=== PATIENT | female | born 1990 | race Caucasian/White ===

== ENCOUNTER 2023-03-27 07:10 | Outpatient (CLI) | payer OTHER, SELFPAY ==
--- NOTE | 2023-03-27 07:15 | CRLHL7_ITS ---
For Patients: As a result of the Cures Act, medical imaging exams and procedure reports are released immediately into your electronic medical record. You may view this report before your referring provider. If you have questions, please contact your health care provider. INDICATION: First trimester scan, establish dates. COMPARISON: None. TECHNIQUE: Real-time hutson-scale imaging of the pelvis was performed. FINDINGS: Sonographic imaging demonstrates a single living intrauterine gestation. The embryo demonstrates a regular cardiac rate measuring 169 beats per minute. The embryo`s crown-rump length measurement of 1.6 cm corresponds to a gestational age of 8 weeks 0 days with a sonographic due date of 11/06/2023. There is a normal-appearing yolk sac. There are no gross abnormalities noted within the embryo at this early state of development. The gestational sac has a normal appearance. There is no evidence of a perigestational hemorrhage. The amount of fluid within the sac appears appropriate for gestational age. The cervix is closed. The myometrium appears normal. The ovaries are of normal size. Corpus luteal cyst right ovary. There are no suspicious fluid collections noted in the cul-de-sac. IMPRESSION: Normal first trimester OB ultrasound exam. Gestational age calculated at 8 weeks 0 days with a sonographic due date of 11/06/2023. Dictated by Jose Veloz MD @ 03/27/2023 3:55:54 PM (Electronically Signed)
== END 2023-03-27 07:11 | disposition home or self-care (01) ==
LOC: US 07:12
PROVIDERS: Visit Provider Advanced Practice Midwife
DX: Z34.91 Encounter for supervision of normal pregnancy, unspecified, first trimester (principal); Z3A.08 8 weeks gestation of pregnancy
CPT/HCPCS: 76801; 86592; 86703; 86704; 86706; 86762; 86787; 86803; 86850; 86900; 86901; 87340

== ENCOUNTER 2023-03-30 09:30 | Outpatient (CLI) | payer OTHER, SELFPAY | END 2023-03-30 09:31 | disposition home or self-care (01) | LOC: NFLDREF 04-01 10:45 | PROVIDERS: Visit Provider Advanced Practice Midwife | DX: Z86.39 Personal history of other endocrine, nutritional and metabolic disease (principal) | CPT/HCPCS: 84443 ==

== ENCOUNTER 2023-04-10 08:12 | Outpatient (CLI) | payer OTHER, SELFPAY ==
--- NOTE | 2023-04-10 08:15 | CRLHL7_ITS ---
For Patients: As a result of the Century Cures Act, medical imaging exams and procedure reports are released immediately into your electronic medical record. You may view this report before your referring provider. If you have questions, please contact your health care provider. INDICATION: Follow up viability COMPARISON: 03/27/2023 TECHNIQUE: Real-time hutson-scale imaging of the pelvis was performed. FINDINGS: Sonographic imaging demonstrates a single living intrauterine gestation. The embryo demonstrates a regular cardiac rate measuring 166 beats per minute. The embryo`s crown-rump length measurement of 3.2 cm corresponds to a gestational age of 10 weeks 0 days with a sonographic due date of 11/06/2023. There is a normal-appearing yolk sac. There are no gross abnormalities noted within the embryo at this early state of development. The gestational sac has a normal appearance. There is no evidence of a perigestational hemorrhage. The amount of fluid within the sac appears appropriate for gestational age. The cervix is closed. The myometrium appears normal. The ovaries are of normal size. Corpus luteal cyst right ovary. There are no suspicious fluid collections noted in the cul-de-sac. IMPRESSION: Normal first trimester OB ultrasound exam. Gestational age calculated at 10 weeks 0 days with a sonographic due date of 11/06/2023. Dictated by Jose Veloz MD @ 04/10/2023 9:00:41 AM (Electronically Signed)
== END 2023-04-10 08:13 | disposition home or self-care (01) ==
LOC: US 08:13
PROVIDERS: Visit Provider Advanced Practice Midwife
DX: Z34.91 Encounter for supervision of normal pregnancy, unspecified, first trimester (principal); Z3A.10 10 weeks gestation of pregnancy
CPT/HCPCS: 76816

== ENCOUNTER 2023-06-20 11:01 | Outpatient (CLI) | payer OTHER, SELFPAY ==
[2023-06-20] VITALS (8 sets, daily range): BP systolic 94–102; BP diastolic 57; PULSE 94–112; RESP 18; TEMP 36.7; O2SAT 89–100; BMI 24.7
[2023-06-20] MEDS: LACTATED RINGERS 1000 ML 1,000 ML IV (13:30)
[2023-06-20 13:51] LABS: Appearance Urine Clear (Clear); Bilirubin Urine Negative (Negative); Blood Urine Negative (Negative); Color Urine Yellow (Yellow); Glucose Urine Negative (Negative); Ketones Urine Trace (Negative); Leukocyte Esterase Urine Trace (Negative); Nitrite Urine Negative (Negative); Protein Urine Negative (Negative); Specific Gravity Urine 1.025 (1.000-1.030); Urobilinogen Urine 0.2 (0.2-1.0); pH Urine 5.5 (5.0-8.5)
[2023-06-20 14:01] LABS: Amnisure Rom* Negative
[2023-06-20 14:02] LABS: Clue Cells No Clue Cells Seen (None Seen); Trichomonas No Trichomonas Seen (None Seen); Yeast Yeast Seen (None Seen)
[2023-06-20 14:18] LABS: Bacteria Urine Few; RBC Urine 0-2 (0-2); Squamous Epithelial Cell Urine Few (None-Few)
== END 2023-06-20 14:48 | disposition home or self-care (01) ==
LOC: ED 11:37 → OB CLI 11:40 → OB 11:41
PROVIDERS: Emergency Provider Emergency Medicine Emergency Medical Services; Visit Provider Advanced Practice Midwife
DX: O98.512 Other viral diseases complicating pregnancy, second trimester (principal); U07.1 COVID-19; Z3A.21 21 weeks gestation of pregnancy; J02.9 Acute pharyngitis, unspecified; R50.9 Fever, unspecified
CPT/HCPCS: 81003; 81015; 84112; 87086; 87210; 99213; J7120

== ENCOUNTER 2023-06-26 07:19 | Outpatient (CLI) | payer OTHER, SELFPAY ==
--- NOTE | 2023-06-26 07:15 | CRLHL7_ITS ---
For Patients: As a result of the Century Cures Act, medical imaging exams and procedure reports are released immediately into your electronic medical record. You may view this report before your referring provider. If you have questions, please contact your health care provider. INDICATION: Evaluate anatomy. COMPARISON: 04/10/2023 TECHNIQUE: Real time hutson scale imaging of the fetus was performed as well as color Doppler analysis of the umbilical vessels. FINDINGS: Sonographic imaging demonstrates a single living intrauterine gestation. Fetus demonstrates a regular cardiac rate of 150 beats per minute. Fetus has a variable position. The placenta lies posteriorly without evidence of placenta previa. The heads of the placenta is located 4.7 cm from the internal cervical os. Amniotic fluid volume appears normal. Single deepest vertical pocket: 4.3 cm. The cervix is closed and measures 3.8 cm in length. The composite ultrasound gestational age is calculated at 21 weeks 2 days with an estimated sonographic due date of 11/04/2023. The estimated weight is 445 grams which lies at the 82nd %. The following biometric measurements were obtained: Biparietal diameter: 4.9 cm/20 weeks 5 days 39th% Head circumference: 18.6 cm/20 weeks 6 days 37th% Abdominal circumference: 17.4 cm/22 weeks 2 days 83rd% Femur length: 3.6 cm/21 weeks 2 days 50th% The HC/AC ratio measures: 1.07 range (1.06-1.24) On anatomic survey, there is a normal appearance of the cerebral ventricles, cavum septi pellucidi, cisterna magna and cerebellum. The nose, lips, and facial profile appear normal. The cervical, thoracic and lumbar spine are well visualized and appear normal. There is a normal four-chamber heart view and the left and right ventricular outflow tracts appear normal. Echogenic focus is present adjacent to the stomach, image 42/66. This may be associated with the stomach wall. Fat the kidneys and bladder also appear normal. There is a normal three-vessel cord and there is an eccentric cord insertion site with the cord inserting 2.2 cm from the placental edge. The four extremities appear normal. IMPRESSION: Concordance of clinical and sonographic dating. Echogenic focus associated with the stomach wall or located just outside the stomach. Remainder of the anatomic survey is normal. Level 2 ultrasound recommended. Eccentric placental cord insertion 2.2 cm from the placental edge. Dictated by Jose Veloz MD @ 06/26/2023 9:46:15 AM (Electronically Signed)
== END 2023-06-26 07:20 | disposition home or self-care (01) ==
LOC: US 07:20
PROVIDERS: PCP Family Medicine; Visit Provider Advanced Practice Midwife
DX: Z34.92 Encounter for supervision of normal pregnancy, unspecified, second trimester (principal); Z3A.21 21 weeks gestation of pregnancy
CPT/HCPCS: 76805

== ENCOUNTER 2023-08-13 08:09 | Outpatient (CLI) | payer OTHER, SELFPAY | END 2023-08-13 08:10 | disposition home or self-care (01) | PROVIDERS: PCP Family Medicine; Visit Provider Advanced Practice Midwife | DX: O26.891 Other specified pregnancy related conditions, first trimester (principal); Z67.91 Unspecified blood type, Rh negative; E03.9 Hypothyroidism, unspecified | CPT/HCPCS: 84443; 86592; 86850; J2791 ==

== ENCOUNTER 2023-08-26 12:54 | Emergency (ER) | payer OTHER, SELFPAY ==
--- NOTE | 2023-08-26 13:00 | US_ITS ---
Patient: JIA CHU Facility:?[facility] Patient ID:?[id number] Site Patient ID:?[id number]. Site :?[id number] Study:?US-Extremity Right DVT-08/26/2023 1:38:13 PM Ordering Physician:?ED Final Report: INDICATION: Leg pain and swelling. TECHNIQUE: Ultrasound venous duplex lower right extremity. Compression venous exam was performed using hutson-scale, color Doppler, and spectral Doppler analysis. COMPARISON: None. FINDINGS: Deep veins: Sonographic imaging demonstrates the right common femoral, deep femoral, superficial femoral, popliteal, posterior tibial and the contralateral left common femoral veins to be fully compressible with normal color Doppler blood flow. Superficial veins: Greater saphenous vein is fully compressible. No popliteal cyst. IMPRESSION: No DVT in the right lower extremity. Dictated by Eli Morejon MD @ 08/26/2023 1:50:11 PM Signed by:?Eli Morejon MD @08/26/2023 1:50:11 PM (Electronic Signature)
--- NOTE | 2023-08-26 13:03 | ED.GENADULT ---
HPI - General Adult General Chief complaint: Extremity Pain/Injury, Lower Stated complaint: Possible DVT R leg, 29 weeks Time Seen by Provider: 08/26/23 12:59 History of Present Illness HPI narrative: Patient about 29 weeks estimated gestational age with some cramping feeling in her right calf similar to when she had a DVT in the leg before. They simply observed in the past this was due to a fall.. The patient reports that she has last couple days she has had some cramping in her calf. She has good movement, no other complications of . She is Rh negative. She call [facility] triage alert [facility] and she was sent to the ER. She does not notice any swelling of her calf but feels there is a cramping feeling there and was concerned about DVT. No shortness of breath no chest pain. Related Data Home Medications Medication Instructions Recorded Confirmed omeprazole 40 mg capsule,delayed 40 mg PO QAM 03/27/23 08/13/23 release vitamin with calcium 1 tab PO DAILY 03/27/23 08/13/23 no.72-iron 27 mg-folic acid 1 mg tablet ( Vitamins Plus Low Iron) acetaminophen 325 mg capsule 325 mg PO ONCE PRN 06/26/23 08/13/23 acetaminophen-caffeine 500 mg-65 1 tab PO Q12H PRN 06/26/23 08/13/23 mg tablet (Excedrin Tension Headache) sumatriptan succinate 50 mg tablet 50 mg PO Q2H PRN 07/16/23 08/13/23 (Imitrex) Previous Rx's Medication Instructions Recorded metoclopramide HCl 10 mg tablet 10 mg PO Q6-8H PRN headache #14 04/10/23 (Reglan) tabs Allergies Allergy/AdvReac Type Severity Reaction Status Date / Time contact metal agent AdvReac Intermediate Blister Verified 08/13/23 08:28 doxycycline AdvReac Intermediate Gastrointestinal Verified 08/13/23 08:28 Upset nickel AdvReac Intermediate Blister Verified 08/13/23 08:28 Review of Systems Status of ROS: Reports: 6 or more systems reviewed and unremarkable except as noted in History and below [facility] Medical History History of cardiac murmur ?Z86.79 - Personal history of other diseases of the circulatory system (ICD-10) History of depression ?Z86.59 - Personal history of other mental and behavioral disorders (ICD-10) Thyroid dysfunction, ?O99.285 - Endocrine, nutritional and metabolic diseases complicating the puerperium (ICD-10) ?E07.9 - Disorder of thyroid, unspecified (ICD-10) Migraine headache without aura ?G43.009 - Migraine without aura, not intractable, without status migrainosus (ICD-10) History of DVT of lower extremity ?Z86.718 - Personal history of other venous thrombosis and embolism (ICD-10) Surgical History History of cholecystectomy ?Z90.49 - Acquired absence of other specified parts of digestive tract (ICD-10) [place] teeth extracted ?K08.409 - Partial loss of teeth, unspecified cause, unspecified class (ICD-10) Hx of tonsillectomy ?Z90.89 - Acquired absence of other organs (ICD-10) Family History Aunt Breast cancer, Onset Age: 50 Aunt Breast cancer, Onset Age: 50 Father Lung cancer Arthritis Smoker Maternal Grandfather Lung cancer Maternal Grandmother Arthritis Dementia Diabetes Sleep apnea Thyroid disease Mother Sleep apnea Thyroid disease Rheumatoid arthritis Aunt Breast cancer, Onset Age: 40 Thyroid disease Diabetes Depression Paternal Grandfather Prostate cancer Paternal Grandmother Dementia Sister Depression Anesthesia complication Uncle Colon cancer Prostate cancer Rectal cancer Social History Narrative: SOCIAL 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 Unable to assess present due to partner presence. Special Diet: Denies Ok with a blood transfusion: yes Culture or confucianist beliefs: hinduism RISK FACTORS Exercise Times/wk: walks occasionally Depression/Anxiety: history but feels stable at this time OLAF: 8 PHQ 9: 10 Seat Belt Use: Routinely Smoking: Denies past/present Alcohol/day: Denies while Caffeine: occasionally tea Drug Use: Denies past/present. THC gummy's before +UPT Chicken Pox: vaccinated as an adult MRSA: Denies What is your current living situation?: I presently have a place to live Problems where you live: pests, such as bugs, ants, or mice In the past 12 months, utilities in danger of being shut off: no In past 12 months, lack of transportation kept you from medical appts, meetings, work, or getting things needed for daily living: no In the past 12 mos, have been you worried that your food would run out before you had money to buy more?: never true In the past 12 mos, the food you bought just didn't last and you didn't have money to buy more?: never true Smoking Status: Never smoker Do you use any of these nicotine containing products: None Second hand tobacco smoke exposure: No How often do you have a drink containing alcohol: monthly or less How many standard drinks containing alcohol do you have on a typical day: 1 or 2 How often do you have six or more drinks on one occasion: Never AUDIT-C Alcohol total score: 1 Non-prescribed substance use: denies use How often does anyone, including family, friends and others, physically hurt you: never How often does anyone, including family, friends and others, insult or talk down to you: rarely How often does anyone, including family, friends and others, threaten you with harm: never How often does anyone, including family, friends and others, scream or curse at you: sometimes Little interest or pleasure in doing things: not at all Feeling down, depressed, or hopeless: not at all service: No Exam Narrative: Exam Narrative: Objective: The patient's alert orient x, noncyanotic Pulses regular lower extremities show no swelling of the calf no give Homans sign bilaterally no palpable venous cords in the calf on the right. Does not appear to be swollen, no swelling about the foot or ankle Const: Vital Signs, click to edit/add: Vital Signs - 24 hr 08/26/23 13:04 Temperature 98.1 F Pulse Rate [Pulse Oximeter] 87 Respiratory Rate 18 Blood Pressure [Ri ght Upper Arm] 111/69 Pulse Oximetry 97 Oxygen Delivery Me thod Room Air Course Vital Signs Vital signs: Initial Vital Signs Temperature 98.1 F 08/26/23 13:04 Temperature Source Temporal Artery Scan 08/26/23 13:04 Pulse Rate 87 08/26/23 13:04 Pulse Rhythm Regular 08/26/23 13:04 Respiratory Rate 18 08/26/23 13:04 Blood Pressure 111/69 08/26/23 13:04 Blood Pressure Mean 83 08/26/23 13:04 Blood Pressure Position Supine 08/26/23 13:04 Pulse Oximetry 97 08/26/23 13:04 Oxygen Delivery Method Room Air 08/26/23 13:04 Vital Signs Temperature 98.1 F 08/26/23 13:04 Pulse Rate 87 08/26/23 13:04 Respiratory Rate 18 08/26/23 13:04 Blood Pressure 111/69 08/26/23 13:04 Pulse Oximetry 97 08/26/23 13:04 Oxygen Delivery Method Room Air 08/26/23 13:04 Temperature 98.1 F 08/26/23 13:04 Pulse Rate 87 08/26/23 13:04 Respiratory Rate 18 08/26/23 13:04 Blood Pressure 111/69 08/26/23 13:04 Pulse Oximetry 97 08/26/23 13:04 Oxygen Delivery Method Room Air 08/26/23 13:04 Medical Decision Making MDM Narrative Medical decision making narrative: ER course: The patient will get an ultrasound of her right lower extremity measures and have a DVT. In the past she simply had this observed and it resolved. At this time I would recommend simply checking an ultrasound and then disposition pending findings. She was comfortable this plan. She has no problem with movement no vaginal bleeding or discharge no abdominal cramping. Just basically the cramp in the the calf on the right. Addendum 1:30 p.m.: There is no evidence of DVT on the right lower extremity ultrasound. Recommend stretching Tylenol as needed, follow-up with Ob per regular plan, return if problems or concerns. Discharge Plan Discharge Clinical Impression: Pain of right calf, Patient Disposition: Home, Self-Care Condition: Stable Additional Instructions: Recheck with OB as you had plan, walking and stretching would be good, Tylenol as needed. Return to the ED if problems concerns swelling of the leg or other concern such as difficulty breathing or chest pain. Activity Level: Light activity Discharge Diet: Regular Prescriptions: No Action omeprazole 40 mg capsule,delayed release(DR/EC) 40 mg PO QAM Vitamin Plus Low Iron 27 mg iron- 1 mg tablet 1 tab PO DAILY acetaminophen 325 mg capsule 325 mg PO ONCE PRN Excedrin Tension Headache 500-65 mg tablet 1 tab PO Q12H PRN sumatriptan succinate [Imitrex] 50 mg tablet 50 mg PO Q2H PRN metoclopramide HCl [Reglan] 10 mg tablet 10 mg PO Q6-8H PRN (Reason: headache) Qty: 14 0RF Rx Instructions: Take 10mg every 6-8 hours with Tylenol as needed for headaches. Follow Up/Referrals: Fidelina Bar MD [Primary Care Provider] - Stand Alone [facility]: [facility] Info Instructions
[2023-08-26 13:04] VITALS: BP 111/69; PULSE 87; RESP 18; TEMP 36.7; O2SAT 97; BMI 26.6
== END 2023-08-26 13:45 | disposition home or self-care (01) ==
PROVIDERS: Emergency Provider Family Medicine; PCP Family Medicine
DX: M79.604 Pain in right leg (principal); Z33.1 Pregnant state, incidental
CPT/HCPCS: 93971; 99284

== ENCOUNTER 2023-08-27 09:08 | Emergency (ER) | payer OTHER, SELFPAY ==
[2023-08-27 09:15] VITALS: BP 112/58; PULSE 81; RESP 18; TEMP 36.4; O2SAT 96; BMI 27.3
--- NOTE | 2023-08-27 09:59 | ED_ITS ---
HPI - General Adult General Date Seen: 08/27/23 Chief complaint: Extremity Pain/Injury, Lower Stated complaint: Possible DVT R leg, 29 weeks Time Seen by Provider: 08/27/23 09:15 Source: patient Mode of arrival: ambulatory Limitations: no limitations History of Present Illness HPI narrative: Patient is a 32-year-old woman, she is with her 3rd . About 5 years ago she says that she had a diagnosis of DVT in the right calf. She had had a fall around the same time, had some isolated calf pain. She says that she had an ultrasound done at [place], but says that they did not look at all the small side veins, only the main system, and the DVT was missed on the 1st ultrasound. She has had pain in her right calf for couple of days, was here yesterday and had a normal exam, normal ultrasound. She has not had any swelling or redness, fevers, difficulty breathing. She says she talked to her nurse sterilization specialist today and relayed her previous experience and was told to come back and get a more thorough ultrasound. She was not anticoagulated for her previous clot, it resolved without treatment. She has not had any problems with DVT with prior pregnancies. She has no history of miscarriages. She does not smoke. Related Data Home Medications Medication Instructions Recorded Confirmed omeprazole 40 mg capsule,delayed 40 mg PO QAM 03/27/23 08/27/23 release vitamin with calcium 1 tab PO DAILY 03/27/23 08/27/23 no.72-iron 27 mg-folic acid 1 mg tablet ( Vitamins Plus Low Iron) acetaminophen 325 mg capsule 325 mg PO ONCE PRN 06/26/23 08/27/23 acetaminophen-caffeine 500 mg-65 1 tab PO Q12H PRN 06/26/23 08/27/23 mg tablet (Excedrin Tension Headache) sumatriptan succinate 50 mg tablet 50 mg PO Q2H PRN 07/16/23 08/27/23 (Imitrex) Previous Rx's Medication Instructions Recorded metoclopramide HCl 10 mg tablet 10 mg PO Q6-8H PRN headache #14 04/10/23 (Reglan) tabs Allergies Allergy/AdvReac Type Severity Reaction Status Date / Time contact metal agent AdvReac Intermediate Blister Verified 08/13/23 08:28 doxycycline AdvReac Intermediate Gastrointestinal Verified 08/13/23 08:28 Upset nickel AdvReac Intermediate Blister Verified 08/13/23 08:28 Review of Systems Status of ROS: Reports: 6 or more systems reviewed and unremarkable except as noted in History and below [facility] Medical History History of cardiac murmur ?Z86.79 - Personal history of other diseases of the circulatory system (ICD- 10) History of depression ?Z86.59 - Personal history of other mental and behavioral disorders (ICD-10) Thyroid dysfunction, ?O99.285 - Endocrine, nutritional and metabolic diseases complicating the puerperium (ICD-10) ?E07.9 - Disorder of thyroid, unspecified (ICD-10) Migraine headache without aura ?G43.009 - Migraine without aura, not intractable, without status migrainosus (ICD-10) History of DVT of lower extremity ?Z86.718 - Personal history of other venous thrombosis and embolism (ICD-10) Surgical History History of cholecystectomy ?Z90.49 - Acquired absence of other specified parts of digestive tract (ICD- 10) [place] teeth extracted ?K08.409 - Partial loss of teeth, unspecified cause, unspecified class (ICD- 10) Hx of tonsillectomy ?Z90.89 - Acquired absence of other organs (ICD-10) Family History Aunt Breast cancer, Onset Age: 50 Aunt Breast cancer, Onset Age: 50 Father Lung cancer Arthritis Smoker Maternal Grandfather Lung cancer Maternal Grandmother Arthritis Dementia Diabetes Sleep apnea Thyroid disease Mother Sleep apnea Thyroid disease Rheumatoid arthritis Aunt Breast cancer, Onset Age: 40 Thyroid disease Diabetes Depression Paternal Grandfather Prostate cancer Paternal Grandmother Dementia Sister Depression Anesthesia complication Uncle Colon cancer Prostate cancer Rectal cancer Social History Narrative: SOCIAL 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 Unable to assess present due to partner presence. Special Diet: Denies Ok with a blood transfusion: yes Culture or scientology beliefs: voodoo RISK FACTORS Exercise Times/wk: walks occasionally Depression/Anxiety: history but feels stable at this time OLAF: 8 PHQ 9: 10 Seat Belt Use: Routinely Smoking: Denies past/present Alcohol/day: Denies while Caffeine: occasionally tea Drug Use: Denies past/present. THC gummy's before +UPT Chicken Pox: vaccinated as an adult MRSA: Denies What is your current living situation?: I presently have a place to live Problems where you live: pests, such as bugs, ants, or mice In the past 12 months, utilities in danger of being shut off: no In past 12 months, lack of transportation kept you from medical appts, meetings, work, or getting things needed for daily living: no In the past 12 mos, have been you worried that your food would run out before you had money to buy more?: never true In the past 12 mos, the food you bought just didn't last and you didn't have money to buy more?: never true Smoking Status: Never smoker Do you use any of these nicotine containing products: None Second hand tobacco smoke exposure: No How often do you have a drink containing alcohol: monthly or less How many standard drinks containing alcohol do you have on a typical day: 1 or 2 How often do you have six or more drinks on one occasion: Never AUDIT-C Alcohol total score: 1 Non-prescribed substance use: denies use How often does anyone, including family, friends and others, physically hurt you : never How often does anyone, including family, friends and others, insult or talk down to you: rarely How often does anyone, including family, friends and others, threaten you with harm: never How often does anyone, including family, friends and others, scream or curse at you: sometimes Little interest or pleasure in doing things: not at all Feeling down, depressed, or hopeless: not at all service: No Exam Narrative: Exam Narrative: Vital signs reviewed In general, alert, well-appearing Woman. She is breathing easily. Extremities: Isolated tenderness right mid calf, no edema, erythema, distal CMS intact. Const: Vital Signs, click to edit/add: Vital Signs - 24 hr 08/27/23 09:15 Temperature 97.6 F Pulse Rate [Pulse Oximeter] 81 Respiratory Rate 18 Blood Pressure [Ri ght Upper Arm] 112/58 L Pulse Oximetry 96 Oxygen Delivery Me thod Room Air Documenting provider has reviewed patient's vital signs: yes Course Course ED Course: I reviewed the patient's note from yesterday, reviewed the images from her ultrasound, and spoke with security technician. The scan from yesterday was done in standard fashion, all areas of the deep system were visualized and were negative for DVT. I have discussed all of this with the patient. I do not think there is any value in repeating an ultrasound today as it will be identical to yesterday's. I do think that given her history it would be reasonable to repeat a scan in a week or so to make sure that anything tiny that she might have has not propagated. She is very comfortable with that plan, would prefer to go home as quickly as possible as she did not want come back to the ER today. I do think very follow-up ultrasound can be done as an outpatient. Will ask her nurse sterilization specialist to arrange for that. If her symptoms resolve, she can cancel that test. If she has acute worsening, has significant swelling or redness of the leg, fevers, chest pain shortness of breath etcetera, return any time to the emergency department. Vital Signs Vital signs: Initial Vital Signs Temperature 97.6 F 08/27/23 09:15 Temperature Source Temporal Artery Scan 08/27/23 09:15 Pulse Rate 81 08/27/23 09:15 Respiratory Rate 18 08/27/23 09:15 Blood Pressure 112/58 L 08/27/23 09:15 Blood Pressure Mean 76 08/27/23 09:15 Blood Pressure Position Standing 08/27/23 09:15 Pulse Oximetry 96 08/27/23 09:15 Oxygen Delivery Method Room Air 08/27/23 09:15 Vital Signs Temperature 97.6 F 08/27/23 09:15 Pulse Rate 81 08/27/23 09:15 Respiratory Rate 18 08/27/23 09:15 Blood Pressure 112/58 L 08/27/23 09:15 Pulse Oximetry 96 08/27/23 09:15 Oxygen Delivery Method Room Air 08/27/23 09:15 Temperature 97.6 F 08/27/23 09:15 Pulse Rate 81 08/27/23 09:15 Respiratory Rate 18 08/27/23 09:15 Blood Pressure 112/58 L 08/27/23 09:15 Pulse Oximetry 96 08/27/23 09:15 Oxygen Delivery Method Room Air 08/27/23 09:15 Discharge Plan Discharge Clinical Impression: Right calf pain Patient Disposition: Home, Self-Care Condition: Stable Instructions: Leg Pain (ED) Additional Instructions: Follow-up for outpatient Doppler exam in about a week if symptoms persist. If your symptoms resolve you can cancel this test. Try ice or heat to this area, Tylenol. For significant worsening, new symptoms such as swelling, redness, fever, chest pain or shortness of breath return to the emergency department. Prescriptions: No Action omeprazole 40 mg capsule,delayed release(DR/EC) 40 mg PO QAM Vitamin Plus Low Iron 27 mg iron- 1 mg tablet 1 tab PO DAILY acetaminophen 325 mg capsule 325 mg PO ONCE PRN Excedrin Tension Headache 500-65 mg tablet 1 tab PO Q12H PRN sumatriptan succinate [Imitrex] 50 mg tablet 50 mg PO Q2H PRN metoclopramide HCl [Reglan] 10 mg tablet 10 mg PO Q6-8H PRN (Reason: headache) Qty: 14 0RF Rx Instructions: Take 10mg every 6-8 hours with Tylenol as needed for headaches. Follow Up/Referrals: Fidelina Bar MD [Primary Care Provider] - Stand Alone Forms: [employer] Info Instructions
== END 2023-08-27 10:08 | disposition home or self-care (01) ==
PROVIDERS: Emergency Provider Emergency Medicine; PCP Family Medicine
DX: M79.661 Pain in right lower leg (principal); Z3A.29 29 weeks gestation of pregnancy
CPT/HCPCS: 99283; 99284

== ENCOUNTER 2023-10-08 11:00 | Outpatient (CLI) | payer OTHER, SELFPAY | END 2023-10-08 11:01 | disposition home or self-care (01) | LOC: NFLDREF 10-09 05:51 | PROVIDERS: PCP Family Medicine; Referring Provider Family Medicine; Visit Provider Advanced Practice Midwife | DX: O35.DXX0 Maternal care for other (suspected) fetal abnormality and damage, fetal gastrointestinal anomalies, not applicable or unspecified (principal) | CPT/HCPCS: 82565; 82570; 84156; 84450; 84460; 84520; 87081; 87653 ==

== ENCOUNTER 2023-10-12 14:18 | Outpatient (CLI) | payer OTHER, SELFPAY | END 2023-10-12 14:19 | disposition home or self-care (01) | LOC: NFLDREF 10-22 12:56 | PROVIDERS: PCP Family Medicine; Referring Provider Family Medicine; Visit Provider Advanced Practice Midwife | DX: R79.89 Other specified abnormal findings of blood chemistry (principal) | CPT/HCPCS: 82565; 82570; 84156; 84443; 84450; 84460; 84520 ==

== ENCOUNTER 2023-10-15 21:20 | Outpatient (CLI) | payer OTHER, SELFPAY ==
[2023-10-15 21:46] VITALS: BP 104/60; PULSE 80
[2023-10-15 22:02] VITALS: BP 108/68; PULSE 83
[2023-10-15 22:03] LABS: Total Protein Urine 7 mg/dL
[2023-10-15 22:05] LABS: Creatinine Urine 45.6 mg/dL
[2023-10-15 22:16] VITALS: BP 101/65; PULSE 85
[2023-10-15 22:22] LABS: Appearance Urine Clear (Clear); Bilirubin Urine Negative (Negative); Blood Urine Negative (Negative); Color Urine Yellow (Yellow); Glucose Urine Negative (Negative); Ketones Urine 2+ (Negative); Leukocyte Esterase Urine 1+ (Negative); Nitrite Urine Negative (Negative); Protein Urine Negative (Negative); Specific Gravity Urine 1.015 (1.000-1.030); Urobilinogen Urine 0.2 (0.2-1.0); pH Urine 5.5 (5.0-8.5)
[2023-10-15 22:28] LABS: Creatinine* 0.6 mg/dL (0.5-1.5); Estimated Glomerular Filt Rate 121 ml/min; Hematocrit 36.3 % (33.0-51.0); Hemoglobin* 12.5 gm/dL (12.0-16.0); Mean Corpuscular HGB Conc 34 gm/dL (32-36); Mean Corpuscular Hemoglobin 33 pg (26-34); Mean Corpuscular Volume 96 fL (80-100); Platelet Count* 204 K/uL (140-440); White Blood Count* 11.96 K/uL (4.50-11.00)
[2023-10-15 22:29] LABS: Alanine Aminotransferase* 45 U/L (4-35); Aspartate Amino Transferase* 33 U/L (12-35); Blood Urea Nitrogen* 16 mg/dL (5-24)
[2023-10-15 22:31] VITALS: BP 105/67; PULSE 89
[2023-10-15 22:40] LABS: Amorphous Sediment Urine Few; Bacteria Urine Moderate; Squamous Epithelial Cell Urine Moderate (None-Few)
[2023-10-15 22:42] LABS: Slide Review Reflex No
[2023-10-15 22:46] VITALS: BP 102/65; PULSE 77
--- NOTE | 2023-10-15 23:42 | US_ITS ---
Patient: JIA CHU Facility:?[facility] Patient ID:?[id number] Site Patient ID:?[id number]. Site :?1990 Study:?US-Abdomen RUQ-10/16/2023 12:44:29 AM Ordering Physician:TYRELL CHANEY Final Report: INDICATION: Right upper quadrant abdomen pain. TECHNIQUE: Ultrasound abdomen limited. Sonographic images of the right upper quadrant were obtained using hutson-scale and color Doppler images. COMPARISON: None. FINDINGS: Liver: Normal in size and echotexture. No suspicious masses. No intrahepatic biliary dilatation. Gallbladder: Absent Common bile duct: 4 mm. Pancreas: Partially visualized, unremarkable. Right kidney: Normal in size. Normal echotexture and cortex. No suspicious masses, stones. Mild to moderate hydronephrosis. IMPRESSION: 1. Status post cholecystectomy. 2. Mild to moderate right hydronephrosis. Dictated by Eli Morejon MD @ 10/16/2023 12:58:54 AM Signed by:?Eli Morejon MD @10/16/2023 12:58:54 AM (Electronic Signature)
[2023-10-16 00:52] VITALS: BP 101/59; PULSE 76
--- NOTE | 2023-10-16 00:53 | P.OBLDTN_ITS ---
OB - Triage/Final Diagnosis Visit Information Date Seen: 10/15/23 Date of evaluation: 10/15/23 Narrative: The patient is a 33 year old 3 para 2 at 36.6 weeks gestation by first trimester ultrasound, who presents with right rib and flank pain, dizziness and blurry vision. She previously had elevated LFT's but no protein in her urine. On admission to triage her blood pressures are all low 100-110/60-70's. Repeat labs are WNL with decreasing AST and ALT. UA is suspicious for kidney stones with blood and sediment seen. She denies UTI symptoms other than frequency but she is unsure if this is just related. She has been able to push oral fluids while here. Consult with Dr. Hobbs by phone and she suggested ultrasound of RUQ and right kidney. Bedside US done of RUQ and right kidney, per tech shows signs of hydronephrosis. Unable to visualize any stones although view is limited by . She has had her gallbladder removed in the past. She has had regular contractions while monitored, but is not aware of all of them and denies increasing intensity. Reason for evaluation: other Evaluation Cervical dilation (cm): 1 Cervical effacement (%): 50 Laboratory results: Laboratory Tests 10/15/23 10/15/23 10/15/23 Range/Units 22:04 21:58 21:35 WBC 11.96 H (4.50-11.00) K/uL RBC 3.80 L (4.00-5.20) m/uL Hgb 12.5 (12.0-16.0) gm/dL Hct 36.3 (33.0-51.0) % MCV 96 (80-100) fL MCH 33 (26-34) pg MCHC 34 (32-36) gm/dL Plt Count 204 (140-440) K/uL BUN 16 (5-24) mg/dL Creatinine 0.6 (0.5-1.5) mg/dL Estimated GFR 121 ml/min AST 33 (12-35) U/L ALT 45 H (4-35) U/L Urine Color Yellow (Yellow) Urine Appearance Clear (Clear) Urine pH 5.5 (5.0-8.5) Ur Specific [place] 1.015 (1.000-1.030) Urine Protein Negative (Negative) Urine Glucose (UA) Negative (Negative) Urine Ketones 2+ A (Negative) Urine Blood Negative (Negative) Urine Nitrite Negative (Negative) Urine Bilirubin Negative (Negative) Urine Urobilinogen 0.2 (0.2-1.0) Ur Leukocyte Esterase 1+ A (Negative) Urine RBC 2-5 A (0-2) Urine WBC 2-5 (0-5) Ur Squamous Epith Cells Moderate A (None-Few) Amorphous Sediment Few A (None) Urine Bacteria Moderate A (None) Urine Creatinine 45.6 mg/dL Protein/Creatinin Ratio 0.10 (0-0.19) Urine Total Protein 7 mg/dL Vital signs: Vital Signs - 24 hr 10/15/23 21:46 10/15/23 22:02 10/15/23 22:16 Pulse Rate 80 83 85 Blood Pressure 104/60 108/68 101/65 10/15/23 22:31 10/15/23 22:46 10/16/23 00:52 Pulse Rate 89 77 76 Blood Pressure 105/67 102/65 101/59 L Fetus (Single) Heart Rate Baseline: 135 Retail Route Supervisor Variability: Moderate (6-25) Monitor Accelerations: Present Monitor Decelerations: None Station: -3 Final Diagnosis (1) Kidney stone complicating : Status: Acute Problem details: at 37 wks with kidney stones and hydronephrosis Discharge home with infection precautions and instructed to return if pain is worsening and not managed well with Tylenol, ice, heat and relaxation. Will call with urine culture results if needing antibiotic treatment. Pt to push oral hydration at home. Routine Preeclampsia precautions given, pt verbalized understanding. Return to clinic next week.
[2023-10-16 01:09] VITALS: TEMP 36.4
--- NOTE | 2023-10-16 01:36 | PC.OBNST ---
NST Note NST Note Start: 10/15/23 21:33 Freq: ONCE Status: Active Protocol: Document 10/16/23 01:34 HCR (Rec: 10/16/23 01:36 HCR [id number]) NST Note 3 Para (# of births) 2 EDC 11/06/23 Gestational Age In Weeks & Days 37 Weeks & 0 Days High Risk Factors History of Labor/ Delivery Patient Presented with Complaint(s) of Headache Other Complaints RUQ pain, flank pain, hazy vision, KELLEY, chest heaviness Reactive Yes Appropriate for Gestational Age Yes SALAZAR Macias, SALAZAR Date 10/16/23 Reactive Yes Appropriate for Gestational Age Yes SALAZAR Saab RN Date 10/16/23 OB NST charge Yes Complete NST Note via Write Note Yes The provider's electronic signature indicates the NST is reactive/appropriate for gestational age. *Note to provider: If an addendum is required, open the patient's chart and click on the note under the Nurse/Allied Health tab.
== END 2023-10-16 01:15 | disposition home or self-care (01) ==
LOC: OB OUT 21:20 → OB 21:21
PROVIDERS: PCP Family Medicine; Visit Provider Advanced Practice Midwife
DX: O26.839 Pregnancy related renal disease, unspecified trimester (principal); O99.891 Other specified diseases and conditions complicating pregnancy; N13.30 Unspecified hydronephrosis; N20.0 Calculus of kidney; R10.11 Right upper quadrant pain; Z3A.00 Weeks of gestation of pregnancy not specified
CPT/HCPCS: 36415; 59025; 76705; 81001; 81003; 82565; 82570; 84156; 84450; 84460; 84520; 85027; 87086; G0463

== ENCOUNTER 2024-08-08 19:18 | Emergency (ER) | payer OTHER, BC, SELFPAY ==
[2024-08-08 19:20] VITALS: BP 102/71; PULSE 85; RESP 16; TEMP 36.2; O2SAT 99
--- OUTSIDE RECORDS SUMMARY | 2024-08-08 19:20 | XMS_ITS | Encounter Summary ---
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 Social History Tobacco Use Types Packs/Day Years Used Date Smoking Tobacco: Never Smokeless Tobacco: Never Alcohol Use Standard Drinks/Week Comments No 0 (1 standard drink = 0.6 oz pur e alcohol) Sex and Gender Information Value Date Recorded Sex Assigned at Not on file Gender Identity Not on file Sexual Orientation Not on file documented as of this encounter Plan of Treatment Not on file documented as of this encounter Visit Diagnoses Not on filedocumented in this encounter Care Teams Produce Buyer Relationship Specialty Start Date End Date Martell Ortega MD [address] [place], [place] [phone] PCP - General 06/29/23 documented as of this encounter
--- OUTSIDE RECORDS SUMMARY | 2024-08-08 19:20 | XMS_ITS | Encounter Summary ---
Author Organization [facility] Address [address] [place] [address] Care Team Providers Care Bundle Shaker Name Role Phone Fidelina Bar M.D. Primary Care Provider [phone] Reason for Visit * Reason Onset Date Comments Fatigue 06/30/2024 Dizziness 06/30/2024 Nausea 06/30/2024 Blurred Vision 06/30/2024 Encounter Details Date Type Department Care Team (Late st Contact Info) Description 06/30/2024 Nurse Triage Department of Family Medicine, [facility], in [address] [phone] Yeimy Hay RGhassan. [address] [place] [phone] Fatigue; Dizziness; Nausea; Blurred Vision Social History Tobacco Use Types Packs/Day Years Used Date Smoking Tobacco: Never Smokeless Tobacco: Never Alcohol Use Standard Drinks/Week Comments Not Currently 0 (1 standard drink = 0.6 oz pur e alcohol) occasional Humiliation, Afraid, Rape, and Kick questionnair e Answer Date Recorded Within the last year, have y ou been afraid of your partner or ex-partner? No 02/03/2022 Within the last year, have y ou been humiliated or emotionally abused in other ways by your partner or ex-partner? No Within the last year, have y ou been kicked, hit, slapped, or otherwise physically hurt by your partner or ex-partner? No 02/03/2022 Within the last year, have y ou been raped or forced to have any kind of sexual activity by your partner or ex-partner? No 02/03/2022 Social Connection and Isolat ion Panel [NHANES] Answer Date Recorded In a typical week, how many times do you talk on the phone with family, friends, or neighbors? More than three times a week 02/03/2022 How often do you get togethe r with friends or relatives? Once a week 02/03/2022 How often do you attend chur or methodist services? 1 to 4 times per year 02/03/2022 Do you belong to any clubs o r organizations such as mormon groups, unions, fraternal or athletic groups, or school groups? Yes 02/03/2022 How often do you attend meet ings of the clubs or organizations you belong to? More than 4 times per year 02/03/2022 Are you , , di vorced, , never , or living with a partner? 02/03/2022 AUDIT-C Answer Date Recorded Q1: How often do you have a drink containing alc ohol? 2-4 times a month 02/03/2022 Q2: How many drinks containi ng alcohol do you have on a typical day when you are drinking? 1 or 2 02/03/2022 Q3: How often do you have si x or more drinks on one occasion? Monthly 02/03/2022 Overall Financial Resource Strain (CARDIA) Answe r Date Recorded How hard is it for you to pa y for the very basics like food, housing, medical care, and heating? Somewhat hard 03/10/2023 PHQ-2 Answer Date Recorded PHQ-2 Score 0 12/18/2022 [facility] - Occupational Stress Questionnaire Answer Date Recorded Do you feel stress - tense, restless, nervous, or anxious, or unable to sleep at night because your mind is troubled all the time - these days? Rather much 02/03/2022 Exercise Vital Sign Answer Date Recorde d On average, how many days pe r week do you engage in moderate to strenuous exercise (like a brisk walk)? 3 days 03/10/2023 On average, how many minutes do you engage in exercise at this level? 0 min 03/10/2023 Hunger Vital Sign Answer Date Recorded Within the past 12 months, y ou worried that your food would run out before you got the money to buy more. Never true 03/10/20 Within the past 12 months, t he food you bought just didn't last and you didn't have money to get more. Never true 03/10/2023 PRAPARE - Transportation Answer Date Re corded In the past 12 months, has l ack of transportation kept you from medical appointments or from getting medications? No 02/27 In the past 12 months, has l ack of transportation kept you from meetings, work, or from getting things needed for daily living? No 03/10/2023 Depression Answer Date Recor ded PHQ-9 Total Score (max 27) 7 09/17 Nutrition Answer Date Recorded On average, how many serving s of fruits and vegetables do you eat per day (serving size is equal to 1 cup or approximately the size of a tennis ball)? 5 or more 03/10/2023 Dental Answer Date Recorded Dental: Regular Dentist Yes 02/04/20 Employment Answer Date Recorded Employment status Unemployed/not in th e paid workforce but seeking employment 03/10/2023 Housing Stability Answer Date Recorded What is your living situation today? I have a [facility] place to live 03/10/2023 Education Answer Date Recorded What is the highest level of school you have completed or the highest degree you have received? Bachelor's degree (e.g., BA, AB, BS) 07/05/2020 Comments Unknown Sex and Gender Information Value Date Recorded Sex Assigned at Female 02/16/2018 3:57 PM CDT Legal Sex Female 9:01 AM PONY RIDE OPERATOR Gender Identity Female 02/16/2018 3:57 PM CDT Sexual Orientation Straight 02/16/2018 3: 57 PM CDT documented as of this encounter Miscellaneous Notes * Telephone Encounter - Yeimy Hay R.N. - 06/30/2024 11:06 AM CST Chief Complaint / Reason for Call Patient is a 33 y.o. female calling regarding Fatigue, Dizziness, Nausea, and Blurred Vision. Assessment Concern: Patient with dizziness, fatigue, nausea, and some blurry vision. She states the dizziness is the symptom most bothersome to her. They have 2 carbon monoxide detectors in the home. She notes that her and children are home with her, and no one else has any of these symptoms. See protocol flowsheet for pertinent negatives. Present for: Less than 24 hours. Home cares tried: None. Calling to request: Schedule an appointment. The recommended disposition is See a health care provider within 24 hours. Patient was warm transferred toTara, Patient Appointment Political Science Instructor at the clinic for further assistance. If clinic appointment is not available in the next 24 hours, caller is advised to be seen in emergency department. Reason for Disposition [1] MODERATE dizziness (e.g., interferes with normal activities) AND [2] has NOT been evaluated by doctor (or SCHOOL LEADER/PA) for this (Exception: Dizziness caused by heat exposure, sudden standing, or poor fluid intake.) Protocols used: Dizziness - [id number] Care Advice Patient/Caregiver understands and will follow care advice?: Yes, able to teach back Dizziness - [id number] Nurse Yeimy Gates Jun 30, 2024 11:19 AM Care Advice DRINK FLUIDS: * Drink several glasses of fruit juice, other clear fluids or water. * This will improve hydration and blood sugar levels. * If the weather is hot or you have a fever, make sure the fluids are cold. LIE DOWN AND REST: * Lie down with feet elevated for 1 hour. * This will improve blood flow through the body and to the brain. SEE PCP WITHIN 24 HOURS RIDE OPERATOR documented in this encounter Plan of Treatment Not on file documented as of this encounter Visit Diagnoses Not on filedocumented in this encounter Additional Health Concerns Assessment Noted Time PHQ-9 Depression Total Score: 7 09/18/19 21 12:16 PM CDT documented as of this encounter Care Teams Bundle Shaker Relationship Specialty Start Date End Date Fidelina Bar M.D. SENI: [phone] [id number] [phone] PCP - General Family Medicine 09/07/20 documented as of this encounter
--- OUTSIDE RECORDS SUMMARY | 2024-08-08 19:20 | XMS_ITS | Clinical Summary ---
Author Organization [facility] Address [address] [place] [address] Care Team Providers Care Supervisor Corduroy Cutting Name Role Phone Martell Ortega MD Primary Care Provider [phone] Source Comments You are receiving this document as you are listed as the primary care provider,follow-up provider, or the patient has been referred to you for consultation.This is in compliance with the Medicare and[facility] EHR Incentive Program,which states Providers who transition their patient to another setting of careor provider of care or refers their patient to another provider of care shouldprovide summary care record for each transition of care or referral. [facility] Allergies Active Allergy Reactions Criticality Noted Date Comments Cat Dander Itching,Edema,genera lized 01/05/2018 Cat dander Contact Metal Agent Other, see comments High 024 rash, blister Dog Epithelium (Canis Lupus Familiaris) Edema,generalized,It lisy 01/05/2018 Doxycycline Other, see comments,Gastrointes tinal 05/04/2019 Vomiting within 20 minutes of taking the medication despite taking it with or without food Molds & Smuts Other, see comments 09/14/2020 Scratchy throat, watery eyes, itchiness. Nickel Other, see comments High 08/13/2023 rash, blister Other Other, see comments 08/24/2013 Allergic to lobster Shellfish-Derived Products Hives High 01/05/2018 Medications Medication Sig Dispensed Refills Start Date End Date Status acetaminophen (TYLENOL) 500 MG tablet Take 2 Tablets (1,000 mg) by mouth. 05/14/2022 Active olopatadine (PATADAY) 0.2 % eye drop solutionIndications:A llergic conjunctivitis, bilateral Place 1 Drop into both eyes daily. 2.5 mL 11 09/11/2022 Active plus vitaminIndications:We ll woman exam with routine gynecological exam Take 1 Tablet by mouth daily. 90 Tablet 3 09/11/2022 Active docusate sodium (COLACE) 100 MG capsule Take 1 Capsule (100 mg) by mouth daily. 60 Capsule 10/21/2023 Active sertraline (ZOLOFT) 50 MG tablet Take one-half tablet by mouth daily for 7 days, then take 1 tablet daily. 90 Tablet 10/21/2023 10/20/2024 Active Active Problems Problem Noted Date Diagnosed Date History of shoulder dystocia in prior 10/20/2023 Overview (10/20/2023): X40 seconds in second delivery, resolved with Darell, Suprapubic and [place] Passive suicidal ideations 10/20/2023 Overview (10/21/2023): Do not discuss with anyone but her S.O. per pt request First degree perineal laceration during delivery 10/20/2023 (normal spontaneous vaginal delivery) 10/19 Elevated LFTs 10/20/2023 Hypothyroidism (acquired) 11/21/2015 Blood type, Rh negative 03/29/2015 Overview (03/29/2015): A-negative blood type. Pain of finger of left hand 10/26/2014 Overview (10/26/2014): 4th finger Heart murmur 01/16/2014 Overview (04/28/2014): Saw Dr. Lutz in cardiology on 12/28/13 - ECHO: 01/19/14 normal heart function, no follow-up needed Resolved Problems Problem Noted Date Diagnosed Date Resolved Date Nexplanon in place 12/07/2015 3 Overview (02/18/2017): Nexplanon in place, left arm, exp 12/06/18 ROM (rupture of membranes), premature 09/15/2015 12/06/2015 Labor and delivery, indication for care 09/15/2015 10/21/2023 Shoulder dystocia during lab or and delivery, delivered 09/15/2015 12/06/2015 Nuchal cord 09/15/2015 12/06/2015 Hypothyroidism during 06/25/2015 11/21/2015 Supervision of high-risk 03/26/2015 12/06/2015 Overview (03/26/2015): 1. EDC 10/08/15 by LMP 7/6 c/w 11w1d US on 03/16 2. [facility] [place], CNM 3. H/o delivery at 36+ weeks 4. Closely spaced - 06/02/14 Supervision of normal first 12/05/2013 03/26/2015 Overview (04/28/2014): EDC 06/28/14 by US, Care CNM [facility]. HX Asthma. HX of Heart Murmur referred to [facility]. ASSESSMENT/PLAN: Ms. Beasley is a 23 y/o woman with PMH significant for asthma, hx of heart murmur in childhood, now 14 weeks who presents for evaluation of heart murmur. 1. Heart murmur: Soft flow murmur heard on exam today suggestive of benign flow murmur. She describes a history of an echocardiogram obtained in 2007 and was instructed she could have the echocardiogram repeated in 5 years; although does not know any other details or diagnosis. For further clarification as she is now , will obtain a repeat TTE. 2. Will contact Jenny with the results of the echocardiogram. If no significant findings, she may return on a PRN basis. Thank you for involving me in the care of your patient. If you have any questions or need additional assistance please do not hesitate to contact me. Yumiko Lutz MD --Planning on nursing. --Considering epidural in labor --Mom Torsten and FOB Moy Mcfadden to be present for . Cardiology .Notes Recorded by Yumiko Lutz MD on 01/26/2014 at 10:30 AM Please let Jenny know that her echocardiogram demonstrates normal heart function without significant valve abnormalities. No further follow up is necessary. Yumiko Lutz MD 01/26/2014, 10:30 AM Immunizations Name Administration Dates Next Due 9vHPV (Gardasil 9) 11/30/2008,09/20/2008, 009 DTaP 01/26/1995, 2,12/01/1990,1989,1989 HepB Ped/Adol (0-18 yrs) 02/17/2002,08/30/2001,0 08/02/2001 HepB, Unspecified Formulation 02/17/2002, 002,08/02/2001 Hib (ActHIB) 04/20/1991 IPV (Polio) 12/13/1991, 1,03/29/1990,1989 Influenza IIV4 (Quadrivalent ) 0.5mL (12233) 04/11/2019,05/18/2018,08/01/2016,2014,03/30/2014 Influenza LAIV (Nasal, 2-49 yrs) 05/14/2020 MMR 08/18/2002 Rho(D) - IG, IM 10/20/2023(Deferred: - A-),07/13/2015,04/05/2014 Td (7+ yrs) 08/18/2002 Tdap 08/27/2023, 6,03/30/2014,2010 Varicella 07/12/2020,06/13/2020 Family History Medical History Relation Name Comments Cancer, Lung Father No Known Problems Mother Thyroid Disorder Other 1 mother, gra ndmother, aunts with thyroid disease Other Other 2 Sleep disorder Diabetes Other 3 Other Sister Psychiatric or mood disorder Glaucoma Negative Family History Macular Degeneration Negative Family History Retinal Detachment Negative Family History Relation Name Status Comments Father Alive Mother Alive Maternal Grandfather Maternal Grandmother Other 1 Other 2 Other 3 Paternal Grandfather Paternal Grandmother Sister Alive Son 1 Alive Son 2 Alive Social History Tobacco Use Types Packs/Day Years Used Date Smoking Tobacco: Never Smokeless Tobacco: Never Tobacco Cessation:Counseling Given: Not Answered Alcohol Use Standard Drinks/Week Comments Not Currently 0 (1 standard drink = 0.6 oz pur e alcohol) 1 drink a week [facility] Utilities Answer Date Recorded In the past 12 months has th e electric, gas, oil, or water company threatened to shut off services in your home? No 10/20/2023 Humiliation, Afraid, Rape, and Kick questionnair e Answer Date Recorded Fear of Current or Ex-Partner Not on file Emotionally Abused Not on file 10/20/2023 Within the last year, have y ou been kicked, hit, slapped, or otherwise physically hurt by your partner or ex-partner? No 10/20/2023 Within the last year, have y ou been raped or forced to have any kind of sexual activity by your partner or ex-partner? No 10/20/2023 PHQ-2 Answer Date Recorded PHQ-2 Score 3 09/11/2022 Hunger Vital Sign Answer Date Recorded Within the past 12 months, y ou worried that your food would run out before you got the money to buy more. Sometimes true Within the past 12 months, t he food you bought just didn't last and you didn't have money to get more. Never true PRAPARE - Transportation Answer Date Re corded In the past 12 months, has l ack of transportation kept you from medical appointments or from getting medications? No 09/28 In the past 12 months, has l ack of transportation kept you from meetings, work, or from getting things needed for daily living? No 10/20/2023 Housing Stability Vital Sign Answer Mo e Recorded In the last 12 months, was t here a time when you were not able to pay the mortgage or rent on time? No 10/20/2023 In the last 12 months, how many places have you lived? 1 10/20/2023 In the last 12 months, was t here a time when you did not have a steady place to sleep or slept in a residential (including now)? No 10/20/2023 Sex and Gender Information Value Date Recorded Sex Assigned at Not on file Gender Identity Not on file Sexual Orientation Not on file Last Filed Vital Signs Vital Sign Reading Time Taken Comments Blood Pressure 105/69 10/22/2023 7:30 AM CDT Pulse 71 10/22/2023 7:30 AM CDT Temperature 36.6 C (97.9 F) 10/22/2023 7:30 AM CDT Respiratory Rate 18 10/22/2023 7:30 AM CDT Oxygen Saturation 99% 10/22/2023 7:30 AM CDT Inhaled Oxygen Concentration - - Weight 80.3 kg (177 lb) 10/20/2023 6:00 AM CDT Height 162.6 cm (5' 4) 10/20/2023 6:00 AM CDT Body Mass Index 30.38 10/20/2023 6:00 AM CDT Plan of Treatment Health Maintenance Due Date Last Done Comments Hep C Screening (Preventive Services) 1989 HPV Vaccine (3 - 3-dose series) 02/22/2009 11/30/2008, 09/20/2008, 07/26/2008 COVID-19 Vaccine ( season) 2024 Influenza (#1) 2024 05/14/2020, 03/29, 05/18/2018, Additional history exists Adult Preventive Visit 09/11/2024 09/11/2022, 2015 Cervical Cancer Screening 09/12/2027 09/11/2022, 05/2014 DTaP/Tdap/Td (10 - Tdap) 08/26/2033 024, 07/13/2015, 03/30/2014, Additional history exists Zoster/Shingles (1 of 2) 09/11/2039 Hib Completed 04/20/1991 IPV (Polio) Completed 12/13/1991, 10/1990, 03/29/1990, Additional history exists HepB Completed 02/17/2002, 01/28, 08/30/2001, Additional history exists HIV Screening (Preventive Services) Completed 03/26/2015, 12/08/2013 HepA Aged Out No longer eligi ble based on patient's age to complete this topic MCV4 Aged Out No longer eligi ble based on patient's age to complete this topic Pneumococcal Aged Out No longer eligi ble based on patient's age to complete this topic Procedures Procedure Name Priority Date/Time Associated Diagnosis Comments PAP TEST Routine 09/11/2022 9:29 AM CDT Screening for malignant neoplasm of cervix HIV ANTIBODY Routine 03/26/2015 4:46 PM CDT Supervision of high risk in first trimester from Last 3 Months or Most Recently Relevant to Health Maintenance Results * PAP Test (09/11/2022 9:29 AM CDT) Case Report Pap Case: [id number] Authorizing Provider: Fidelina Francois MD Collected: 09/11/2022 0929 Ordering Location: [facility] and Received: 09/11/2022 1208 [facility] First Screen: Daniel Suarez Rescreen: Ange Metcalf SCT (ASCP) Specimen: Pap Test, Routine, Cervix/Endocervix 09/19/2022 6:45 AM [facility] Pap Specimen Adequacy Satisfactory for evaluation, endocervical/lópez sformation zone component present. 09/19/2022 6:45 AM [facility] Pap Interpretation (NILM) Negative for intraepithelial lesion or malignancy. 09/19/2022 6:45 AM [facility] Pap Other Findings Fungal organisms morphologically consistent with Saima spp. 09/19/2022 6:45 AM [facility] Pap Disclaimer The Pap test is a screening test designed to aid in the detection of cervical cancer and its precursor lesions. It is not a diagnostic procedure and should not be used as the sole means of detecting cervical cancer. Both false-positive and false-negative results may occur. 09/19/2022 6:45 AM [facility] Gross Description The specimen is received in SurePath fixative and properly labeled. 1 Pap-stained SurePath slide is prepared. 09/19/2022 6:45 AM [facility] Embedded Images 6:45 AM [facility] Other Specimen Type ENTIRE ENDOCERVIX / Unknown 09/11/2022 9:29 AM CDT 09/11/2022 12:08 PM CDT Comment:LMP: Patient's last menstrual period was 09/01/2022 (exact date). Fidelina Francois MD LAB PATHOLOGY [address] [address], [facility] [phone] * HIV ANTIBODY (03/26/2015 4:46 PM CDT) HIV 1/2 Antibody Negative (Non Reactive) [facility] [place] Comment: HIV Antibody testing may be falsely negative during the window period. If the patient has had recent exposure (within the past four weeks), consider contacting Infectious Diseases for clarification. 03/26/2015 4:46 PM CDT 03/26/2015 4:48 PM CDT Narrative [facility] [place] - 03/28/2015 11:53 AM CDT Performed at [facility], [address] [place] [address] Germaine Mendes MD LAB_1 Performing Organization Address [facility]/ZIP Co de Phone Number [facility] [place] [phone] from Last 3 Months or Most Recently Relevant to Health Maintenance Advance Directives Documents on File Type Date Recorded Patient Stratigraphy Teacher Expl anation HEALTHCARE DIRECTIVE 07/17/2023 Cora Beasley 024 * Full Code (Latest Code Status on File) Date Activated Date Inactivated Comments 10/20/2023 4:51 AM 10/22/2023 2:57 PM * Full Code Date Activated Date Inactivated Comments 09/15/2015 7:37 AM 09/17/2015 3:18 PM * Full Code Date Activated Date Inactivated Comments 09/15/2015 12:46 AM 09/15/2015 7:37 AM * Full Code Date Activated Date Inactivated Comments 06/01/2014 11:31 AM 06/04/2014 4:57 PM Healthcare Agents on File Name Relationship Healthcare Agent [facility] Communication Cora Beasley Mother Health Care Agent Care Teams Supervisor Corduroy Cutting Relationship Specialty Start Date End Date Martell Ortega MD [address] [place] [address] PCP - General 06/29/23
--- OUTSIDE RECORDS SUMMARY | 2024-08-08 19:20 | XMS_ITS | Encounter Summary ---
Author Organization [facility] Address [address] [place] [address] Care Team Providers Care Wood Miller Name Role Phone Martell Ortega MD Primary Care Provider [phone] Encounter Details Date Type Department Care Team (Late st Contact Info) Description 09/04/2014 Correspondence [facility] OB-MOLD CAR PUSHER Boyd [address] [place] [address] Kade Montalvo APRN, SIMONA RETURN TO WORK AUTHORIZATION FORM Social History Tobacco Use Types Packs/Day Years Used Date Smoking Tobacco: Never Smokeless Tobacco: Never Alcohol Use Standard Drinks/Week Comments No 0 (1 standard drink = 0.6 oz pur e alcohol) 2/beer/not while Sex and Gender Information Value Date Recorded Sex Assigned at Not on file Gender Identity Not on file Sexual Orientation Not on file documented as of this encounter Plan of Treatment Not on file documented as of this encounter Visit Diagnoses Not on filedocumented in this encounter Care Teams Wood Miller Relationship Specialty Start Date End Date Martell Ortega MD [address] [place] [address] PCP - General 06/29/23 documented as of this encounter
--- OUTSIDE RECORDS SUMMARY | 2024-08-08 19:20 | XMS_ITS | Encounter Summary ---
[facility] Address [address] [place] [address] Care Team Providers Care Technical Editor Name Role Phone Martell Ortega MD Primary Care Provider [phone] Encounter Details Date Type Department Care Team (Late st Contact Info) Description 06/04/2014 Correspondence None No Primary/Referring, Phy EQUIPMENT CLIENT OPERATIONS MANAGER TICKET Social History Tobacco Use Types Packs/Day Years [...] on filedocumented in this encounter Care Teams Technical Editor Relationship Specialty Start Date End Date Martell Ortega MD [address] [place] [address] PCP - General 06/29/23 documented as of this encounter
--- OUTSIDE RECORDS SUMMARY | 2024-08-08 19:20 | XMS_ITS | Encounter Summary ---
Author Organization [facility] Address [address] [place] [address] Care Team Providers Care Websphere Commerce Architect Name Role Phone Martell Ortega MD Primary Care Provider [phone] Encounter Details Date Type Department Care Team (Late st Contact Info) Description 12/07/2015 Consent for Procedure/Treatjohn bhandari [facility] [address] [place], [place] [id number] Tawanna Mcleod APRN, CN [address] [place] [address] NEXPLANON CONSENT Social History Tobacco Use Types Packs/Day Years [...] on filedocumented in this encounter Care Teams Websphere Commerce Architect Relationship Specialty Start Date End Date Martell Ortega MD [address] [place], [place] [id number] PCP - General 06/29/23 documented as of this encounter
--- OUTSIDE RECORDS SUMMARY | 2024-08-08 19:20 | XMS_ITS | Encounter Summary ---
[facility] Organization [facility] Address [address] [place] [address] Care Team Providers Care Rubber Stamp Dies Inspector Name Role Phone Martell Ortega MD Primary Care Provider [phone] Encounter Details Date Type Department Care Team (Late st Contact Info) Description 09/04/2014 Correspondence External to External, [place] [address] PT REQUESTING FORM COMPLETION Social History Tobacco Use Types Packs/Day Years [...] on filedocumented in this encounter Care Teams Rubber Stamp Dies Inspector Relationship Specialty Start Date End Date Martell Ortega MD [address] [place] [address] PCP - General 06/29/23 documented as of this encounter
--- OUTSIDE RECORDS SUMMARY | 2024-08-08 19:20 | XMS_ITS | Clinical Summary ---
Author Organization [facility] Address [address] [place] [address] Care Team Providers Care Ophthalmic Technician Name Role Phone Fidelina Bar M.D. Primary Care Provider [phone] Source Comments Patient records contain information from all sites at [facility]. For routine questions regarding patient records, call [phone] during business hours, M-F 8:00 AM - 5:00 PM Central Time. Record requests for emergency care only can be directed to [phone] at any time.[facility] Allergies Active Allergy Reactions Criticality Noted Date Comments Cat Dander Itching,Edema (Reselect Reaction) 01/05/2018 Dog Dander Itching,Edema (Reselect Reaction) 01/05/2018 Doxycycline Hyclate GI intolerance 05/04/2019 Vomiting within 20 minutes of taking the medication despite taking it with or without food Mold Other (see comments) 09/14/2020 Scratchy throat, watery eyes, itchiness. Shellfish Derived Hives (Reselect Reaction) 01/05/2018 Medications * This document contains information received from the source organization and may not represent a complete record from that organization. omeprazole (PriLOSEC) [address] capsule Take 1 capsule (40 mg total) by mouth every morning before breakfast. 90 capsule 2 2 Active Additional Information Patient taking differently:40 mg oral Daily before morning meal,PRN, Reported on 12/18/2022 Vitamin Plus Low Iron 27 mg iron- 1 mg tablet Take 1 tablet by mouth daily. Daily 3 Active omeprazole (PriLOSEC) [address] capsule Take 40 mg by mouth as needed. 3 Active metoclopramide (REGLAN) 10 mg tablet 3 Active SUMAtriptan (IMITREX) 50 mg tablet as needed. 3 Active Active Problems Problem Noted Date Diagnosed Date Bleed Postoperative Initial 05/15/2022 Overview (05/15/2022): Added automatically from request for surgery [id number] Tonsillolithiasis 02/03/2022 Overview (02/03/2022): Added automatically from request for surgery [id number] Hypertrophy Tonsil 02/03/2022 Overview (02/03/2022): Added automatically from request for surgery [id number] Unspecified Blood Type Rhesus Negative 1 Cancer Breast Family History 09/14/2020 Anxiety Generalized Disorder 07/15/2018 Hypothyroidism 11/21/2015 Resolved Problems Problem Noted Date Diagnosed Date Resolved Date Sore Throat 09/21/2019 09/14/2020 Thrombosis Deep Vein Acute Calf Right 01/07/2018 09/14/2020 Overview (09/14/2020): After fall and hitting knee. No anticoagulation. Depression Major One Episode Moderate 02/26/2016 09/14/2020 Pain Leg 09/14/2020 Encounters Date Type Department Care Team Description 06/30/2024 Nurse Triage Department of Family Medicine, [facility], in [address] [id number] Yeimy Hay, RDivinaN. Fatigue; Dizziness; Nausea; Blurred Vision from Last 3 Months Immunizations Immunization Administration Dates Next Due 9vHPV 11/30/2008,09/20/2008,07/26/2008 DTaP (Infanrix, Tripedia) 01/26/1995,,12/01/1990,1989,1989 HepB, Unspecified 02/17/2002,08/30/2001,08/02/19 02 Hib (PRP-T) (ACTHIB, HIBERIX) 04/20/1991 IPV 12/13/1991, 1,03/29/1990,1989 MMR 08/18/2002 Rho (D) Immune Globulin (IM only) 07/13/2015,01/2014 Td Preservative Free (TENIVA C, DECAVAC) 08/18/2002 Td, (Adult) Unspecified 08/18/2002 Tdap 07/13/2015,03/30/2014,11/19/2010 TIMOTEO 07/12/2020,06/13/2020 influenza LAIV (Nasal) (2 ye ars through 49 years) 05/14/2020 influenza vaccine quad (FLUZ ONE) (6 months-35 months) (PF) 04/11/2019 influenza vaccine quad (FLUZONE/FLUARIX) (6 months and older)(PF) 05/14/2020,04/11/2019,05/18/2018,2016,03/26/2015,03/30/2014 Family History Medical History Relation Name Comments Breast cancer Aunt 1 Paternal Breast cancer Aunt 2 Maternal Breast cancer Aunt 3 Maternal Thyroid disease Aunt 3 Maternal Arthritis Father Lung cancer Father Smoker Father Lung cancer Maternal Grandfather Arthritis Maternal Grandmother Dementia Maternal Grandmother Diabetes Maternal Grandmother Sleep apnea Maternal Grandmother Thyroid disease Maternal Grandmother Rheum arthritis Mother Sleep apnea Mother Thyroid disease Mother Breast cancer Mother's Sister Depression Mother's Sister Diabetes Mother's Sister Thyroid disease Mother's Sister Prostate cancer Paternal Grandfather Dementia Paternal Grandmother Anesthesia problems Sister Depression Sister Colon cancer Uncle Maternal Prostate cancer Uncle Maternal Rectal cancer Uncle Maternal Relation Name Status Comments Aunt 1 Paternal Alive Aunt 2 Maternal Alive Aunt 3 Maternal Alive Father Maternal Grandfather Maternal Grandmother Mother Mother's Sister Paternal Grandfather Paternal Grandmother Sister Alive Uncle Maternal Alive Social History Tobacco Use Types Packs/Day [...] 02/03/2022 How often do you attend chur ch or adventist services? 1 to 4 times per year 02/03/2022 Do you belong to any clubs o r organizations such as anabaptist groups, unions, fraternal or athletic groups, or [...] Answer Date Recorded PHQ-2 Score 0 12/18/2022 [facility] - Occupational Stress [...] money to buy more. Never true 03/10/20 23 Within the past 12 months, t he [...] your living situation today? I [facility] 03/10/2023 Education Answer Date Recorded What is the highest level of school you have completed or the highest degree you have received? Bachelor's degree (e.g., BA, AB, BS) 07/05/2020 Comments Unknown Sex and Gender Information Value Date Recorded Sex Assigned at Female 02/16/2018 3:57 PM CDT Legal Sex Female 9:01 AM BIOMASS TECHNICIAN Gender Identity Female 02/16/2018 3:57 PM CDT Sexual Orientation Straight 02/16/2018 3: 57 PM CDT Last Filed Vital Signs Vital Sign Reading Time Taken Comments Blood Pressure 108/60 08/16/2023 5:25 PM BIOMASS TECHNICIAN Pulse 94 08/16/2023 5:25 PM BIOMASS TECHNICIAN Temperature 36.9 C (98.4 F) 08/16/2023 5:25 PM BIOMASS TECHNICIAN Respiratory Rate 18 08/16/2023 5:25 PM BIOMASS TECHNICIAN Oxygen Saturation 100% 08/16/2023 5:25 PM BIOMASS TECHNICIAN Inhaled Oxygen Concentration - - Weight 70.8 kg (156 lb 1.4 oz) 06/08/2023 3:35 P M BIOMASS TECHNICIAN Height 167.2 cm (5' 5.83) 06/08/2023 3:35 PM CS T Body Mass Index 25.33 06/08/2023 3:35 PM BIOMASS TECHNICIAN Plan of Treatment Health Maintenance Due Date Last Done Comments HPV Vaccines (3 - 3-dose series) 02/22/2009 11/30/2008, 09/20/2008, 07/26/2008 COVID-19 Vaccine ( season) 2024 Influenza Vaccine (#1) 2024 , 05/14/2020, 04/11/2019, Additional history exists Depression Screening (Annual PHQ-2) 06/29/2024 Cervical/Vaginal Cancer Screening 09/12/2027 09/11/2022, 09/11/2022, 03/21/2019, Additional history exists DTaP,Tdap,and Td Vaccines (10 - Td or Tdap) 08/26/2033 08/27/2023, 07/13/2015, 03/30/2014, Additional history exists IPV Vaccines Completed 12/13/1991, 10/1990, 03/29/1990, Additional history exists Hepatitis B Vaccines Completed 02/17/2002, 08/30/2001, 08/02/2001 Varicella Vaccines Completed 07/12/2020, 06/13/2020 HIV Screening Completed 09/14/2020 Hepatitis C Screening Completed 09/14/2020 Pneumococcal vaccine (0-49 years) Aged Out No longer eligible based on patient's age to complete this topic Medical Devices Implanted Type Area Street Light Cleaner Device Identifier Shelf Expiration Date Model / Serial / Lot Clp Apr Lgm Intnl Endo 5x13 - [id number] Implanted:Qty: 1 on 07/23/2018 by Albino Pathak M.D. at [facility] Hardware e.g. pins/screws/r ods Ethicon [id number] / / Procedures Procedure Name Priority Date/Time Associated Diagnosis Comments EXT THINPREP W/HPV CO-TEST SCREEN Routine 09/11/2022 9:29 AM CDT HCV AB SCRN W/REFLEX TO HCV PCR, S Routine 09/14/2020 9:50 AM CDT Screening Examination For Viral Disease HIV-1/-2 AG AND AB SCREEN, PLASMA Routine 09/14/2020 9:50 AM CDT Screening Examination For Viral Disease from Last 3 Months or Most Recently Relevant to Health Maintenance Results * EXT ThinPrep w/HPV Co-Test Screen (09/11/2022 9:29 AM CDT) EXT ThinPrep w/HPV Co-Test Screen Normal - See Scanned Report for Details Normal - See Scanned Report for Details, HIMS - Report Received and Scanned Comment:See care everywhere for results Thin Prep Vial (Cervix/Endocervi x) 09/11/2022 9:29 AM CDT Impressions Sandra Monroe - 09/19/2022 6:45 AM CDT Resulting Agency [facility] Specimen Collected: 09/11/22 09:29 Last Resulted: 09/19/22 06:45 Received From: [employer] Result Received: 10/31/22 12:55 us Historical Provider LAB PAP PATHDX ORDERABLES Fi nal Result * HIV-1/-2 Ag and Ab Screen, Plasma (09/14/2020 9:50 AM CDT) HIV Ag/Ab Screen, P Negative Negative 09/17/2020 1:55 PM CDT ECLR Comment: Negative result does not rule out HIV infection. If exposure to HIV infection occurred <14 days ago, contact the laboratory to request addition of HIV-1 RNA detection / quantification test. HIV-1 p24 Ag Screen, P Negative Negative 09/17/2020 1:55 PM CDT ECLR Comment: Negative result does not rule out HIV infection. If exposure to HIV infection occurred <14 days ago, contact the laboratory to request addition of HIV-1 RNA detection / quantification test. HIV-1 Ab Screen, P Negative Negative 2020 1:55 PM CDT ECLR Comment: Negative result does not rule out HIV infection. If exposure to HIV infection occurred <14 days ago, contact the laboratory to request addition of HIV-1 RNA detection / quantification test. HIV-2 Ab Screen, P Negative Negative 2020 1:55 PM CDT ECLR Comment: Negative result does not rule out HIV infection. If exposure to HIV infection occurred <14 days ago, contact the laboratory to request addition of HIV-1 RNA detection / quantification test. Blood (Blood, Venous) 09/14/2020 9:50 AM CDT 09/14/2020 3:12 PM CDT us Fidelina Bar M.D. LAB MICROBIOLOGY - BLOOD OR DERABLES Final Result [facility] [address] [place] [address], [facility] [[email or web address]] ECLR [facility] [place] [address] * HCV Ab Scrn w/Reflex to HCV PCR, Serum (09/14/2020 9:50 AM CDT) HCV Ab Screen, S Negative Negative 09/15/19 3:52 PM CDT ECLR Comment: Biotin has been identified by the product builder as a potential interfering substance. Higher concentrations of biotin may be found in multivitamins, hair/nail supplements, and workout supplements. If the result does not match clinical observations, repeat testing after patient refrains from the use of supplements for at least 12 hours. Blood (Blood, Venous) 09/14/2020 9:50 AM CDT 09/14/2020 3:12 PM CDT Narrative [facility] - 09/14/2020 3:52 PM CDT Specimen Information: Specimen ID: [id number] Specimen Type: Blood Specimen Collection Start Date: 09/14/2020 9:50 AM Specimen Received Date: 09/14/2020 3:12 PM Specimen ID: [id number] Specimen Type: Blood Specimen Collection Start Date: 09/14/2020 9:50 AM Specimen Received Date: 09/14/2020 3:13 PM Fidelina Bar M.D. LAB MICROBIOLOGY - BLOOD OR DERABLES Final Result [facility] [address] [place] [address], [place] ECLR [facility] in [address] [address] from Last 3 Months or Most Recently Relevant to Health Maintenance Insurance [facility] Care Teams Ophthalmic Technician Relationship Specialty Start Date End Date Fidelina Bar M.D. [address] [place] [id number] PCP - General Family Medicine 09/07/20
--- OUTSIDE RECORDS SUMMARY | 2024-08-08 19:20 | XMS_ITS | Clinical Summary ---
Author Organization [facility] Address [address] [place] [address] Care Team Providers Care Refrigerating Oiler Name Role Phone Establish, Need To MD Primary Care Provider [phone] Source Comments If you need additional information that is not available on Care Everywhere, please contact our Medical Records Department during business hours (Thursday - Thursday, 8 am - 5 pm) at . During nonbusiness hours, please contact our Trauma and Emergency Center at .[facility] Allergies No known active allergies Medications * Medications may not be up to date as of this document. Always verify current medications with the patient. LEVONORGESTREL-E TH ESTRA (LUTERA, 28, PO) Take 1 Tab by mouth daily. Active tobramycin-dexam ethasone (TOBRADEX) 0.3-0.1 % dropsIndications :Foreign body of right conjunctiva, initial encounter,Abrasi on of right cornea, initial encounter Place 1 Drop in right eye 4 times daily 5 mL 05/07/2020 Active Active Problems No known active problems Immunizations Name Administration Dates Next Due DTaP 01/26/1995, 2,12/01/1990,03/29/1990, HIB, Unspecified 04/20/1991 Hepatitis B, unspecified 02/17/2002,08/30/2001,0 08/02/2001 MMR Live 08/18/2002 Poliovirus, unspecified 12/13/1991,12/01/1990,,1989 Td (adult), 2 tetanus toxoid 08/18/2002 Surgical History Surgery Date Site/Laterality Comments WISDOM TEETH EXTRACTION Family History Medical History Relation Name Comments Arthritis-Osteo Father Cancer-Lung Maternal Grandfather Diabetes Maternal Grandmother Obstructive Sleep Apnea Mother Thyroid Disease Mother thyroid Cancer-Prostate Paternal Grandfather Dementia Paternal Grandmother Relation Name Status Comments Father Alive age 56. OA Maternal Grandfather lung ca ncer Maternal Grandmother Alive age 86 Mother Alive age 51. Thyroid . Sleep apnea Paternal Grandfather prostat e cancer Paternal Grandmother (Age 85) de mentia Social History Tobacco Use Types Packs/Day Years Used Date Smoking Tobacco: Never Smokeless Tobacco: Never Tobacco Cessation:Counseling Given: Yes Alcohol Use Standard Drinks/Week Comments Yes 0 (1 standard drink = 0.6 oz pur e alcohol) occassionally Comments Unknown Sex and Gender Information Value Date Recorded Sex Assigned at Not on file Legal Sex Female 1:31 PM PRESSURIZER Gender Identity Not on file Sexual Orientation Not on file Obstetrics History Last Filed Vital Signs Vital Sign Reading Time Taken Comments Blood Pressure 116/58 07/25/2011 1:00 PM PRESSURIZER Pulse 60 07/25/2011 1:00 PM PRESSURIZER Temperature 36.6 C (97.8 F) 07/25/2011 1:00 PM PRESSURIZER Respiratory Rate - - Oxygen Saturation - - Inhaled Oxygen Concentration - - Weight 69.9 kg (154 lb 1.6 oz) 07/25/2011 1:00 P M PRESSURIZER Height - - Body Mass Index - - Plan of Treatment Health Maintenance Due Date Last Done Comments DEPRESSION/ANXIETY PHQ4 2001 DTaP/Tdap/Td Vaccine (6 - Tdap) 08/19/2002 08/18/2002, 01/26/1995, 12/13/1991, Additional history exists CERVICAL CANCER SCREENING 09/11/2007 LIPID SCREEN 09/11/2007 WELLNESS VISIT 09/11/2007 PERTUSSIS 2008 COVID-19 Vaccine (2023- season) 2024 Influenza Vaccine (#1) 2024 RSV Vaccines (1 - 1-dose 75+ series) 2064 POLIO (IPV) Vaccine Completed 12/13/1991, 12/01/1990, 03/29/1990, Additional history exists Hepatitis B Vaccine Completed 02/17/2002, 08/30/2001, 08/02/2001 HPV Vaccine Aged Out No longer eligi ble based on patient's age to complete this topic Pneumococcal Vaccine: Pediatrics (0 to 5 Years) and At-Risk Patients (6 to 49 Years) Aged Out No longer eligible based on patient's age to complete this topic Insurance [employer] [facility] Care Teams Refrigerating Oiler Relationship Specialty Start Date End Date Establish, Need To, [phone] [facility] [place] [address] PCP - General NURSES' ASSOCIATION COUNSELOR 05/07/20
--- OUTSIDE RECORDS SUMMARY | 2024-08-08 19:20 | XMS_ITS | Encounter Summary ---
Author Organization [facility] Address [address] [place] [address] Care Team Providers Care Gambling Counsellor Name Role Phone Martell Ortega MD Primary Care Provider [phone] Encounter Details Date Type Department Care Team (Late st Contact Info) Description 08/16/2015 Correspondence [facility] [address] [place], [place] [id number] Tawanna Mcleod APRN, CN [address] [place] [address] FMLA Social History Tobacco Use Types Packs/Day Years [...] on filedocumented in this encounter Care Teams Gambling Counsellor Relationship Specialty Start Date End Date Martell Ortega MD [address] [place], [place] [id number] PCP - General 06/29/23 documented as of this encounter
--- NOTE | 2024-08-08 19:22 | ED_ITS ---
HPI - Wound/Laceration General Time Seen by Provider: 19:22 Date Seen: 08/08/24 Chief Complaint: Laceration/Wound Stated Complaint: Cut hand Time Seen by Provider: 08/08/24 19:20 Source: patient and RN notes reviewed Mode of arrival: ambulatory Limitations: no limitations History of Present Illness HPI narrative: Patient was here with son and unfortunately broke his bottle which was glass and cut her hand, will require stitches. She was initially nauseated due to pain from cutting her hand. She states that it takes extra amounts of lidocaine for her to achieve anesthesia, this has happened at the dentist before (she states it has taken 3 shots before of lidocaine). I attended to her immediately after nurses informed me, she has about a 2 cm curvilinear flap type laceration that did bleed initially but now is just mildly oozing, controlled with pressure. Related Data Home Medications ?Medication ?Instructions ?Recorded ?Confirmed omeprazole 40 mg capsule,delayed 40 mg PO QAM 03/27/23 10/15/23 release vitamin with calcium 1 tab PO DAILY 03/27/23 10/15/23 no.72-iron 27 mg-folic acid 1 mg tablet ( Vitamins Plus Low Iron) acetaminophen 325 mg capsule 325 mg PO ONCE PRN 06/26/23 10/15/23 acetaminophen-caffeine 500 mg-65 1 tab PO Q12H PRN 06/26/23 10/15/23 mg tablet (Excedrin Tension Headache) sumatriptan succinate 50 mg tablet 50 mg PO Q2H PRN 07/16/23 10/15/23 (Imitrex) Previous Rx's ?Medication ?Instructions ?Recorded metoclopramide HCl 10 mg tablet 10 mg PO Q6-8H PRN headache #14 04/10/23 (Reglan) tabs Allergies Allergy/AdvReac Type Severity Reaction Status Date / Time cat dander Allergy Intermediate Hives Verified 10/15/23 22:06 contact metal agent AdvReac Intermediate Blister Verified 10/15/23 22:06 doxycycline AdvReac Intermediate Gastrointestinal Verified 10/15/23 22:06 Upset nickel AdvReac Intermediate Blister Verified 10/15/23 22:06 [facility] Medical History (Updated 08/08/24 @ 19:57 by Felecia Hudson MD) Health care directive on file ?Z78.9 - Other specified health status (ICD-10) History of cardiac murmur ?Z86.79 - Personal history of other diseases of the circulatory system (ICD- 10) History of depression ?Z86.59 - Personal history of other mental and behavioral disorders (ICD-10) Thyroid dysfunction, ?O99.285 - Endocrine, nutritional and metabolic diseases complicating the puerperium (ICD-10) ?E07.9 - Disorder of thyroid, unspecified (ICD-10) Migraine headache without aura ?G43.009 - Migraine without aura, not intractable, without status migrainosus (ICD-10) History of DVT of lower extremity ?Z86.718 - Personal history of other venous thrombosis and embolism (ICD-10) Surgical History History of cholecystectomy ?Z90.49 - Acquired absence of other specified parts of digestive tract (ICD- 10) [place] teeth extracted ?K08.409 - Partial loss of teeth, unspecified cause, unspecified class (ICD- 10) Hx of tonsillectomy ?Z90.89 - Acquired absence of other organs (ICD-10) Family History Aunt Breast cancer, Onset Age: 50 Aunt Breast cancer, Onset Age: 50 Father Lung cancer Arthritis Smoker Maternal Grandfather Lung cancer Maternal Grandmother Arthritis Dementia Diabetes Sleep apnea Thyroid disease Mother Sleep apnea Thyroid disease Rheumatoid arthritis Aunt Breast cancer, Onset Age: 40 Thyroid disease Diabetes Depression Paternal Grandfather Prostate cancer Paternal Grandmother Dementia Sister Depression Anesthesia complication Uncle Colon cancer Prostate cancer Rectal cancer Social History Narrative: SOCIAL 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 Unable to assess present due to partner presence. Special Diet: Denies Ok with a blood transfusion: yes Culture or alevism beliefs: faith RISK FACTORS Exercise Times/wk: walks occasionally Depression/Anxiety: history but feels stable at this time OLAF: 8 PHQ 9: 10 Seat Belt Use: Routinely Smoking: Denies past/present Alcohol/day: Denies while Caffeine: occasionally tea Drug Use: Denies past/present. THC gummy's before +UPT Chicken Pox: vaccinated as an adult MRSA: Denies What is your current living situation?: I presently have a place to live Problems where you live: pests, such as bugs, ants, or mice In the past 12 months, utilities in danger of being shut off: no In past 12 months, lack of transportation kept you from medical appts, meetings, work, or getting things needed for daily living: no In the past 12 mos, have been you worried that your food would run out before you had money to buy more?: never true In the past 12 mos, the food you bought just didn't last and you didn't have money to buy more?: never true Smoking Status: Never smoker Do you use any of these nicotine containing products: None Second hand tobacco smoke exposure: No How often do you have a drink containing alcohol: monthly or less How many standard drinks containing alcohol do you have on a typical day: 1 or 2 How often do you have six or more drinks on one occasion: Never AUDIT-C Alcohol total score: 1 Non-prescribed substance use: denies use How often does anyone, including family, friends and others, physically hurt you : never How often does anyone, including family, friends and others, insult or talk down to you: rarely How often does anyone, including family, friends and others, threaten you with harm: never How often does anyone, including family, friends and others, scream or curse at you: sometimes service: No Health Related Social Needs: Inadequate housing (Z59.1) and Other personal risk factors, not elsewhere classified (Z91.89) Exam Const: Vital Signs, click to edit/add: Vital Signs - 24 hr 08/08/24 19:20 Temperature 97.1 F L Pulse Rate [Pulse Oximeter] 85 Respiratory Rate 16 Blood Pressure [Ri ght Upper Arm] 102/71 Pulse Oximetry 99 Oxygen Delivery Me thod Room Air As in HPI, patient has a mildly oozing curvilinear 2 cm laceration overlying the thenar eminence of her right hand. It is a flap into the subcutaneous tissue but not deeper. She has full range of motion of fingers and hand. Neurovascular is intact. Documenting provider has reviewed patient's vital signs: yes Course Vital Signs Vital signs: Initial Vital Signs Temperature 97.1 F L 08/08/24 19:20 Temperature Source Temporal Artery Scan 08/08/24 19:20 Pulse Rate 85 08/08/24 19:20 Respiratory Rate 16 08/08/24 19:20 Blood Pressure 102/71 08/08/24 19:20 Blood Pressure Mean 81 08/08/24 19:20 Blood Pressure Position Supine 08/08/24 19:20 Pulse Oximetry 99 08/08/24 19:20 Oxygen Delivery Method Room Air 08/08/24 19:20 Vital Signs Temperature 97.1 F L 08/08/24 19:20 Pulse Rate 85 08/08/24 19:20 Respiratory Rate 16 08/08/24 19:20 Blood Pressure 102/71 08/08/24 19:20 Pulse Oximetry 99 08/08/24 19:20 Oxygen Delivery Method Room Air 08/08/24 19:20 Temperature 97.1 F L 08/08/24 19:20 Pulse Rate 85 08/08/24 19:20 Respiratory Rate 16 08/08/24 19:20 Blood Pressure 102/71 08/08/24 19:20 Pulse Oximetry 99 08/08/24 19:20 Oxygen Delivery Method Room Air 08/08/24 19:20 Medications Administered Medications: Generic Name Dose Route Start Last Admin Trade Name Shadiq PRN Reason Stop Dose Admin Lidocaine/Epinephrine 6 ml 08/08/24 19:20 08/08/24 19:27 Lidocaine 1%-Epi 1:100,000 INFILTRATI 08/08/24 19:21 6 ml ONCE ONE Administration Discharge Plan Discharge Clinical Impression: Laceration of hand, right Qualifiers: Encounter type: initial encounter Foreign body presence: without foreign body Qualified Code(s): S61.411A - Laceration without foreign body of right hand, in itial encounter Patient Disposition: Home, Self-Care Condition: Stable Instructions: Care For Your Stitches (ED), Laceration (ED) Additional Instructions: May wash hands and shower but otherwise should keep hand clean and dry until wound has healed. Can use bacitracin and bandages to keep this covered when out in public. Need to schedule a clinic follow-up in 7-10 days to assess the wound for suture removal. If you have any concerns for infection, please seek re- evaluation. Infection signs and symptoms are reviewed in discharge handout. Prescriptions: No Action omeprazole 40 mg capsule,delayed release(DR/EC) 40 mg PO QAM Vitamin Plus Low Iron 27 mg iron- 1 mg tablet 1 tab PO DAILY acetaminophen 325 mg capsule 325 mg PO ONCE PRN Excedrin Tension Headache 500-65 mg tablet 1 tab PO Q12H PRN sumatriptan succinate [Imitrex] 50 mg tablet 50 mg PO Q2H PRN metoclopramide HCl [Reglan] 10 mg tablet 10 mg PO Q6-8H PRN (Reason: headache) Qty: 14 0RF Rx Instructions: Take 10mg every 6-8 hours with Tylenol as needed for headaches. Follow Up/Referrals: Fidelina Bar MD [Primary Care Provider] - Stand Alone Forms: [facility] Info Instructions Procedures Laceration Laceration 1: Pre procedure diagnosis: Right hand laceration Post procedure diagnosis: Same Site marking: not applicable Name of person performing procedure: Felecia Hudson Site: hand Side (If applicable): right Size (cm): 2 Description: other (Curvilinear flap) Local Anesthetic: lidocaine 1% and with epi Amount of anesthesia used (mL): 6 Pre-repair: wound explored and irrigated extensively (ED staff irrigated wound) Skin layer closed with: other (Ethilon) Size (cm): 4-0 Number of sutures: 5 Technique: simple, interrupted Wound cleansing: sterile water Estimated blood loss (if any): less than 5mls Conclusion: patient tolerated procedure
[2024-08-08] MEDS: LIDOCAINE 1%-EPI 1:100,000 6 ML INFILTRATI (19:27)
--- OUTSIDE RECORDS SUMMARY | 2024-08-08 19:51 | XMS_ITS | Clinical Summary ---
Author Organization [facility] Address [address] [place] [address] Care Team Providers Care Title Department Manager Name Role Phone Fidelina Bar M.D. Primary Care Provider Source Comments Patient records contain information from all sites at [facility]. For routine questions regarding patient records, call [phone] during business hours, M-F 8:00 AM - 5:00 PM Central Time. Record requests for emergency care only can be directed to [phone] at any time.[facility] Allergies Active Allergy Reactions Criticality Noted Date [...] (05/15/2022): Added automatically from request for surgery [id number] Tonsillolithiasis 02/03/2022 Overview (02/03/2022): Added automatically from request for surgery [id number] Hypertrophy Tonsil 02/03/2022 Overview (02/03/2022): Added automatically from request for surgery [id number] Unspecified Blood Type Rhesus Negative 1 Cancer [...] 06/30/2024 Nurse Triage Department of Family Medicine, [facility], in [address] [phone] Yeimy Hay, RDivinaN. Fatigue; Dizziness; Nausea; Blurred [...] often do you attend chur ch or yarsanism services? 1 to 4 times per year 02/03/2022 Do you belong to any clubs o r organizations such as religious groups, unions, fraternal or athletic groups, or [...] Answer Date Recorded PHQ-2 Score 0 12/18/2022 [facility] - [...] your living situation today? I have a [facility] place to live 03/10/2023 Education Answer Date Recorded What is the highest level of school you have completed or the highest degree you have received? Bachelor's degree (e.g., BA, AB, BS) 07/05/2020 Comments Unknown Sex and Gender Information Value Date Recorded Sex Assigned at Female 02/16/2018 3:57 PM CDT Legal Sex Female 9:01 AM LINEN MANAGER Gender Identity Female 02/16/2018 3:57 PM CDT Sexual Orientation Straight 02/16/2018 3: 57 PM CDT Last Filed Vital Signs Vital Sign Reading Time Taken Comments Blood Pressure 108/60 08/16/2023 5:25 PM LINEN MANAGER Pulse 94 08/16/2023 5:25 PM LINEN MANAGER Temperature 36.9 C (98.4 F) 08/16/2023 5:25 PM LINEN MANAGER Respiratory Rate 18 08/16/2023 5:25 PM LINEN MANAGER Oxygen Saturation 100% 08/16/2023 5:25 PM LINEN MANAGER Inhaled Oxygen Concentration - - Weight 70.8 kg (156 lb 1.4 oz) 06/08/2023 3:35 P M LINEN MANAGER Height 167.2 cm (5' 5.83) 06/08/2023 3:35 PM CS T Body Mass Index 25.33 06/08/2023 3:35 PM LINEN MANAGER Plan of Treatment Health Maintenance Due Date [...] this topic Medical Devices Implanted Type Area Director Of Programming Device Identifier Shelf Expiration Date Model / Serial / Lot Clp Apr Lgm Intnl Endo 5x13 - [id number] Implanted:Qty: 1 on 07/23/2018 by Albino Pathak M.D. at [facility] Hardware e.g. pins/screws/r ods Ethicon [id number] / [...] - 09/19/2022 6:45 AM CDT Resulting Agency [facility] Specimen Collected: 09/11/22 09:29 Last Resulted: 09/19/22 06:45 Received From: [facility] Result Received: 10/31/22 12:55 us Historical Provider [...] - BLOOD OR DERABLES Final Result [facility] [address] [place] [address], [facility] ECLR [facility] [place] [address] * HCV Ab Scrn w/Reflex to HCV PCR, Serum (09/14/2020 9:50 AM CDT) HCV Ab Screen, S Negative Negative 09/15/19 3:52 PM CDT ECLR Comment: Biotin has been identified by the transportation dispatch manager as a potential interfering substance. Higher concentrations of biotin may be found in multivitamins, hair/nail supplements, and workout supplements. If the result does not match clinical observations, repeat testing after patient refrains from the use of supplements for at least 12 hours. Blood (Blood, Venous) 09/14/2020 9:50 AM CDT 09/14/2020 3:12 PM CDT Narrative [facility] - 09/14/2020 3:52 PM CDT Specimen Information: Specimen ID: [id number] Specimen Type: Blood Specimen Collection Start Date: 09/14/2020 9:50 AM Specimen Received Date: 09/14/2020 3:12 PM Specimen ID: [id number] Specimen Type: Blood Specimen Collection Start Date: 09/14/2020 9:50 AM Specimen Received Date: 09/14/2020 3:13 PM Fidelina Bar M.D. LAB MICROBIOLOGY - BLOOD OR DERABLES Final Result [facility] [address] [place] [address], [place] ECLR [facility] in [address] [address] from Last 3 Months or Most Recently Relevant to Health Maintenance Insurance [facility] Care Teams Title Department Manager Relationship Specialty Start Date End Date Fidelina Bar M.D. [address] [place] [phone] PCP - General Family Medicine 09/07/20
--- OUTSIDE RECORDS SUMMARY | 2024-08-08 19:51 | XMS_ITS | Encounter Summary ---
Author Organization [facility] Address [address] [place] [address] Care Team Providers Care Repeat Photocomposing Machine Operator Name Role Phone Martell Ortega MD Primary Care Provider [phone] Encounter Details Date Type Department Care Team (Late st Contact Info) Description 06/04/2014 Correspondence None No Primary/Referring, Phy EQUIPMENT DIFFUSION OPERATOR TICKET Social History Tobacco Use Types Packs/Day [...] on filedocumented in this encounter Care Teams Repeat Photocomposing Machine Operator Relationship Specialty Start Date End Date Martell Ortega MD [address] [place] [address] PCP - General 06/29/23 documented as of this encounter
--- OUTSIDE RECORDS SUMMARY | 2024-08-08 19:51 | XMS_ITS | Encounter Summary ---
Author Organization [facility] Address [address] [place] [address] Care Team Providers Care Student Records Coordinator Name Role Phone Martell Ortega MD Primary Care Provider [phone] Encounter Details Date Type Department Care Team (Late st Contact Info) Description 12/07/2015 Consent for Procedure/Treatjohn bhandari [facility] [address] [place], [place] [phone] Tawanna Mcleod APRN, CN [address] [place] [address] NEXPLANON CONSENT Social History Tobacco Use Types [...] on filedocumented in this encounter Care Teams Student Records Coordinator Relationship Specialty Start Date End Date Martell Ortega MD [address] [place], [place] [phone] PCP - General 06/29/23 documented as of this encounter
--- OUTSIDE RECORDS SUMMARY | 2024-08-08 19:51 | XMS_ITS | Encounter Summary ---
Author Organization [facility] Address [address] [place] [address] Care Team Providers Care Human Resource Advisor Name Role Phone Martell Ortega MD Primary Care Provider [phone] Encounter Details Date Type Department Care Team (Late st Contact Info) Description 09/04/2014 Correspondence External to External, [place] [address] PT REQUESTING FORM COMPLETION Social History Tobacco [...] on filedocumented in this encounter Care Teams Human Resource Advisor Relationship Specialty Start Date End Date Martell Ortega MD [address] [place] [address] PCP - General 06/29/23 documented as of this encounter
--- OUTSIDE RECORDS SUMMARY | 2024-08-08 19:51 | XMS_ITS | Clinical Summary ---
Author Organization [facility] Address [address] [place] [address] Care Team Providers Care Flatbed Company Driver Name Role Phone Establish, Need To MD Primary Care Provider [phone] Source Comments If you need additional information that is not available on Care Everywhere, please contact our Medical Records Department during business hours (Thursday - Thursday, 8 am - 5 pm) at . During nonbusiness hours, please contact our Trauma and Emergency Center at .[facility] Allergies No known active allergies Medications * [...] on file Legal Sex Female 1:31 PM DRAWING PRESS OPERATOR Gender Identity Not on file Sexual Orientation Not on file Obstetrics History Last Filed Vital Signs Vital Sign Reading Time Taken Comments Blood Pressure 116/58 07/25/2011 1:00 PM DRAWING PRESS OPERATOR Pulse 60 07/25/2011 1:00 PM DRAWING PRESS OPERATOR Temperature 36.6 C (97.8 F) 07/25/2011 1:00 PM DRAWING PRESS OPERATOR Respiratory Rate - - Oxygen Saturation - - Inhaled Oxygen Concentration - - Weight 69.9 kg (154 lb 1.6 oz) 07/25/2011 1:00 P M DRAWING PRESS OPERATOR Height - - Body Mass Index - [...] to complete this topic Insurance CCSTPA/[facility] Care Teams Flatbed Company Driver Relationship Specialty Start Date End Date Establish, Need To, [address] [facility] [place] [address] PCP - General YOUTH MANAGER 05/07/20
--- OUTSIDE RECORDS SUMMARY | 2024-08-08 19:51 | XMS_ITS | Clinical Summary ---
Author Organization [facility] Address [address] [place] [address] Care Team Providers Care Whizzer Name Role Phone Martell Ortega MD Primary Care Provider [phone] Source Comments You are receiving this document as you are listed as the primary care provider,follow-up provider, or the patient has been referred to you for consultation.This is in compliance with the Medicare and[facility] EHR Incentive Program,which states Providers who transition their patient to another setting of careor provider of care or refers their patient to another provider of care shouldprovide summary care record for each transition of care or referral. [facility] Allergies Active Allergy Reactions Criticality Noted [...] 7/6 c/w 11w1d US on 03/16 2. [facility], [place], CNM 3. H/o delivery at 36+ weeks [...] 12/13/1991, 1,03/29/1990,1989 Influenza IIV4 (Quadrivalent ) 0.5mL (75734) 04/11/2019,05/18/2018,08/01/2016,2014,03/30/2014 Influenza LAIV (Nasal, 2-49 yrs) 05/14/2020 [...] pur e alcohol) 1 drink a week [facility] Utilities Answer Date Recorded In the past [...] place to sleep or slept in a penitentiary (including now)? No 10/20/2023 Sex and Gender [...] 9:29 AM CDT) Case Report Pap Case: [id number] Authorizing Provider: Fidelina Francois MD Collected: 09/11/2022 0929 Ordering Location: [facility] and Received: 09/11/2022 1208 Gyne[facility] First Screen: Daniel Suarez Rescreen: Ange Metcalf SCT (ASCP) Specimen: Pap Test, Routine, Cervix/Endocervix 09/19/2022 6:45 AM [facility] Pap Specimen Adequacy Satisfactory for evaluation, endocervical/lópez sformation zone component present. 09/19/2022 6:45 AM [facility] Pap Interpretation (NILM) Negative for intraepithelial lesion or malignancy. 09/19/2022 6:45 AM [facility] Pap Other Findings Fungal organisms morphologically consistent with Saima spp. 09/19/2022 6:45 AM [facility] Pap Disclaimer The Pap test is a screening test designed to aid in the detection of cervical cancer and its precursor lesions. It is not a diagnostic procedure and should not be used as the sole means of detecting cervical cancer. Both false-positive and false-negative results may occur. 09/19/2022 6:45 AM [facility] Gross Description The specimen is received in SurePath fixative and properly labeled. 1 Pap-stained SurePath slide is prepared. 09/19/2022 6:45 AM [facility] Embedded Images 6:45 AM [facility] Other Specimen Type ENTIRE ENDOCERVIX / Unknown 09/11/2022 9:29 AM CDT 09/11/2022 12:08 PM CDT Comment:LMP: Patient's last menstrual period was 09/01/2022 (exact date). Fidelina Francois MD LAB PATHOLOGY [address] [address], [facility] [phone] * HIV ANTIBODY (03/26/2015 4:46 PM CDT) HIV 1/2 Antibody Negative (Non Reactive) [facility] Comment: HIV Antibody testing may be falsely negative during the window period. If the patient has had recent exposure (within the past four weeks), consider contacting Infectious Diseases for clarification. 03/26/2015 4:46 PM CDT 03/26/2015 4:48 PM CDT Narrative [facility] - 03/28/2015 11:53 AM CDT Performed at [facility], [address] [place] [address] Germaine Mendes MD LAB_1 Performing Organization Address City/[facility]/ZIP Co de Phone Number [facility] [phone] from Last 3 Months or Most Recently Relevant to Health Maintenance Advance Directives Documents on File Type Date Recorded Patient Accident Examiner Expl anation HEALTHCARE DIRECTIVE 07/17/2023 Cora Beasley [...] Agents on File Name Relationship Healthcare Agent [facility] Communication Cora Beasley Mother Health Care Agent Care Teams Whizzer Relationship Specialty Start Date End Date Martell Ortega MD [address] [place] [address] PCP - General 06/29/23
--- OUTSIDE RECORDS SUMMARY | 2024-08-08 19:51 | XMS_ITS | Encounter Summary ---
Author Organization [facility] Address [address] [place] [address] Care Team Providers Care Mainspring Reverse Winder Name Role Phone Martell Ortega MD Primary Care Provider [phone] Encounter Details Date Type Department Care Team (Late st Contact Info) Description 09/04/2014 Correspondence [facility] OB-ANIMATION PRODUCER [place] [address] [place] [address] Kade Montalvo APRN, SIMONA RETURN TO WORK [...] on filedocumented in this encounter Care Teams Mainspring Reverse Winder Relationship Specialty Start Date End Date Martell Ortega MD [address] [place] [address] PCP - General 06/29/23 documented as of this encounter
--- OUTSIDE RECORDS SUMMARY | 2024-08-08 19:51 | XMS_ITS | Encounter Summary ---
Author Organization [facility] Address [address] [place] [address] Care Team Providers Care Canvassing Manager Name Role Phone Martell Ortega MD Primary Care Provider [phone] Encounter Details Date Type Department Care Team (Late st Contact Info) Description 12/07/2015 Correspondence [facility] [address] [place], [place] [phone] Tawanna Mcleod APRN, [facility] [address] [place] [address] RETURN TO WORK AUTH Social History Tobacco [...] on filedocumented in this encounter Care Teams Canvassing Manager Relationship Specialty Start Date End Date Martell Ortega MD [address] [place], [place] [phone] PCP - General 06/29/23 documented as of this encounter
--- OUTSIDE RECORDS SUMMARY | 2024-08-08 19:51 | XMS_ITS | Encounter Summary ---
Author Organization [facility] Address [address] [place] [address] Care Team Providers Care Funeral Home Director Name Role Phone Martell Ortega MD Primary Care Provider [phone] Encounter Details Date Type Department Care Team (Late st Contact Info) Description 08/16/2015 Correspondence [facility] [address] [place], [place] [phone] Tawanna Mcleod APRN, CN [address] [place] [address] FMLA Social History Tobacco Use Types Packs/Day [...] on filedocumented in this encounter Care Teams Funeral Home Director Relationship Specialty Start Date End Date Martell Ortega MD [address] [place], [place] [phone] PCP - General 06/29/23 documented as of this encounter
--- OUTSIDE RECORDS SUMMARY | 2024-08-08 19:51 | XMS_ITS | Encounter Summary ---
Author Organization [facility] Address [address] [place] [address] Care Team Providers Care Web Press Operator Name Role Phone Fidelina Bar M.D. Primary Care Provider Reason for Visit * Reason Onset Date Comments Fatigue 06/30/2024 Dizziness 06/30/2024 Nausea 06/30/2024 Blurred Vision 06/30/2024 Encounter Details Date Type Department Care Team (Late st Contact Info) Description 06/30/2024 Nurse Triage Department of Family Medicine, [facility], in [address] [phone] Yeimy Hay RGhassan. [address] [place] [phone] Fatigue; Dizziness; Nausea; Blurred Vision Social History [...] How often do you attend chur or catholic services? 1 to 4 times per year 02/03/2022 Do you belong to any clubs o r organizations such as restorationism groups, unions, fraternal or athletic groups, or [...] Answer Date Recorded PHQ-2 Score 0 12/18/2022 [facility] - Occupational Stress [...] your living situation today? I have a [facility] place to live 03/10/2023 Education Answer Date Recorded What is the highest level of school you have completed or the highest degree you have received? Bachelor's degree (e.g., BA, AB, BS) 07/05/2020 Comments Unknown Sex and Gender Information Value Date Recorded Sex Assigned at Female 02/16/2018 3:57 PM CDT Legal Sex Female 9:01 AM PARTNER Gender Identity Female 02/16/2018 3:57 PM CDT [...] Patient was warm transferred toTara, Patient Appointment Steelscope Operator at the clinic for further assistance. If clinic appointment is not available in the next 24 hours, caller is advised to be seen in emergency department. Reason for Disposition [1] MODERATE dizziness (e.g., interferes with normal activities) AND [2] has NOT been evaluated by doctor (or FEED MIXER/PA) for this (Exception: Dizziness caused by heat exposure, sudden standing, or poor fluid intake.) Protocols used: Dizziness - Nytsdqzhxdmxfeq-Anrzh-NN Care Advice Patient/Caregiver understands and will follow care advice?: Yes, able to teach back Dizziness - Hflobgbkojweiac-Uudph-XF Nurse Yeimy Gates Jun 30, 2024 11:19 [...] the brain. SEE PCP WITHIN 24 HOURS NER documented in this encounter Plan of Treatment Not on file documented as of this encounter Visit Diagnoses Not on filedocumented in this encounter Additional Health Concerns Assessment Noted Time PHQ-9 Depression Total Score: 7 09/18/19 21 12:16 PM CDT documented as of this encounter Care Teams Web Press Operator Relationship Specialty Start Date End Date Fidelina Bar M.D. SENI: [phone] [address] [phone] PCP - General Family Medicine 09/07/20 documented as of this encounter
== END 2024-08-08 20:00 | disposition home or self-care (01) ==
PROVIDERS: Emergency Provider Family Medicine; PCP Family Medicine
DX: S61.411A Laceration without foreign body of right hand, initial encounter (principal); W25.XXXA Contact with sharp glass, initial encounter
CPT/HCPCS: 12001; 99283

== ENCOUNTER 2024-09-08 15:43 | Emergency (ER) | payer BC, SELFPAY ==
--- OUTSIDE RECORDS SUMMARY | 2024-09-08 15:45 | XMS_ITS | Clinical Summary ---
Author Organization [facility] Address [address] [place] [address] Care Team Providers Care Advanced Practice Nurse Name Role Phone Fidelina Bar M.D. Primary Care Provider [phone] Source Comments Patient records contain information from all sites at [facility]. For routine questions regarding patient records, call [phone] during business hours, M-F 8:00 AM - 5:00 PM Central Time. Record requests for emergency care only can be directed to [phone] at any time.[facility] Allergies Active Allergy Reactions Criticality [...] (05/15/2022): Added automatically from request for surgery [id number] Tonsillolithiasis 02/03/2022 Overview (02/03/2022): Added automatically from request for surgery [id number] Hypertrophy Tonsil 02/03/2022 Overview (02/03/2022): Added automatically from request for surgery [id number] Unspecified Blood Type Rhesus Negative 1 Cancer [...] 06/30/2024 Nurse Triage Department of Family Medicine, [facility], in [address] [phone] Yeimy Hay, RDivinaN. Fatigue; Dizziness; Nausea; Blurred [...] often do you attend chur ch or uatsdin services? 1 to 4 times per year 02/03/2022 Do you belong to any clubs o r organizations such as mandaeism groups, unions, fraternal or athletic groups, or [...] Answer Date Recorded PHQ-2 Score 0 12/18/2022 [facility] Occupat ional Health - Occupational Stress [...] your living situation today? [facility] 03/10/2023 Education Answer Date Recorded What is the highest level of school you have completed or the highest degree you have received? 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 PROFESSOR Gender Identity Female 02/16/2018 3:57 PM CDT Sexual Orientation Straight 02/16/2018 3: 57 PM CDT Last Filed Vital Signs Vital Sign Reading Time Taken Comments Blood Pressure 108/60 08/16/2023 5:25 PM BLACK STUDIES PROFESSOR Pulse 94 08/16/2023 5:25 PM BLACK STUDIES PROFESSOR Temperature 36.9 C (98.4 F) 08/16/2023 5:25 PM BLACK STUDIES PROFESSOR Respiratory Rate 18 08/16/2023 5:25 PM BLACK STUDIES PROFESSOR Oxygen Saturation 100% 08/16/2023 5:25 PM BLACK STUDIES PROFESSOR Inhaled Oxygen Concentration - - Weight 70.8 kg (156 lb 1.4 oz) 06/08/2023 3:35 P M BLACK STUDIES PROFESSOR Height 167.2 cm (5' 5.83) 06/08/2023 3:35 PM CS T Body Mass Index 25.33 06/08/2023 3:35 PM BLACK STUDIES PROFESSOR Plan of Treatment Health Maintenance Due Date [...] this topic Medical Devices Implanted Type Area Car Tracer Device Identifier Shelf Expiration Date Model / Serial / Lot Clp Apr Lgm Intnl Endo 5x13 - [id number] Implanted:Qty: 1 on 07/23/2018 by Albino Pathak M.D. at [facility] Hardware e.g. pins/screws/r ods [employer] [id number] / [...] - 09/19/2022 6:45 AM CDT Resulting Agency [facility] Specimen Collected: 09/11/22 09:29 Last Resulted: 09/19/22 06:45 Received From: [employer] Result Received: 10/31/22 12:55 us Historical Provider [...] MICROBIOLOGY - BLOOD OR DERABLES Final Result [facility] [address] [place] [address], [facility] ECLR [facility] [place] [address] * HCV Ab Scrn w/Reflex to HCV PCR, Serum (09/14/2020 9:50 AM CDT) HCV Ab Screen, S Negative Negative 09/15/19 3:52 PM CDT ECLR Comment: Biotin has been identified by the assurance manager as a potential interfering substance. Higher concentrations of biotin may be found in multivitamins, hair/nail supplements, and workout supplements. If the result does not match clinical observations, repeat testing after patient refrains from the use of supplements for at least 12 hours. Blood (Blood, Venous) 09/14/2020 9:50 AM CDT 09/14/2020 3:12 PM CDT Narrative [facility] - 09/14/2020 3:52 PM CDT Specimen Information: Specimen ID: [id number] Specimen Type: Blood Specimen Collection Start Date: 09/14/2020 9:50 AM Specimen Received Date: 09/14/2020 3:12 PM Specimen ID: [id number] Specimen Type: Blood Specimen Collection Start Date: 09/14/2020 9:50 AM Specimen Received Date: 09/14/2020 3:13 PM Fidelina Bar M.D. LAB MICROBIOLOGY - BLOOD OR DERABLES Final Result [facility] [address] [place] [address], [place] ECLR [facility] in [address] [address] from Last 3 Months or Most Recently Relevant to Health Maintenance Insurance [facility] Care Teams Advanced Practice Nurse Relationship Specialty Start Date End Date Fidelina Bar M.D. [address] [place] [phone] PCP - General Family Medicine 09/07/20
--- OUTSIDE RECORDS SUMMARY | 2024-09-08 15:45 | XMS_ITS | Clinical Summary ---
Author Organization Count includes the [facility] Address [address] [place] [id number] Care Team Providers Care Nutrition Aides Teacher Name Role Phone Martell Ortega MD Primary Care Provider [phone] Source Comments You are receiving this document as you are listed as the primary care provider,follow-up provider, or the patient has been referred to you for consultation.This is in compliance with the Medicare and[facility] EHR Incentive Program,which states Providers who transition their patient to another setting of careor provider of care or refers their patient to another provider of care shouldprovide summary care record for each transition of care or referral. Count includes the [facility] Allergies Active Allergy Reactions Criticality Noted [...] lobster Shellfish-Derived Products Hives High 01/05/2018 Medications acetaminophen (TYLENOL) 500 MG tablet Take 2 Tablets (1,000 mg) by mouth. 05/14/20 Active sertraline (ZOLOFT) 50 MG tablet Take one-half tablet by mouth daily for 7 days, then take 1 tablet daily. 90 Tablet 4 9:16 AM CDT 10/21/19 24 025 Active Additional Information Patient not taking.Reported on 09/01/2024 plus vitamin Take 1 Tablet by mouth daily. 90 Tablet 3 08/19/19 25 Active olopatadine (PATADAY) 0.2 % eye drop solutionIndicatio ns:Allergic conjunctivitis, bilateral Place 1 Drop into both eyes daily. 2.5 mL 11 09/12/19 025 Discontin ued(*Reso lved Condition ) plus vitaminIndication s:Well woman exam with routine gynecological exam Take 1 Tablet by mouth daily. 90 Tablet 3 09/12/19 025 Discontin ued(*Reso lved Condition ) docusate sodium (COLACE) 100 MG capsule Take 1 Capsule (100 mg) by mouth daily. 60 Capsule 4 9:16 AM CDT 10/21/19 025 Discontin ued(*Reso lved Condition ) Active Problems Problem Noted Date Diagnosed Date Mild intermittent asthma without complication History of shoulder dystocia in prior 10/20/2023 Overview (10/20/2023): X40 seconds in second delivery, resolved with Darell, Suprapubic and [place] Passive suicidal ideations 10/20/2023 Overview (10/21/2023): Do not discuss with anyone but her S.O. per pt request First degree perineal laceration during delivery 10/20/2023 (normal spontaneous vaginal delivery) 10/19 Elevated LFTs 10/20/2023 Postoperative hemorrhagic shock, initial encount er 05/15/2022 Overview (09/01/2024): Added automatically from request for surgery [id number] Hypothyroidism (acquired) 11/21/2015 Blood type, Rh negative 03/29/2015 Overview (03/29/2015): A-negative blood type. Pain of finger of left hand 10/26/2014 Overview (10/26/2014): 4th finger Heart murmur 01/16/2014 Overview (04/28/2014): Saw Dr. Lutz in cardiology on 12/28/13 - ECHO: 01/19/14 normal heart function, no follow-up needed Estimated Date of Delivery Comme nts Yes 04/17/2025 Based on last me nstrual period of 07/11/2024 (Exact Date) Resolved Problems Problem Noted Date Diagnosed Date [...] 7/6 c/w 11w1d US on 03/16 2. Regions, [place], CNM 3. H/o delivery at 36+ weeks [...] on nursing. --Considering epidural in labor --Mom Cora and Ramos and FOB Moy Mcfadden to be present for . Cardiology .Notes Recorded by Yumiko Lutz MD on 01/26/2014 at 10:30 AM Please let Jenny know that her echocardiogram demonstrates normal heart function without significant valve abnormalities. No further follow up is necessary. Yumiko Lutz MD 01/26/2014, 10:30 AM Encounters Date Type Department Care Team Description 09/05/2024 E-Visit [facility] Obstetrics and Gynecology [address] [place] [address] Phyllis, Robert Provider 09/05/2024 Results Follow-Up [facility] Obstetrics and Gynecology [address] [place] [phone] Alivia Ramirez RN 09/04/2024 10:30 AM CDT Lab Visit [facility] [address] [place] [phone] Vaginal bleeding in , first trimester 09/03/2024 Nurse Triage [facility] [address] [place] [address] Unassigned, Provider BLEEDING, DURING 09/01/2024 6:40 PM DRY WALL APPLICATOR Lab Visit [facility] [address] [place] [address] Encounter for supervision of other normal in third trimester; Routine screening for STI (sexually transmitted infection); Vaginal bleeding in , first trimester 09/01/2024 10:00 AM DRY WALL APPLICATOR Ancillary Procedure [facility] tank erector Ultrasound [address] [place] [address] Paloma Winters APRN, CNM Encounter for supervision of other normal in third trimester; Spotting in 09/01/2024 8:40 AM DRY WALL APPLICATOR Initial [facility] Obstetrics and Gynecology [address] [place] [address] Paloma Winters APRN, SIMONA ,1st Ob 09/01/2024 Results Follow-Up [facility] Obstetrics and Gynecology [address] [place] [phone] Lori Saldaña RN 09/01/2024 Results Follow-Up [facility] Obstetrics and Gynecology [address] [place] [phone] Lori Saldaña RN 09/01/2024 Notes/Orders [facility] tank erector Ultrasound [address] [place] [address] Paloma Winters APRN, SIMONA Establish gestational age, ultrasound (Primary Dx) 08/28/2024 Nurse Triage [facility] [address] [place] [address]. [place] [address] Unassigned, Provider NECK PAIN; BACK PAIN; FEVER; Concerns 08/19/2024 Telephone [facility] Obstetrics and Gynecology [address] [place] [address] Paloma Winters APRN, SIMONA ,1st Ob from Last 3 Months Immunizations Immunization Administration Dates Next Due 9vHPV (Gardasil 9) 11/30/2008,09/20/2008, 009 DTaP 01/26/1995, 2,12/01/1990,1989,1989 HepB Ped/Adol (0-18 yrs) 02/17/2002,08/30/2001,0 08/02/2001 HepB, Unspecified Formulation 02/17/2002, 002,08/02/2001 Hib (ActHIB) 04/20/1991 IPV (Polio) 12/13/1991, 1,03/29/1990,1989 Influenza IIV4 (Quadrivalent ) 0.5mL (48238) 04/11/2019,05/18/2018,08/01/2016,2014,03/30/2014 Influenza LAIV (Nasal, 2-49 yrs) 05/14/2020 [...] pur e alcohol) 1 drink a week [facility] [employer] Answer Date Recorded In the past 12 months has th e mechatronic systemtechnik, gas, oil, or water Robert Applebaum MD threatened to shut off services in your [...] place to sleep or slept in a usp (including now)? 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 Not on file Not on file Last Filed Vital Signs Vital Sign Reading Time Taken Comments Blood Pressure 104/71 09/01/2024 8:49 AM DRY WALL APPLICATOR Pulse 77 09/01/2024 8:49 AM DRY WALL APPLICATOR Temperature 36.6 C (97.9 F) 10/22/2023 7:30 AM CDT Respiratory Rate 18 10/22/2023 7:30 AM CDT Oxygen Saturation 99% 10/22/2023 7:30 AM CDT Inhaled Oxygen Concentration - - Weight 82.1 kg (181 lb) 09/01/2024 8:49 AM DRY WALL APPLICATOR Height 162.6 cm (5' 4) 10/20/2023 6:00 AM CDT Body Mass Index 31.07 10/20/2023 6:00 AM CDT Plan of Treatment Health Maintenance Due Date Last Done Comments Asthma ACT (score of 20 or higher) 1993 HPV Vaccine (3 - 3-dose series) 02/22/2009 [...] history exists HIV Screening (Preventive Services) Completed 09/01/2024, 03/26/2015, 12/08/2013 Hep C Screening (Preventive Services) Completed 09/01/2024 HepA Aged Out No longer eligi ble based on patient's age to complete this topic MCV4 Aged Out No longer eligi ble based on patient's age to complete this topic Meningococcal B Aged Out No longer el igible based on patient's age to complete this topic Pneumococcal Aged Out No longer eligi ble based on patient's age to complete this topic Procedures Procedure Name Priority Date/Time Associated Diagnosis Comments HCG, QUANTITATIVE, SERUM STAT 09/04/2024 10:45 AM CDT Vaginal bleeding in , first trimester HCG, QUANTITATIVE, SERUM STAT 09/03/2024 9:45 AM DRY WALL APPLICATOR Vaginal bleeding in , first trimester CHLAMYDIA & GC, URINE (14 YEARS AND OLDER) Routine 09/01/2024 10:39 AM DRY WALL APPLICATOR Encounter for supervision of other normal in third trimester URINE CULTURE Routine 09/01/2024 10:39 AM DRY WALL APPLICATOR Encounter for supervision of other normal in third trimester TP/CREA RATIO, URINE Routine 09/01/2024 10:39 AM DRY WALL APPLICATOR Encounter for supervision of other normal in third trimester RAPID DRUG PANEL, URINE (WITH CONFIRMATION) Routine 09/01/2024 10:39 AM DRY WALL APPLICATOR Encounter for supervision of other normal in third trimester OBGYN FIRST TRIMESTER ULTRASOUND Routine 09/01/2024 10:26 AM DRY WALL APPLICATOR Spotting in SYPHILIS PANEL (WITH REFLEX) Routine 09/01/2024 9:45 AM DRY WALL APPLICATOR Routine screening for STI (sexually transmitted infection) RUBELLA IMMUNE STATUS, IGG Routine 09/01/2024 9:45 AM DRY WALL APPLICATOR Encounter for supervision of other normal in third trimester HIV 1/2 AG/AB 4TH GEN Routine 09/01/2024 9:45 AM DRY WALL APPLICATOR Encounter for supervision of other normal in third trimester HEPATITIS C ANTIBODY, WITH REFLEX Routine 09/01/2024 9:45 AM DRY WALL APPLICATOR Encounter for supervision of other normal in third trimester HEPATITIS B CORE,AB Routine 09/01/2024 9 :45 AM DRY WALL APPLICATOR Encounter for supervision of other normal in third trimester HEPATITIS B SURFACE ANTIBODY Routine 09/01/2024 9:45 AM DRY WALL APPLICATOR Encounter for supervision of other normal in third trimester HBSAG (HEPATITIS B SURFACE AG) Routine 09/01/2024 9:45 AM DRY WALL APPLICATOR Encounter for supervision of other normal in third trimester SYPHILIS PANEL (WITH REFLEX) Routine 09/01/2024 9:45 AM DRY WALL APPLICATOR Routine screening for STI (sexually transmitted infection) ALT (SGPT) Routine 09/01/2024 9:45 AM DRY WALL APPLICATOR Encounter for supervision of other normal in third trimester TSH, SENSITIVE, (WITH REFLEX) Routine 09/01/2024 9:45 AM DRY WALL APPLICATOR Encounter for supervision of other normal in third trimester AST Routine 09/01/2024 9:45 AM DRY WALL APPLICATOR Encounter for supervision of other normal in third trimester CREATININE / GFR Routine 09/01/2024 9:45 AM DRY WALL APPLICATOR Encounter for supervision of other normal in third trimester HEMOGLOBIN, BLOOD (OB) Routine 09/01/2024 9:45 AM DRY WALL APPLICATOR Encounter for supervision of other normal in third trimester HGB A1C Routine 09/01/2024 9:45 AM DRY WALL APPLICATOR Encounter for supervision of other normal in third trimester COMPLETE BLOOD COUNT-NO DIFF Routine 09/01/2024 9:45 AM DRY WALL APPLICATOR Encounter for supervision of other normal in third trimester ANTIBODY SCREEN Routine 09/01/2024 9:45 AM DRY WALL APPLICATOR Encounter for supervision of other normal in third trimester CYTOLOGY (PAP) Routine 09/11/2022 9:29 AM CDT Screening for malignant neoplasm of cervix from Last 3 Months or Most Recently Relevant to Health Maintenance Results * (ABNORMAL) HCG, Quantitative, Serum (09/04/2024 10:45 AM CDT) Only the most recent of2 resultswithin the time period is included. HCG, Quantitative 1,802(H) <=4 mIU/mL 09/04/2024 4:32 PM CDT [facility] Blood Venipuncture / Unknown 09/04/2024 10:45 AM CDT 09/04/2024 10:45 AM CDT Narrative [facility] - 09/04/2024 4:32 PM CDT Expected ranges Negative: <5 mIU/mL Indeterminate: 5-25 mIU/mL Positive: >25 mIU/mL Suggest repeat testing of indeterminate result in 72 hours. Gabriella Guy APRN, CNM LAB_1 Fin al Result [facility] [address] * (ABNORMAL) Urine Culture (09/01/2024 10:39 AM DRY WALL APPLICATOR) [facility] Urine Culture Growth(A) 09/02/2024 10:08 AM [facility] Urine Culture <10,000 CFU/mL Mixed Bacterial Growth 09/02/2024 10:08 AM [facility] Comment: Mixed Bacterial Growth indicates the specimen is likely contaminated at collection with urogenital and/or fecal benedict. The presence of organisms at <10,000 cfu/ml in culture, UTI unlikely. Urine URINE SPECIMEN COLLECTION, CLEAN CATCH / Unknown Non-blood Collection / Unknown 09/01/2024 10:39 AM DRY WALL APPLICATOR 09/01/2024 10:39 AM DRY WALL APPLICATOR Paloma Winters APRN, CNM LAB_1 Fi nal Result [id number] [place] [address] * Rapid Drug Panel, Urine (with Confirmation) without THC (09/01/2024 10:39 AM DRY WALL APPLICATOR) [facility] Amphetamines Screen Not Detected Not Detected 09/01/2024 1:12 PM [facility] Barbiturates Screen Not Detected Not Detected 09/01/2024 1:12 PM [facility] Benzodiazepines Screen Not Detected Not Detected 09/01/2024 1:12 PM [facility] Buprenorphine Screen Not Detected Not Detected 09/01/2024 1:12 PM [facility] Cocaine Metabolite Screen Not Detected Not Detected 09/01/2024 1:12 PM [facility] Methadone Screen Not Detected Not Detected 09/01/2024 1:12 PM [facility] Opiates Screen Not Detected Not Detected 09/01/2024 1:12 PM [facility] Oxycodone Screen Not Detected Not Detected 09/01/2024 1:12 PM [facility] Phencyclidine (PCP) Screen Not Detected Not Detected 09/01/2024 1:12 PM [facility] Creatinine, Urine, Random 68 >20 mg/dL 09/01/2024 1:12 PM [facility] Urine Non-blood Collection / Unknown 09/01/2024 10:39 AM DRY WALL APPLICATOR 09/01/2024 10:39 AM DRY WALL APPLICATOR [facility] - 09/01/2024 1:12 PM DRY WALL APPLICATOR The absence of expected drug(s) and/or drug metabolite(s) may indicate non-compliance, inappropriate timing of specimen collection relative to drug administration, poor drug absorption, diluted/adulterated urine or limitations of testing. The concentration must be greater than or equal to the cutoff concentration to be reported as positive. For medical purposes only: not valid for forensic, legal, or employment use. us Paloma Winters APRN, CNM LAB_[place] [address], [facility] * Chlamydia & GC, Urine (14 Years and Older) (09/01/2024 10:39 AM DRY WALL APPLICATOR) Chlamydia Trachomatis STD Not Detected Not Detected 09/01/2024 8:59 PM DRY WALL APPLICATOR [facility] N. gonorrhoeae STD Not Detected Not Detected 09/01/2024 8:59 PM [facility] Urine STD (Urine for STD) Non-blood Collection / Unknown 09/01/2024 10:39 AM DRY WALL APPLICATOR 09/01/2024 10:39 AM DRY WALL APPLICATOR [facility] - 09/01/2024 8:59 PM DRY WALL APPLICATOR Test performed by Manager Call Center Mediated Amplification (TMA). Urine Volume submitted was greater than 30 ml. Excess collection volume may decrease test sensitivity. Recollection suggested if clinically indicated. us Paloma Winters APRN, CNM LAB_1 Fi nal Result Performing Organization Address [facility] de Phone Number [facility] [address] * TP/Crea Ratio, Urine (09/01/2024 10:39 AM DRY WALL APPLICATOR) TP/Creat Ratio, Urine Random 0.07 0.00 - 0.20 09/01/2024 2:37 PM DRY WALL APPLICATOR [facility] Total Protein, Urine, Random 5 0 - 14 mg/dL 09/01/2024 2:37 PM DRY WALL APPLICATOR [facility] Creatinine, Urine, Random 67 >20 mg/dL mg/dL 09/01/2024 2:37 PM DRY WALL APPLICATOR [facility] Urine Non-blood Collection / Unknown 09/01/2024 10:39 AM DRY WALL APPLICATOR 09/01/2024 10:39 AM DRY WALL APPLICATOR Narrative [facility] - 09/01/2024 2:37 PM DRY WALL APPLICATOR Low urine creatinine values coupled with low urine protein values can artifactually increase the urine protein/creatinine results. Correlate results of ratio with creatinine results. 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 MILL OPERATOR TAPE CONTROL AL RESULTS Left Ovary Perpendicular Diameter (Height) 1.60 cm EXTERNAL RESULTS Left Ovary Longitudinal Diameter (Length) 2.00 cm EXTERNAL RESULTS Left Ovary Hilum-Cortex Diameter (Width) 2.40 cm EXTERNAL RESULTS Left Ovary Volume 4.02 ml EX TERNAL RESULTS Right Ovary Perpendicular Diameter (Height) 2.20 cm EXTERNAL RESULTS Right Ovary Longitudinal Diameter (Length) 2.50 cm EXTERNAL RESULTS Right Ovary Hilum-Cortex Diameter (Width) 2.20 cm EXTERNAL RESULTS Right Ovary Volume 6.34 ml E XTERNAL RESULTS Anatomical Region Laterality Modality Pelvis Ultrasound Study GA Study Date Study RACHEL Working RACHEL (Source) 09/01/2024 04/17/2025 (Last Menstrua l Period) Fetus 1 Measurements Value GA (days) GA by US Calc FHR Gest Sac .59 cm Yolk Sac 3 mm CRL .1 cm NT BPD OFD HC AC FL HL CI FL/BPD FL/AC HC/AC UAR - PSV UAR - S/D Ratio UAR - RI UAR - PI MCA - PSV MCA - S/D Ratio MCA - PI Lateral Ventricle CER Cisterna Magna ARELY Foot Narrative 09/01/2024 10:56 AM DRY WALL APPLICATOR Table formatting from the original result was not included. Early First Trimester Ultrasound Exam performed on: 09/01/2024 Referring provider: Paloma Winters APRN, CNM Referring clinic: [facility] Clinical indications: Spotting in LMP: Patient's last menstrual period was 07/11/2024 (exact date)., 7w3d Lining Cementer(s) initials: [place] The pelvic organs are imaged using: both transvaginal and transabdominal transducers to better visualize the pelvic anatomy. Today's ultrasound was compared to previous report from: None Measurements and comments Uterus: Length Height Width 7.90 5.00 6.50 cm Position: anteverted Comments: symmetrical Right ovary: Length Height Width Volume 2.50 2.20 2.20 cm 6.34 ml Comments: appears normal corpus luteum Left ovary: Length Height Width Volume 2.00 1.60 2.40 cm 4.02 ml Comments: appears normal Adnexa: no masses seen Peritoneal fluid: present- trace amount posterior cul-de-sac Mean gestational sac: 0.59 cm Yolk sac: 3 mm ? CRL: 0.1 cm heart beat: Not Visualized Impression: Intrauterine too early to determine viability. Ultrasound appearance is not consistent with menstrual dating. Gestational sac and yolk sac visualized. Yolk sac appears mildly enlarged compared to size of the gestational sac. A possible pole measuring 1 mm was seen. No cardiac activity yet noted. Normal-appearing ovaries and adnexa bilaterally. Plan: These findings were reviewed with the patient. She will follow up with her referring provider. Recommend follow-up ultrasound in 11-14 days to evaluate viability/establish dates. SAB precautions reviewed. Additional Comments: Patient scheduled for follow-up ultrasound in 14 days. Soni Melendez DO Paloma Winters APRN, SIMONA RAD US Fi nal Result * Rubella Immune Status, IgG (09/01/2024 9:45 AM DRY WALL APPLICATOR) Rubella Units 10.40 09/02/2024 9:30 AM DRY WALL APPLICATOR [facility] Comment:The magnitude of the measured result, above the cutoff, is not indicative of the amount of antibody present. Rubella Intepretation Immune Immune 09/02/2024 9:30 AM DRY WALL APPLICATOR [facility] Blood Venipuncture / Unknown 09/01/2024 9:45 AM DRY WALL APPLICATOR 09/01/2024 9:45 AM DRY WALL APPLICATOR us Paloma Winters APRN, SIMONA LAB_1 Fi nal Result Performing Organization Address City/[facility]/ZIP Co de Phone Number [facility] [address] [place] [address] * Antibody Screen (09/01/2024 9:45 AM DRY WALL APPLICATOR) Pathologist [facility] Antibody Screen Interpretation Negative 09/01/2024 1:[address] [facility] Blood Venipuncture / Unknown 09/01/2024 9:45 AM DRY WALL APPLICATOR 09/01/2024 9:45 AM DRY WALL APPLICATOR Paloma Winters APRN, SIMONA LAB_1 Fi nal Result Performing Organization Address City/[facility]/ZIP Co de Phone Number [facility] [address] * Syphilis Panel, with Reflex (09/01/2024 9:45 AM DRY WALL APPLICATOR) Treponema Screen Interpretation Non Reactive Non Reactive 09/01/2024 4:52 PM DRY WALL APPLICATOR [facility] Syphilis Panel Comment Negative - No serological evidence of syphilis. 09/01/2024 4:52 PM DRY WALL APPLICATOR [facility] Blood Venipuncture / Unknown 09/01/2024 9:45 AM DRY WALL APPLICATOR 09/01/2024 9:45 AM DRY WALL APPLICATOR Paloma Winters APRN, SIMONA LAB_1 Fi nal Result [facility] [address] [place], [place] [address] * (ABNORMAL) Hemoglobin, Blood (OB) (09/01/2024 9:45 AM DRY WALL APPLICATOR) Hemoglobin 13.7(H) 11.0 - 13.4 g/dL 09/01/2024 9:52 AM DRY WALL APPLICATOR [facility] Blood Venipuncture / Unknown 09/01/2024 9:45 AM DRY WALL APPLICATOR 09/01/2024 9:45 AM DRY WALL APPLICATOR Narrative [facility] - 09/01/2024 9:52 AM DRY WALL APPLICATOR Weeks Gestation: 7 Paloma Winters APRN, SIMONA LAB_1 Fi nal Result Performing Organization Address [facility] Co de Phone Number [facility] [address] [place] [phone] * Hepatitis B Surface Antibody (09/01/2024 9:45 AM DRY WALL APPLICATOR) Hep B Surf Antibody Result 688.4 mIU/mL 09/01/2024 2:16 PM DRY WALL APPLICATOR [facility] Hep B Surf Antibody Interpretation Positive (Reactive) Positive (Reactive) 09/01/2024 2:16 PM DRY WALL APPLICATOR [facility] Comment:Individual is consid ered immune to HBV infection. Blood Venipuncture / Unknown 09/01/2024 9:45 AM DRY WALL APPLICATOR 09/01/2024 9:45 AM DRY WALL APPLICATOR Paloma Winters APRN, SIMONA LAB_1 Fi nal Result [facility] [address] * HIV 1/2 Ag/Ab 4th Generation (09/01/2024 9:45 AM DRY WALL APPLICATOR) Pathologist [facility] HIV 1/2 Antigen/Anti body (4th generation) Negative (Non Reactive) Negative (Non Reactive) 09/01/2024 2:15 PM DRY WALL APPLICATOR [facility] Comment:HIV-1 p24 Antigen an d HIV-1/HIV-2 Antibody not detected Blood Venipuncture / Unknown 09/01/2024 9:45 AM DRY WALL APPLICATOR 09/01/2024 9:45 AM DRY WALL APPLICATOR Paloma Winters APRN, SIMONA LAB_1 Fi nal Result Performing Organization Address [facility] Phone Number [facility] [address] * TSH, Sensitive, (with Reflex) (09/01/2024 9:45 AM DRY WALL APPLICATOR) [facility] TSH, with Reflex 1.54 0.30 - 2.50 uIU/mL 09/01/2024 2:15 PM DRY WALL APPLICATOR [facility] Blood Venipuncture / Unknown 09/01/2024 9:45 AM DRY WALL APPLICATOR 09/01/2024 9:45 AM DRY WALL APPLICATOR Narrative [facility] - 09/01/2024 2:15 PM DRY WALL APPLICATOR Reference ranges based on population of healthy woman. See trimester-specific ranges below for interpretation. (Result has been flagged based on the lowest and highest of these reference ranges.) 1st trimester: 0.10-2.50 uIU/mL 2nd trimester: 0.20-3.00 uIU/mL 3rd trimester: 0.30-3.00 uIU/mL Paloma Winters APRN, SIMONA LAB_1 Fi nal Result Performing Organization Address [facility] Co de Phone Number [facility] [address] * Creatinine / GFR (09/01/2024 9:45 AM DRY WALL APPLICATOR) Creatinine 0.68 0.55 - 1.02 mg/dL 09/01/2024 1:53 PM DRY WALL APPLICATOR [facility] GFR, Estimated >60 >60 mL/min/1. 73m2 09/01/2024 1:53 PM [facility] Blood Venipuncture / Unknown 09/01/2024 9:45 AM DRY WALL APPLICATOR 09/01/2024 9:45 AM DRY WALL APPLICATOR us Paloma Winters APRN, SIMONA LAB_1 Fi nal Result [facility] [address] * Complete Blood Count-No Diff (09/01/2024 9:45 AM DRY WALL APPLICATOR) WBC 6.3 3.5 - 10.5 x10(9)/L 09/01/2024 9:52 AM DRY WALL APPLICATOR [facility] RBC 4.47 3.90 - 5.03 x10(12)/L 09/01/2024 9:52 AM [facility] Hemoglobin 13.7 12.0 - 15.5 g/dL 09/01/2024 9:52 AM [facility] HCT 41.3 34.9 - 44.5 % 09/01/2024 9:52 AM DRY WALL APPLICATOR [facility] MCV 92.4 80.0 - 100.0 fL 09/01/2024 9:52 AM [facility] MCH 30.6 27.6 - 33.3 pg 09/01/2024 9:52 AM [facility] MCHC 33.2 31.5 - 35.2 g/dL 09/01/2024 9:52 AM [facility] RDW 12.9 11.9 - 15.5 % 09/01/2024 9:52 AM [facility] Platelets 233 150 - 450 x10(9)/L 09/01/2024 9:52 AM [facility] Blood Venipuncture / Unknown 09/01/2024 9:45 AM DRY WALL APPLICATOR 09/01/2024 9:45 AM DRY WALL APPLICATOR Paloma Winters APRN, CNM LAB_1 Fi nal Result [facility] [address] [place] [id number], [facility] * Hepatitis C Antibody, with Reflex (09/01/2024 9:45 AM DRY WALL APPLICATOR) Hepatitis C Antibody Negative (Non Reactive) Negative (Non Reactive) 09/01/2024 2:20 PM DRY WALL APPLICATOR [facility] Comment:Antibodies to HCV no t detected. Does not exclude the possiblity of exposure to HCV. Blood Venipuncture / Unknown 09/01/2024 9:45 AM DRY WALL APPLICATOR 09/01/2024 9:45 AM DRY WALL APPLICATOR Paloma Winters APRN, CNM LAB_1 Fi nal Result Performing Organization Address [facility] Co de Phone Number [facility] [address] * Hepatitis B Surface Antigen (09/01/2024 9:45 AM DRY WALL APPLICATOR) Hepatitis B Surface Antigen Negative (Non Reactive) Negative (Non Reactive) 09/01/2024 2:17 PM DRY WALL APPLICATOR [facility] Blood Venipuncture / Unknown 09/01/2024 9:45 AM DRY WALL APPLICATOR 09/01/2024 9:45 AM DRY WALL APPLICATOR Paloma Winters APRN, CNM LAB_1 Fi nal Result Performing Organization Address City/[facility] Co de Phone Number [facility] [address] * Hepatitis B Core Antibody (09/01/2024 9:45 AM DRY WALL APPLICATOR) Hepatitis B Core Antibody Negative (Non Reactive) Negative (Non Reactive) 09/01/2024 2:17 PM DRY WALL APPLICATOR [facility] Blood Venipuncture / Unknown 09/01/2024 9:45 AM DRY WALL APPLICATOR 09/01/2024 9:45 AM DRY WALL APPLICATOR Paloma Winters APRN, CNM LAB_1 Fi nal Result Performing Organization Address [facility] Co de Phone Number [facility] [address] * Hgb A1C (09/01/2024 9:45 AM DRY WALL APPLICATOR) Hemoglobin A1C 5.3 <=5.6 % 09/01/2024 3:22 PM DRY WALL APPLICATOR [facility] Estimated Average Glucose (Calc) 105 < 117 mg/dL 09/01/2024 3:22 PM [facility] Comment:Estimated average gl ucose (eAG) converts A1c into glucose units (mg/dL) and estimates average glucose over the past approximately 3 months. The eAG reference interval (<117 mg/dL) corresponds to an A1c of <5.7%. Blood Venipuncture / Unknown 09/01/2024 9:45 AM DRY WALL APPLICATOR 09/01/2024 9:45 AM DRY WALL APPLICATOR Paloma Winters APRN, SIMONA LAB_1 Fi nal Result Performing Organization Address [facility] de Phone Number [facility] [address] * ALT (SGPT) (09/01/2024 9:45 AM DRY WALL APPLICATOR) ALT (SGPT) 32 0 - 55 U/L 09/01/2024 1:53 PM DRY WALL APPLICATOR [facility] Blood Venipuncture / Unknown 09/01/2024 9:45 AM DRY WALL APPLICATOR 09/01/2024 9:45 AM DRY WALL APPLICATOR Paloma Winters APRN, SIMONA LAB_1 Fi nal Result Performing Organization Address [facility] Co de Phone Number [facility] [address] * AST (09/01/2024 9:45 AM DRY WALL APPLICATOR) AST (SGOT) 21 10 - 40 U/L 09/01/2024 1:53 PM DRY WALL APPLICATOR [facility] Blood Venipuncture / Unknown 09/01/2024 9:45 AM DRY WALL APPLICATOR 09/01/2024 9:45 AM DRY WALL APPLICATOR us Paloma Denise Winters APRN, SIMONA LAB_1 Fi nal Result [facility] [address] * PAP Test (09/11/2022 9:29 AM CDT) Case Report Pap Case: [id number] Authorizing Provider: Fidelina Francois MD Collected: 09/11/2022 0929 Ordering Location: [facility] and Received: 09/11/2022 1208 Gyne[facility] First Screen: Daniel Suarez Rescreen: Ange Metcalf SCT (ASCP) Specimen: Pap Test, Routine, Cervix/Endocervix 09/19/2022 6:45 AM [facility] Pap Specimen Adequacy Satisfactory for evaluation, endocervical/lópez sformation zone component present. 09/19/2022 6:45 AM [facility] Pap Interpretation (NILM) Negative for intraepithelial lesion or malignancy. 09/19/2022 6:45 AM [facility] at 0645 CDT Pap Other Findings Fungal organisms morphologically consistent with Saima spp. 09/19/2022 6:45 AM [facility] Pap Disclaimer The Pap test is a screening test designed to aid in the detection of cervical cancer and its precursor lesions. It is not a diagnostic procedure and should not be used as the sole means of detecting cervical cancer. Both false-positive and false-negative results may occur. 09/19/2022 6:45 AM [facility] Gross Description The specimen is received in SurePath fixative and properly labeled. 1 Pap-stained SurePath slide is prepared. 09/19/2022 6:45 AM CDT [facility] Embedded Images 6:45 AM [facility] Other Specimen Type ENTIRE ENDOCERVIX / Unknown 09/11/2022 9:29 AM CDT 09/11/2022 12:08 PM CDT Comment:LMP: Patient's last menstrual period was 09/01/2022 (exact date). us Fidelina Francois MD LAB PATHOLOGY Final Result [facility] [address] [place] [address], [facility] [phone] from Last 3 Months or Most Recently Relevant to Health Maintenance Insurance [employer] Advance Directives Documents on File Type Date Recorded Patient Algebraist Expl anation HEALTHCARE DIRECTIVE 07/17/2023 Cora Maoon 024 * Full Code (Latest Code Status [...] Agents on File Name Relationship Healthcare Agent Relationshi p Communication Cora Beasley Mother Health Care Agent Care Teams Nutrition Aides Teacher Relationship Specialty Start Date End Date Martell Ortega MD [address] [place] [address] PCP - General 06/29/23
--- OUTSIDE RECORDS SUMMARY | 2024-09-08 15:45 | XMS_ITS | Encounter Summary ---
Author Organization [facility] Address [address] [place] [address] Care Team Providers Care Bed Control Specialist Name Role Phone Martell Ortega MD Primary Care Provider [phone] Encounter Details Date Type Department Care Team (Late st Contact Info) Description 12/07/2015 Consent for Procedure/Treatjohn bhandari [facility] [address] [place], [place] [phone] Tawanna Mcleod APRN, CN [address] [place], [place] [phone] NEXPLANON CONSENT Social History Tobacco Use Types Packs/Day Years Used Date Smoking Tobacco: Never Smokeless Tobacco: Never Alcohol Use Standard Drinks/Week Comments No 0 (1 standard drink = 0.6 oz pur e alcohol) Comments No Sex and Gender Information Value Date Recorded Sex Assigned at Not on file Legal Sex Female 7:14 PM COLLISION ESTIMATOR Gender Identity Not on file Sexual Orientation Not on file 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
--- OUTSIDE RECORDS SUMMARY | 2024-09-08 15:45 | XMS_ITS | Encounter Summary ---
Author Organization [facility] Address [address] [place] [address] Care Team Providers Care Contract Administration Coordinator Name Role Phone Martell Ortega MD Primary Care Provider [phone] Encounter Details Date Type Department Care Team (Late st Contact Info) Description 08/16/2015 Correspondence [place] [facility] [address] [facility] 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
--- OUTSIDE RECORDS SUMMARY | 2024-09-08 15:45 | XMS_ITS | Encounter Summary ---
Author Organization [facility] Address [address] [place] [address] Care Team Providers Care Burglar Alarm Installer Name Role Phone Martell Ortega MD Primary Care Provider [phone] Encounter Details Date Type Department Care Team (Late st Contact Info) Description 12/07/2015 Correspondence [place] [facility] [address] [facility] 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
[2024-09-08 15:46] VITALS: BP 122/77; PULSE 71; RESP 16; TEMP 36.7; O2SAT 99; BMI 31.2
--- OUTSIDE RECORDS SUMMARY | 2024-09-08 15:46 | XMS_ITS | Encounter Summary ---
Author Organization [facility] Address [address] [place] [address] Care Team Providers Care Account Receivable Clerk Name Role Phone Martell Ortega MD Primary Care Provider [phone] Reason for Visit * Reason Comments ,1st Ob Encounter Details Date Type Department Care Team (Late st Contact Info) Description 08/19/2024 Telephone [facility] Obstetrics and Gynecology [address] [place] [phone] Paloma Winters, BOTTOM CRANE OPERATOR, CN [address] [place], [place] [phone] ,1st Ob Social History Tobacco Use Types Packs/Day Years Used Date Smoking Tobacco: Never Smokeless Tobacco: Never Alcohol Use Standard Drinks/Week Comments Not Currently 0 (1 standard drink = 0.6 oz pur e alcohol) 1 drink a week [facility] Utilities Answer Date Recorded In the past 12 months has e [employer], gas, oil, or water company threatened to [...] place to sleep or slept in a group home (including now)? 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 Is this good news? Yes Obstetrical History OB History Para Term AB Living 4 3 1 2 0 3 SAB IAB Ectopic Multiple Live Births 0 0 0 0 3 # Outcome Date GA Lbr Larry/2nd Weight Sex Type Anes PTL Lv 4 Current 3 Term 10/20/23 37w4d 05:04 / 00:08 7 lb 7.8 oz M Vag-Spont Other N ULISES Name: Rod Mcfadden Apgar1: 8 Apgar5: 9 2 09/15/15 36w5d 00:42 / 00:17 6 lb 15.5 oz M EPI, IV analgesia N ULISES Complications: Shoulder Dystocia Apgar1: 8 Apgar5: 9 1 06/02/14 36w2d 03:20 / 00:51 5 lb 15.6 oz M Vaginal EPI, IV analgesia Y ULISES Apgar1: 9 Apgar5: 9 LMP: Patient's last menstrual period was 07/11/2024 (exact date). -Para: RACHEL: Estimated Date of Delivery: None noted. [facility] Project Drilling Engineer clinics, we offer care with physicians, nurse midwives, and nurse practitioners. Nurse midwives and nurse practitioners are nurses who complete advanced training tocare for individuals with uncomplicated pregnancies. They see patients in clinic and provide care for their patients at [facility] and [facility]. You are wel come to schedule with either a physician or a appliance tester to begin your care. *If the patient has had a prior ; obtain records. No Risks Symptoms in Early : Intermittent lower abdominal pain that interferes with daily activities for >3 hours and <24 hours: No Mild vaginal bleeding (ie: less than 1 pad/hour, less than patients usual menstrual bleeding, and not just spotting): No Spotting lasting >48 hours or spotting happens more than once a week: No *If patient does not have a confirmed in [facility], order UPT to be completed 30 minutes priorto US. Schedule lab and US in same location. If UPT is negative cancel US. Complicating History in Early : History of ectopic: No History of tubal ligation/ surgery: No Current IUD: No History of PID: No Abnormality of fallopian tubes identified by x-ray or surgery: No Unknown LMP: No ABO/RH(D) Date Value Ref Range Status 09/15/2015 A NEGATIVE Final Antibody Screen Interpretation Date Value Ref Range Status 10/20/2023 Positive Final Are any of the question above answered yes? No *Update patients Medical, Surgical, Obstetrical History as appropriate. Yes Neural Tube Defect Risks Previous affected by a neural tube defect: No Family history of neural tube defect: No Pre-existing diabetes (type 1 or 2) in patient: No Use of antiseizure/antiepileptic medications at time of conception and/or ongoing: No Are any of the questions above answered yes? NO: Continue with standard recommendation of Vitamin with Folic Acid or Folic Acid 400-800mcg daily. Medications Current Outpatient Medications Medication Sig Dispense Refill acetaminophen (TYLENOL) 500 MG tablet Take 2 Tablets (1,000 mg) by mouth. docusate sodium (COLACE) 100 MG capsule Take 1 Capsule (100 mg) by mouth daily. (Patient not taking: Reported on 08/19/2024) 60 Capsule 0 olopatadine (PATADAY) 0.2 % eye drop solution Place 1 Drop into both eyes daily. (Patient not taking: Reported on 08/19/2024) 2.5 mL 11 plus vitamin Take 1 Tablet by mouth daily. 90 Tablet 3 plus vitamin Take 1 Tablet by mouth daily. (Patient not taking: Reported on 08/19/2024) 90 Tablet 3 sertraline (ZOLOFT) 50 MG tablet Take one-half tablet by mouth daily for 7 days, then take 1 tabletdaily. (Patient not taking: Reported on 08/19/2024) 90 Tablet 0 No current facility-administered medications for this visit. Medication list has been reviewed and reconciled. Has patient taken any OTC medications since LMP? No Has patient taken any prescription medications since LMP? No *If patient has taken any Thyroid medication order TSH and schedule lab visit within 1 week No *If patient has taken Insulin advise patient to notify prescribing provider (Endo or PCP) and orderHGB A1C to be drawn within 1 week if the patient has not had one drawn the last 3 months No Substance History Tobacco: Social History Tobacco Use Smoking Status Never Smokeless Tobacco Never Alcohol (since positive test): Social History Substance and Sexual Activity Alcohol Use Not Currently Comment: 1 drink a week Recreational Drugs (including marijuana): Social History Substance and Sexual Activity Drug Use No Are you concerned about your personal safety? 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 First OB exam scheduled Patient was advised to: Drink 8-10 glasses of water daily Begin Vitamin with Folic Acid or Folic Acid 400 to 800 mcg daily Limit caffeine intake to 200 mg or less per day (8 oz coffee = 100-200mg caffeine) Avoid Aspirin, Ibuprofen, and Naproxen. May take Tylenol for minor pain. Avoid changing cat litter if caring for cats. Patient was informed: Advised patient to call their insurance to verify coverage locations for delivery. Advised that genetic screening tests will be discussed at the 1st OB visit and patient should verify coverage for desired tests. That we are in clinic Thursday thru Thursday 8am - 5pm Clinic Number: [phone] Careline: [phone] or [phone] Contact clinic with any questions or concerns during office hours. Contact Careline with questions or concerns before/after clinic hours, weekends, and on holidays that the clinic is closed. If you choose to message your care team via online patient services please note that e-mails/E-visits are not monitored outside of Thursday through Thursday business hours. If you experience any unusual abdominal pain, cramping, bleeding/spotting or are unable to keep fluids down for greater than 24 hours please contact the triage nurse or the Careline after hours. If you experience severe abdominal pain/cramping or heavy bleeding, saturating more than 1 pad/hour x 3 hours, you will need to be evaluated immediately in the emergency room. Any other questions or concerns? no Pt requesting information to be sent through OPS as pt was driving, read precautions to pt. YOLA RN, SP LIAISON OFFICER, 08/19/2024, 9:24 AM RIALS SCHEDULER * Gifty [place] V - 08/19/2024 8:09 AM CST 1ST OB VISIT - 09/01/2024 Appointment Status: Scheduled Paloma Winters APRN, YENNYM Department: SP LIAISON OFFICER Time: 8:40 AM Length: 40 minutes TARA Lopez LIAISON OFFICER Pitch Flaker 08/19/2024, 8:09 AM RIALS SCHEDULER documented in this encounter Plan of Treatment Not on file documented as of this encounter Visit Diagnoses Not on filedocumented in this encounter Care Teams Account Receivable Clerk Relationship Specialty Start Date End Date Martell Ortega MD [address] [place] [address] PCP - General 06/29/23 documented as of this encounter
--- OUTSIDE RECORDS SUMMARY | 2024-09-08 15:46 | XMS_ITS | Encounter Summary ---
Author Organization [facility] Address [address], [place] [address] Care Team Providers Care Clay Miner Name Role Phone Martell Ortega MD Primary Care Provider + [phone] Encounter Details Date Type Department Care Team (Late st Contact Info) Description 09/05/2024 E-Visit [facility] Obstetrics and Gynecology [address] [place] [address] [place] [address] Social History Tobacco Use Types Packs/Day Years Used Date Smoking Tobacco: Never Smokeless Tobacco: Never Alcohol Use Standard Drinks/Week Comments Not Currently 0 (1 standard drink = 0.6 oz pur e alcohol) 1 drink a week [facility] Utilities Answer Date Recorded In the past 12 months has [employer], gas, oil, or water [employer] threatened to shut off services in your [...] place to sleep or slept in a alf (including now)? 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
--- OUTSIDE RECORDS SUMMARY | 2024-09-08 15:46 | XMS_ITS | Encounter Summary ---
[facility] Address [address] [place] [address] Care Team Providers Care Twister Doffer Name Role Phone Martell Ortega MD Primary Care Provider + [phone] Reason for Visit * Procedure/Equipment (Routine) - Incomplete Specialty Diagnoses / Procedures Referred By Juaquin bhandari Referred To Contact Diagnoses Spotting in Procedures OBGYN First Trimester Ultrasound OBGYN First Trimester Ultrasound Paloma Winters APRN, CNM [address] [place] [address] Phone: tel: fax: Referral ID Status Reason Start Date Expiration Date V isits Requested Visits Authorized [id number] Incomplete 09/01/2024 12/01/2025 1 1 Encounter Details Date Type Department Care Team (Latest Contact Info) Description 09/01/2024 10:00 AM BUSINESS SUPPORT Ancillary Procedure [facility] school childcare attendant Ultrasound [address] [place] [address] [phone] Paloma Winters APRN, CNM [address] [place] [phone] Encounter for supervision of other normal in third trimester; Spotting in Social History Tobacco Use Types Packs/Day Years Used Date Smoking Tobacco: Never Smokeless Tobacco: Never Alcohol Use Standard Drinks/Week Comments Not Currently 0 (1 standard drink = 0.6 oz pur e alcohol) 1 drink a week [facility] Utilities Answer Date Recorded In the past 12 months has e electric, gas, oil, or water company [...] place to sleep or slept in a [facility] (including now)? 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43 ml ONLINE MERCHANDISING MANAGER AL RESULTS Left Ovary Perpendicular Diameter (Height) [...] [facility] ARE[facility] Foot Narrative 09/01/2024 10:56 AM BUSINESS SUPPORT Table formatting from the original result was not included. Early First Trimester Ultrasound Exam performed on: 09/01/2024 Referring provider: Paloma Winters APRN, CNM Referring clinic: [facility] Clinical indications: Spotting in LMP: Patient's last menstrual period was 07/11/2024 (exact date)., 7w3d Show Operations Supervisor(s) initials: [place] The pelvic organs are imaged [...] ultrasound in 14 days. Soni Melendez DO us Paloma Winters APRN, CNM RAD US Fi nal Result documented in this encounter Visit Diagnoses Diagnosis Encounter for supervision of other normal in third trimester Spotting in Spotting complicating , unspecified as to episode of care or not applicable documented in this encounter Care Teams Twister Doffer Relationship Specialty Start Date End Date Martell Ortega MD [address] [place] [address] PCP - General 06/29/23 documented as of this encounter
--- OUTSIDE RECORDS SUMMARY | 2024-09-08 15:46 | XMS_ITS | Encounter Summary ---
Author Organization [facility] Address [address] [place] [address] Care Team Providers Care Toolroom Clerk Name Role Phone Martell Ortega MD Primary Care Provider + [phone] Reason for Visit * Reason Comments BLEEDING, DURING Encounter Details Date Type Department Care Team (Late st Contact Info) Description 09/03/2024 Nurse Triage Careline [address] [place], [place] [address] Unassigned, Provider [address] [place] [address] BLEEDING, DURING Social History Tobacco Use Types Packs/Day Years Used Date Smoking Tobacco: Never Smokeless Tobacco: Never Alcohol Use Standard Drinks/Week Comments Not Currently 0 (1 standard drink = 0.6 oz pur e alcohol) 1 drink a week [facility] Utilities Answer Date Recorded In the past 12 months has [employer], gas, oil, or water [employer] threatened to shut off services in your [...] place to sleep or slept in a nursing home (including now)? 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 Changing pad every 2 hours for the last 5-6 days. Feels shaky when up and about, feeling very fatigued today- I feel off. Patient was planning to await her bleeding to stop and await next period. Pt is more concerned now due to how she is feeling today. Due to late hour, patient being symptomatic, advised pt to go to the Emergency room for evaluation of severe fatigue and blood loss. Clinic and urgent care cannot do US, get labs back stat etc to evaluate if patient's miscarriage iscomplete or may be RPOC. PT is agreeable and will go now. Pt states she will follow up with clinic however ED recommends. Patience Escobar RN SP fitness trainer Triage 09/08/2024, 3:40 PM * Patience Ibarra RN - 09/06/2024 2:30 PM CDT Reached patient by phone. Reviewed CNM comments and options. Pt opts to await period and will call in 6 weeks if no period, sooner if any new problems. Patience Escobar RN SP fitness trainer Triage 09/06/2024, 2:31 PM * Suma Raymond APRN, CNM - 09/06/2024 1:47 PM CDT Patient has us confirming IUP. She reports sx that reflect a miscarriage. I'm sorry for all she is going through! Her options moving forward are, one of three: Follow up with ultrasound 2 weeks since last, as reported in us report. Repeat HCG in a month to confirm it is negative Wait until she gets her period. She should get a period in the next 6 weeks approximately. If she does not, return for HCG and possibly ultrasound. Suma Raymond APRN, SIMONA, MPH * Deyanira Mejia RN - 09/06/2024 10:39 AM CDT Called patient. Patient reports that last night she passed tissue and another tissue this morning. Tissue was about a size of golf ball. Patient reports having some cramping and bleeding. Denies having severe bleeding, currently changing pads every 2 hours. Also denies dizziness or lightheadedness. Reviewed with patient recommendations for HCG lab draw on 09/11. Patient reports that she will be out of town but can do 09/12. Patient is wondering if an US is needed and if she has to do weekly HCGs. States that lab has a hard time withdrawing her blood and prefers not to do weekly HCGs. Sent to provider to review in Paloma's absence. LUKAS, RN, SP CRACKING UNIT OPERATOR, 09/06/2024, 11:06 AM * Patience Ibarra RN - 09/05/2024 11:30 AM CDT Sent pt OPS msg with information, call RN team with any concerns, schedule lab appt for 09/11. Patience Escobar RN SP fitness trainer Triage 09/05/2024, 11:31 AM * Patience Ibarra RN - 09/05/2024 8:33 AM CDT Attempted to call patient to check on status and offer lab appt if pt does not want to be seen in clinic at this time. Left message to call back for lab appt scheduling or any other concerns. Patience Escobar RN SP fitness trainer Triage 09/05/2024, 8:38 AM * Sophia Smith RN - 09/04/2024 4:35 PM CDT Component Latest Ref Rng 09/03/2024 09/04/2024 HCG, Quant. Preg. <=4 mIU/mL 2,187 (H) 1,802 (H) Legend: (H) High Verified patient identity using three identifiers: Yes Situation/Background (brief explanation of current symptoms/situation): Patient reports she is still cramping today. She has changed pad x1 today. She reports she feels she is passing small amounts of clots/tissue when urinating. [place]/Parity: Gestational Age (by RACHEL or LMP): 7w6d Patient blood type: Results in Past 300 Days Result Component Current Result Antibody Screen Interpretation Negative (09/01/2024) Does patient have RH negative blood type? Yes: consider need for Rhogam if bleeding Reviewed with patient pertinent medical history and risk status (as it relates to the call): Yes Reviewed with patient pertinent medications (as they relate to call): NA Reviewed with patient pertinent allergies (as they relate to call): NA Plan: Clinician consult Clinician name: Maddi Em CMN Paged at 4:41 PM & 4:55 PM Page returned at 4:58 PM Assessment shared, orders are: 1) Patients HCGs and symptoms are consistent with miscarriage. If patient feels comfortable and feels she has passed she can continue to manage at home and repeat HCG in 1 week. If patient does not feel like she has passed patient to call clinic in the morning to schedule followup visit. Patient may also be seen in ED if desires. Telephone Orders Read Back to clinician. [facility] contacted due to patients type and screen not being ran. Lab states they are unable to add this on and patient would need appointment to have his drawn. Dozer Operator - Returned call to pt. Shared orders from on-call clinician. Pt agrees with plan, no further questions. Patient states she does not want to return to lab right now to have Type and screen ran. She states she will talk with her provider about this. Advised patient/caller to call back CareLine if there are further questions or concerns or to be seen if situation becomes emergent. The CareLine is available 19/01. Sophia Smith RN 09/04/2024, 5:15 PM * Анна Mcqueen RN - 09/03/2024 9:46 PM CST HCG add on from 09/01/24 lab drawn in process and is flagged for follow up. Plan for HCG and Type and Screen tomorrow as stated below. Анна Mendoza RN Careline 9:48 PM 09/03/2024 E ANALYST * Lizette Chaudhari RN - 09/03/2024 7:22 PM CST Careline RN - watch for HCG results 09/03/2024 and 09/04/24. Please route back to the clinic as patient will need an US scheduled Thursday as well. Thank you Verified patient identity using three identifiers: Yes Situation/Background (brief explanation of current symptoms/situation): Has been having vaginal bleeding since . Started as very little pea sized brown glob and light red smear with mucus, right before transvag US. Now more red, mucus, light but more than spotting. Flesh colored chunks three times in toilet. Has needed a pad or panty liner as it had only been with wiping. Last time she went to the bathroom, thick jelly-like red and clear. [place] some mild cramping today 1:00pm. Last night woke up with bad cramping pain in the stomach, some vomiting and soft stool. Vomited x 3-4 times in a row. After vomiting and stool abdominal pain subsided. No HCG drawn US review- Impression: Intrauterine too early to determine viability. [...] for follow-up ultrasound in 14 days. Soni Melendez, [place]/Parity: Gestational Age (by RACHEL or LMP): 7w5d Patient blood type: Results in Past 300 Days Result Component Current Result Antibody Screen Interpretation Negative (09/01/2024) Does patient have RH negative blood type? No Reviewed with patient pertinent medical history and risk status (as it relates to the call): Yes Reviewed with patient pertinent medications (as they relate to call): Yes Reviewed with patient pertinent allergies (as they relate to call): Yes Plan: Clinician consult Clinician name: [facility] Paged at 7:35 PM Re-paged at 7:55 PM Paged back up Kelly Johnson 8:05 PM 8:08 PM Call to [facility] L&D, transferred to work room, no answer Re-page CN 8:11 PM - Jami Hi Page returned at 8:15pm Assessment shared, orders are: 1) HCG tomorrow, add HCG to existing specimen from 2 days ago as well 2) Heavy bleeding, weakness, dizziness, or anything else gets significantly worse, be seen in ED 3) Thursday US 4) Order type and screen Telephone Orders Read Back to clinician. Returned call to pt. Shared orders from on-call clinician. Pt agrees with plan, no further questions. Advised patient/caller to call back CareLine if there are further questions or concerns or to be seen if situation becomes emergent. The CareLine is available 19/01. Lizette Chaudhari RN 09/03/2024, 8:22 PM Reason for Disposition Passed tissue (e.g., hutson-white) Protocols used: - Vaginal Bleeding Less Than 20 Weeks [id number] E ANALYST * Linda Quiñonez - 09/03/2024 7:21 PM CST Verified patient using 3 identifiers: Yes Caller reports the following red flag symptoms: Patient is 7 weeks and having bleeding. Plan: Transferred directly to a CareLine RN. E ANALYST documented in this encounter Plan of Treatment Scheduled Orders Name Type Priority Associated Diagnoses Orde r Schedule Type and Screen Lab Routine Vaginal bleeding in , first trimester Expected: 09/03/2024, Expires: 12/02/2024 HCG, Quantitative, Serum Lab Same Day Vaginal bleeding in , first trimester Expected: 09/06/2024, Expires: 10/06/2024 documented as of this encounter Results * (ABNORMAL) HCG, Quantitative, Serum (09/04/2024 10:45 AM CDT) HCG, Quantitative 1,802(H) <=4 mIU/mL 09/04/2024 4:32 PM CDT [facility] Blood Venipuncture / Unknown 09/04/2024 10:45 AM CDT 09/04/2024 10:45 AM CDT Narrative [facility] - 09/04/2024 4:32 PM CDT Expected ranges Negative: <5 mIU/mL Indeterminate: 5-25 mIU/mL Positive: >25 mIU/mL Suggest repeat testing of indeterminate result in 72 hours. Gabriella Guy APRN, CNM LAB_1 Fin al Result [facility] [address] * (ABNORMAL) HCG, Quantitative, Serum (09/03/2024 9:45 AM TRADE ANALYST) Pathologist [facility] HCG, Quantitative 2,187(H) <=4 mIU/mL 09/04/2024 1:05 AM [facility] Blood Venipuncture / Unknown 09/03/2024 9:45 AM TRADE ANALYST 09/03/2024 9:13 PM TRADE ANALYST [facility] - 09/04/2024 1:05 AM TRADE ANALYST Expected ranges Negative: <5 mIU/mL Indeterminate: 5-25 mIU/mL Positive: >25 mIU/mL Suggest repeat testing of indeterminate result in 72 hours. Gabriella Guy APRN, CNM LAB_1 Fin al Result [address] [address], [facility] documented in this encounter Visit Diagnoses Diagnosis Vaginal bleeding in , first trimester- Primary documented in this encounter Care Teams Toolroom Clerk Relationship Specialty Start Date End Date Martell Ortega MD [address] [place] [address] PCP - General 06/29/23 documented as of this encounter
--- OUTSIDE RECORDS SUMMARY | 2024-09-08 15:46 | XMS_ITS | Encounter Summary ---
[facility] Address [address] [place] [address] Care Team Providers Care Air Defense Specialist Name Role Phone Martell Ortega MD Primary Care Provider + [phone] Reason for Visit * Reason Comments ,1st Ob Encounter Details Date Type Department Care Team (Late st Contact Info) Description 09/01/2024 8:40 AM SEISMIC INTERPRETER Initial [facility] Obstetrics and Gynecology [address] [place] [address] Paloma Winters, BOX SPINNER, CN [address] [place] [address] ,1st Ob Social History Tobacco Use Types Packs/Day Years Used Date Smoking Tobacco: Never Smokeless Tobacco: Never Alcohol Use Standard Drinks/Week Comments Not Currently 0 (1 standard drink = 0.6 oz pur e alcohol) 1 drink a week [facility] Utilities Answer Date Recorded In [...] place to sleep or slept in a senior care (including now)? 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 Not on file Not on file documented as of this encounter Last Filed Vital Signs Vital Sign Reading Time Taken Comments Blood Pressure 104/71 09/01/2024 8:49 AM SEISMIC INTERPRETER Pulse 77 09/01/2024 8:49 AM SEISMIC INTERPRETER Temperature - - Respiratory Rate - - Oxygen Saturation - - Inhaled Oxygen Concentration - - Weight 82.1 kg (181 lb) 09/01/2024 8:49 AM SEISMIC INTERPRETER Height - - Body Mass Index 31.07 10/20/2023 6:00 AM CDT documented in this encounter Patient Instructions * Patient Instructions* Paloma Winters, FERNANDO, CNM - 09/01/2024 8:40 AM SEISMIC INTERPRETER Images from the original note were not included. Thank you for choosing us for your care. You will receive 3 books throughout your starting with Your Guide to . We recommend you review the following information in this book: Testing Genetic Testing How Your Body Changes Making Good Choices Six Steps to a Healthy How Babies Grow and Change To learn about the screening available for specific inherited diseases including cystic fibrosis and spinal muscular atrophy, see our handout on Genetic Disease Carrier Screening: [email or web address] Drinking any amount of alcohol during is not safe. Watch this short video by Proof Sarita: Proof: Some Think Drinking During is OK. It???s Not. - Laura video Marijuana use is never recommended while or . Learn why here: https://[employer]/88525.pdf is a time of transition. If you feel overwhelmed, anxious or depressed, see the followingresources: Emotional Distress During and After : [email or web address]://[employer]/40182.pdf Resources & Support for New & Expecting Parents: https://[employer]/[email or web address] The 3 books provided throughout are also available digitally. Here are the links to each book: Your Guide to : https://user-[employer].bz/XxeopfJbquljcc-Vmht-Jsksa-ox-v-Wsopslj- Preparing for Childbirth: https://user-[employer].bz/UjkzipFgijeogn-Vle-Gcnz-of-Motherhood Taking Care of You and Your [place]: https://user-[employer].bz/SmfbgaCcsspelc-Q-Nae-Beginning Cameron for our free ramiro called ???myHealthyPregnancy?? powered by Ecelles Carson. The ramiro offers many quick articles and videos on , labor, , , and newborncare. Find instructions here: Or click on this link: myHealthyPregnancy tracker ramiro [facility] [place], soon-to-be, new, and nursing parents have legal protections to help keep them safe and healthy in the workplace. Find more information here: Or click on this link: Workers And New Parents MIC INTERPRETER * Attachments The following attachments cannot be sent through Care Everywhere. * : Weeks 6 to 10 (Montenegrin) documented in this encounter Progress Notes * Paloma Winters APRN, CNM - 09/01/2024 8:40 AM CST Subjective Jovita Mcfadden is a 33 y.o., , Patient's last menstrual period was 07/11/2024 (exact date)., Estimated Date of Delivery: 04/17/25, who is at 7w3d weeks gestation. Jovita is here for a first ob visit. Plans to switch between CNLa here and at [facility] and then deliver at [facility] next time. Moy here at beginning of visit but stepped out. Patient concerns: none Since patient's last menstrual period, they have had no vaginal bleeding. Did have a moment of verylight spotting 2 weeks ago otherwise not bleeding nor cramping. Since patient's last menstrual period, they have taken the following medication(s): none. Patient is experiencing the following symptoms of : nausea, fatigue, and breast tendernessbut feels these have resolved in the last week or so. Domestic violence concerns: denies any concern Factors pertinent to this are the following: -history of heart murmur -history of hypothyroidism -history of shoulder dystocia with 2nd -RH negative -history of kidney stones with elevated LFTs last -history of depression and anxiety with passive SI in last per notes (today she states she hasn't been taking any medication for this but does have well established therapist that she is seeing weekly, no concerns today and denies thoughts of harming herself or others, feels stable in this regard) -had headaches/migraines last (has medication, feels stable today) -history of late births (36w) -history of asthma (has never been intubated or hospitalized because of asthma, has prn inhaler buthasn't used it since high school) -short interval (September 2023 last ) -elevated BMI (31) -will be AMA at time of delivery She denies history of gHTN/PEC/cHTN, seizure disorder, bleeding or clotting disorder, fam hx of PEC, or known personal or family history of chromosomal abnormalities or neural tube defects. Healthy Beginnings questionnaire reviewed & discussed: yes - no concerns Questions: 09/01/2024 8:40 AM Questions & Infection History Have/had an eating disorder? No Exposed to skin lightening products? No Concerned about stress in your life? No Ever been forced to have sex when you didn't want to? No Has anyone ever slapped, kicked, strangled, or otherwise hurt you? No Any moravian, spiritual, or cultural beliefs? Anabaptist Have you had a rash or viral illness since last menstrual period? No Do you live with someone with TB or exposed to TB? No Other diseases exposed to? None OB History Para Term AB Living 4 [...] analgesia Y ULISES Apgar1: 9 Apgar5: 9 Previous : No MANAGER GRANT History: History of abnormal Pap: No Past Medical History: Diagnosis Date Heart murmur of Migraine, unspecified, without mention of intractable migraine without mention of status migrainosus in youth, none lately Pain of finger of left hand 10/26/2014 4th finger Unspecified asthma(493.90) ([facility]) athletic induced Varicella vaccination Past Surgical History: Procedure Laterality Date GALLBLADDER SURGERY lingual tonsils tonsilectomy WISDOM TEETH EXTRACTION Family History Problem Relation Name Age of Onset No Known Problems Mother Cancer, Lung Father Other Sister Psychiatric or mood disorder Thyroid Disorder Other mother, grandmother, aunts with thyroid disease Other Other Sleep disorder Diabetes Other Glaucoma Negative Family History Macular Degeneration Negative Family History Retinal Detachment Negative Family History Social History Tobacco Use Smoking status: Never Smokeless tobacco: Never Vaping Use Vaping status: Never Used Substance Use Topics Alcohol use: Not Currently Comment: 1 drink a week Drug use: No Social History Occupational History 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 Other Other, see comments Allergic to lobster acetaminophen (TYLENOL) 500 MG tablet, Take 2 Tablets (1,000 mg) by mouth., Disp: , Rfl: plus vitamin, Take 1 Tablet by mouth daily., Disp: 90 Tablet, Rfl: 3 sertraline (ZOLOFT) 50 MG tablet, Take one-half tablet by mouth daily for 7 days, then take 1 tablet daily. (Patient not taking: Reported on 09/01/2024), Disp: 90 Tablet, Rfl: 0 No current facility-administered medications on file as of 09/01/2024. Review of Systems: Complete ROS is negative unless noted in HPI. Objective BP 104/71 (BP Location: Right Arm, BP Cuff Size: Regular) Pulse 77 Wt 181 lb (82.1 kg) LMP 07/11/2024 (Exact Date) BMI 31.07 kg/m?? Patient BMI is >= 35? No Constitutional/General appearance: stated age, healthy, alert, in no distress, cooperative, smiling, well nourished Psychiatric: normal affect, no anxious behaviors Skin - General: negative Skin - Breasts: negative ENT/Mouth: negative Lymphatic/Thyroid: negative, Neck supple. No adenopathy. Thyroid symmetric, normal size. Respiratory: Clear to auscultation without rales or rhonchi, Good diaphragmatic excursion. Lungs clear. Cardiovascular - Heart: negative, PMI normal. No lifts, heaves, or thrills. RRR. No murmurs, clicksor rubs Cardiovascular - Legs: No edema Gastrointestinal: Abdomen soft, non-tender without masses or organomegaly Genitourinary/Pelvic: not indicated. Assessment Assessment: 33 y.o. @ 7w3d intrauterine as determined by LMP. Encounter Diagnoses Name Primary? Encounter for supervision of other normal in third trimester Yes Routine screening for STI (sexually transmitted infection) Plan Discussed routine care, timing of visits, and the location of delivery. Discussed CNM care - plans to switch between service and [facility] which is closer to home/workbut wants to deliver at [facility] Discussed immunizations, weight gain, nutrition/diet and exercise in . Will need consult visit to discuss history of shoulder dystocia. Discussed HIV, drug screen and STI testing as indicated. Discussed options for genetic screening. Jovita has chosen declined all options. Information provided in AVS and folder. Additional testing and monitoring to include MFM once viability/dating ultrasound confirmed, offered BH today but declines as she has well established therapist. Discussed use of vitamins, DHA and vitamin D RTC in 4 weeks, sooner if problems Paloma Winters APRN, CNM 09/01/2024 MIC INTERPRETER documented in this encounter Plan of Treatment Not on file documented as of this encounter Results * Chlamydia & GC, Urine (14 Years and Older) (09/01/2024 10:39 AM SEISMIC INTERPRETER) Chlamydia Trachomatis STD Not Detected Not Detected 09/01/2024 8:59 PM SEISMIC INTERPRETER [facility] N. gonorrhoeae STD Not Detected Not Detected 09/01/2024 8:59 PM SEISMIC INTERPRETER [facility] Urine STD (Urine for STD) Non-blood Collection / Unknown 09/01/2024 10:39 AM SEISMIC INTERPRETER 09/01/2024 10:39 AM SEISMIC INTERPRETER [facility] - 09/01/2024 8:59 PM SEISMIC INTERPRETER Test performed by Rinkman Mediated Amplification (TMA). Urine Volume submitted was greater than 30 ml. Excess collection volume may decrease test sensitivity. Recollection suggested if clinically indicated. Paloma Winters APRN, CNM LAB_1 Fi nal Result Performing Organization Address [facility] de Phone Number [facility] [address] * TP/Crea Ratio, Urine (09/01/2024 10:39 AM SEISMIC INTERPRETER) TP/Creat Ratio, Urine Random 0.07 0.00 - 0.20 09/01/2024 2:37 PM [facility] Total Protein, Urine, Random 5 0 - 14 mg/dL 09/01/2024 2:37 PM [facility] Creatinine, Urine, Random 67 >20 mg/dL mg/dL 09/01/2024 2:37 PM [facility] Urine Non-blood Collection / Unknown 09/01/2024 10:39 AM SEISMIC INTERPRETER 09/01/2024 10:39 AM [facility] - 09/01/2024 2:37 PM SEISMIC INTERPRETER Low urine creatinine values coupled with low urine protein values can artifactually increase the urine protein/creatinine results. Correlate results of ratio with creatinine results. Paloma Winters APRN, CNM LAB_1 Fi nal Result Performing Organization Address [facility] de Phone Number [facility] [address] * (ABNORMAL) Urine Culture (09/01/2024 10:39 AM SEISMIC INTERPRETER) Pathologist [facility] Urine Culture Growth(A) 09/02/2024 10:08 AM [facility] Urine Culture <10,000 CFU/mL Mixed Bacterial Growth 09/02/2024 10:08 AM [facility] Comment: Mixed Bacterial Growth indicates the specimen is likely contaminated at collection with urogenital and/or fecal benedict. The presence of organisms at <10,000 cfu/ml in culture, UTI unlikely. Urine URINE SPECIMEN COLLECTION, CLEAN CATCH / Unknown Non-blood Collection / Unknown 09/01/2024 10:39 AM SEISMIC INTERPRETER 09/01/2024 10:39 AM SEISMIC INTERPRETER us Paloma Winters APRN, CNM LAB_1 Fi nal Result [address] [address], [facility] * Rapid Drug Panel, Urine (with Confirmation) without THC (09/01/2024 10:39 AM SEISMIC INTERPRETER) [facility] Amphetamines Screen Not Detected Not Detected 09/01/2024 1:12 PM [facility] Barbiturates Screen Not Detected Not Detected 09/01/2024 1:12 PM [facility] Benzodiazepines Screen Not Detected Not Detected 09/01/2024 1:12 PM [facility] Buprenorphine Screen Not Detected Not Detected 09/01/2024 1:12 PM [facility] Cocaine Metabolite Screen Not Detected Not Detected 09/01/2024 1:12 PM [facility] Methadone Screen Not Detected Not Detected 09/01/2024 1:12 PM [facility] Opiates Screen Not Detected Not Detected 09/01/2024 1:12 PM [facility] Oxycodone Screen Not Detected Not Detected 09/01/2024 1:12 PM [facility] Phencyclidine (PCP) Screen Not Detected Not Detected 09/01/2024 1:12 PM [facility] Creatinine, Urine, Random 68 >20 mg/dL 09/01/2024 1:12 PM [facility] Urine Non-blood Collection / Unknown 09/01/2024 10:39 AM SEISMIC INTERPRETER 09/01/2024 10:39 AM SEISMIC INTERPRETER [facility] 09/01/2024 1:12 PM SEISMIC INTERPRETER The absence of expected drug(s) and/or drug metabolite(s) may indicate non-compliance, inappropriate timing of specimen collection relative to drug administration, poor drug absorption, diluted/adulterated urine or limitations of testing. The concentration must be greater than or equal to the cutoff concentration to be reported as positive. For medical purposes only: not valid for forensic, legal, or employment use. Paloma Winters APRN, SIMONA LAB_1 Fi nal Result [address] * ALT (SGPT) (09/01/2024 9:45 AM SEISMIC INTERPRETER) ALT (SGPT) 32 0 - 55 U/L 09/01/2024 1:53 PM SEISMIC INTERPRETER [facility] Blood Venipuncture / Unknown 09/01/2024 9:45 AM SEISMIC INTERPRETER 09/01/2024 9:45 AM SEISMIC INTERPRETER Paloma Winters APRN, SIMONA LAB_1 Fi nal Result Performing Organization Address [facility] Co de Phone Number [facility] [address] * TSH, Sensitive, (with Reflex) (09/01/2024 9:45 AM SEISMIC INTERPRETER) TSH, with Reflex 1.54 0.30 - 2.50 uIU/mL 09/01/2024 2:15 PM SEISMIC INTERPRETER [facility] Blood Venipuncture / Unknown 09/01/2024 9:45 AM SEISMIC INTERPRETER 09/01/2024 9:45 AM SEISMIC INTERPRETER Narrative [facility] - 09/01/2024 2:15 PM SEISMIC INTERPRETER Reference ranges based on population of healthy woman. See trimester-specific ranges below for interpretation. (Result has been flagged based on the lowest and highest of these reference ranges.) 1st trimester: 0.10-2.50 uIU/mL 2nd trimester: 0.20-3.00 uIU/mL 3rd trimester: 0.30-3.00 uIU/mL Paloma Winters APRN, SIMONA LAB_1 Fi nal Result Performing Organization Address [facility] Co de Phone Number [facility] [address] * AST (09/01/2024 9:45 AM SEISMIC INTERPRETER) AST (SGOT) 21 10 - 40 U/L 09/01/2024 1:53 PM SEISMIC INTERPRETER [facility] Blood Venipuncture / Unknown 09/01/2024 9:45 AM SEISMIC INTERPRETER 09/01/2024 9:45 AM SEISMIC INTERPRETER Paloma Winters APRN, CNM LAB_1 Fi nal Result Performing Organization Address [facility] de Phone Number [facility] [address] [place] [address] * Creatinine / GFR (09/01/2024 9:45 AM SEISMIC INTERPRETER) Creatinine 0.68 0.55 - 1.02 mg/dL 09/01/2024 1:53 PM SEISMIC INTERPRETER [facility] GFR, Estimated >60 >60 mL/min/1. 73m2 09/01/2024 1:53 PM SEISMIC INTERPRETER [facility] Blood Venipuncture / Unknown 09/01/2024 9:45 AM SEISMIC INTERPRETER 09/01/2024 9:45 AM SEISMIC INTERPRETER Paloma Winters APRN, SIMONA LAB_1 Fi nal Result Performing Organization Address [facility] Phone Number [facility] [address] [place] [address] * (ABNORMAL) Hemoglobin, Blood (OB) (09/01/2024 9:45 AM SEISMIC INTERPRETER) Hemoglobin 13.7(H) 11.0 - 13.4 g/dL 09/01/2024 9:52 AM SEISMIC INTERPRETER [facility] Blood Venipuncture / Unknown 09/01/2024 9:45 AM SEISMIC INTERPRETER 09/01/2024 9:45 AM SEISMIC INTERPRETER Narrative [facility] - 09/01/2024 9:52 AM SEISMIC INTERPRETER Weeks Gestation: 7 Paloma Winters APRN, SIMONA LAB_1 Fi nal Result [facility] [address] [place] [id number] * Rubella Immune Status, IgG (09/01/2024 9:45 AM SEISMIC INTERPRETER) Rubella Units 10.40 09/02/2024 9:30 AM SEISMIC INTERPRETER [facility] Comment:The magnitude of the measured result, above the cutoff, is not indicative of the amount of antibody present. Rubella Intepretation Immune Immune 09/02/2024 9:30 AM SEISMIC INTERPRETER [facility] Blood Venipuncture / Unknown 09/01/2024 9:45 AM SEISMIC INTERPRETER 09/01/2024 9:45 AM SEISMIC INTERPRETER Paloma Winters APRN, SIMONA LAB_1 Fi nal Result Performing Organization Address City/[facility]/ZIP Co de Phone Number [facility] [place], [place] [address] * HIV 1/2 Ag/Ab 4th Generation (09/01/2024 9:45 AM SEISMIC INTERPRETER) Pathologist [facility] HIV 1/2 Antigen/Anti body (4th generation) Negative (Non Reactive) Negative (Non Reactive) 09/01/2024 2:15 PM SEISMIC INTERPRETER [facility] Comment:HIV-1 p24 Antigen an d HIV-1/HIV-2 Antibody not detected Blood Venipuncture / Unknown 09/01/2024 9:45 AM SEISMIC INTERPRETER 09/01/2024 9:45 AM SEISMIC INTERPRETER Paloma Winters APRN, CNM LAB_1 Fi nal Result Performing Organization Address City/[facility]/ZIP Co de Phone Number [facility] [id number] [place] [address] * Hgb A1C (09/01/2024 9:45 AM SEISMIC INTERPRETER) Hemoglobin A1C 5.3 <=5.6 % 09/01/2024 3:22 PM SEISMIC INTERPRETER [facility] Estimated Average Glucose (Calc) 105 < 117 mg/dL 09/01/2024 3:22 PM SEISMIC INTERPRETER [facility] Comment:Estimated average gl ucose (eAG) converts A1c into glucose units (mg/dL) and estimates average glucose over the past approximately 3 months. The eAG reference interval (<117 mg/dL) corresponds to an A1c of <5.7%. Blood Venipuncture / Unknown 09/01/2024 9:45 AM SEISMIC INTERPRETER 09/01/2024 9:45 AM SEISMIC INTERPRETER Paloma Winters APRN, SIMONA LAB_1 Fi nal Result Performing Organization Address [facility] Co de Phone Number [facility] [address] [place] [address] * Hepatitis C Antibody, with Reflex (09/01/2024 9:45 AM SEISMIC INTERPRETER) Hepatitis C Antibody Negative (Non Reactive) Negative (Non Reactive) 09/01/2024 2:20 PM SEISMIC INTERPRETER [facility] Comment:Antibodies to HCV no t detected. Does not exclude the possiblity of exposure to HCV. Blood Venipuncture / Unknown 09/01/2024 9:45 AM SEISMIC INTERPRETER 09/01/2024 9:45 AM SEISMIC INTERPRETER Paloma Winters APRN, SIMONA LAB_1 Fi nal Result Performing Organization Address [facility] Co de Phone Number [facility] [address] [place] [address] * Hepatitis B Core Antibody (09/01/2024 9:45 AM SEISMIC INTERPRETER) Hepatitis B Core Antibody Negative (Non Reactive) Negative (Non Reactive) 09/01/2024 2:17 PM SEISMIC INTERPRETER [facility] Blood Venipuncture / Unknown 09/01/2024 9:45 AM SEISMIC INTERPRETER 09/01/2024 9:45 AM SEISMIC INTERPRETER Paloma Winters APRN, SIMONA LAB_1 Fi nal Result Performing Organization Address [facility] de Phone Number [facility] [address] * Hepatitis B Surface Antibody (09/01/2024 9:45 AM SEISMIC INTERPRETER) Pathologist [facility] Hep B Surf Antibody Result 688.4 mIU/mL 09/01/2024 2:16 PM SEISMIC INTERPRETER [facility] Hep B Surf Antibody Interpretation Positive (Reactive) Positive (Reactive) 09/01/2024 2:16 PM SEISMIC INTERPRETER [facility] Comment:Individual is consid ered immune to HBV infection. Blood Venipuncture / Unknown 09/01/2024 9:45 AM SEISMIC INTERPRETER 09/01/2024 9:45 AM SEISMIC INTERPRETER Paloma Winters APRN, CNM LAB_1 Fi nal Result Performing Organization Address [facility] de Phone Number [facility] [address] * Hepatitis B Surface Antigen (09/01/2024 9:45 AM SEISMIC INTERPRETER) [facility] Hepatitis B Surface Antigen Negative (Non Reactive) Negative (Non Reactive) 09/01/2024 2:17 PM SEISMIC INTERPRETER [facility] Blood Venipuncture / Unknown 09/01/2024 9:45 AM SEISMIC INTERPRETER 09/01/2024 9:45 AM SEISMIC INTERPRETER Paloma Winters APRN, CNM LAB_1 Fi nal Result Performing Organization Address [facility] Co de Phone Number [facility] [address] * Complete Blood Count-No Diff (09/01/2024 9:45 AM SEISMIC INTERPRETER) [facility] WBC 6.3 3.5 - 10.5 x10(9)/L 09/01/2024 9:52 AM SEISMIC INTERPRETER [facility] RBC 4.47 3.90 - 5.03 x10(12)/L 09/01/2024 9:52 AM [facility] Hemoglobin 13.7 12.0 - 15.5 g/dL 09/01/2024 9:52 AM [facility] HCT 41.3 34.9 - 44.5 % 09/01/2024 9:52 AM [facility] MCV 92.4 80.0 - 100.0 fL 09/01/2024 9:52 AM [facility] MCH 30.6 27.6 - 33.3 pg 09/01/2024 9:52 AM [facility] [facility] MCHC 33.2 31.5 - 35.2 g/dL 09/01/2024 9:52 AM [facility] RDW 12.9 11.9 - 15.5 % 09/01/2024 9:52 AM [facility] Platelets 233 150 - 450 x10(9)/L 09/01/2024 9:52 AM [facility] Blood Venipuncture / Unknown 09/01/2024 9:45 AM SEISMIC INTERPRETER 09/01/2024 9:45 AM SEISMIC INTERPRETER Paloma Winters APRN, CNM LAB_1 Fi nal Result Performing Organization Address City/[facility]/ZIP Co de Phone Number [facility] [address] [place] [address], [facility] * Antibody Screen (09/01/2024 9:45 AM SEISMIC INTERPRETER) [facility] Antibody Screen Interpretation Negative 09/01/2024 1:45 PM [facility] Blood Venipuncture / Unknown 09/01/2024 9:45 AM SEISMIC INTERPRETER 09/01/2024 9:45 AM SEISMIC INTERPRETER Paloma Winters APRN, CNM LAB_1 Fi nal Result [facility] [address] documented in this encounter Visit Diagnoses Diagnosis Encounter for supervision of other normal in third trimester- Primary Routine screening for STI (sexually transmitted infection) Screening examination for venereal disease documented in this encounter Care Teams Air Defense Specialist Relationship Specialty Start Date End Date Shannon, Martell S, MD [address] [place] [address] PCP - General 06/29/23 documented as of this encounter
--- OUTSIDE RECORDS SUMMARY | 2024-09-08 15:46 | XMS_ITS | Encounter Summary ---
Author Organization [facility] Address [address] [place] [address] Care Team Providers Care Lead Web Developer Name Role Phone Martell Ortega MD Primary Care Provider + [phone] Encounter Details Date Type Department Care Team (Late st Contact Info) Description 09/01/2024 Results Follow-Up [facility] Obstetrics and Gynecology [address] [place] [address] Lori Saldaña RN Social History Tobacco Use Types Packs/Day Years Used Date Smoking Tobacco: Never Smokeless Tobacco: Never Alcohol Use Standard Drinks/Week Comments Not Currently 0 (1 standard drink = 0.6 oz pur e alcohol) 1 drink a week [facility] Utilities Answer Date Recorded In the past 12 months has [employer], gas, oil, or water [employer] threatened to shut off services in your [...] place to sleep or slept in a halfway (including now)? 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
--- OUTSIDE RECORDS SUMMARY | 2024-09-08 15:46 | XMS_ITS | Encounter Summary ---
Author Organization [facility] Address [address] [place] [address] Care Team Providers Care Television Program Director Name Role Phone Martell Ortega MD Primary Care Provider + [phone] Encounter Details Date Type Department Care Team (Late st Contact Info) Description 09/04/2024 10:30 AM CDT Lab Visit [facility] [address] [place] [address] Vaginal bleeding in , first trimester Social History Tobacco Use Types Packs/Day Years Used Date Smoking Tobacco: Never Smokeless Tobacco: Never Alcohol Use Standard Drinks/Week Comments Not Currently 0 (1 standard drink = 0.6 oz pur e alcohol) 1 drink a week [facility] Utilities Answer Date Recorded In the past 12 months has [employer] gas, oil, or water [employer] threatened to shut off services in your [...] on file Legal Sex Female 7:14 PM TECHNICAL SUPPORT REPRESENTATIVE Gender Identity Not on file Sexual Orientation Not on file 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 Not on file Not on file documented as of this encounter Plan of Treatment Not on file documented as of this encounter Procedures Procedure Name Priority Date/Time Associated Diagnosis Comments HCG, QUANTITATIVE, SERUM STAT 09/04/2024 10:45 AM CDT Vaginal bleeding in , first trimester documented in this encounter Results * (ABNORMAL) HCG, Quantitative, Serum (09/04/2024 10:45 AM CDT) HCG, Quantitative 1,802(H) <=4 mIU/mL 09/04/2024 4:32 PM CDT [facility] Blood Venipuncture / Unknown 09/04/2024 10:45 AM CDT 09/04/2024 10:45 AM CDT Narrative [facility] - 09/04/2024 4:32 PM CDT Expected ranges Negative: <5 mIU/mL Indeterminate: 5-25 mIU/mL Positive: >25 mIU/mL Suggest repeat testing of indeterminate result in 72 hours. us Gabriella Guy APRN, SIMONA LAB_1 Fin al Result [facility] [address] documented in this encounter Visit Diagnoses Diagnosis Vaginal bleeding in , first trimester documented in this encounter Care Teams Television Program Director Relationship Specialty Start Date End Date Martell Ortega MD [address] [place] [address] PCP - General 06/29/23 documented as of this encounter
--- OUTSIDE RECORDS SUMMARY | 2024-09-08 15:46 | XMS_ITS | Encounter Summary ---
Author Organization [facility] Address [address] [place] [address] Care Team Providers Care Supervisor Quilting Name Role Phone Martell Ortega MD Primary Care Provider [phone] Encounter Details Date Type Department Care Team (Late st Contact Info) Description 09/04/2014 Correspondence [facility] OB-MANUFACTURING MAINTENANCE MECHANIC [place] [address] 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
--- OUTSIDE RECORDS SUMMARY | 2024-09-08 15:46 | XMS_ITS | Encounter Summary ---
Author Organization [facility] Address [address] [place] [address] Care Team Providers Care Transmission Builder Name Role Phone Martell Ortega MD Primary Care Provider + [phone] Encounter Details Date Type Department Care Team (Late st Contact Info) Description 09/01/2024 Results Follow-Up [facility] Obstetrics and Gynecology [address] [place] [address] Lori Saldaña RN Social History Tobacco Use Types Packs/Day Years Used Date Smoking Tobacco: Never Smokeless Tobacco: Never Alcohol Use Standard Drinks/Week Comments Not Currently 0 (1 standard drink = 0.6 oz pur e alcohol) 1 drink a week [facility] Utilities Answer Date Recorded In the past 12 months has [employer], gas, oil, or water [employer] threatened to shut off services in your [...] to sleep or slept in a senior living (including now)? 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 Order already has the date on it. Aylin Meade 09/01/2024, 3:59 PM PPER documented in this encounter Plan of Treatment Not on file documented as of this encounter Visit Diagnoses Not on filedocumented in this encounter Care Teams Transmission Builder Relationship Specialty Start Date End Date Martell Ortega MD [address] [place] [address] PCP - General 06/29/23 documented as of this encounter
--- OUTSIDE RECORDS SUMMARY | 2024-09-08 15:46 | XMS_ITS | Encounter Summary ---
Author Organization [facility] Address [address] [place] [address] Care Team Providers Care Rn Clinical Review Name Role Phone Martell Ortega MD Primary Care Provider [phone] Encounter Details Date Type Department Care Team (Late st Contact Info) Description 09/04/2014 Correspondence External to External, [place] [address] PT REQUESTING FORM COMPLETION Social History Tobacco Use Types Packs/Day Years Used Date Smoking Tobacco: Never Smokeless Tobacco: Never Alcohol Use Standard Drinks/Week Comments No 0 (1 standard drink = 0.6 oz pur e alcohol) 2/beer/not while Comments No Sex and Gender Information Value Date Recorded Sex Assigned at Not on file 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
--- OUTSIDE RECORDS SUMMARY | 2024-09-08 15:46 | XMS_ITS | Encounter Summary ---
Author Organization [facility] Address [address] [place] [address] Care Team Providers Care Environmental Remediation Specialist Name Role Phone Martell Ortega MD Primary Care Provider + [phone] Reason for Visit * Reason Comments NECK PAIN BACK PAIN FEVER Concerns Encounter Details Date Type Department Care Team (Late st Contact Info) Description 08/28/2024 Nurse Triage Careline [address] [place], [place] [address] Unassigned, Provider [address] [place] [address] NECK PAIN; BACK PAIN; FEVER; Concerns Social History Tobacco Use Types Packs/Day Years Used Date Smoking Tobacco: Never Smokeless Tobacco: Never Alcohol Use Standard Drinks/Week Comments Not Currently 0 (1 standard drink = 0.6 oz pur e alcohol) 1 drink a week [facility] Utilities Answer Date Recorded In the past 12 months has [employer], gas, oil, or water [email or web address] threatened to shut off services in your [...] place to sleep or slept in a custodial (including now)? 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 Verified patient identity using three identifiers: Yes Situation/Background (brief explanation of current symptoms/situation): Since about 3 AM pt felt feverish. Temp is 101.5. Pt has severe nausea and fatigue. Denies vomiting, diarrhea or abdominal pain. Pt was having chills yesterday. Today pt feels very thirsty and has body aches in the neck and back. Pt has also had a cough for a few weeks that is still lingering. Pt tested negative for Covid back when the cough first started. No known exposure to Covid or Influenza. Bearden/Parity: Gestational Age (by RACHEL or LMP): Unknown Patient blood type: No results found for requested labs within last 300 days. Does patient have RH negative blood type? Unknown: consider Rhogam Reviewed with patient pertinent medical history and risk status (as it relates to the call): Yes Reviewed with patient pertinent medications (as they relate to call): Yes Reviewed with patient pertinent allergies (as they relate to call): Yes Reason for Disposition Fever 100.4 F (38.0 C) or higher Protocols used: - [id number] Plan: Care advice given per protocol. Pt will continue to monitor symptoms at home and call their OB provider tomorrow morning. Pt verbalized understanding and agreed with the plan. Advised patient/caller to call back CareLine if there are further questions or concerns. The CareLine is available 19/01. Charito Escobar RN CareLine 9:08 AM 08/28/2024 CHEMIST * Esther Contreras - 08/28/2024 8:51 AM CST Verified patient identity using three identifiers: Yes Caller's relationship to patient: Self, Do you have a provider/clinic where you are seen for this? No Where do you regularly go for care?: [facility]/Tashi/Teresa/Michelet Are you calling about a /SAFETY LEADER related concern? Yes ???What location do you receive your CUSTOMER ADVISOR care at? [facility] Symptoms Describe the reason for call/symptoms (include location and duration if applicable): early in around 8 weeks - currently running a fever at 101.5, nausea, excessive thirst, muscle pain in neck and back. New onset of back pain and neck pain. Plan:Caller transferred directly to CareLine nurse. CHEMIST documented in this encounter Plan of Treatment Not on file documented as of this encounter Visit Diagnoses Not on filedocumented in this encounter Care Teams Environmental Remediation Specialist Relationship Specialty Start Date End Date Martell Ortega MD [address] [place] [address] PCP - General 06/29/23 documented as of this encounter
--- OUTSIDE RECORDS SUMMARY | 2024-09-08 15:46 | XMS_ITS | Encounter Summary ---
Author Organization [facility] Address [address] [place] [address] Care Team Providers Care Doctorate Of Chiropractic Name Role Phone Martell Ortega MD Primary Care Provider [phone] Encounter Details Date Type Department Care Team (Late st Contact Info) Description 06/04/2014 Correspondence None No Primary/Referring, Phy EQUIPMENT SUPERVISOR WET POUR TICKET Social History Tobacco Use Types Packs/Day Years Used Date Smoking Tobacco: Never Smokeless Tobacco: Never Alcohol Use Standard Drinks/Week Comments No 0 (1 standard drink = 0.6 oz pur e alcohol) 2/beer/not while Comments No Sex and Gender Information Value Date Recorded Sex Assigned at Not on file Legal Sex Female 7:14 PM REGIONAL 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
--- OUTSIDE RECORDS SUMMARY | 2024-09-08 15:46 | XMS_ITS | Encounter Summary ---
Author Organization [facility] Address [address] [place] [address] Care Team Providers Care Outsole Compressor Name Role Phone Martell Ortega MD Primary Care Provider + [phone] Reason for Referral * Procedure/Equipment (Routine) - Incomplete Specialty Diagnoses / Procedures Referred By Contac t Referred To Contact Diagnoses Establish gestational age, ultrasound Procedures OBGYN First Trimester Ultrasound Paloma Winters APRN, CNM [address] [place] [address] Phone: tel: fax: Referral ID Status Reason Start Date Expiration Date V isits Requested Visits Authorized [id number] Incomplete 09/15/2024 12/15/2025 1 1 ICIAN COMPENSATION ANALYST Encounter Details Date Type Department Care Team (Late st Contact Info) Description 09/01/2024 Notes/Orders [facility] restorative care technician Ultrasound [address] [place] [address] Paloma Winters APRN, CNM [address] [place] [address] Establish gestational age, ultrasound (Primary Dx) Social History Tobacco Use Types Packs/Day Years Used Date Smoking Tobacco: Never Smokeless Tobacco: Never Alcohol Use Standard Drinks/Week Comments Not Currently 0 (1 standard drink = 0.6 oz pur e alcohol) 1 drink a week [facility] Utilities Answer Date Recorded In the past 12 months has th e [employer], gas, oil, or water company threatened to [...] place to sleep or slept in a half-way (including now)? 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 Not on file Not on file documented as of this encounter Plan of Treatment Scheduled Orders Name Type Priority Associated Diagnoses Orde r Schedule OBGYN First Trimester Ultrasound Imaging New Routine Establish gestational age, ultrasound Expected: 09/15/2024, Expires: 09/15/2025 documented as of this encounter Visit Diagnoses Diagnosis Establish gestational age, ultrasound- Primary Encounter for routine screening for malformation using ultrasonics documented in this encounter Care Teams Outsole Compressor Relationship Specialty Start Date End Date Martell Ortega MD [address] [place] [address] PCP - General 06/29/23 documented as of this encounter
--- OUTSIDE RECORDS SUMMARY | 2024-09-08 15:46 | XMS_ITS | Encounter Summary ---
Author Organization [facility] Address [address] [place] [address] Care Team Providers Care Fire Management Specialist Name Role Phone Martell Ortega MD Primary Care Provider + [phone] Encounter Details Date Type Department Care Team (Late st Contact Info) Description 09/05/2024 Results Follow-Up [facility] Obstetrics and Gynecology [address] [place] [address] Alivia Ramirez RN Social History Tobacco Use Types Packs/Day Years Used Date Smoking Tobacco: Never Smokeless Tobacco: Never Alcohol Use Standard Drinks/Week Comments Not Currently 0 (1 standard drink = 0.6 oz pur e alcohol) 1 drink a week [facility] Utilities Answer Date Recorded In the past 12 months has [employer], gas, oil, or water [employer] threatened to shut off services in your [...] place to sleep or slept in a skilled nursing (including now)? 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
--- OUTSIDE RECORDS SUMMARY | 2024-09-08 15:46 | XMS_ITS | Encounter Summary ---
[facility] Address [address] [place] [id number] Care Team Providers Care Dockworker Name Role Phone Martell Ortega MD Primary Care Provider + [phone] Encounter Details Date Type Department Care Team (Late st Contact Info) Description 09/01/2024 6:40 PM WEBSPHERE MESSAGE BROKER DEVELOPER Lab Visit [facility] [address] [place] [address] [phone] Encounter for supervision of other normal in third trimester; Routine screening for STI (sexually transmitted infection); Vaginal bleeding in , first trimester Social History Tobacco Use Types Packs/Day Years Used Date Smoking Tobacco: Never Smokeless Tobacco: Never Alcohol Use Standard Drinks/Week Comments Not Currently 0 (1 standard drink = 0.6 oz pur e alcohol) 1 drink a week [facility] Utilities Answer Date Recorded In the past 12 months has [employer] gas, oil, or water [employer] threatened to shut off services in your [...] place to sleep or slept in a mcc (including now)? 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 Not on file Not on file documented as of this encounter Plan of Treatment Not on file documented as of this encounter Procedures Procedure Name Priority Date/Time Associated Diagnosis Comments HCG, QUANTITATIVE, SERUM STAT 09/03/2024 9:45 AM WEBSPHERE MESSAGE BROKER DEVELOPER Vaginal bleeding in , first trimester URINE CULTURE Routine 09/01/2024 10:39 AM WEBSPHERE MESSAGE BROKER DEVELOPER Encounter for supervision of other normal in third trimester RAPID DRUG PANEL, URINE (WITH CONFIRMATION) Routine 09/01/2024 10:39 AM WEBSPHERE MESSAGE BROKER DEVELOPER Encounter for supervision of other normal in third trimester CHLAMYDIA & GC, URINE (14 YEARS AND OLDER) Routine 09/01/2024 10:39 AM WEBSPHERE MESSAGE BROKER DEVELOPER Encounter for supervision of other normal in third trimester TP/CREA RATIO, URINE Routine 09/01/2024 10:39 AM WEBSPHERE MESSAGE BROKER DEVELOPER Encounter for supervision of other normal in third trimester RUBELLA IMMUNE STATUS, IGG Routine 09/01/2024 9:45 AM WEBSPHERE MESSAGE BROKER DEVELOPER Encounter for supervision of other normal in third trimester ANTIBODY SCREEN Routine 09/01/2024 9:45 AM WEBSPHERE MESSAGE BROKER DEVELOPER Encounter for supervision of other normal in third trimester SYPHILIS PANEL (WITH REFLEX) Routine 09/01/2024 9:45 AM WEBSPHERE MESSAGE BROKER DEVELOPER Routine screening for STI (sexually transmitted infection) SYPHILIS PANEL (WITH REFLEX) Routine 09/01/2024 9:45 AM WEBSPHERE MESSAGE BROKER DEVELOPER Routine screening for STI (sexually transmitted infection) HEMOGLOBIN, BLOOD (OB) Routine 09/01/2024 9:45 AM WEBSPHERE MESSAGE BROKER DEVELOPER Encounter for supervision of other normal in third trimester HEPATITIS B SURFACE ANTIBODY Routine 09/01/2024 9:45 AM WEBSPHERE MESSAGE BROKER DEVELOPER Encounter for supervision of other normal in third trimester HIV 1/2 AG/AB 4TH GEN Routine 09/01/2024 9:45 AM WEBSPHERE MESSAGE BROKER DEVELOPER Encounter for supervision of other normal in third trimester TSH, SENSITIVE, (WITH REFLEX) Routine 09/01/2024 9:45 AM WEBSPHERE MESSAGE BROKER DEVELOPER Encounter for supervision of other normal in third trimester CREATININE / GFR Routine 09/01/2024 9:45 AM WEBSPHERE MESSAGE BROKER DEVELOPER Encounter for supervision of other normal in third trimester COMPLETE BLOOD COUNT-NO DIFF Routine 09/01/2024 9:45 AM WEBSPHERE MESSAGE BROKER DEVELOPER Encounter for supervision of other normal in third trimester HEPATITIS C ANTIBODY, WITH REFLEX Routine 09/01/2024 9:45 AM WEBSPHERE MESSAGE BROKER DEVELOPER Encounter for supervision of other normal in third trimester HBSAG (HEPATITIS B SURFACE AG) Routine 09/01/2024 9:45 AM WEBSPHERE MESSAGE BROKER DEVELOPER Encounter for supervision of other normal in third trimester HEPATITIS B CORE,AB Routine 09/01/2024 9 :45 AM WEBSPHERE MESSAGE BROKER DEVELOPER Encounter for supervision of other normal in third trimester HGB A1C Routine 09/01/2024 9:45 AM WEBSPHERE MESSAGE BROKER DEVELOPER Encounter for supervision of other normal in third trimester ALT (SGPT) Routine 09/01/2024 9:45 AM WEBSPHERE MESSAGE BROKER DEVELOPER Encounter for supervision of other normal in third trimester AST Routine 09/01/2024 9:45 AM WEBSPHERE MESSAGE BROKER DEVELOPER Encounter for supervision of other normal in third trimester documented in this encounter Results * (ABNORMAL) HCG, Quantitative, Serum (09/03/2024 9:45 AM WEBSPHERE MESSAGE BROKER DEVELOPER) HCG, Quantitative 2,187(H) <=4 mIU/mL 09/04/2024 1:05 AM [facility] Blood Venipuncture / Unknown 09/03/2024 9:45 AM WEBSPHERE MESSAGE BROKER DEVELOPER 09/03/2024 9:13 PM WEBSPHERE MESSAGE BROKER DEVELOPER [facility] - 09/04/2024 1:05 AM WEBSPHERE MESSAGE BROKER DEVELOPER Expected ranges Negative: <5 mIU/mL Indeterminate: 5-25 mIU/mL Positive: >25 mIU/mL Suggest repeat testing of indeterminate result in 72 hours. us Gabriella Guy APRN, [facility] LAB_1 Fin al Result [address] [address], [facility] * Chlamydia & GC, Urine (14 Years and Older) (09/01/2024 10:39 AM WEBSPHERE MESSAGE BROKER DEVELOPER) Chlamydia Trachomatis STD Not Detected Not Detected 09/01/2024 8:59 PM [facility] N. gonorrhoeae STD Not Detected Not Detected 09/01/2024 8:59 PM [facility] Urine STD (Urine for STD) Non-blood Collection / Unknown 09/01/2024 10:39 AM WEBSPHERE MESSAGE BROKER DEVELOPER 09/01/2024 10:39 AM WEBSPHERE MESSAGE BROKER DEVELOPER [facility] - 09/01/2024 8:59 PM WEBSPHERE MESSAGE BROKER DEVELOPER Test performed by Front Office Director Mediated Amplification (TMA). Urine Volume submitted was greater than 30 ml. Excess collection volume may decrease test sensitivity. Recollection suggested if clinically indicated. Paloma Winters APRN, [facility]_1 Fi nal Result Performing Organization Address [facility] Co de Phone Number [facility] [address] * TP/Crea Ratio, Urine (09/01/2024 10:39 AM WEBSPHERE MESSAGE BROKER DEVELOPER) TP/Creat Ratio, Urine Random 0.07 0.00 - 0.20 09/01/2024 2:37 PM [facility] Total Protein, Urine, Random 5 0 - 14 mg/dL 09/01/2024 2:37 PM [facility] Creatinine, Urine, Random 67 >20 mg/dL mg/dL 09/01/2024 2:37 PM [facility] Urine Non-blood Collection / Unknown 09/01/2024 10:39 AM WEBSPHERE MESSAGE BROKER DEVELOPER 09/01/2024 10:39 AM [facility] - 09/01/2024 2:37 PM WEBSPHERE MESSAGE BROKER DEVELOPER Low urine creatinine values coupled with low urine protein values can artifactually increase the urine protein/creatinine results. Correlate results of ratio with creatinine results. Paloma Winters APRN, [facility]_1 Fi nal Result Performing Organization Address [facility]/State/ZIP Co de Phone Number [facility] [address] [place] [address], [facility] * (ABNORMAL) Urine Culture (09/01/2024 10:39 AM WEBSPHERE MESSAGE BROKER DEVELOPER) [facility] Urine Culture Growth(A) 09/02/2024 10:08 AM [facility] Urine Culture <10,000 CFU/mL Mixed Bacterial Growth 09/02/2024 10:08 AM [facility] Comment: Mixed Bacterial Growth indicates the specimen is likely contaminated at collection with urogenital and/or fecal benedict. The presence of organisms at <10,000 cfu/ml in culture, UTI unlikely. Urine URINE SPECIMEN COLLECTION, CLEAN CATCH / Unknown Non-blood Collection / Unknown 09/01/2024 10:39 AM WEBSPHERE MESSAGE BROKER DEVELOPER 09/01/2024 10:39 AM WEBSPHERE MESSAGE BROKER DEVELOPER us Paloma Winters APRN, [facility]_1 Fi nal Result Performing Organization Address [facility]/State/[place] [address], [facility] * Rapid Drug Panel, Urine (with Confirmation) without THC (09/01/2024 10:39 AM WEBSPHERE MESSAGE BROKER DEVELOPER) [facility] Amphetamines Screen Not Detected Not Detected 09/01/2024 1:12 PM [facility] Barbiturates Screen Not Detected Not Detected 09/01/2024 1:12 PM [facility] Benzodiazepines Screen Not Detected Not Detected 09/01/2024 1:12 PM [facility] Buprenorphine Screen Not Detected Not Detected 09/01/2024 1:12 PM [facility] Cocaine Metabolite Screen Not Detected Not Detected 09/01/2024 1:12 PM [facility] Methadone Screen Not Detected Not Detected 09/01/2024 1:12 PM [facility] Opiates Screen Not Detected Not Detected 09/01/2024 1:12 PM [facility] Oxycodone Screen Not Detected Not Detected 09/01/2024 1:12 PM [facility] Phencyclidine (PCP) Screen Not Detected Not Detected 09/01/2024 1:12 PM [facility] Creatinine, Urine, Random 68 >20 mg/dL 09/01/2024 1:12 PM [facility] Urine Non-blood Collection / Unknown 09/01/2024 10:39 AM WEBSPHERE MESSAGE BROKER DEVELOPER 09/01/2024 10:39 AM WEBSPHERE MESSAGE BROKER DEVELOPER [facility] - 09/01/2024 1:12 PM WEBSPHERE MESSAGE BROKER DEVELOPER The absence of expected drug(s) and/or drug metabolite(s) may indicate non-compliance, inappropriate timing of specimen collection relative to drug administration, poor drug absorption, diluted/adulterated urine or limitations of testing. The concentration must be greater than or equal to the cutoff concentration to be reported as positive. For medical purposes only: not valid for forensic, legal, or employment use. Paloma Winters APRN, CNM LAB_1 Fi nal Result Performing Organization Address City/[facility] Co de Phone Number [address] * Syphilis Panel, with Reflex (09/01/2024 9:45 AM WEBSPHERE MESSAGE BROKER DEVELOPER) Treponema Screen Interpretation Non Reactive Non Reactive 09/01/2024 4:52 PM WEBSPHERE MESSAGE BROKER DEVELOPER [facility] Syphilis Panel Comment Negative - No serological evidence of syphilis. 09/01/2024 4:52 PM WEBSPHERE MESSAGE BROKER DEVELOPER [facility] Blood Venipuncture / Unknown 09/01/2024 9:45 AM WEBSPHERE MESSAGE BROKER DEVELOPER 09/01/2024 9:45 AM WEBSPHERE MESSAGE BROKER DEVELOPER Paloma Winters APRN, [facility]_1 Fi nal Result Performing Organization Address City/[facility]/ZIP Co de Phone Number [facility] [address] [place] [address] * ALT (SGPT) (09/01/2024 9:45 AM WEBSPHERE MESSAGE BROKER DEVELOPER) ALT (SGPT) 32 0 - 55 U/L 09/01/2024 1:53 PM WEBSPHERE MESSAGE BROKER DEVELOPER [facility] Blood Venipuncture / Unknown 09/01/2024 9:45 AM WEBSPHERE MESSAGE BROKER DEVELOPER 09/01/2024 9:45 AM WEBSPHERE MESSAGE BROKER DEVELOPER Paloma Winters APRN, CNM LAB_1 Fi nal Result Performing Organization Address City/[facility] Co de Phone Number [facility] [address] * TSH, Sensitive, (with Reflex) (09/01/2024 9:45 AM WEBSPHERE MESSAGE BROKER DEVELOPER) TSH, with Reflex 1.54 0.30 - 2.50 uIU/mL 09/01/2024 2:15 PM WEBSPHERE MESSAGE BROKER DEVELOPER [facility] Blood Venipuncture / Unknown 09/01/2024 9:45 AM WEBSPHERE MESSAGE BROKER DEVELOPER 09/01/2024 9:45 AM WEBSPHERE MESSAGE BROKER DEVELOPER Narrative [facility] - 09/01/2024 2:15 PM WEBSPHERE MESSAGE BROKER DEVELOPER Reference ranges based on population of healthy woman. See trimester-specific ranges below for interpretation. (Result has been flagged based on the lowest and highest of these reference ranges.) 1st trimester: 0.10-2.50 uIU/mL 2nd trimester: 0.20-3.00 uIU/mL 3rd trimester: 0.30-3.00 uIU/mL us Paloma Winters APRN, [facility]_1 Fi nal Result Performing Organization Address [facility] de Phone Number [facility] [address] * AST (09/01/2024 9:45 AM WEBSPHERE MESSAGE BROKER DEVELOPER) AST (SGOT) 21 10 - 40 U/L 09/01/2024 1:53 PM WEBSPHERE MESSAGE BROKER DEVELOPER [facility] Blood Venipuncture / Unknown 09/01/2024 9:45 AM WEBSPHERE MESSAGE BROKER DEVELOPER 09/01/2024 9:45 AM WEBSPHERE MESSAGE BROKER DEVELOPER Paloma Winters APRN, CNM LAB_1 Fi nal Result Performing Organization Address [facility] Co de Phone Number [facility] [address] * Creatinine / GFR (09/01/2024 9:45 AM WEBSPHERE MESSAGE BROKER DEVELOPER) Creatinine 0.68 0.55 - 1.02 mg/dL 09/01/2024 1:53 PM WEBSPHERE MESSAGE BROKER DEVELOPER [facility] GFR, Estimated >60 >60 mL/min/1. 73m2 09/01/2024 1:53 PM WEBSPHERE MESSAGE BROKER DEVELOPER [facility] Blood Venipuncture / Unknown 09/01/2024 9:45 AM WEBSPHERE MESSAGE BROKER DEVELOPER 09/01/2024 9:45 AM WEBSPHERE MESSAGE BROKER DEVELOPER Paloma Winters APRN, CNM LAB_1 Fi nal Result Performing Organization Address City/[facility] Co de Phone Number [facility] [address] [address] * (ABNORMAL) Hemoglobin, Blood (OB) (09/01/2024 9:45 AM WEBSPHERE MESSAGE BROKER DEVELOPER) Hemoglobin 13.7(H) 11.0 - 13.4 g/dL 09/01/2024 9:52 AM WEBSPHERE MESSAGE BROKER DEVELOPER [facility] Blood Venipuncture / Unknown 09/01/2024 9:45 AM WEBSPHERE MESSAGE BROKER DEVELOPER 09/01/2024 9:45 AM WEBSPHERE MESSAGE BROKER DEVELOPER Narrative [facility] - 09/01/2024 9:52 AM WEBSPHERE MESSAGE BROKER DEVELOPER Weeks Gestation: 7 Paloma Winters APRN, CNM LAB_1 Fi nal Result Performing Organization Address [facility] Co de Phone Number [facility] [address] [place] [address], [facility] * Rubella Immune Status, IgG (09/01/2024 9:45 AM WEBSPHERE MESSAGE BROKER DEVELOPER) Rubella Units 10.40 09/02/2024 9:30 AM WEBSPHERE MESSAGE BROKER DEVELOPER [facility] Comment:The magnitude of the measured result, above the cutoff, is not indicative of the amount of antibody present. Rubella Intepretation Immune Immune 09/02/2024 9:30 AM WEBSPHERE MESSAGE BROKER DEVELOPER [facility] Blood Venipuncture / Unknown 09/01/2024 9:45 AM WEBSPHERE MESSAGE BROKER DEVELOPER 09/01/2024 9:45 AM WEBSPHERE MESSAGE BROKER DEVELOPER Paloma Winters APRN, CNM LAB_1 Fi nal Result [facility] [address] * HIV 1/2 Ag/Ab 4th Generation (09/01/2024 9:45 AM WEBSPHERE MESSAGE BROKER DEVELOPER) Pathologist [facility] HIV 1/2 Antigen/Anti body (4th generation) Negative (Non Reactive) Negative (Non Reactive) 09/01/2024 2:15 PM WEBSPHERE MESSAGE BROKER DEVELOPER [facility] Comment:HIV-1 p24 Antigen an d HIV-1/HIV-2 Antibody not detected Blood Venipuncture / Unknown 09/01/2024 9:45 AM WEBSPHERE MESSAGE BROKER DEVELOPER 09/01/2024 9:45 AM WEBSPHERE MESSAGE BROKER DEVELOPER Paloma Winters APRN, [facility]_1 Fi nal Result Performing Organization Address [facility] Co de Phone Number [facility] [address] * Hgb A1C (09/01/2024 9:45 AM WEBSPHERE MESSAGE BROKER DEVELOPER) [facility] Hemoglobin A1C 5.3 <=5.6 % 09/01/2024 3:22 PM WEBSPHERE MESSAGE BROKER DEVELOPER [facility] Estimated Average Glucose (Calc) 105 < 117 mg/dL 09/01/2024 3:22 PM [facility] Comment:Estimated average gl ucose (eAG) converts A1c into glucose units (mg/dL) and estimates average glucose over the past approximately 3 months. The eAG reference interval (<117 mg/dL) corresponds to an A1c of <5.7%. Blood Venipuncture / Unknown 09/01/2024 9:45 AM WEBSPHERE MESSAGE BROKER DEVELOPER 09/01/2024 9:45 AM WEBSPHERE MESSAGE BROKER DEVELOPER Paloma Winters APRN, [facility]_1 Fi nal Result Performing Organization Address City/[facility] Co de Phone Number [facility] [address] * Hepatitis C Antibody, with Reflex (09/01/2024 9:45 AM WEBSPHERE MESSAGE BROKER DEVELOPER) Hepatitis C Antibody Negative (Non Reactive) Negative (Non Reactive) 09/01/2024 2:20 PM WEBSPHERE MESSAGE BROKER DEVELOPER [facility] Comment:Antibodies to HCV no t detected. Does not exclude the possiblity of exposure to HCV. Blood Venipuncture / Unknown 09/01/2024 9:45 AM WEBSPHERE MESSAGE BROKER DEVELOPER 09/01/2024 9:45 AM WEBSPHERE MESSAGE BROKER DEVELOPER Paloma Winters APRN, CNM LAB_1 Fi nal Result Performing Organization Address [facility] Co de Phone Number [facility] [address] [place] [address] * Hepatitis B Core Antibody (09/01/2024 9:45 AM WEBSPHERE MESSAGE BROKER DEVELOPER) Pathologist [facility] Hepatitis B Core Antibody Negative (Non Reactive) Negative (Non Reactive) 09/01/2024 2:17 PM WEBSPHERE MESSAGE BROKER DEVELOPER [facility] Blood Venipuncture / Unknown 09/01/2024 9:45 AM WEBSPHERE MESSAGE BROKER DEVELOPER 09/01/2024 9:45 AM WEBSPHERE MESSAGE BROKER DEVELOPER Paloma Winters APRN, CNM LAB_1 Fi nal Result Performing Organization Address [facility] de Phone Number [facility] [address] [place] [address] * Hepatitis B Surface Antibody (09/01/2024 9:45 AM WEBSPHERE MESSAGE BROKER DEVELOPER) Hep B Surf Antibody Result 688.4 mIU/mL 09/01/2024 2:16 PM WEBSPHERE MESSAGE BROKER DEVELOPER [facility] Hep B Surf Antibody Interpretation Positive (Reactive) Positive (Reactive) 09/01/2024 2:16 PM WEBSPHERE MESSAGE BROKER DEVELOPER [facility] Comment:Individual is consid ered immune to HBV infection. Blood Venipuncture / Unknown 09/01/2024 9:45 AM WEBSPHERE MESSAGE BROKER DEVELOPER 09/01/2024 9:45 AM WEBSPHERE MESSAGE BROKER DEVELOPER Paloma Winters APRN, CNM LAB_1 Fi nal Result Performing Organization Address City/[facility]/ZIP Co de Phone Number [facility] [address] * Hepatitis B Surface Antigen (09/01/2024 9:45 AM WEBSPHERE MESSAGE BROKER DEVELOPER) [facility] Hepatitis B Surface Antigen Negative (Non Reactive) Negative (Non Reactive) 09/01/2024 2:17 PM WEBSPHERE MESSAGE BROKER DEVELOPER [facility] Blood Venipuncture / Unknown 09/01/2024 9:45 AM WEBSPHERE MESSAGE BROKER DEVELOPER 09/01/2024 9:45 AM WEBSPHERE MESSAGE BROKER DEVELOPER Paloma Winters APRN, CNM LAB_1 Fi nal Result Performing Organization Address City/[facility] Co de Phone Number [facility] [address] * Complete Blood Count-No Diff (09/01/2024 9:45 AM WEBSPHERE MESSAGE BROKER DEVELOPER) [facility] WBC 6.3 3.5 - 10.5 x10(9)/L 09/01/2024 9:52 AM WEBSPHERE MESSAGE BROKER DEVELOPER [facility] RBC 4.47 3.90 - 5.03 x10(12)/L 09/01/2024 9:52 AM WEBSPHERE MESSAGE BROKER DEVELOPER [facility] Hemoglobin 13.7 12.0 - 15.5 g/dL 09/01/2024 9:52 AM WEBSPHERE MESSAGE BROKER DEVELOPER .[facility] HCT 41.3 34.9 - 44.5 % 09/01/2024 9:52 AM WEBSPHERE MESSAGE BROKER DEVELOPER [facility] MCV 92.4 80.0 - 100.0 fL 09/01/2024 9:52 AM WEBSPHERE MESSAGE BROKER DEVELOPER [facility] MCH 30.6 27.6 - 33.3 pg 09/01/2024 9:52 AM WEBSPHERE MESSAGE BROKER DEVELOPER [facility] MCHC 33.2 31.5 - 35.2 g/dL 09/01/2024 9:52 AM WEBSPHERE MESSAGE BROKER DEVELOPER [facility] RDW 12.9 11.9 - 15.5 % 09/01/2024 9:52 AM WEBSPHERE MESSAGE BROKER DEVELOPER [facility] Platelets 233 150 - 450 x10(9)/L 09/01/2024 9:52 AM WEBSPHERE MESSAGE BROKER DEVELOPER [facility] Blood Venipuncture / Unknown 09/01/2024 9:45 AM WEBSPHERE MESSAGE BROKER DEVELOPER 09/01/2024 9:45 AM WEBSPHERE MESSAGE BROKER DEVELOPER Paloma Winters APRN, [facility]_1 Fi nal Result Performing Organization Address City/[facility]/ZIP Co de Phone Number [facility] [address] [place] [phone], [facility] * Antibody Screen (09/01/2024 9:45 AM WEBSPHERE MESSAGE BROKER DEVELOPER) [facility] Antibody Screen Interpretation Negative 09/01/2024 1:45 PM WEBSPHERE MESSAGE BROKER DEVELOPER [facility] Blood Venipuncture / Unknown 09/01/2024 9:45 AM WEBSPHERE MESSAGE BROKER DEVELOPER 09/01/2024 9:45 AM WEBSPHERE MESSAGE BROKER DEVELOPER Paloma Winters APRN, CNM LAB_1 Fi nal Result Performing Organization Address City/[facility] Co de Phone Number [facility] [address] [place], [place] [id number] [place] [address] documented in this encounter Visit Diagnoses Diagnosis Encounter for supervision of other normal in third trimester Routine screening for STI (sexually transmitted infection) Screening examination for venereal disease Vaginal bleeding in , first trimester documented in this encounter Care Teams Dockworker Relationship Specialty Start Date End Date Martell Ortega MD [address] [place] [address] PCP - General 06/29/23 documented as of this encounter
--- NOTE | 2024-09-08 16:08 | CRLHL7_ITS ---
For Patients: As a result of the Century Cures Act, medical imaging exams and procedure reports are released immediately into your electronic medical record. You may view this report before your referring provider. If you have questions, please contact your health care provider. INDICATION: Miscarriage with bleeding for 7 days. TECHNIQUE: Ultrasound pelvis transvaginal for better assessment or to better visualize the endometrium. Real-time sonographic images with spectral and color Doppler imaging of the ovaries were obtained. COMPARISON: None FINDINGS: Uterus: 8.6 x 4.4 x 6.3 cm. Normal echotexture of the myometrium. No masses. Endometrium: Transvaginal imaging was performed to better evaluate the endometrium. Endometrial thickness measures 4 mm. No sign of endometrial mass or fluid. Right ovary measures 3.7 x 1.9 x 2.4 cm and left ovary measures 2.6 x 1.4 x 1.9 cm. No ovarian or adnexal masses. Normal blood flow is demonstrated in both ovaries. Cul-de-sac: No significant free fluid. IMPRESSION: Unremarkable transvaginal ultrasound. Endometrial thickness of 4 millimeters without hypervascularity. No definite evidence of retained products. Dictated by Bogdan Iqbal MD @ 09/08/2024 6:08:21 PM (Electronically Signed)
--- OUTSIDE RECORDS SUMMARY | 2024-09-08 16:14 | XMS_ITS | Clinical Summary ---
Author Organization [facility] Address [address] [place] [id number] Care Team Providers Care Training Systems Officer Name Role Phone Martell Ortega MD Primary Care Provider [phone] Source Comments You are receiving this document as you are listed as the primary care provider,follow-up provider, or the patient has been referred to you for consultation.This is in compliance with the Medicare and[facility] EHR Incentive Program,which states Providers who transition their patient to another setting of careor provider of care or refers their patient to another provider of care shouldprovide summary care record for each transition of care or referral. [facility] Allergies Active Allergy Reactions Criticality Noted Date [...] (09/01/2024): Added automatically from request for surgery [id number] Hypothyroidism (acquired) 11/21/2015 Blood type, Rh negative [...] Type Department Care Team Description 09/05/2024 E-Visit [facility] Obstetrics and Gynecology [address] [place] [address] Phyllis, Robert Provider 09/05/2024 Results Follow-Up [facility] Obstetrics and Gynecology [address] [place] [id number] Alivia Ramirez RN 09/04/2024 10:30 AM CDT Lab Visit [facility] [address] [place] [address] Vaginal bleeding in , first trimester 09/03/2024 Nurse Triage [facility] [address] [place] [address] Unassigned, Provider BLEEDING, DURING 09/01/2024 6:40 PM FLAGSETTER Lab Visit [facility] [address] [place] [address] Encounter for supervision of other normal in third trimester; Routine screening for STI (sexually transmitted infection); Vaginal bleeding in , first trimester 09/01/2024 10:00 AM FLAGSETTER Ancillary Procedure [facility] metal numerical tool programmer Ultrasound [address] [place] [address] Paloma Winters APRN, CNM Encounter for supervision of other normal in third trimester; Spotting in 09/01/2024 8:40 AM FLAGSETTER Initial [facility] Obstetrics and Gynecology [address] [place] [address] Paloma Winters APRN, SIMONA ,1st Ob 09/01/2024 Results Follow-Up [facility] Obstetrics and Gynecology [address] [place] [phone] Lori Saldaña RN 09/01/2024 Results Follow-Up [facility] Obstetrics and Gynecology [address] [place] [address] Lori Saldaña RN 09/01/2024 Notes/Orders [facility] metal numerical tool programmer Ultrasound [address] [place] [address] Paloma Winters APRN, SIMONA Establish gestational age, ultrasound (Primary Dx) 08/28/2024 Nurse Triage [facility] [address] [place] [address]. [place] [address] Unassigned, Provider NECK PAIN; BACK PAIN; FEVER; Concerns 08/19/2024 Telephone [facility] Obstetrics and Gynecology [address] [place] [address] Paloma Winters APRN, SIMONA ,1st Ob from Last 3 Months Immunizations Immunization Administration Dates Next Due 9vHPV (Gardasil 9) 11/30/2008,09/20/2008, 009 DTaP 01/26/1995, 2,12/01/1990,1989,1989 HepB Ped/Adol (0-18 yrs) 02/17/2002,08/30/2001,0 08/02/2001 HepB, Unspecified Formulation 02/17/2002, 002,08/02/2001 Hib (ActHIB) 04/20/1991 IPV (Polio) 12/13/1991, 1,03/29/1990,1989 Influenza IIV4 (Quadrivalent ) 0.5mL (62115) 04/11/2019,05/18/2018,08/01/2016,2014,03/30/2014 Influenza LAIV (Nasal, 2-49 yrs) 05/14/2020 [...] alcohol) 1 drink a week [facility] [employer] Answer Date Recorded In the past 12 months has th e [employer], gas, oil, or water [employer] threatened to shut off services in your [...] a group home (including now)? 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 Not on file Not on file Last Filed Vital Signs Vital Sign Reading Time Taken Comments Blood Pressure 104/71 09/01/2024 8:49 AM FLAGSETTER Pulse 77 09/01/2024 8:49 AM FLAGSETTER Temperature 36.6 C (97.9 F) 10/22/2023 7:30 AM CDT Respiratory Rate 18 10/22/2023 7:30 AM CDT Oxygen Saturation 99% 10/22/2023 7:30 AM CDT Inhaled Oxygen Concentration - - Weight 82.1 kg (181 lb) 09/01/2024 8:49 AM FLAGSETTER Height 162.6 cm (5' 4) 10/20/2023 6:00 [...] HCG, QUANTITATIVE, SERUM STAT 09/03/2024 9:45 AM FLAGSETTER Vaginal bleeding in , first trimester CHLAMYDIA & GC, URINE (14 YEARS AND OLDER) Routine 09/01/2024 10:39 AM FLAGSETTER Encounter for supervision of other normal in third trimester URINE CULTURE Routine 09/01/2024 10:39 AM FLAGSETTER Encounter for supervision of other normal in third trimester TP/CREA RATIO, URINE Routine 09/01/2024 10:39 AM FLAGSETTER Encounter for supervision of other normal in third trimester RAPID DRUG PANEL, URINE (WITH CONFIRMATION) Routine 09/01/2024 10:39 AM FLAGSETTER Encounter for supervision of other normal in third trimester OBGYN FIRST TRIMESTER ULTRASOUND Routine 09/01/2024 10:26 AM FLAGSETTER Spotting in SYPHILIS PANEL (WITH REFLEX) Routine 09/01/2024 9:45 AM FLAGSETTER Routine screening for STI (sexually transmitted infection) RUBELLA IMMUNE STATUS, IGG Routine 09/01/2024 9:45 AM FLAGSETTER Encounter for supervision of other normal in third trimester HIV 1/2 AG/AB 4TH GEN Routine 09/01/2024 9:45 AM FLAGSETTER Encounter for supervision of other normal in third trimester HEPATITIS C ANTIBODY, WITH REFLEX Routine 09/01/2024 9:45 AM FLAGSETTER Encounter for supervision of other normal in third trimester HEPATITIS B CORE,AB Routine 09/01/2024 9 :45 AM FLAGSETTER Encounter for supervision of other normal in third trimester HEPATITIS B SURFACE ANTIBODY Routine 09/01/2024 9:45 AM FLAGSETTER Encounter for supervision of other normal in third trimester HBSAG (HEPATITIS B SURFACE AG) Routine 09/01/2024 9:45 AM FLAGSETTER Encounter for supervision of other normal in third trimester SYPHILIS PANEL (WITH REFLEX) Routine 09/01/2024 9:45 AM FLAGSETTER Routine screening for STI (sexually transmitted infection) ALT (SGPT) Routine 09/01/2024 9:45 AM FLAGSETTER Encounter for supervision of other normal in third trimester TSH, SENSITIVE, (WITH REFLEX) Routine 09/01/2024 9:45 AM FLAGSETTER Encounter for supervision of other normal in third trimester AST Routine 09/01/2024 9:45 AM FLAGSETTER Encounter for supervision of other normal in third trimester CREATININE / GFR Routine 09/01/2024 9:45 AM FLAGSETTER Encounter for supervision of other normal in third trimester HEMOGLOBIN, BLOOD (OB) Routine 09/01/2024 9:45 AM FLAGSETTER Encounter for supervision of other normal in third trimester HGB A1C Routine 09/01/2024 9:45 AM FLAGSETTER Encounter for supervision of other normal in third trimester COMPLETE BLOOD COUNT-NO DIFF Routine 09/01/2024 9:45 AM FLAGSETTER Encounter for supervision of other normal in third trimester ANTIBODY SCREEN Routine 09/01/2024 9:45 AM FLAGSETTER Encounter for supervision of other normal in third trimester CYTOLOGY (PAP) Routine 09/11/2022 9:29 AM CDT Screening for malignant neoplasm of cervix from Last 3 Months or Most Recently Relevant to Health Maintenance Results * (ABNORMAL) HCG, Quantitative, Serum (09/04/2024 10:45 AM CDT) Only the most recent of2 resultswithin the time period is included. HCG, Quantitative 1,802(H) <=4 mIU/mL 09/04/2024 4:32 PM CDT [facility] Blood Venipuncture / Unknown 09/04/2024 10:45 AM CDT 09/04/2024 10:45 AM CDT Narrative [facility] - 09/04/2024 4:32 PM CDT Expected ranges Negative: <5 mIU/mL Indeterminate: 5-25 mIU/mL Positive: >25 mIU/mL Suggest repeat testing of indeterminate result in 72 hours. Gabriella Guy APRN, CNM LAB_1 Fin al Result [facility] [address] * (ABNORMAL) Urine Culture (09/01/2024 10:39 AM FLAGSETTER) [facility] Urine Culture Growth(A) 09/02/2024 10:08 AM [facility] Urine Culture <10,000 CFU/mL Mixed Bacterial Growth 09/02/2024 10:08 AM [facility] Comment: Mixed Bacterial Growth indicates the specimen is likely contaminated at collection with urogenital and/or fecal benedict. The presence of organisms at <10,000 cfu/ml in culture, UTI unlikely. Urine URINE SPECIMEN COLLECTION, CLEAN CATCH / Unknown Non-blood Collection / Unknown 09/01/2024 10:39 AM FLAGSETTER 09/01/2024 10:39 AM FLAGSETTER Paloma Winters APRN, CNM LAB_1 Fi nal Result [id number] [place] [address] * Rapid Drug Panel, Urine (with Confirmation) without THC (09/01/2024 10:39 AM FLAGSETTER) [facility] Amphetamines Screen Not Detected Not Detected 09/01/2024 1:12 PM [facility] Barbiturates Screen Not Detected Not Detected 09/01/2024 1:12 PM [facility] Benzodiazepines Screen Not Detected Not Detected 09/01/2024 1:12 PM [facility] Buprenorphine Screen Not Detected Not Detected 09/01/2024 1:12 PM [facility] Cocaine Metabolite Screen Not Detected Not Detected 09/01/2024 1:12 PM [facility] Methadone Screen Not Detected Not Detected 09/01/2024 1:12 PM [facility] Opiates Screen Not Detected Not Detected 09/01/2024 1:12 PM [facility] Oxycodone Screen Not Detected Not Detected 09/01/2024 1:12 PM [facility] Phencyclidine (PCP) Screen Not Detected Not Detected 09/01/2024 1:12 PM [facility] Creatinine, Urine, Random 68 >20 mg/dL 09/01/2024 1:12 PM [facility] Urine Non-blood Collection / Unknown 09/01/2024 10:39 AM FLAGSETTER 09/01/2024 10:39 AM FLAGSETTER [facility] - 09/01/2024 1:12 PM FLAGSETTER The absence of expected drug(s) and/or drug [...] Winters APRN, CNM LAB_[place] [address], [facility] * Chlamydia & GC, Urine (14 Years and Older) (09/01/2024 10:39 AM FLAGSETTER) Chlamydia Trachomatis STD Not Detected Not Detected 09/01/2024 8:59 PM FLAGSETTER [facility] N. gonorrhoeae STD Not Detected Not Detected 09/01/2024 8:59 PM [facility] Urine STD (Urine for STD) Non-blood Collection / Unknown 09/01/2024 10:39 AM FLAGSETTER 09/01/2024 10:39 AM FLAGSETTER [facility] - 09/01/2024 8:59 PM FLAGSETTER Test performed by Embedded Linux Engineer Mediated Amplification (TMA). Urine Volume submitted was greater than 30 ml. Excess collection volume may decrease test sensitivity. Recollection suggested if clinically indicated. us Paloma Winters APRN, CNM LAB_1 Fi nal Result Performing Organization Address [facility] de Phone Number [facility] [address] * TP/Crea Ratio, Urine (09/01/2024 10:39 AM FLAGSETTER) TP/Creat Ratio, Urine Random 0.07 0.00 - 0.20 09/01/2024 2:37 PM FLAGSETTER [facility] Total Protein, Urine, Random 5 0 - 14 mg/dL 09/01/2024 2:37 PM FLAGSETTER [facility] Creatinine, Urine, Random 67 >20 mg/dL mg/dL 09/01/2024 2:37 PM FLAGSETTER [facility] Urine Non-blood Collection / Unknown 09/01/2024 10:39 AM FLAGSETTER 09/01/2024 10:39 AM FLAGSETTER Narrative [facility] - 09/01/2024 2:37 PM FLAGSETTER Low urine creatinine values coupled with low urine protein values can artifactually increase the urine protein/creatinine results. Correlate results of ratio with creatinine results. us Paloma Winters APRN, CNM LAB_1 Fi nal Result Performing Organization Address [facility] de Phone Number [facility] [address] * (ABNORMAL) OBGYN First Trimester Ultrasound (09/01/2024 10:26 AM FLAGSETTER) Uterus AP Diameter (Height) 5.00 cm EXTERNAL RESULTS Uterus Longitudinal Diameter (Length) 7.90 cm EXTERNAL RESULTS Uterus Transverse Diameter (Width) 6.50 cm EXTERNAL RESULTS Uterus Volume 134.43 ml DISTANCE EDUCATION DIRECTOR AL RESULTS Left Ovary Perpendicular Diameter (Height) [...] Magna ARELY Foot Narrative 09/01/2024 10:56 AM FLAGSETTER Table formatting from the original result was not included. Early First Trimester Ultrasound Exam performed on: 09/01/2024 Referring provider: Paloma Winters APRN, CNM Referring clinic: [facility] Clinical indications: Spotting in LMP: Patient's last menstrual period was 07/11/2024 (exact date)., 7w3d [employer]ia Food Server(s) initials: [place] The pelvic organs are imaged [...] Rubella Immune Status, IgG (09/01/2024 9:45 AM FLAGSETTER) Rubella Units 10.40 09/02/2024 9:30 AM FLAGSETTER [facility] Comment:The magnitude of the measured result, above the cutoff, is not indicative of the amount of antibody present. Rubella Intepretation Immune Immune 09/02/2024 9:30 AM FLAGSETTER [facility] Blood Venipuncture / Unknown 09/01/2024 9:45 AM FLAGSETTER 09/01/2024 9:45 AM FLAGSETTER us Paloma Winters APRN, SIMONA LAB_1 Fi nal Result Performing Organization Address City/[facility]/ZIP Co de Phone Number [facility] [address] [place] [address] * Antibody Screen (09/01/2024 9:45 AM FLAGSETTER) Pathologist [facility] Antibody Screen Interpretation Negative 09/01/2024 1:45 PM FLAGSETTER [facility] B[facility]OD BANK Blood Venipuncture / Unknown 09/01/2024 9:45 AM FLAGSETTER 09/01/2024 9:45 AM FLAGSETTER Paloma Winters APRN, SIMONA LAB_1 Fi nal Result Performing Organization Address City/[facility]/ZIP Co de Phone Number [facility]OD [facility] [address] * Syphilis Panel, with Reflex (09/01/2024 9:45 AM FLAGSETTER) Treponema Screen Interpretation Non Reactive Non Reactive 09/01/2024 4:52 PM FLAGSETTER [facility] Syphilis Panel Comment Negative - No serological evidence of syphilis. 09/01/2024 4:52 PM FLAGSETTER [facility] Blood Venipuncture / Unknown 09/01/2024 9:45 AM FLAGSETTER 09/01/2024 9:45 AM FLAGSETTER Paloma Winters APRN, SIMONA LAB_1 Fi nal Result [facility] [address] [place], [place] [address] * (ABNORMAL) Hemoglobin, Blood (OB) (09/01/2024 9:45 AM FLAGSETTER) Hemoglobin 13.7(H) 11.0 - 13.4 g/dL 09/01/2024 9:52 AM FLAGSETTER [facility] Blood Venipuncture / Unknown 09/01/2024 9:45 AM FLAGSETTER 09/01/2024 9:45 AM FLAGSETTER Narrative [facility] - 09/01/2024 9:52 AM FLAGSETTER Weeks Gestation: 7 Paloma Winters APRN, SIMONA LAB_1 Fi nal Result Performing Organization Address [facility] Co de Phone Number [facility] [address] [place] [phone] * Hepatitis B Surface Antibody (09/01/2024 9:45 AM FLAGSETTER) Hep B Surf Antibody Result 688.4 mIU/mL 09/01/2024 2:16 PM FLAGSETTER [facility] Hep B Surf Antibody Interpretation Positive (Reactive) Positive (Reactive) 09/01/2024 2:16 PM FLAGSETTER [facility] Comment:Individual is consid ered immune to HBV infection. Blood Venipuncture / Unknown 09/01/2024 9:45 AM FLAGSETTER 09/01/2024 9:45 AM FLAGSETTER Paloma Winters APRN, SIMONA LAB_1 Fi nal Result [facility] [address] * HIV 1/2 Ag/Ab 4th Generation (09/01/2024 9:45 AM FLAGSETTER) Pathologist [facility] HIV 1/2 Antigen/Anti body (4th generation) Negative (Non Reactive) Negative (Non Reactive) 09/01/2024 2:15 PM FLAGSETTER [facility] Comment:HIV-1 p24 Antigen an d HIV-1/HIV-2 Antibody not detected Blood Venipuncture / Unknown 09/01/2024 9:45 AM FLAGSETTER 09/01/2024 9:45 AM FLAGSETTER Paloma Winters APRN, SIMONA LAB_1 Fi nal Result Performing Organization Address [facility] Phone Number [facility] [address] * TSH, Sensitive, (with Reflex) (09/01/2024 9:45 AM FLAGSETTER) [facility] TSH, with Reflex 1.54 0.30 - 2.50 uIU/mL 09/01/2024 2:15 PM FLAGSETTER [facility] Blood Venipuncture / Unknown 09/01/2024 9:45 AM FLAGSETTER 09/01/2024 9:45 AM FLAGSETTER Narrative [facility] - 09/01/2024 2:15 PM FLAGSETTER Reference ranges based on population of healthy woman. See trimester-specific ranges below for interpretation. (Result has been flagged based on the lowest and highest of these reference ranges.) 1st trimester: 0.10-2.50 uIU/mL 2nd trimester: 0.20-3.00 uIU/mL 3rd trimester: 0.30-3.00 uIU/mL Paloma Winters APRN, SIMONA LAB_1 Fi nal Result Performing Organization Address [facility] Co de Phone Number [facility] [address] * Creatinine / GFR (09/01/2024 9:45 AM FLAGSETTER) Creatinine 0.68 0.55 - 1.02 mg/dL 09/01/2024 1:53 PM FLAGSETTER [facility] LAB GFR, Estimated >60 >60 mL/min/1. 73m2 09/01/2024 1:53 PM [facility] Blood Venipuncture / Unknown 09/01/2024 9:45 AM FLAGSETTER 09/01/2024 9:45 AM FLAGSETTER us Paloma Winters APRN, SIMONA LAB_1 Fi nal Result [facility] [address] * Complete Blood Count-No Diff (09/01/2024 9:45 AM FLAGSETTER) WBC 6.3 3.5 - 10.5 x10(9)/L 09/01/2024 9:52 AM FLAGSETTER [facility] RBC 4.47 3.90 - 5.03 x10(12)/L 09/01/2024 9:52 AM [facility] Hemoglobin 13.7 12.0 - 15.5 g/dL 09/01/2024 9:52 AM [facility] HCT 41.3 34.9 - 44.5 % 09/01/2024 9:52 AM FLAGSETTER [facility] MCV 92.4 80.0 - 100.0 fL 09/01/2024 9:52 AM [facility] MCH 30.6 27.6 - 33.3 pg 09/01/2024 9:52 AM [facility] MCHC 33.2 31.5 - 35.2 g/dL 09/01/2024 9:52 AM [facility] RDW 12.9 11.9 - 15.5 % 09/01/2024 9:52 AM [facility] Platelets 233 150 - 450 x10(9)/L 09/01/2024 9:52 AM [facility] Blood Venipuncture / Unknown 09/01/2024 9:45 AM FLAGSETTER 09/01/2024 9:45 AM FLAGSETTER Paloma Winters APRN, CNM LAB_1 Fi nal Result [facility] [address] [place] [phone], [facility] * Hepatitis C Antibody, with Reflex (09/01/2024 9:45 AM FLAGSETTER) Hepatitis C Antibody Negative (Non Reactive) Negative (Non Reactive) 09/01/2024 2:20 PM [facility] Comment:Antibodies to HCV no t detected. Does not exclude the possiblity of exposure to HCV. Blood Venipuncture / Unknown 09/01/2024 9:45 AM FLAGSETTER 09/01/2024 9:45 AM FLAGSETTER Paloma Winters APRN, CNM LAB_1 Fi nal Result Performing Organization Address [facility] Co de Phone Number [facility] [address] * Hepatitis B Surface Antigen (09/01/2024 9:45 AM FLAGSETTER) Hepatitis B Surface Antigen Negative (Non Reactive) Negative (Non Reactive) 09/01/2024 2:17 PM [facility]SETTER [facility] Blood Venipuncture / Unknown 09/01/2024 9:45 AM FLAGSETTER 09/01/2024 9:45 AM FLAGSETTER Paloma Winters APRN, CNM LAB_1 Fi nal Result Performing Organization Address City/[facility] Co de Phone Number [facility] [address] * Hepatitis B Core Antibody (09/01/2024 9:45 AM FLAGSETTER) Hepatitis B Core Antibody Negative (Non Reactive) Negative (Non Reactive) 09/01/2024 2:17 PM FLAGSETTER [facility] Blood Venipuncture / Unknown 09/01/2024 9:45 AM FLAGSETTER 09/01/2024 9:45 AM FLAGSETTER Paloma Winters APRN, CNM LAB_1 Fi nal Result Performing Organization Address [facility] Co de Phone Number [facility] LAB [address] * Hgb A1C (09/01/2024 9:45 AM FLAGSETTER) Hemoglobin A1C 5.3 <=5.6 % 09/01/2024 3:22 PM FLAGSETTER [facility] Estimated Average Glucose (Calc) 105 < 117 mg/dL 09/01/2024 3:22 PM [facility] Comment:Estimated average gl ucose (eAG) converts A1c into glucose units (mg/dL) and estimates average glucose over the past approximately 3 months. The eAG reference interval (<117 mg/dL) corresponds to an A1c of <5.7%. Blood Venipuncture / Unknown 09/01/2024 9:45 AM FLAGSETTER 09/01/2024 9:45 AM FLAGSETTER Paloma Winters APRN, SIMONA LAB_1 Fi nal Result Performing Organization Address [facility] de Phone Number [facility] [address] * ALT (SGPT) (09/01/2024 9:45 AM FLAGSETTER) ALT (SGPT) 32 0 - 55 U/L 09/01/2024 1:53 PM FLAGSETTER [facility] Blood Venipuncture / Unknown 09/01/2024 9:45 AM FLAGSETTER 09/01/2024 9:45 AM FLAGSETTER Paloma Winters APRN, SIMONA LAB_1 Fi nal Result Performing Organization Address [facility] Co de Phone Number [facility] [address] * AST (09/01/2024 9:45 AM FLAGSETTER) AST (SGOT) 21 10 - 40 U/L 09/01/2024 1:53 PM FLAGSETTER [facility] Blood Venipuncture / Unknown 09/01/2024 9:45 AM FLAGSETTER 09/01/2024 9:45 AM FLAGSETTER us Paloma Denise Winters APRN, SIMONA LAB_1 Fi nal Result [facility] [address] * PAP Test (09/11/2022 9:29 AM CDT) Case Report Pap Case: [id number] Authorizing Provider: Fidelina Francois MD Collected: 09/11/2022 0929 Ordering Location: [facility] and Received: 09/11/2022 1208 Gynecology Physicians First Screen: Daniel Suarez Rescreen: Ange Metcalf SCT (ASCP) Specimen: Pap Test, Routine, Cervix/Endocervix 09/19/2022 6:45 AM [facility] Pap Specimen Adequacy Satisfactory for evaluation, endocervical/lópez sformation zone component present. 09/19/2022 6:45 AM [facility] Pap Interpretation (NILM) Negative for intraepithelial lesion or malignancy. 09/19/2022 6:45 AM [facility] at 0645 CDT Pap Other Findings Fungal organisms morphologically consistent with Saima spp. 09/19/2022 6:45 AM [facility] Pap Disclaimer The Pap test is a screening test designed to aid in the detection of cervical cancer and its precursor lesions. It is not a diagnostic procedure and should not be used as the sole means of detecting cervical cancer. Both false-positive and false-negative results may occur. 09/19/2022 6:45 AM [facility] Gross Description The specimen is received in SurePath fixative and properly labeled. 1 Pap-stained SurePath slide is prepared. 09/19/2022 6:45 AM CDT [facility] Embedded Images 6:45 AM [facility] Other Specimen Type ENTIRE ENDOCERVIX / Unknown 09/11/2022 9:29 AM CDT 09/11/2022 12:08 PM CDT Comment:LMP: Patient's last menstrual period was 09/01/2022 (exact date). us Fidelina Francois MD LAB PATHOLOGY Final Result [facility] [address] [place] [address], [facility] [facility] [phone] from Last 3 Months or Most Recently Relevant to Health Maintenance Insurance Q[employer]! [employer]! Advance Directives Documents on File Type Date Recorded Patient News Director Expl anation HEALTHCARE DIRECTIVE 07/17/2023 Cora Maoon [...] Beasley Mother Health Care Agent Care Teams Training Systems Officer Relationship Specialty Start Date End Date Martell Ortega MD [address] [place] [address] PCP - General 06/29/23
--- OUTSIDE RECORDS SUMMARY | 2024-09-08 16:14 | XMS_ITS | Encounter Summary ---
[facility] Organization [facility] Address [address] [place] [address] Care Team Providers Care Elementary Special Education Teacher Name Role Phone Martell Ortega MD Primary Care Provider [phone] Encounter Details Date Type Department Care Team (Late st Contact Info) Description 12/07/2015 Correspondence [facility] [address] [facility] 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
--- OUTSIDE RECORDS SUMMARY | 2024-09-08 16:14 | XMS_ITS | Encounter Summary ---
Author Organization [facility] Address [address] [place] [address] Care Team Providers Care Ergonomics Technician Name Role Phone Martell Ortega MD Primary Care Provider [phone] Encounter Details Date Type Department Care Team (Late st Contact Info) Description 12/07/2015 Consent for Procedure/Treatjohn bhandari [facility] [address] [place], [place] [id number] Tawanna Mcleod APRN, CN [address] [place], [place] [id number] NEXPLANON CONSENT Social History Tobacco Use Types Packs/Day Years Used Date Smoking Tobacco: Never Smokeless Tobacco: Never Alcohol Use Standard Drinks/Week Comments No 0 (1 standard drink = 0.6 oz pur e alcohol) Comments No Sex and Gender Information Value Date Recorded Sex Assigned at Not on file Legal Sex Female 7:14 PM BOX ICER Gender Identity Not on file Sexual Orientation Not on file 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
--- OUTSIDE RECORDS SUMMARY | 2024-09-08 16:14 | XMS_ITS | Encounter Summary ---
Author Organization [facility] Address [address] [place] [address] Care Team Providers Care Statistical Programmer Analyst Name Role Phone Martell Ortega MD Primary Care Provider [phone] Encounter Details Date Type Department Care Team (Late st Contact Info) Description 08/16/2015 Correspondence [facility] [address] [facility] 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
--- OUTSIDE RECORDS SUMMARY | 2024-09-08 16:14 | XMS_ITS | Clinical Summary ---
Author Organization [facility] Address [address] [place] [address] Care Team Providers Care Mold Cutting Machine Operator Name Role Phone Fidelina Bar M.D. Primary Care Provider Source Comments Patient records contain information from all sites at [facility]. For routine questions regarding patient records, call [phone] during business hours, M-F 8:00 AM - 5:00 PM Central Time. Record requests for emergency care only can be directed to [phone] at any time.[facility] Allergies Active Allergy Reactions Criticality Noted Date [...] (05/15/2022): Added automatically from request for surgery [id number] Tonsillolithiasis 02/03/2022 Overview (02/03/2022): Added automatically from request for surgery [id number] Hypertrophy Tonsil 02/03/2022 Overview (02/03/2022): Added automatically from request for surgery [id number] Unspecified Blood Type Rhesus Negative 1 Cancer [...] 06/30/2024 Nurse Triage Department of Family Medicine, [facility], in [address] [phone] Yeimy Hay, RDivinaN. Fatigue; Dizziness; Nausea; Blurred [...] often do you attend chur ch or hindu services? 1 to 4 times per year [...] Answer Date Recorded PHQ-2 Score 0 12/18/2022 [facility] [...] your living situation today? I have a [place] to live 03/10/2023 Education Answer Date Recorded What is the highest level of school you have completed or the highest degree you have received? Bachelor's degree (e.g., BA, AB, BS) 07/05/2020 Comments Unknown Sex and Gender Information Value Date Recorded Sex Assigned at Female 02/16/2018 3:57 PM CDT Legal Sex Female 9:01 AM ARCHITECTURE MANAGER Gender Identity Female 02/16/2018 3:57 PM CDT Sexual Orientation Straight 02/16/2018 3: 57 PM CDT Last Filed Vital Signs Vital Sign Reading Time Taken Comments Blood Pressure 108/60 08/16/2023 5:25 PM ARCHITECTURE MANAGER Pulse 94 08/16/2023 5:25 PM ARCHITECTURE MANAGER Temperature 36.9 C (98.4 F) 08/16/2023 5:25 PM ARCHITECTURE MANAGER Respiratory Rate 18 08/16/2023 5:25 PM ARCHITECTURE MANAGER Oxygen Saturation 100% 08/16/2023 5:25 PM ARCHITECTURE MANAGER Inhaled Oxygen Concentration - - Weight 70.8 kg (156 lb 1.4 oz) 06/08/2023 3:35 P M ARCHITECTURE MANAGER Height 167.2 cm (5' 5.83) 06/08/2023 3:35 PM CS T Body Mass Index 25.33 06/08/2023 3:35 PM ARCHITECTURE MANAGER Plan of Treatment Health Maintenance Due [...] this topic Medical Devices Implanted Type Area Salesperson Florist Supplies Device Identifier Shelf Expiration Date Model / Serial / Lot Clp Apr Lgm Intnl Endo 5x13 - [id number] Implanted:Qty: 1 on 07/23/2018 by Albino Pathak M.D. at [facility] Hardware e.g. pins/screws/r ods Ethicon [id number] / [...] - 09/19/2022 6:45 AM CDT Resulting Agency [facility] Specimen Collected: 09/11/22 09:29 Last Resulted: 09/19/22 06:45 Received From: [facility] Result Received: 10/31/22 12:55 us Historical Provider [...] MICROBIOLOGY - BLOOD OR DERABLES Final Result [facility] [address] [place] [address], [facility] ECLR [facility] [place] [address] * HCV Ab Scrn w/Reflex to HCV PCR, Serum (09/14/2020 9:50 AM CDT) HCV Ab Screen, S Negative Negative 09/15/19 3:52 PM CDT ECLR Comment: Biotin has been identified by the director of residence life as a potential interfering substance. Higher concentrations of biotin may be found in multivitamins, hair/nail supplements, and workout supplements. If the result does not match clinical observations, repeat testing after patient refrains from the use of supplements for at least 12 hours. Blood (Blood, Venous) 09/14/2020 9:50 AM CDT 09/14/2020 3:12 PM CDT Narrative [facility] - 09/14/2020 3:52 PM CDT Specimen Information: Specimen ID: [id number] Specimen Type: Blood Specimen Collection Start Date: 09/14/2020 9:50 AM Specimen Received Date: 09/14/2020 3:12 PM Specimen ID: [id number] Specimen Type: Blood Specimen Collection Start Date: 09/14/2020 9:50 AM Specimen Received Date: 09/14/2020 3:13 PM Fidelina Bar M.D. LAB MICROBIOLOGY - BLOOD OR DERABLES Final Result [facility] [address] [place] [address], [place] ECLR [facility] in [address] [phone] from Last 3 Months or Most Recently Relevant to Health Maintenance Insurance [facility] Care Teams Mold Cutting Machine Operator Relationship Specialty Start Date End Date Fidelina Bar M.D. [address] [place] [phone] PCP - General Family Medicine 09/07/20
--- OUTSIDE RECORDS SUMMARY | 2024-09-08 16:15 | XMS_ITS | Encounter Summary ---
[facility] Address [address] [place] [address] Care Team Providers Care Shredded Filler Machine Wrapper Layer Name Role Phone Martell Ortega MD Primary Care Provider [phone] Reason for Referral * Procedure/Equipment (Routine) - Incomplete Specialty Diagnoses / Procedures Referred By Contac t Referred To Contact Diagnoses Establish gestational age, ultrasound Procedures OBGYN First Trimester Ultrasound Paloma Winters APRN, CNM [address] [place] [address] Phone: tel: fax: Referral ID Status Reason Start Date Expiration Date V isits Requested Visits Authorized [id number] Incomplete 09/15/2024 12/15/2025 1 1 AGE DYE STAND LOADER Encounter Details Date Type Department Care Team (Late st Contact Info) Description 09/01/2024 Notes/Orders [facility] whirley operator Ultrasound [address] [place] [address] Paloma Winters APRN, CNM [address] [place] [address] Establish gestational age, ultrasound (Primary Dx) Social History Tobacco Use Types Packs/Day Years Used Date Smoking Tobacco: Never Smokeless Tobacco: Never Alcohol Use Standard Drinks/Week Comments Not Currently 0 (1 standard drink = 0.6 oz pur e alcohol) 1 drink a week [facility] Utilities Answer Date Recorded In the past 12 months has th e Why Not Give Back, gas, oil, or water company threatened to [...] place to sleep or slept in a [place] (including now)? 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
--- OUTSIDE RECORDS SUMMARY | 2024-09-08 16:15 | XMS_ITS | Encounter Summary ---
Author Organization [facility] Address [address] [place] [address] Care Team Providers Care Wardrobe Coordinator Name Role Phone Martell Ortega MD Primary Care Provider + [phone] Encounter Details Date Type Department Care Team (Late st Contact Info) Description 09/01/2024 6:40 PM MANAGER COMMERCIAL SALES Lab Visit [facility] [address] [place] [phone] Encounter for supervision of other normal in third trimester; Routine screening for STI (sexually transmitted infection); Vaginal bleeding in , first trimester Social History Tobacco Use Types Packs/Day Years Used Date Smoking Tobacco: Never Smokeless Tobacco: Never Alcohol Use Standard Drinks/Week Comments Not Currently 0 (1 standard drink = 0.6 oz pur e alcohol) 1 drink a week [facility] Utilities Answer Date Recorded In the past 12 months has Vidit, gas, oil, or water Remember The Member threatened to shut off services in your [...] on file Legal Sex Female 7:14 PM MANAGER COMMERCIAL SALES Gender Identity Not on file Sexual Orientation Not on file 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 Not on file Not on file documented as of this encounter Plan of Treatment Not on file documented as of this encounter Procedures Procedure Name Priority Date/Time Associated Diagnosis Comments HCG, QUANTITATIVE, SERUM STAT 09/03/2024 9:45 AM MANAGER COMMERCIAL SALES Vaginal bleeding in , first trimester URINE CULTURE Routine 09/01/2024 10:39 AM MANAGER [employer]CIAL SALES Encounter for supervision of other normal in third trimester RAPID DRUG PANEL, URINE (WITH CONFIRMATION) Routine 09/01/2024 10:39 AM MANAGER COMMERCIAL SALES Encounter for supervision of other normal in third trimester CHLAMYDIA & GC, URINE (14 YEARS AND OLDER) Routine 09/01/2024 10:39 AM MANAGER COMMERCIAL SALES Encounter for supervision of other normal in third trimester TP/CREA RATIO, URINE Routine 09/01/2024 10:39 AM MANAGER COMMERCIAL SALES Encounter for supervision of other normal in third trimester RUBELLA IMMUNE STATUS, IGG Routine 09/01/2024 9:45 AM MANAGER COMMERCIAL SALES Encounter for supervision of other normal in third trimester ANTIBODY SCREEN Routine 09/01/2024 9:45 AM MANAGER COMMERCIAL SALES Encounter for supervision of other normal in third trimester SYPHILIS PANEL (WITH REFLEX) Routine 09/01/2024 9:45 AM MANAGER [employer]ERCIAL SALES Routine screening for STI (sexually transmitted infection) SYPHILIS PANEL (WITH REFLEX) Routine 09/01/2024 9:45 AM MANAGER COMMERCIAL SALES Routine screening for STI (sexually transmitted infection) HEMOGLOBIN, BLOOD (OB) Routine 09/01/2024 9:45 AM MANAGER COMMERCIAL SALES Encounter for supervision of other normal in third trimester HEPATITIS B SURFACE ANTIBODY Routine 09/01/2024 9:45 AM MANAGER COMM[employer]CIAL SALES Encounter for supervision of other normal in third trimester HIV 1/2 AG/AB 4TH GEN Routine 09/01/2024 9:45 AM MANAGER [employer]ERCIAL SALES Encounter for supervision of other normal in third trimester TSH, SENSITIVE, (WITH REFLEX) Routine 09/01/2024 9:45 AM MANAGER COMMERCIAL SALES Encounter for supervision of other normal in third trimester CREATININE / GFR Routine 09/01/2024 9:45 AM MANAGER COMMERCIAL SALES Encounter for supervision of other normal in third trimester COMPLETE BLOOD COUNT-NO DIFF Routine 09/01/2024 9:45 AM MANAGER COMM[employer]CIAL SALES Encounter for supervision of other normal in third trimester HEPATITIS C ANTIBODY, WITH REFLEX Routine 09/01/2024 9:45 AM MANAGER COMMERCIAL SALES Encounter for supervision of other normal in third trimester HBSAG (HEPATITIS B SURFACE AG) Routine 09/01/2024 9:45 AM MANAGER COMMERCIAL SALES Encounter for supervision of other normal in third trimester HEPATITIS B CORE,AB Routine 09/01/2024 9 :45 AM MANAGER COMMERCIAL SALES Encounter for supervision of other normal in third trimester HGB A1C Routine 09/01/2024 9:45 AM MANAGER COMMERCIAL SALES Encounter for supervision of other normal in third trimester ALT (SGPT) Routine 09/01/2024 9:45 AM MANAGER COMMERCIAL SALES Encounter for supervision of other normal in third trimester AST Routine 09/01/2024 9:45 AM MANAGER COMMERCIAL SALES Encounter for supervision of other normal in third trimester documented in this encounter Results * (ABNORMAL) HCG, Quantitative, Serum (09/03/2024 9:45 AM MANAGER COMMERCIAL SALES) HCG, Quantitative 2,187(H) <=4 mIU/mL 09/04/2024 1:05 AM [facility] Blood Venipuncture / Unknown 09/03/2024 9:45 AM MANAGER COMM[employer]CIAL SALES 09/03/2024 9:13 PM MANAGER COMMERCIAL SALES [facility] - 09/04/2024 1:05 AM MANAGER COMMERCIAL SALES Expected ranges Negative: <5 mIU/mL Indeterminate: 5-25 mIU/mL Positive: >25 mIU/mL Suggest repeat testing of indeterminate result in 72 hours. us Gabriella Guy APRN, [facility] LAB_1 Fin al Result [address] [address], [facility] * Chlamydia & GC, Urine (14 Years and Older) (09/01/2024 10:39 AM MANAGER COMMERCIAL SALES) Chlamydia Trachomatis STD Not Detected Not Detected 09/01/2024 8:59 PM [facility] N. gonorrhoeae STD Not Detected Not Detected 09/01/2024 8:59 PM [facility] Urine STD (Urine for STD) Non-blood Collection / Unknown 09/01/2024 10:39 AM MANAGER [employer]CIAL SALES 09/01/2024 10:39 AM MANAGER COMMERCIAL SALES [facility] - 09/01/2024 8:59 PM MANAGER COMMERCIAL SALES Test performed by Supplier Quality Engineer Mediated Amplification (TMA). Urine Volume submitted was greater than 30 ml. Excess collection volume may decrease test sensitivity. Recollection suggested if clinically indicated. Paloma Winters APRN, [facility]_1 Fi nal Result Performing Organization Address [facility] Co de Phone Number [facility] [address] * TP/Crea Ratio, Urine (09/01/2024 10:39 AM MANAGER COMMERCIAL SALES) TP/Creat Ratio, Urine Random 0.07 0.00 - 0.20 09/01/2024 2:37 PM [facility] Total Protein, Urine, Random 5 0 - 14 mg/dL 09/01/2024 2:37 PM [facility] Creatinine, Urine, Random 67 >20 mg/dL mg/dL 09/01/2024 2:37 PM [facility] Urine Non-blood Collection / Unknown 09/01/2024 10:39 AM MANAGER COMM[employer]CIAL SALES 09/01/2024 10:39 AM [facility] - 09/01/2024 2:37 PM MANAGER COMMERCIAL SALES Low urine creatinine values coupled with low urine protein values can artifactually increase the urine protein/creatinine results. Correlate results of ratio with creatinine results. Paloma Winters APRN, [facility]_1 Fi nal Result Performing Organization Address [facility]/State/ZIP Co de Phone Number [facility] [address] [place] [address], [facility] * (ABNORMAL) Urine Culture (09/01/2024 10:39 AM MANAGER COMMERCIAL SALES) [facility] Urine Culture Growth(A) 09/02/2024 10:08 AM [facility] Urine Culture <10,000 CFU/mL Mixed Bacterial Growth 09/02/2024 10:08 AM [facility] Comment: Mixed Bacterial Growth indicates the specimen is likely contaminated at collection with urogenital and/or fecal benedict. The presence of organisms at <10,000 cfu/ml in culture, UTI unlikely. Urine URINE SPECIMEN COLLECTION, CLEAN CATCH / Unknown Non-blood Collection / Unknown 09/01/2024 10:39 AM MANAGER COMMERCIAL SALES 09/01/2024 10:39 AM MANAGER COMMERCIAL SALES us Paloma Winters APRN, [facility]_1 Fi nal Result Performing Organization Address [facility]/State/[place] [address], [facility] * Rapid Drug Panel, Urine (with Confirmation) without THC (09/01/2024 10:39 AM MANAGER COMMERCIAL SALES) [facility] Amphetamines Screen Not Detected Not Detected 09/01/2024 1:12 PM [facility] Barbiturates Screen Not Detected Not Detected 09/01/2024 1:12 PM [facility] Benzodiazepines Screen Not Detected Not Detected 09/01/2024 1:12 PM [facility] Buprenorphine Screen Not Detected Not Detected 09/01/2024 1:12 PM [facility] Cocaine Metabolite Screen Not Detected Not Detected 09/01/2024 1:12 PM [facility] Methadone Screen Not Detected Not Detected 09/01/2024 1:12 PM [facility] Opiates Screen Not Detected Not Detected 09/01/2024 1:12 PM [facility] Oxycodone Screen Not Detected Not Detected 09/01/2024 1:12 PM [facility] Phencyclidine (PCP) Screen Not Detected Not Detected 09/01/2024 1:12 PM [facility] Creatinine, Urine, Random 68 >20 mg/dL 09/01/2024 1:12 PM [facility] Urine Non-blood Collection / Unknown 09/01/2024 10:39 AM MANAGER COMM[employer]CIAL SALES 09/01/2024 10:39 AM MANAGER COMMERCIAL SALES [facility] - 09/01/2024 1:12 PM MANAGER COMMERCIAL SALES The absence of expected drug(s) and/or drug [...] LAB_1 Fi nal Result Performing Organization Address City/[facility] Co de Phone Number [address] * Syphilis Panel, with Reflex (09/01/2024 9:45 AM MANAGER COMMERCIAL SALES) Treponema Screen Interpretation Non Reactive Non Reactive 09/01/2024 4:52 PM MANAGER COMMERCIAL SALES [facility] Syphilis Panel Comment Negative - No serological evidence of syphilis. 09/01/2024 4:52 PM MANAGER COMMERCIAL SALES [facility] Blood Venipuncture / Unknown 09/01/2024 9:45 AM MANAGER COMMERCIAL SALES 09/01/2024 9:45 AM MANAGER COMMERCIAL SALES Paloma Winters APRN, [facility]_1 Fi nal Result Performing Organization Address City/[facility]/ZIP Co de Phone Number [facility] [address] [place] [id number] * ALT (SGPT) (09/01/2024 9:45 AM MANAGER COMMERCIAL SALES) ALT (SGPT) 32 0 - 55 U/L 09/01/2024 1:53 PM MANAGER COMMERCIAL SALES [facility] Blood Venipuncture / Unknown 09/01/2024 9:45 AM MANAGER COMMERCIAL SALES 09/01/2024 9:45 AM MANAGER COMMERCIAL SALES Paloma Winters APRN, CNM LAB_1 Fi nal Result Performing Organization Address City/[facility] Co de Phone Number [facility] [address] * TSH, Sensitive, (with Reflex) (09/01/2024 9:45 AM MANAGER COMMERCIAL SALES) TSH, with Reflex 1.54 0.30 - 2.50 uIU/mL 09/01/2024 2:15 PM MANAGER COMMERCIAL SALES [facility] Blood Venipuncture / Unknown 09/01/2024 9:45 AM MANAGER COMMERCIAL SALES 09/01/2024 9:45 AM MANAGER COMMERCIAL SALES Narrative [facility] - 09/01/2024 2:15 PM MANAGER COMMERCIAL SALES Reference ranges based on population of healthy woman. See trimester-specific ranges below for interpretation. (Result has been flagged based on the lowest and highest of these reference ranges.) 1st trimester: 0.10-2.50 uIU/mL 2nd trimester: 0.20-3.00 uIU/mL 3rd trimester: 0.30-3.00 uIU/mL us Paloma Winters APRN, [facility]_1 Fi nal Result Performing Organization Address [facility] de Phone Number [facility] [address] * AST (09/01/2024 9:45 AM MANAGER COMMERCIAL SALES) AST (SGOT) 21 10 - 40 U/L 09/01/2024 1:53 PM MANAGER COMMERCIAL SALES [facility] Blood Venipuncture / Unknown 09/01/2024 9:45 AM MANAGER COMMERCIAL SALES 09/01/2024 9:45 AM MANAGER COMMERCIAL SALES Paloma Winters APRN, CNM LAB_1 Fi nal Result Performing Organization Address [facility] Co de Phone Number [facility] [address] * Creatinine / GFR (09/01/2024 9:45 AM MANAGER COMMERCIAL SALES) Creatinine 0.68 0.55 - 1.02 mg/dL 09/01/2024 1:53 PM MANAGER COMMERCIAL SALES [facility] GFR, Estimated >60 >60 mL/min/1. 73m2 09/01/2024 1:53 PM MANAGER COMMERCIAL SALES [facility] Blood Venipuncture / Unknown 09/01/2024 9:45 AM MANAGER COMMERCIAL SALES 09/01/2024 9:45 AM MANAGER COMMERCIAL SALES Paloma Winters APRN, CNM LAB_1 Fi nal Result Performing Organization Address City/[facility] Co de Phone Number [facility] [address] [id number] * (ABNORMAL) Hemoglobin, Blood (OB) (09/01/2024 9:45 AM MANAGER COMMERCIAL SALES) Hemoglobin 13.7(H) 11.0 - 13.4 g/dL 09/01/2024 9:52 AM MANAGER COMMERCIAL SALES [facility] Blood Venipuncture / Unknown 09/01/2024 9:45 AM MANAGER COMMERCIAL SALES 09/01/2024 9:45 AM MANAGER COMMERCIAL SALES Narrative [facility] - 09/01/2024 9:52 AM MANAGER COMMERCIAL SALES Weeks Gestation: 7 Paloma Winters APRN, CNM LAB_1 Fi nal Result Performing Organization Address [facility] Co de Phone Number [facility] [address] [place] [address], [facility] * Rubella Immune Status, IgG (09/01/2024 9:45 AM MANAGER COMMERCIAL SALES) Rubella Units 10.40 09/02/2024 9:30 AM MANAGER COMMERCIAL SALES [facility] Comment:The magnitude of the measured result, above the cutoff, is not indicative of the amount of antibody present. Rubella Intepretation Immune Immune 09/02/2024 9:30 AM MANAGER COMMERCIAL SALES [facility] Blood Venipuncture / Unknown 09/01/2024 9:45 AM MANAGER COMMERCIAL SALES 09/01/2024 9:45 AM MANAGER COMMERCIAL SALES Paloma Winters APRN, CNM LAB_1 Fi nal Result [facility] [address] * HIV 1/2 Ag/Ab 4th Generation (09/01/2024 9:45 AM MANAGER COMMERCIAL SALES) Pathologist [facility] HIV 1/2 Antigen/Anti body (4th generation) Negative (Non Reactive) Negative (Non Reactive) 09/01/2024 2:15 PM MANAGER COMMERCIAL SALES [facility] Comment:HIV-1 p24 Antigen an d HIV-1/HIV-2 Antibody not detected Blood Venipuncture / Unknown 09/01/2024 9:45 AM MANAGER COMMERCIAL SALES 09/01/2024 9:45 AM MANAGER COMMERCIAL SALES Paloma Winters APRN, [facility] LAB_1 Fi nal Result Performing Organization Address [facility] Co de Phone Number [facility] [address] * Hgb A1C (09/01/2024 9:45 AM MANAGER COMMERCIAL SALES) [facility] Hemoglobin A1C 5.3 <=5.6 % 09/01/2024 3:22 PM MANAGER COMMERCIAL SALES [facility] Estimated Average Glucose (Calc) 105 < 117 mg/dL 09/01/2024 3:22 PM [facility] Comment:Estimated average gl ucose (eAG) converts A1c into glucose units (mg/dL) and estimates average glucose over the past approximately 3 months. The eAG reference interval (<117 mg/dL) corresponds to an A1c of <5.7%. Blood Venipuncture / Unknown 09/01/2024 9:45 AM MANAGER COMMERCIAL SALES 09/01/2024 9:45 AM MANAGER COMMERCIAL SALES Paloma Winters APRN, [facility]_1 Fi nal Result Performing Organization Address City/[facility] Co de Phone Number [facility] [address] * Hepatitis C Antibody, with Reflex (09/01/2024 9:45 AM MANAGER COMMERCIAL SALES) Hepatitis C Antibody Negative (Non Reactive) Negative (Non Reactive) 09/01/2024 2:20 PM MANAGER COMMERCIAL SALES [facility] Comment:Antibodies to HCV no t detected. Does not exclude the possiblity of exposure to HCV. Blood Venipuncture / Unknown 09/01/2024 9:45 AM MANAGER COMMERCIAL SALES 09/01/2024 9:45 AM MANAGER COMMERCIAL SALES Paloma Winters APRN, CNM LAB_1 Fi nal Result Performing Organization Address [facility] Co de Phone Number [facility] [address] [place] [address] * Hepatitis B Core Antibody (09/01/2024 9:45 AM MANAGER COMMERCIAL SALES) Pathologist [facility] Hepatitis B Core Antibody Negative (Non Reactive) Negative (Non Reactive) 09/01/2024 2:17 PM MANAGER COMMERCIAL SALES [facility] Blood Venipuncture / Unknown 09/01/2024 9:45 AM MANAGER COMMERCIAL SALES 09/01/2024 9:45 AM MANAGER COMMERCIAL SALES Paloma Winters APRN, CNM LAB_1 Fi nal Result Performing Organization Address [facility] de Phone Number [facility] [address] [place] [address] * Hepatitis B Surface Antibody (09/01/2024 9:45 AM MANAGER COMMERCIAL SALES) Hep B Surf Antibody Result 688.4 mIU/mL 09/01/2024 2:16 PM MANAGER COMMERCIAL SALES [facility] Hep B Surf Antibody Interpretation Positive (Reactive) Positive (Reactive) 09/01/2024 2:16 PM MANAGER COMMERCIAL SALES [facility] Comment:Individual is consid ered immune to HBV infection. Blood Venipuncture / Unknown 09/01/2024 9:45 AM MANAGER COMMERCIAL SALES 09/01/2024 9:45 AM MANAGER COMMERCIAL SALES Paloma Winters APRN, CNM LAB_1 Fi nal Result Performing Organization Address City/[facility]/ZIP Co de Phone Number [facility] [address] * Hepatitis B Surface Antigen (09/01/2024 9:45 AM MANAGER COMMERCIAL SALES) [facility] Hepatitis B Surface Antigen Negative (Non Reactive) Negative (Non Reactive) 09/01/2024 2:17 PM MANAGER COMMERCIAL SALES [facility] Blood Venipuncture / Unknown 09/01/2024 9:45 AM MANAGER COMMERCIAL SALES 09/01/2024 9:45 AM MANAGER COMMERCIAL SALES Paloma Winters APRN, CNM LAB_1 Fi nal Result Performing Organization Address City/[facility] Co de Phone Number [facility] [address] * Complete Blood Count-No Diff (09/01/2024 9:45 AM MANAGER COMMERCIAL SALES) [facility] WBC 6.3 3.5 - 10.5 x10(9)/L 09/01/2024 9:52 AM MANAGER COMMERCIAL SALES [facility] RBC 4.47 3.90 - 5.03 x10(12)/L 09/01/2024 9:52 AM MANAGER COMMERCIAL SALES [facility] Hemoglobin 13.7 12.0 - 15.5 g/dL 09/01/2024 9:52 AM MANAGER COMMERCIAL SALES .[facility] HCT 41.3 34.9 - 44.5 % 09/01/2024 9:52 AM MANAGER COMMERCIAL SALES [facility] MCV 92.4 80.0 - 100.0 fL 09/01/2024 9:52 AM MANAGER COMMERCIAL SALES [facility] MCH 30.6 27.6 - 33.3 pg 09/01/2024 9:52 AM MANAGER COMMERCIAL SALES [facility] MCHC 33.2 31.5 - 35.2 g/dL 09/01/2024 9:52 AM MANAGER COMMERCIAL SALES [facility] RDW 12.9 11.9 - 15.5 % 09/01/2024 9:52 AM MANAGER COMMERCIAL SALES [facility] Platelets 233 150 - 450 x10(9)/L 09/01/2024 9:52 AM MANAGER COMMERCIAL SALES [facility] Blood Venipuncture / Unknown 09/01/2024 9:45 AM MANAGER COMMERCIAL SALES 09/01/2024 9:45 AM MANAGER COMMERCIAL SALES Paloma Winters APRN, [facility] LAB_1 Fi nal Result Performing Organization Address City/[facility]/ZIP Co de Phone Number [facility] [address] [place] [place] [phone], [facility] * Antibody Screen (09/01/2024 9:45 AM MANAGER COMMERCIAL SALES) [facility] Antibody Screen Interpretation Negative 09/01/2024 1:45 PM MANAGER COMMERCIAL SALES [facility] Blood Venipuncture / Unknown 09/01/2024 9:45 AM MANAGER COMMERCIAL SALES 09/01/2024 9:45 AM MANAGER COMMERCIAL SALES Paloma Winters APRN, CNM LAB_1 Fi nal Result Performing Organization Address City/[facility] Co de Phone Number [facility] [address] [place], [place] [phone] [place] [address] documented in this encounter Visit Diagnoses Diagnosis Encounter for supervision of other normal in third trimester Routine screening for STI (sexually transmitted infection) Screening examination for venereal disease Vaginal bleeding in , first trimester documented in this encounter Care Teams Wardrobe Coordinator Relationship Specialty Start Date End Date Martell Ortega MD [address] [place] [address] PCP - General 06/29/23 documented as of this encounter
--- OUTSIDE RECORDS SUMMARY | 2024-09-08 16:15 | XMS_ITS | Encounter Summary ---
Author Organization [facility] Address [address] [place] [address] Care Team Providers Care Cms Expert Name Role Phone Martell Ortega MD Primary Care Provider + [phone] Reason for Visit * Procedure/Equipment (Routine) - Incomplete Specialty Diagnoses / Procedures Referred By Juaquin bhandari Referred To Contact Diagnoses Spotting in Procedures OBGYN First Trimester Ultrasound OBGYN First Trimester Ultrasound Paloma Winters APRN, CNM [address] [place] [address] Phone: tel: fax: Referral ID Status Reason Start Date Expiration Date V isits Requested Visits Authorized [id number] Incomplete 09/01/2024 12/01/2025 1 1 Encounter Details Date Type Department Care Team (Latest Contact Info) Description 09/01/2024 10:00 AM STEEL MOLDER Ancillary Procedure [facility] mailroom associate Ultrasound [address] [place] [phone] Paloma Winters APRN, CNM [address] [place] [phone] Encounter for supervision of other normal in third trimester; Spotting in Social History Tobacco Use Types Packs/Day Years Used Date Smoking Tobacco: Never Smokeless Tobacco: Never Alcohol Use Standard Drinks/Week Comments Not Currently 0 (1 standard drink = 0.6 oz pur e alcohol) 1 drink a week [facility] Utilities Answer Date Recorded In the past [...] on file Legal Sex Female 7:14 PM STEEL MOLDER Gender Identity Not on file Sexual Orientation Not on file 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 Not on file Not on file documented as of this encounter Plan of Treatment Not on file documented as of this encounter Procedures Procedure Name Priority Date/Time Associated Diagnosis Comments OBGYN FIRST TRIMESTER ULTRASOUND Routine 09/01/2024 10:26 AM STEEL MOLDER Spotting in documented in this encounter Results * (ABNORMAL) OBGYN First Trimester Ultrasound (09/01/2024 10:26 AM STEEL MOLDER) Uterus AP Diameter (Height) 5.00 cm EXTERNAL RESULTS Uterus Longitudinal Diameter (Length) 7.90 cm EXTERNAL RESULTS Uterus Transverse Diameter (Width) 6.50 cm EXTERNAL RESULTS Uterus Volume 134.43 ml MIXER OPERATOR RAW SALT AL RESULTS Left Ovary Perpendicular Diameter (Height) [...] Study GA Study Date Study RACHEL Working ARCHEL (Source) 09/01/2024 04/17/2025 (Last Menstrua l Period) [...] Magna ARELY Foot Narrative 09/01/2024 10:56 AM STEEL MOLDER Table formatting from the original result was not included. Early First Trimester Ultrasound Exam performed on: 09/01/2024 Referring provider: Paloma Winters APRN, CNM Referring clinic: [facility] SUPERVISOR ULTRASOUND Clinical indications: Spotting in LMP: Patient's last menstrual period was 07/11/2024 (exact date)., 7w3d Manager Of Revenue(s) initials: [place] The pelvic organs are imaged [...] applicable documented in this encounter Care Teams Cms Expert Relationship Specialty Start Date End Date Martell Ortega MD [address] [place] [address] PCP - General 06/29/23 documented as of this encounter
--- OUTSIDE RECORDS SUMMARY | 2024-09-08 16:15 | XMS_ITS | Encounter Summary ---
Author Organization [facility] Address [address] [place] [address] Care Team Providers Care Bandoleer Packer Name Role Phone Martell Ortega MD Primary Care Provider [phone] Encounter Details Date Type Department Care Team (Late st Contact Info) Description 06/04/2014 Correspondence None No Primary/Referring, Phy EQUIPMENT REFERRAL MANAGER TICKET Social History Tobacco Use Types Packs/Day Years Used Date Smoking Tobacco: Never Smokeless Tobacco: Never Alcohol Use Standard Drinks/Week Comments No 0 (1 standard drink = 0.6 oz pur e alcohol) 2/beer/not while Comments No Sex and Gender Information Value Date Recorded Sex Assigned at Not on file Legal Sex Female 7:14 PM SENIOR DIRECTOR INSIGHT Gender Identity Not on file Sexual Orientation Not on file 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
--- OUTSIDE RECORDS SUMMARY | 2024-09-08 16:15 | XMS_ITS | Encounter Summary ---
Author Organization [facility] Address [address] [place] [address] Care Team Providers Care Reimbursement Liaison Name Role Phone Martell Ortega MD Primary Care Provider + [phone] Reason for Visit * Reason Comments BLEEDING, DURING Encounter Details Date Type Department Care Team (Late st Contact Info) Description 09/03/2024 Nurse Triage Careline [address] [place], [place] [id number] Unassigned, Provider [address] [place] [address] BLEEDING, DURING Social History Tobacco Use Types Packs/Day Years Used Date Smoking Tobacco: Never Smokeless Tobacco: Never Alcohol Use Standard Drinks/Week Comments Not Currently 0 (1 standard drink = 0.6 oz pur e alcohol) 1 drink a week [facility] Utilities Answer Date Recorded In the past 12 months has [employer], gas, oil, or water [employer] threatened to shut off services in your [...] place to sleep or slept in a chcf (including now)? 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 Patience Escobar RN SP marketing content manager Triage 09/08/2024, 3:40 PM * Patience Ibarra RN - 09/06/2024 2:30 PM CDT Reached patient by phone. Reviewed CNM comments and options. Pt opts to await period and will call in 6 weeks if no period, sooner if any new problems. Patience Escobar RN SP marketing content manager Triage 09/06/2024, 2:31 PM * Suma Raymond [...] review in Paloma's absence. LUKAS, RN, SP ENGINEERING TEST MECHANIC, 09/06/2024, 11:06 AM * Patience Ibarra RN - 09/05/2024 11:30 AM CDT Sent pt OPS msg with information, call RN team with any concerns, schedule lab appt for 09/11. Patience Escobar RN SP marketing content manager Triage 09/05/2024, 11:31 AM * Patience Ibarra RN - 09/05/2024 8:33 AM CDT Attempted to call patient to check on status and offer lab appt if pt does not want to be seen in clinic at this time. Left message to call back for lab appt scheduling or any other concerns. Patience Escobar RN SP marketing content manager Triage 09/05/2024, 8:38 AM * Sophia Smith [...] passing small amounts of clots/tissue when urinating. Addis/Parity: Gestational Age (by RACHEL or LMP): 7w6d [...] would need appointment to have his drawn. Work Over Rig Operator - Returned call to pt. Shared [...] Анна Mendoza RN Careline 9:48 PM 09/03/2024 ITY ASSURANCE PRACTICE MANAGER * Lizette Chaudhari RN - 09/03/2024 7:22 [...] the bathroom, thick jelly-like red and clear. [place] some mild cramping today 1:00pm. Last night [...] follow-up ultrasound in 14 days. Soni Melendez, Addis/Parity: Gestational Age (by RACHEL or LMP): 7w5d [...] call): Yes Plan: Clinician consult Clinician name: [facility] SIMONA Paged at 7:35 PM Re-paged at 7:55 PM Paged back up Kelly Johnson 8:05 PM 8:08 PM Call to [facility] L&D, transferred to work room, no answer [...] - Vaginal Bleeding Less Than 20 Weeks [id number] ITY ASSURANCE PRACTICE MANAGER * Linda Quiñonez - 09/03/2024 7:21 PM CST Verified patient using 3 identifiers: Yes Caller reports the following red flag symptoms: Patient is 7 weeks and having bleeding. Plan: Transferred directly to a CareLine RN. ITY ASSURANCE PRACTICE MANAGER documented in this encounter Plan of Treatment [...] 1,802(H) <=4 mIU/mL 09/04/2024 4:32 PM CDT [facility] Blood Venipuncture / Unknown 09/04/2024 10:45 AM CDT 09/04/2024 10:45 AM CDT Narrative [facility] - 09/04/2024 4:32 PM CDT Expected ranges Negative: <5 mIU/mL Indeterminate: 5-25 mIU/mL Positive: >25 mIU/mL Suggest repeat testing of indeterminate result in 72 hours. Gabriella Guy APRN, CNM LAB_1 Fin al Result [facility] [address] * (ABNORMAL) HCG, Quantitative, Serum (09/03/2024 9:45 AM QUALITY ASSURANCE PRACTICE MANAGER) Pathologist [facility] HCG, Quantitative 2,187(H) <=4 mIU/mL 09/04/2024 1:[address] [facility] Blood Venipuncture / Unknown 09/03/2024 9:45 AM QUALITY ASSURANCE PRACTICE MANAGER 09/03/2024 9:13 PM QUALITY ASSURANCE PRACTICE MANAGER [facility] - 09/04/2024 1:05 AM QUALITY ASSURANCE PRACTICE MANAGER Expected ranges Negative: <5 mIU/mL Indeterminate: 5-25 mIU/mL Positive: >25 mIU/mL Suggest repeat testing of indeterminate result in 72 hours. Gabriella Guy APRN, CNM LAB_1 Fin al Result [address] [address], [facility] documented in this encounter Visit Diagnoses Diagnosis Vaginal bleeding in , first trimester- Primary documented in this encounter Care Teams Reimbursement Liaison Relationship Specialty Start Date End Date Martell Ortega MD [address] [place] [address] PCP - General 06/29/23 documented as of this encounter
--- OUTSIDE RECORDS SUMMARY | 2024-09-08 16:15 | XMS_ITS | Encounter Summary ---
Author Organization [facility] Address [address] [place] [address] Care Team Providers Care Showplace Manager Name Role Phone Martell Ortega MD Primary Care Provider [phone] Encounter Details Date Type Department Care Team (Late st Contact Info) Description 09/04/2014 Correspondence [facility] OB-LIFE SKILLS CONSULTANT [place] [address] 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
--- OUTSIDE RECORDS SUMMARY | 2024-09-08 16:15 | XMS_ITS | Encounter Summary ---
Author Organization [facility] Address [address] [place] [address] Care Team Providers Care Medical Insurance Claims Processor Name Role Phone Martell Ortega MD Primary Care Provider + [phone] Encounter Details Date Type Department Care Team (Late st Contact Info) Description 09/01/2024 Results Follow-Up [facility] Obstetrics and Gynecology [address] [place] [address] Lroi Saldaña RN Social History Tobacco Use Types Packs/Day Years Used Date Smoking Tobacco: Never Smokeless Tobacco: Never Alcohol Use Standard Drinks/Week Comments Not Currently 0 (1 standard drink = 0.6 oz pur e alcohol) 1 drink a week [facility] Utilities Answer Date Recorded In the past 12 months has [employer], gas, oil, or water [employer] threatened to shut off services in your [...] in a custodial (including now)? 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 Order already has the date on it. Aylin Meade 09/01/2024, 3:59 PM NSIC PHOTOGRAPHER documented in this encounter Plan of Treatment Not on file documented as of this encounter Visit Diagnoses Not on filedocumented in this encounter Care Teams Medical Insurance Claims Processor Relationship Specialty Start Date End Date Martell Ortega MD [address] [place] [address] PCP - General 06/29/23 documented as of this encounter
--- OUTSIDE RECORDS SUMMARY | 2024-09-08 16:15 | XMS_ITS | Encounter Summary ---
Author Organization [facility] Address [address] [place] [address] Care Team Providers Care Bottomer Operator Name Role Phone Martell Ortega MD Primary Care Provider + [phone] Reason for Visit * Reason Comments NECK PAIN BACK PAIN FEVER Concerns Encounter Details Date Type Department Care Team (Late st Contact Info) Description 08/28/2024 Nurse Triage Careline [address] [place], [place] [address] Unassigned, Provider [address] [place] [address] NECK PAIN; BACK PAIN; FEVER; Concerns Social History Tobacco Use Types Packs/Day Years Used Date Smoking Tobacco: Never Smokeless Tobacco: Never Alcohol Use Standard Drinks/Week Comments Not Currently 0 (1 standard drink = 0.6 oz pur e alcohol) 1 drink a week [facility] Utilities Answer Date Recorded In the past 12 months has [employer], gas, oil, or water [employer] threatened to shut off services in your [...] in a mcc (including now)? 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 Sidney/Parity: Gestational Age (by RACHEL or LMP): Unknown [...] (38.0 C) or higher Protocols used: - [id number] Plan: Care advice given per protocol. Pt will continue to monitor symptoms at home and call their OB provider tomorrow morning. Pt verbalized understanding and agreed with the plan. Advised patient/caller to call back CareLine if there are further questions or concerns. The CareLine is available 19/01. Charito Escobar RN CareLine 9:08 AM 08/28/2024 RAM DEVELOPER * Esther Contreras - 08/28/2024 8:51 AM CST Verified patient identity using three identifiers: Yes Caller's relationship to patient: Self, Do you have a provider/clinic where you are seen for this? No Where do you regularly go for care?: [facility]/Tashi/Teresa/Michelet Are you calling about a /GAS PIT WORKER related concern? Yes ???What location do you receive your MEMBER OF TECHNICAL STAFF care at? [facility] Symptoms Describe the reason for call/symptoms (include location and duration if applicable): early in around 8 weeks - currently running a fever at 101.5, nausea, excessive thirst, muscle pain in neck and back. New onset of back pain and neck pain. Plan:Caller transferred directly to CareLine nurse. RAM DEVELOPER documented in this encounter Plan of Treatment Not on file documented as of this encounter Visit Diagnoses Not on filedocumented in this encounter Care Teams Bottomer Operator Relationship Specialty Start Date End Date Martell Ortega MD [address] [place] [address] PCP - General 06/29/23 documented as of this encounter
--- OUTSIDE RECORDS SUMMARY | 2024-09-08 16:15 | XMS_ITS | Encounter Summary ---
Author Organization [facility] Address [address] [place] [address] Care Team Providers Care Technical Project Coordinator Name Role Phone Martell Ortega MD Primary Care Provider + [phone] Encounter Details Date Type Department Care Team (Late st Contact Info) Description 09/01/2024 Results Follow-Up [facility] Obstetrics and Gynecology [address] [place] [address] Lori Saldaña RN Social History Tobacco Use Types Packs/Day Years Used Date Smoking Tobacco: Never Smokeless Tobacco: Never Alcohol Use Standard Drinks/Week Comments Not Currently 0 (1 standard drink = 0.6 oz pur e alcohol) 1 drink a week [facility] Utilities Answer Date Recorded In the past 12 months has [employer], gas, oil, or water [employer] threatened to shut off services in your [...] place to sleep or slept in a assisted (including now)? 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
--- OUTSIDE RECORDS SUMMARY | 2024-09-08 16:15 | XMS_ITS | Encounter Summary ---
Author Organization [facility] Address [address] [address] Care Team Providers Care Button Tufting Machine Operator Name Role Phone Martell Ortega MD Primary Care Provider + [phone] Encounter Details Date Type Department Care Team (Late st Contact Info) Description 09/05/2024 E-Visit [facility] Obstetrics and Gynecology [address] [place] [address] [place] [address] Social History Tobacco Use Types Packs/Day Years Used Date Smoking Tobacco: Never Smokeless Tobacco: Never Alcohol Use Standard Drinks/Week Comments Not Currently 0 (1 standard drink = 0.6 oz pur e alcohol) 1 drink a week [facility] Utilities Answer Date Recorded In the past 12 months has [employer], gas, oil, or water [employer] threatened to shut off services in your [...] on file Legal Sex Female 7:14 PM PROP ATTENDANT Gender Identity Not on file Sexual Orientation Not on file 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
--- OUTSIDE RECORDS SUMMARY | 2024-09-08 16:15 | XMS_ITS | Encounter Summary ---
Author [facility] Address [address] [place] [address] Care Team Providers Care Manager Utilization Name Role Phone Martell Ortega MD Primary Care Provider + [phone] Encounter Details Date Type Department Care Team (Late st Contact Info) Description 09/04/2024 10:30 AM CDT Lab Visit [facility] [address] [place] [address] Vaginal bleeding in , first trimester Social History Tobacco Use Types Packs/Day Years Used Date Smoking Tobacco: Never Smokeless Tobacco: Never Alcohol Use Standard Drinks/Week Comments Not Currently 0 (1 standard drink = 0.6 oz pur e alcohol) 1 drink a week [facility] Utilities Answer Date Recorded In the past 12 months has [employer], gas, oil, or water [employer] threatened to shut off services in your [...] on file Legal Sex Female 7:14 PM CONTROL AND RECOVERY SPECIAL TACTICS Gender Identity Not on file Sexual Orientation Not on file 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 us Gabriella Guy APRN, SIMONA LAB_1 Fin al Result [facility] [address] documented in this encounter Visit Diagnoses Diagnosis Vaginal bleeding in , first trimester documented in this encounter Care Teams Manager Utilization Relationship Specialty Start Date End Date Martell Ortega MD [address] [place] [address] PCP - General 06/29/23 documented as of this encounter
--- OUTSIDE RECORDS SUMMARY | 2024-09-08 16:15 | XMS_ITS | Encounter Summary ---
Author Organization [facility] Address [address] [place] [address] Care Team Providers Care Infection Prevention Specialist Name Role Phone Martell Ortega MD Primary Care Provider + [phone] Encounter Details Date Type Department Care Team (Late st Contact Info) Description 09/05/2024 Results Follow-Up [facility] Obstetrics and Gynecology [address] [place] [address] Alivia Ramirez RN Social History Tobacco Use Types Packs/Day Years Used Date Smoking Tobacco: Never Smokeless Tobacco: Never Alcohol Use Standard Drinks/Week Comments Not Currently 0 (1 standard drink = 0.6 oz pur e alcohol) 1 drink a week [facility] Utilities Answer Date Recorded In the past 12 months has [employer], gas, oil, or water [employer] threatened to shut off services in your [...] on file Legal Sex Female 7:14 PM CERTIFIED LACTATION EDUCATOR Gender Identity Not on file Sexual Orientation Not on file 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
--- OUTSIDE RECORDS SUMMARY | 2024-09-08 16:15 | XMS_ITS | Encounter Summary ---
Author Organization [facility] Address [address] [place] [address] Care Team Providers Care Metal Sander Name Role Phone Martell Ortega MD Primary Care Provider [phone] Encounter Details Date Type Department Care Team (Late st Contact Info) Description 09/04/2014 Correspondence External to External, [place] [address] PT REQUESTING FORM COMPLETION Social History Tobacco Use Types Packs/Day Years Used Date Smoking Tobacco: Never Smokeless Tobacco: Never Alcohol Use Standard Drinks/Week Comments No 0 (1 standard drink = 0.6 oz pur e alcohol) 2/beer/not while Comments No Sex and Gender Information Value Date Recorded Sex Assigned at Not on file Legal Sex Female 7:14 PM CERTIFIED HYPERBARIC TECHNOLOGIST Gender Identity Not on file Sexual Orientation Not on file 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
--- OUTSIDE RECORDS SUMMARY | 2024-09-08 16:15 | XMS_ITS | Encounter Summary ---
Author Organization [facility] Address [address] [place] [address] Care Team Providers Care Chef'S Assistant Name Role Phone Martell Ortega MD Primary Care Provider + [phone] Reason for Visit * Reason Comments ,1st Ob Encounter Details Date Type Department Care Team (Late st Contact Info) Description 09/01/2024 8:40 AM GENERAL OFFICE ASSISTANT Initial [facility] Obstetrics and Gynecology [address] [place] [address] Paloma Winters, CHIEF PSYCHOLOGIST, CN [address] [place] [address] ,1st Ob Social History Tobacco Use Types Packs/Day Years Used Date Smoking Tobacco: Never Smokeless Tobacco: Never Alcohol Use Standard Drinks/Week Comments Not Currently 0 (1 standard drink = 0.6 oz pur e alcohol) 1 drink a week [facility] Utilities Answer Date Recorded In [...] on file Legal Sex Female 7:14 PM GENERAL OFFICE ASSISTANT Gender Identity Not on file Sexual Orientation Not on file 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 file 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 Not on file Not on file documented as of this encounter Last Filed Vital Signs Vital Sign Reading Time Taken Comments Blood Pressure 104/71 09/01/2024 8:49 AM GENERAL OFFICE ASSISTANT Pulse 77 09/01/2024 8:49 AM GENERAL OFFICE ASSISTANT Temperature - - Respiratory Rate - - Oxygen Saturation - - Inhaled Oxygen Concentration - - Weight 82.1 kg (181 lb) 09/01/2024 8:49 AM GENERAL OFFICE ASSISTANT Height - - Body Mass Index 31.07 10/20/2023 6:00 AM CDT documented in this encounter Patient Instructions * Patient Instructions* Paloma Winters, FERNANDO, CNM - 09/01/2024 8:40 AM GENERAL OFFICE ASSISTANT Images from the original note were not [...] our handout on Genetic Disease Carrier Screening: https://Advaxis/40062.pdf Drinking any amount of alcohol during is not safe. Watch this short video by [employer]: Proof: Some Think Drinking During is OK. It???s Not. - Laura video Marijuana use is never recommended while or . Learn why here: https://Advaxis/51992.pdf is a time of transition. If you feel overwhelmed, anxious or depressed, see the followingresources: Emotional Distress During and After : https://Advaxis/76864.pdf Resources & Support for New & Expecting Parents: https://Advaxis/42740.pdf The 3 books provided throughout are also available digitally. Here are the links to each book: Your Guide to : https://user-[employer].MobPanel.bz/OaiogeQlvbenbr-Idmm-Jmqlf-lm-z-Zjvtwnq- Preparing for Childbirth: https://user-[employer].MobPanel.bz/YpiommWwrptjbq-Gdy-Yacb-of-Motherhood Taking Care of You and Your [place]: https://user-[employer].MobPanel.bz/HqrswwGxqsasyf-Z-Zhk-Beginning Smackover for our free ramiro called ???myHealthyPregnancy?? powered by [employer]. The ramiro offers many quick articles and videos on , labor, , , and newborncare. Find instructions here: Or click on this link: myHealthyPregnancy tracker ramiro [facility] In [place], soon-to-be, new, and nursing parents have legal protections to help keep them safe and healthy in the workplace. Find more information here: Or click on this link: Workers And New Parents RAL OFFICE ASSISTANT * Attachments The following attachments cannot be sent through Care Everywhere. * : Weeks 6 to 10 (Chadian) documented in this encounter Progress Notes * Paloma Winters APRN, CNM - 09/01/2024 8:40 AM CST Subjective Jovita Mcfadden is a 33 y.o., , Patient's last menstrual period was 07/11/2024 (exact date)., Estimated Date of Delivery: 04/17/25, who is at 7w3d weeks gestation. Jovita is here for a first ob visit. Plans to switch between [facility] here and at [place] and then deliver at [facility] next time. [...] strangled, or otherwise hurt you? No Any druze, spiritual, or cultural beliefs? 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 which is closer to home/workbut wants to [...] if problems Paloma Winters APRN, CNM 09/01/2024 RAL OFFICE ASSISTANT documented in this encounter Plan of Treatment Not on file documented as of this encounter Results * Chlamydia & GC, Urine (14 Years and Older) (09/01/2024 10:39 AM GENERAL OFFICE ASSISTANT) Chlamydia Trachomatis STD Not Detected Not Detected 09/01/2024 8:59 PM GENERAL OFFICE ASSISTANT [facility] N. gonorrhoeae STD Not Detected Not Detected 09/01/2024 8:59 PM GENERAL OFFICE ASSISTANT [facility] Urine STD (Urine for STD) Non-blood Collection / Unknown 09/01/2024 10:39 AM GENERAL OFFICE ASSISTANT 09/01/2024 10:39 AM GENERAL OFFICE ASSISTANT [facility] - 09/01/2024 8:59 PM GENERAL OFFICE ASSISTANT Test performed by Child And Family Therapist Mediated Amplification (TMA). Urine Volume submitted was greater than 30 ml. Excess collection volume may decrease test sensitivity. Recollection suggested if clinically indicated. Paloma Winters APRN, CNM LAB_1 Fi nal Result Performing Organization Address [facility] de Phone Number [facility] [address] * TP/Crea Ratio, Urine (09/01/2024 10:39 AM GENERAL OFFICE ASSISTANT) TP/Creat Ratio, Urine Random 0.07 0.00 - 0.20 09/01/2024 2:37 PM [facility] Total Protein, Urine, Random 5 0 - 14 mg/dL 09/01/2024 2:37 PM [facility] Creatinine, Urine, Random 67 >20 mg/dL mg/dL 09/01/2024 2:37 PM [facility] Urine Non-blood Collection / Unknown 09/01/2024 10:39 AM GENERAL OFFICE ASSISTANT 09/01/2024 10:39 AM [facility] - 09/01/2024 2:37 PM GENERAL OFFICE ASSISTANT Low urine creatinine values coupled with low urine protein values can artifactually increase the urine protein/creatinine results. Correlate results of ratio with creatinine results. Paloma Winters APRN, CNM LAB_1 Fi nal Result Performing Organization Address [facility] de Phone Number [facility] [address] * (ABNORMAL) Urine Culture (09/01/2024 10:39 AM GENERAL OFFICE ASSISTANT) Pathologist [facility] Urine Culture Growth(A) 09/02/2024 10:08 AM [facility] Urine Culture <10,000 CFU/mL Mixed Bacterial Growth 09/02/2024 10:08 AM [facility] Comment: Mixed Bacterial Growth indicates the specimen is likely contaminated at collection with urogenital and/or fecal benedict. The presence of organisms at <10,000 cfu/ml in culture, UTI unlikely. Urine URINE SPECIMEN COLLECTION, CLEAN CATCH / Unknown Non-blood Collection / Unknown 09/01/2024 10:39 AM GENERAL OFFICE ASSISTANT 09/01/2024 10:39 AM GENERAL OFFICE ASSISTANT us Paloma Winters APRN, CNM LAB_1 Fi nal Result [address] [address], [facility] * Rapid Drug Panel, Urine (with Confirmation) without THC (09/01/2024 10:39 AM GENERAL OFFICE ASSISTANT) [facility] Amphetamines Screen Not Detected Not Detected 09/01/2024 1:12 PM [facility] Barbiturates Screen Not Detected Not Detected 09/01/2024 1:12 PM [facility] Benzodiazepines Screen Not Detected Not Detected 09/01/2024 1:12 PM [facility] Buprenorphine Screen Not Detected Not Detected 09/01/2024 1:12 PM [facility] Cocaine Metabolite Screen Not Detected Not Detected 09/01/2024 1:12 PM [facility] Methadone Screen Not Detected Not Detected 09/01/2024 1:12 PM [facility] Opiates Screen Not Detected Not Detected 09/01/2024 1:12 PM [facility] Oxycodone Screen Not Detected Not Detected 09/01/2024 1:12 PM [facility] Phencyclidine (PCP) Screen Not Detected Not Detected 09/01/2024 1:12 PM [facility] Creatinine, Urine, Random 68 >20 mg/dL 09/01/2024 1:12 PM [facility] Urine Non-blood Collection / Unknown 09/01/2024 10:39 AM GENERAL OFFICE ASSISTANT 09/01/2024 10:39 AM GENERAL OFFICE ASSISTANT [facility] 09/01/2024 1:12 PM GENERAL OFFICE ASSISTANT The absence of expected drug(s) and/or drug [...] Winters APRN, SIMONA LAB_1 Fi nal Result [address] * ALT (SGPT) (09/01/2024 9:45 AM GENERAL OFFICE ASSISTANT) ALT (SGPT) 32 0 - 55 U/L 09/01/2024 1:53 PM GENERAL OFFICE ASSISTANT [facility] Blood Venipuncture / Unknown 09/01/2024 9:45 AM GENERAL OFFICE ASSISTANT 09/01/2024 9:45 AM GENERAL OFFICE ASSISTANT Paloma Winters APRN, SIMONA LAB_1 Fi nal Result Performing Organization Address [facility] Co de Phone Number [facility] [address] * TSH, Sensitive, (with Reflex) (09/01/2024 9:45 AM GENERAL OFFICE ASSISTANT) TSH, with Reflex 1.54 0.30 - 2.50 uIU/mL 09/01/2024 2:15 PM GENERAL OFFICE ASSISTANT [facility] Blood Venipuncture / Unknown 09/01/2024 9:45 AM GENERAL OFFICE ASSISTANT 09/01/2024 9:45 AM GENERAL OFFICE ASSISTANT Narrative [facility] - 09/01/2024 2:15 PM GENERAL OFFICE ASSISTANT Reference ranges based on population of healthy woman. See trimester-specific ranges below for interpretation. (Result has been flagged based on the lowest and highest of these reference ranges.) 1st trimester: 0.10-2.50 uIU/mL 2nd trimester: 0.20-3.00 uIU/mL 3rd trimester: 0.30-3.00 uIU/mL Paloma Winters APRN, SIMONA LAB_1 Fi nal Result Performing Organization Address [facility] Co de Phone Number [facility] [address] * AST (09/01/2024 9:45 AM GENERAL OFFICE ASSISTANT) AST (SGOT) 21 10 - 40 U/L 09/01/2024 1:53 PM GENERAL OFFICE ASSISTANT [facility] Blood Venipuncture / Unknown 09/01/2024 9:45 AM GENERAL OFFICE ASSISTANT 09/01/2024 9:45 AM GENERAL OFFICE ASSISTANT Paloma Winters APRN, CNM LAB_1 Fi nal Result Performing Organization Address [facility] de Phone Number [facility] [address] [place] [address] * Creatinine / GFR (09/01/2024 9:45 AM GENERAL OFFICE ASSISTANT) Creatinine 0.68 0.55 - 1.02 mg/dL 09/01/2024 1:53 PM GENERAL OFFICE ASSISTANT [facility] GFR, Estimated >60 >60 mL/min/1. 73m2 09/01/2024 1:53 PM GENERAL OFFICE ASSISTANT [facility] Blood Venipuncture / Unknown 09/01/2024 9:45 AM GENERAL OFFICE ASSISTANT 09/01/2024 9:45 AM GENERAL OFFICE ASSISTANT Paloma Winters APRN, SIMONA LAB_1 Fi nal Result Performing Organization Address [facility] Phone Number [facility] [address] [place] [address] * (ABNORMAL) Hemoglobin, Blood (OB) (09/01/2024 9:45 AM GENERAL OFFICE ASSISTANT) Hemoglobin 13.7(H) 11.0 - 13.4 g/dL 09/01/2024 9:52 AM GENERAL OFFICE ASSISTANT [facility] Blood Venipuncture / Unknown 09/01/2024 9:45 AM GENERAL OFFICE ASSISTANT 09/01/2024 9:45 AM GENERAL OFFICE ASSISTANT Narrative [facility] - 09/01/2024 9:52 AM GENERAL OFFICE ASSISTANT Weeks Gestation: 7 Paloma Winters APRN, SIMONA LAB_1 Fi nal Result [facility] [address] [place] [id number] * Rubella Immune Status, IgG (09/01/2024 9:45 AM GENERAL OFFICE ASSISTANT) Rubella Units 10.40 09/02/2024 9:30 AM GENERAL OFFICE ASSISTANT [facility] Comment:The magnitude of the measured result, above the cutoff, is not indicative of the amount of antibody present. Rubella Intepretation Immune Immune 09/02/2024 9:30 AM GENERAL OFFICE ASSISTANT [facility] Blood Venipuncture / Unknown 09/01/2024 9:45 AM GENERAL OFFICE ASSISTANT 09/01/2024 9:45 AM GENERAL OFFICE ASSISTANT Paloma Winters APRN, SIMONA LAB_1 Fi nal Result Performing Organization Address City/[facility]/ZIP Co de Phone Number [facility] [place], [place] [address] * HIV 1/2 Ag/Ab 4th Generation (09/01/2024 9:45 AM GENERAL OFFICE ASSISTANT) Pathologist [facility] HIV 1/2 Antigen/Anti body (4th generation) Negative (Non Reactive) Negative (Non Reactive) 09/01/2024 2:15 PM GENERAL OFFICE ASSISTANT [facility] Comment:HIV-1 p24 Antigen an d HIV-1/HIV-2 Antibody not detected Blood Venipuncture / Unknown 09/01/2024 9:45 AM GENERAL OFFICE ASSISTANT 09/01/2024 9:45 AM GENERAL OFFICE ASSISTANT Paloma Winters APRN, CNM LAB_1 Fi nal Result Performing Organization Address City/[facility]/ZIP Co de Phone Number [facility] [id number] [place] [address] * Hgb A1C (09/01/2024 9:45 AM GENERAL OFFICE ASSISTANT) Hemoglobin A1C 5.3 <=5.6 % 09/01/2024 3:22 PM GENERAL OFFICE ASSISTANT [facility] Estimated Average Glucose (Calc) 105 < 117 mg/dL 09/01/2024 3:22 PM GENERAL OFFICE ASSISTANT [facility] Comment:Estimated average gl ucose (eAG) converts A1c into glucose units (mg/dL) and estimates average glucose over the past approximately 3 months. The eAG reference interval (<117 mg/dL) corresponds to an A1c of <5.7%. Blood Venipuncture / Unknown 09/01/2024 9:45 AM GENERAL OFFICE ASSISTANT 09/01/2024 9:45 AM GENERAL OFFICE ASSISTANT Paloma Winters APRN, SIMONA LAB_1 Fi nal Result Performing Organization Address [facility] Co de Phone Number [facility] [address] [place] [address] * Hepatitis C Antibody, with Reflex (09/01/2024 9:45 AM GENERAL OFFICE ASSISTANT) Hepatitis C Antibody Negative (Non Reactive) Negative (Non Reactive) 09/01/2024 2:20 PM GENERAL OFFICE ASSISTANT [facility] Comment:Antibodies to HCV no t detected. Does not exclude the possiblity of exposure to HCV. Blood Venipuncture / Unknown 09/01/2024 9:45 AM GENERAL OFFICE ASSISTANT 09/01/2024 9:45 AM GENERAL OFFICE ASSISTANT Paloma Winters APRN, SIMONA LAB_1 Fi nal Result Performing Organization Address [facility] Co de Phone Number [facility] [address] [place] [address] * Hepatitis B Core Antibody (09/01/2024 9:45 AM GENERAL OFFICE ASSISTANT) Hepatitis B Core Antibody Negative (Non Reactive) Negative (Non Reactive) 09/01/2024 2:17 PM GENERAL OFFICE ASSISTANT [facility] Blood Venipuncture / Unknown 09/01/2024 9:45 AM GENERAL OFFICE ASSISTANT 09/01/2024 9:45 AM GENERAL OFFICE ASSISTANT Paloma Winters APRN, SIMONA LAB_1 Fi nal Result Performing Organization Address [facility] de Phone Number [facility] [address] * Hepatitis B Surface Antibody (09/01/2024 9:45 AM GENERAL OFFICE ASSISTANT) Pathologist [facility] Hep B Surf Antibody Result 688.4 mIU/mL 09/01/2024 2:16 PM GENERAL OFFICE ASSISTANT [facility] Hep B Surf Antibody Interpretation Positive (Reactive) Positive (Reactive) 09/01/2024 2:16 PM GENERAL OFFICE ASSISTANT [facility] Comment:Individual is consid ered immune to HBV infection. Blood Venipuncture / Unknown 09/01/2024 9:45 AM GENERAL OFFICE ASSISTANT 09/01/2024 9:45 AM GENERAL OFFICE ASSISTANT Paloma Winters APRN, CNM LAB_1 Fi nal Result Performing Organization Address [facility] de Phone Number [facility] [address] * Hepatitis B Surface Antigen (09/01/2024 9:45 AM GENERAL OFFICE ASSISTANT) [facility] Hepatitis B Surface Antigen Negative (Non Reactive) Negative (Non Reactive) 09/01/2024 2:17 PM GENERAL OFFICE ASSISTANT [facility] Blood Venipuncture / Unknown 09/01/2024 9:45 AM GENERAL OFFICE ASSISTANT 09/01/2024 9:45 AM GENERAL OFFICE ASSISTANT Paloma Winters APRN, CNM LAB_1 Fi nal Result Performing Organization Address [facility] Co de Phone Number [facility] [address] * Complete Blood Count-No Diff (09/01/2024 9:45 AM GENERAL OFFICE ASSISTANT) [facility] WBC 6.3 3.5 - 10.5 x10(9)/L 09/01/2024 9:52 AM GENERAL OFFICE ASSISTANT [facility] RBC 4.47 3.90 - 5.03 x10(12)/L 09/01/2024 9:52 AM [facility] Hemoglobin 13.7 12.0 - 15.5 g/dL 09/01/2024 9:52 AM [facility] HCT 41.3 34.9 - 44.5 % 09/01/2024 9:52 AM [facility] MCV 92.4 80.0 - 100.0 fL 09/01/2024 9:52 AM [facility] MCH 30.6 27.6 - 33.3 pg 09/01/2024 9:52 AM [facility] MCHC 33.2 31.5 - 35.2 g/dL 09/01/2024 9:52 AM [facility] RDW 12.9 11.9 - 15.5 % 09/01/2024 9:52 AM [facility] Platelets 233 150 - 450 x10(9)/L 09/01/2024 9:52 AM [facility] Blood Venipuncture / Unknown 09/01/2024 9:45 AM GENERAL OFFICE ASSISTANT 09/01/2024 9:45 AM GENERAL OFFICE ASSISTANT Paloma Winters APRN, CNM LAB_1 Fi nal Result Performing Organization Address City/[facility]/ZIP Co de Phone Number [facility] [address] [place] [address], [facility] * Antibody Screen (09/01/2024 9:45 AM GENERAL OFFICE ASSISTANT) [facility] Antibody Screen Interpretation Negative 09/01/2024 1:45 PM [facility] Blood Venipuncture / Unknown 09/01/2024 9:45 AM GENERAL OFFICE ASSISTANT 09/01/2024 9:45 AM GENERAL OFFICE ASSISTANT Paloma Winters APRN, CNM LAB_1 Fi nal Result [facility] [address] documented in this encounter Visit Diagnoses Diagnosis Encounter for supervision of other normal in third trimester- Primary Routine screening for STI (sexually transmitted infection) Screening examination for venereal disease documented in this encounter Care Teams Chef'S Assistant Relationship Specialty Start Date End Date Shannon, Martell S, MD [address] [place] [address] PCP - General 06/29/23 documented as of this encounter
--- OUTSIDE RECORDS SUMMARY | 2024-09-08 16:15 | XMS_ITS | Encounter Summary ---
Author Organization [facility] [employer] [facility] Address [address] [place] [address] Care Team Providers Care Police Sergeant Name Role Phone Martell Ortega MD Primary Care Provider + [phone] Reason for Visit * Reason Comments ,1st Ob Encounter Details Date Type Department Care Team (Late st Contact Info) Description 08/19/2024 Telephone [facility] Obstetrics and Gynecology [address] [place] [phone] Paloma Winters, SNACK BAR COOK, CN [address], [place] [phone] ,1st Ob Social History Tobacco Use Types Packs/Day Years Used Date Smoking Tobacco: Never Smokeless Tobacco: Never Alcohol Use Standard Drinks/Week Comments Not Currently 0 (1 standard drink = 0.6 oz pur e alcohol) 1 drink a week [facility] Utilities Answer Date Recorded In the past 12 months has e [place], gas, oil, or water company threatened to [...] in a penitentiary (including now)? No 10/20/2023 Estimated Date of Delivery Comme nts Yes 04/17/2025 Based on last me nstrual period of 07/11/2024 (Exact Date) Sex and Gender Information Value Date Recorded Sex Assigned at Not on file Legal Sex Female 7:14 PM GUARD CHIEF Gender Identity Not on file Sexual Orientation [...] [facility] Client Integration Manager clinics, we offer care with physicians, nurse midwives, and nurse practitioners. Nurse midwives and nurse practitioners are nurses who complete advanced training tocare for individuals with uncomplicated pregnancies. They see patients in clinic and provide care for their patients at [facility] and [facility]. You are wel come to schedule with either a physician or a information technology audit manager to begin your care. 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 YOLA RN, SP ORTHOPEDIC BRACE MAKER, 08/19/2024, 9:24 AM D CHIEF * [place] [facility] - 08/19/2024 8:09 AM CST 1ST OB VISIT - 09/01/2024 Appointment Status: Scheduled Paloma Winters APRN, YENNYM Department: SP ORTHOPEDIC BRACE MAKER Time: 8:40 AM Length: 40 minutes TARA Lopez ORTHOPEDIC BRACE MAKER Annealing Operator 08/19/2024, 8:09 AM D CHIEF documented in this encounter Plan of Treatment Not on file documented as of this encounter Visit Diagnoses Not on filedocumented in this encounter Care Teams Police Sergeant Relationship Specialty Start Date End Date Martell Ortega MD [address] [place] [address] PCP - General 06/29/23 documented as of this encounter
--- NOTE | 2024-09-08 16:16 | ED.GENADULT ---
HPI - General Adult General Chief complaint: Vaginal Bleeding Stated complaint: Miscarriage Time Seen by Provider: 09/08/24 15:53 History of Present Illness HPI narrative: This 33-year-old female states that she was 7 weeks and began bleeding vaginally because of a miscarriage 7 days ago. She comes in today because she continues to have bleeding. She had her hemoglobin checked 7 days ago and it was almost to 14. Her mean cell volume was also in normal range. She does arrive here with normal vital signs. She wonders if her persistent bleeding is indicating some need for intervention. Related Data Home Medications ?Medication ?Instructions ?Recorded ?Confirmed omeprazole 40 mg capsule,delayed 40 mg PO QAM 03/27/23 09/08/24 release vitamin with calcium 1 tab PO DAILY 03/27/23 09/08/24 no.72-iron 27 mg-folic acid 1 mg tablet ( Vitamins Plus Low Iron) acetaminophen 325 mg capsule 325 mg PO ONCE PRN 06/26/23 09/08/24 acetaminophen-caffeine 500 mg-65 1 tab PO Q12H PRN 06/26/23 09/08/24 mg tablet (Excedrin Tension Headache) sumatriptan succinate 50 mg tablet 50 mg PO Q2H PRN 07/16/23 09/08/24 (Imitrex) Previous Rx's ?Medication ?Instructions ?Recorded metoclopramide HCl 10 mg tablet 10 mg PO Q6-8H PRN headache #14 04/10/23 (Reglan) tabs Allergies Allergy/AdvReac Type Severity Reaction Status Date / Time cat dander Allergy Intermediate Hives Verified 09/08/24 15:52 contact metal agent AdvReac Intermediate Blister Verified 09/08/24 15:52 doxycycline AdvReac Intermediate Gastrointestinal Verified 09/08/24 15:52 Upset nickel AdvReac Intermediate Blister Verified 09/08/24 15:52 Review of Systems Status of ROS: Reports: 10 or more systems reviewed and unremarkable except as noted in History and below Narrative: Constitutional: No fevers, no weight gain or loss. Eyes: No discharge. No vision changes. HENT: No congestion, no sore throat, no ear pain. Cardiovascular: No chest pain, no palpitations. Respiratory: No shortness of breath, no wheezes, no cough. Gastrointestinal: No abdominal pain, no vomiting, no diarrhea. Genitourinary: No dysuria, no hematuria. Vaginal bleeding due to a miscarriage. Musculoskeletal: Normal range of motion. Skin: No rashes, no pruritis. Neurological: No dizziness, weakness, sensory change, speech change. Endo/Heme/Allergies: No bruising or bleeding. No polydipsia. Pysch: no suicidality, no anxiety, no insomnia. All other systems reviewed and are negative. [facility] Medical History (Updated 09/08/24 @ 17:26 by Tad Osborne MD) Health care directive on file ?Z78.9 - Other specified health status (ICD-10) History of cardiac murmur ?Z86.79 - Personal history of other diseases of the circulatory system (ICD-10) History of depression ?Z86.59 - Personal history of other mental and behavioral disorders (ICD-10) Thyroid dysfunction, ?O99.285 - Endocrine, nutritional and metabolic diseases complicating the puerperium (ICD-10) ?E07.9 - Disorder of thyroid, unspecified (ICD-10) Migraine headache without aura ?G43.009 - Migraine without aura, not intractable, without status migrainosus (ICD-10) History of DVT of lower extremity ?Z86.718 - Personal history of other venous thrombosis and embolism (ICD-10) Surgical History History of cholecystectomy ?Z90.49 - Acquired absence of other specified parts of digestive tract (ICD-10) [place] teeth extracted ?K08.409 - Partial loss of teeth, unspecified cause, unspecified class (ICD-10) Hx of tonsillectomy ?Z90.89 - Acquired absence of other organs (ICD-10) Family History Aunt Breast cancer, Onset Age: 50 Aunt Breast cancer, Onset Age: 50 Father Lung cancer Arthritis Smoker Maternal Grandfather Lung cancer Maternal Grandmother Arthritis Dementia Diabetes Sleep apnea Thyroid disease Mother Sleep apnea Thyroid disease Rheumatoid arthritis Aunt Breast cancer, Onset Age: 40 Thyroid disease Diabetes Depression Paternal Grandfather Prostate cancer Paternal Grandmother Dementia Sister Depression Anesthesia complication Uncle Colon cancer Prostate cancer Rectal cancer Social History Narrative: SOCIAL 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 Unable to assess present due to partner presence. Special Diet: Denies Ok with a blood transfusion: yes Culture or restorationism beliefs: taoist RISK FACTORS Exercise Times/wk: walks occasionally Depression/Anxiety: history but feels stable at this time OLAF: 8 PHQ 9: 10 Seat Belt Use: Routinely Smoking: Denies past/present Alcohol/day: Denies while Caffeine: occasionally tea Drug Use: Denies past/present. THC gummy's before +UPT Chicken Pox: vaccinated as an adult MRSA: Denies What is your current living situation?: I presently have a place to live Problems where you live: pests, such as bugs, ants, or mice In the past 12 months, utilities in danger of being shut off: no In past 12 months, lack of transportation kept you from medical appts, meetings, work, or getting things needed for daily living: no In the past 12 mos, have been you worried that your food would run out before you had money to buy more?: never true In the past 12 mos, the food you bought just didn't last and you didn't have money to buy more?: never true Smoking Status: Never smoker Do you use any of these nicotine containing products: None Second hand tobacco smoke exposure: No How often do you have a drink containing alcohol: monthly or less How many standard drinks containing alcohol do you have on a typical day: 1 or 2 How often do you have six or more drinks on one occasion: Never AUDIT-C Alcohol total score: 1 Non-prescribed substance use: denies use How often does anyone, including family, friends and others, physically hurt you: never How often does anyone, including family, friends and others, insult or talk down to you: rarely How often does anyone, including family, friends and others, threaten you with harm: never How often does anyone, including family, friends and others, scream or curse at you: sometimes service: No Health Related Social Needs: Inadequate housing (Z59.1) and Other personal risk factors, not elsewhere classified (Z91.89) Exam Narrative: Exam Narrative: Constitutional: Well-developed, well-nourished, no acute distress. HEENT: Normocephalic, atraumatic. Neck: Normal range of motion. Nontender. Supple. Heart: Intact distal pulses. Lungs: No chest discomfort. No wheezes, rhonchi, or rales. Abdomen: Lower abdomen tenderness. Back: Normal range of motion. Extremities: Normal range of motion. No injury. Skin: Intact. No rash. Warm. No erythema or pallor. Neurologic: No altered sensation. No weakness. Alert and oriented. Psychiatric: No suicidality. No anxiety or depression. No insomnia. Nursing notes and vitals signs are reviewed. Const: Vital Signs, click to edit/add: Vital Signs - 24 hr 09/08/24 15:46 Temperature 98.1 F Pulse Rate [Pulse Oximeter] 71 Respiratory Rate 16 Blood Pressure [Ri ght Upper Arm] 122/77 Pulse Oximetry 99 Oxygen Delivery Me thod Room Air Course Vital Signs Vital signs: Initial Vital Signs Temperature 98.1 F 09/08/24 15:46 Temperature Source Temporal Artery Scan 09/08/24 15:46 Pulse Rate 71 09/08/24 15:46 Pulse Rhythm Regular 09/08/24 15:46 Respiratory Rate 16 09/08/24 15:46 Blood Pressure 122/77 09/08/24 15:46 Blood Pressure Mean 92 09/08/24 15:46 Pulse Oximetry 99 09/08/24 15:46 Oxygen Delivery Method Room Air 09/08/24 15:46 Vital Signs Temperature 98.1 F 09/08/24 15:46 Pulse Rate 71 09/08/24 15:46 Respiratory Rate 16 09/08/24 15:46 Blood Pressure 122/77 09/08/24 15:46 Pulse Oximetry 99 09/08/24 15:46 Oxygen Delivery Method Room Air 09/08/24 15:46 Temperature 98.1 F 09/08/24 15:46 Pulse Rate 71 09/08/24 15:46 Respiratory Rate 16 09/08/24 15:46 Blood Pressure 122/77 09/08/24 15:46 Pulse Oximetry 99 09/08/24 15:46 Oxygen Delivery Method Room Air 09/08/24 15:46 Medical Decision Making MDM Narrative Medical decision making narrative: This patient has been having vaginal bleeding for the past week because of a miscarriage. She arrives here with normal vital signs in comes in with concern that the bleeding has continued throughout this past week. An ultrasound of her pelvis is obtained and shows no sign of abnormality. There was a small amount of dark colored blood on the probe according to the roller coaster engineer. There are no findings that would indicate need for D and C or other intervention. I did also discuss lab options with the patient. I did review her labs that were acquired a week ago and her hemoglobin was almost 14 so given her normal vital signs and strong hemoglobin a week ago we did not decide to check any labs today. The patient does have a follow-up appointment with her primary physician. Discharge Plan Discharge Clinical Impression: Vaginal bleeding Patient Disposition: Home, Self-Care Condition: Stable Additional Instructions: Continue current plans. Follow up with primary physician for ongoing management. Return if worsening. Prescriptions: No Action omeprazole 40 mg capsule,delayed release(DR/EC) 40 mg PO QAM Vitamin Plus Low Iron 27 mg iron- 1 mg tablet 1 tab PO DAILY acetaminophen 325 mg capsule 325 mg PO ONCE PRN Excedrin Tension Headache 500-65 mg tablet 1 tab PO Q12H PRN sumatriptan succinate [Imitrex] 50 mg tablet 50 mg PO Q2H PRN metoclopramide HCl [Reglan] 10 mg tablet 10 mg PO Q6-8H PRN (Reason: headache) Qty: 14 0RF Rx Instructions: Take 10mg every 6-8 hours with Tylenol as needed for headaches. Follow Up/Referrals: Fidelina Bar MD [Primary Care Provider] - Stand Alone Forms: [email or web address] Info Instructions
[2024-09-08 17:33] VITALS: BP 115/75; PULSE 77; RESP 16; O2SAT 100
== END 2024-09-08 17:36 | disposition home or self-care (01) ==
PROVIDERS: Emergency Provider Emergency Medicine Emergency Medical Services; PCP Family Medicine
DX: O03.6 Delayed or excessive hemorrhage following complete or unspecified spontaneous abortion (principal)
CPT/HCPCS: 76830; 99283; 99284

== ENCOUNTER 2025-01-31 09:19 | Emergency (ER) | payer BC, SELFPAY ==
--- OUTSIDE RECORDS SUMMARY | 2025-01-06 08:00 | XMS_ITS | Encounter Summary ---
[facility] Address [address] [place] [id number] Care Team Providers Care Vacuum Worker Name Role Phone Martell Ortega MD Primary Care Provider + [phone] Reason for Visit * Procedure/Equipment (Routine) - Incomplete Specialty Diagnoses / Procedures Referred By Juaquin t Referred To Contact Diagnoses Multigravida of advanced maternal age in first trimester Procedures MFM US OB First Trimester Ultrasound Suma Raymond APRN, CNM [address] [place] [address] Phone: tel: fax: Referral ID Status Reason Start Date Expiration Date V isits Requested Visits Authorized [id number] Incomplete 11/28/2024 02/27/2026 1 1 Encounter Details Date Type Department Care Team (Latest Contact Info) Description 01/06/2025 8:00 AM CDT Ancillary Procedure [facility] Maternal Medicine [address] [place] [id number] Suma Raymond APRN, CNM [address] [place] [address] [phone] Multigravida of advanced maternal age in first trimester Social History Tobacco Use Types Packs/Day Years Used Date Smoking Tobacco: Never Smokeless Tobacco: Never Alcohol Use Standard Drinks/Week Comments Not Currently 0 (1 standard drink = 0.6 oz pur e alcohol) [facility] Utilities Answer Date [...] 10/20/2023 PHQ-2 Answer Date Recorded PHQ-2 Score 0 01/06/2025 Hunger Vital Sign Answer Date Recorded Within [...] Date Recor ded Last EPDS Total Score 11 11/28/2024 Last EPDS Self Harm Result Not on file 11/28 Estimated Date of Delivery Comme nts Yes 07/12/2025 Based on Ultraso und Sex and Gender Information Value Date Recorded Sex Assigned at Not on file Legal Sex Female 7:14 PM CONTAINER COORDINATOR Gender Identity Not on file Sexual Orientation Not on file 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 Maternal Medicine [address] [place] [id number] Melany Cobb MD [address] [address] 02/28/2025 8:[address] [facility] Maternal Medicine [address] [place] [phone] Sue Grewal MD [address] [place] [address] [phone] 02/28/2025 9:[address] [facility] Obstetrics and Gynecology [address] [place] [address] [phone] Willian Fisher MD [address] [place] [address] [phone] documented as of this encounter Procedures Procedure Name Priority Date/Time Associated Diagnosis Comments MFM US OB FIRST TRIMESTER Routine 01/06/2025 9:07 AM CDT Multigravida of advanced maternal age in first trimester documented in this encounter Results * MF US OB First Trimester Ultrasound (01/06/2025 9:07 AM CDT) Anatomical Region Laterality Modality Pelvis Ultrasound Study GA Study Date Study RACHEL Working RACHEL (Source) 13w4d 01/06/2025 07/10/2025 07/12/2025 (Ultrasound) Fetus 1 Measurements Value GA (days) GA by US Calc 95 days 95 FHR 153 bpm Gest Sac Yolk Sac CRL 7.5 cm 95 NT .92 mm BPD OFD HC AC FL HL CI FL/BPD FL/AC HC/AC UAR - PSV UAR - S/D Ratio UAR - RI UAR - PI MCA - PSV MCA - S/D Ratio MCA - PI Lateral Ventricle CER Cisterna Magna Max Vertical Pocket ARELY Foot Impressions 01/06/2025 1:24 PM CDT : -Intrauterine at 13w2d -CRL agrees with Estimated Date of Delivery: 07/12/25 -The nuchal translucency measurement is within the normal range for CRL -No abnormalites noted, anatomic survey limited by early gestational age -Simple left ovarian cyst again visualized, decreased in size from prior exam OFFICE VISIT: Indications for [facility] ultrasound and office visit are as noted above. Reviewed record, labs, and recent ultrasounds. Early detailed anatomic survey performed. First trimester ultrasound cannot detect all anomalies and cannot diagnose genetic abnormalities. Follow up detailed anatomic survey at 20 weeks is recommended. The patient has discussed genetic screening options with her primary OB provider and has not had genetic screening. Patients can be offered maternal serum alpha fetoprotein (MS-AFP) screening at 15-20 weeks gestation. If the patient desires further discussion regarding genetic screening and diagnostic testing options a request can be placed for consultation with genetic counselor. Reviewed prior history of 36 week deliveries and recommendation for cervical length at 20 weeks US. Reviewed left ovarian cyst which is visible today but decreased in size form prior exam. She is currently asymptomatic and I reviewed low risk for torsion or complications in related to the cyst. RECOMMENDATIONS: -Continue routine care with primary OB provider -Return to [facility] clinic for detailed anatomic survey at 20 weeks with EV L2 scheduled with [facility] Melany Cobb MD Narrative 01/06/2025 1:24 PM CDT Table formatting from the original result was not included. Images from the original result were not included. [facility] Maternal Medicine [address] [place] [id number] Dept Dept Patient Name: Jenny Mcfadden Referred By: Attending: Suma Raymond APRN, SIMONA Cobb MD Patient Automobile Drivers: Anat Peters NICOLETTE , Age: 3 1990, 34 y.o. GA Prior to Exam: 13w2d LMP: Patient's last menstrual period was 09/06/2024 (exact date). GA by Today's US: 13w4d Pregnancies: GA RACEHL: 13w2d Ultrasound Pre- BMI: 32.13 RACHEL: 07/12/2025 Hx/Indications: AMA Hx. PTD at 36+wks x 2 Declined Genetic Screening Pt and son hx heart murmur Hx shoulder dystocia with 2nd (2015) short interval (September 2023 last ) BMI 32.13 01/06/2025 13w2d Detailed NT TVS Date of Exam: 01/06/2025 Evaluation Gestation Type meade Cardiac Activity present Motion normal Presentation variable Amniotic Fluid normal Placenta Location anterior Placenta Appearance appears normal Placenta Cord Insertion normal First Trimester Gestational Sac normal Amnion seen Nuchal Translucency appears normal Nuchal Area appears normal Intracranial Translucency appears normal Measurement Value Rank GA FHR 153 bpm * CRL 7.5 cm 67% 13w4d NT 0.92 mm Head Cranium appears normal Midline Falx appears normal Cerebellum grossly normal Cisterna Magna grossly normal Choroid Plexus appears normal Face Orbits appears normal Lenses appears normal Profile appears normal Nasal Bone appears normal Maxilla appears normal Mandible appears normal Spine Spine grossly normal Chest Thorax appears normal Lungs appears normal Heart Heart Rhythm regular Situs normal 4 [place] grossly normal Cardiac [place] appears normal 3 Vessel Trachea View inadequately visualized Abdomen Diaphragm grossly normal Stomach appears normal Liver grossly normal Umbilical Cord Insertion appears normal Cord Vessels three Urinary Tract Right Kidney appears normal Left Kidney appears normal Bladder appears normal Extremities Right Upper Extremity appears normal Right Hand visualized Left Upper Extremity appears normal Left Hand visualized Right Lower Extremity appears normal Right Foot visualized Left Lower Extremity appears normal Left Foot visualized Cervix Normal Uterus Normal Cervical Length Approach Endovaginal Right Ovary Inadequately Visualized With Fundal Pressure (cm) N/A Left Ovary Funneling N/A Right Adnexa Normal Cul-de-sac No fluid seen Left Adnexa Normal Left Ovary: A simple left ovarian cyst measuring 2.75 cm is noted Impression INDICATION: Encounter for NT and first trimester anatomy, AMA, BMI>30, history of late , history of shoulder dystocia us Suma Raymond APRN, CNM RAD MFM US Final Result documented in this encounter Visit Diagnoses Diagnosis Multigravida of advanced maternal age in first trimester documented in this encounter Care Teams Vacuum Worker Relationship Specialty Start Date End Date Martell Ortega MD [address] [place] [address] PCP - General 06/29/23 documented as of this encounter
--- OUTSIDE RECORDS SUMMARY | 2025-01-06 09:00 | XMS_ITS | Encounter Summary ---
Author Organization [facility] Address [address] [place] [id number] Care Team Providers Care Costume Design Teacher Name Role Phone Martell Ortega MD Primary Care Provider + [phone] Reason for Referral * Procedure/Equipment (Routine) - Incomplete Specialty Diagnoses / Procedures Referred By Juaquin bhandari Referred To Contact Diagnoses Multigravida of advanced maternal age in first trimester Maternal obesity syndrome in first trimester Procedures MFM US OB Detailed Anatomy MFM US OB Detailed Anatomy Melany Cobb MD [facility] [address] Phone: tel: fax: Referral ID Status Reason Start Date Expiration Date V isits Requested Visits Authorized [id number] Incomplete 02/06/2025 05/08/2026 1 1 Reason for Visit * Consult/Transfer Care (Routine) - New Request Specialty Diagnoses / Procedures Referred By Contac t Referred To Contact Diagnoses Supervision of other normal , antepartum Suma Raymond, ELECTRIC INSTALLER, CNM [address] [place] [address] Phone: tel: fax: Referral ID Status Reason Start Date Expiration Date V isits Requested Visits Authorized [id number] New Request 11/28/2024 02/27/2026 1 1 Encounter Details Date Type Department Care Team (Late st Contact Info) Description 01/06/2025 9:00 AM CDT Office Visit [facility] Maternal Medicine [address] [facility] [place] [address] Melany Cobb MD [address] [facility] [address] [place], [place] [phone] Multigravida of advanced maternal age in first trimester (Primary Dx); Maternal obesity syndrome in first trimester; Ovarian cyst during in first trimester Social History Tobacco Use Types Packs/Day Years Used Date Smoking Tobacco: Never Smokeless Tobacco: Never Alcohol Use Standard Drinks/Week Comments Not Currently 0 (1 standard drink = 0.6 oz pur e alcohol) [facility] [employer] Answer Date Recorded In the past 12 months has e [employer], gas, oil, or water [employer] threatened to shut off services in your [...] on file Legal Sex Female 7:14 PM PHILOSOPHY 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 Gender Identity Not on file Sexual Orientation Not on file 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 Not on file Not on file documented as of this encounter Progress Notes * Melany Cobb MD - 01/06/2025 9:00 AM CDT [facility] Ultrasound Visit 13w2d INDICATION: Encounter for NT and first trimester anatomy, AMA, BMI>30, history of late , history of shoulder dystocia IMPRESSION: -Intrauterine at 13w2d -CRL agrees with Estimated Date of Delivery: 07/12/25 -The nuchal translucency measurement is within the normal range for CRL -No abnormalites noted, anatomic survey limited by early gestational age -Simple left ovarian cyst again visualized, decreased in size from prior exam OFFICE VISIT: Indications for [facility] ultrasound and office visit are as noted above. Reviewed record, labs,and recent ultrasounds. Early detailed anatomic survey performed. First trimester ultrasound cannot detect all anomalies and cannot diagnose genetic abnormalities. Follow up detailed anatomic survey at 20 weeks is recommended. The patient has discussed genetic screening options with her primary OB provider and has not hadgenetic screening. Patients can be offered maternal serum alpha fetoprotein (MS-AFP) screening at 15-20 weeks gestation. If the patient desires further discussion regarding genetic screening and diagnostic testing options a request can be placed for consultation with genetic counselor. Reviewed prior history of 36 week deliveries and recommendation for cervical length at 20 weeks US.Reviewed left ovarian cyst which is visible today but decreased in size form prior exam. She is currently asymptomatic and I reviewed low risk for torsion or complications in related to the cyst. RECOMMENDATIONS: -Continue routine care with primary OB provider -Return to [facility] clinic for detailed anatomic survey at 20 weeks with EV L2 scheduled with [facility] Melany Cobb MD documented in this encounter Plan of Treatment Upcoming Encounters Date Type Department Care Team (Late st Contact Info) Description 02/28/2025 7:30 AM CDT Appointment [facility] Maternal Medicine [address] [place] [phone] Melany Cobb MD [address] [place] [address] [phone] 02/28/2025 8:45 AM CDT Appointment [facility] Maternal Medicine [address] [place] [address] [phone] Sue Grewal MD [address] [place] [address] [phone] 02/28/2025 9:20 AM CDT Appointment [facility] Obstetrics and Gynecology [address] [place] [address] [phone] Willian Fisher MD [address] [place] [address] [phone] Scheduled Orders Name Type Priority Associated Diagnoses Orde r Schedule [facility] US OB Detailed Anatomy Imaging New Routine Multigravida of advanced maternal age in first trimester Maternal obesity syndrome in first trimester Expected: 02/06/2025 (Approximate), Expires: 05/09/2025 documented as of this encounter Visit Diagnoses Diagnosis Multigravida of advanced maternal age in first trimester- Primary Maternal obesity syndrome in first trimester Ovarian cyst during in first trimester documented in this encounter Care Teams Costume Design Teacher Relationship Specialty Start Date End Date Martell Ortega MD [address] [place] [address] PCP - General 06/29/23 documented as of this encounter
--- OUTSIDE RECORDS SUMMARY | 2025-01-06 09:20 | XMS_ITS | Encounter Summary ---
Author Organization [email or web address] Address [address] [place] [address] Care Team Providers Care Alumina Plant Supervisor Name Role Phone Martell Ortega MD Primary Care Provider + [phone] Reason for Visit * Reason Comments SUBSEQUENT VISIT Encounter Details Date Type Department Care Team (Latest Contact Info) Description 01/06/2025 9:20 AM CDT Routine [facility] Obstetrics and Gynecology [address] [place] [address] Molly Marie, RECRUITMENT ADVERTISING MANAGER, BATHROOM TILING PROFESSIONAL [address] [place], [place] [phone] SUBSEQUENT VISIT Social History Tobacco Use Types Packs/Day Years Used Date Smoking Tobacco: Never Smokeless Tobacco: Never Alcohol Use Standard Drinks/Week Comments Not Currently 0 (1 standard drink = 0.6 oz pur e alcohol) 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 Not on file Not on file Not on file documented as of this encounter Last Filed Vital Signs Vital Sign Reading Time Taken Comments Blood Pressure 104/61 01/06/2025 9:31 AM CDT Pulse 65 01/06/2025 9:31 AM CDT Temperature - - Respiratory Rate - - Oxygen Saturation - - Inhaled Oxygen Concentration - - Weight 86 kg (189 lb 9.6 oz) 01/06/2025 9:31 AM CDT Height 164.5 cm (5' 4.75) 01/06/2025 9:31 AM CD T Body Mass Index 31.8 01/06/2025 9:31 AM CDT documented in this encounter Patient Instructions * Patient Instructions* Molly Marie APRN, CNP - 01/06/2025 9:20 AM CDT Images from the original note were not included. Thank you for choosing us for your care. We recommend you review the following information in Your Guide to : How Your Body Changes Making Good Choices How Babies Grow and Change Genetic Testing Drinking any amount of alcohol during is not safe. Watch this short video by [employer] [place]: Proof: Some Think Drinking During is OK. It???s Not. - Laura video Marijuana use is never recommended while or . Learn why here: https://[employer]/39017.pdf is a time of transition. If you feel overwhelmed, anxious or depressed, see the followingresources: Emotional Distress During and After : https://[employer]/38462.pdf Resources & Support for New & Expecting Parents: https://[employer]/13170.pdf The 3 books provided throughout are also available digitally. Here are links to each book: Your Guide to : https://user-[employer].JobPlanet.bz/HvtiybIrqivfag-Eonh-Rsnxg-ek-e-Ltqxogc- Preparing for Childbirth: https://user-[employer].JobPlanet.bz/RhztbnGcgpfmjy-Hjz-Ezhi-of-Motherhood Taking Care of You and Your Fisk: https://user-[employer] Insights.JobPlanet.bz/EahaulDhogwceg-R-Dox-Beginning [place] for our free ramiro called ???myHealthyPregnancy?? powered by [employer]. The ramiro offers many quick articles and videos on , labor, , , and newborncare. Find instructions here: Or click on this link: myHealthyPregnancy tracker ramiro [email or web address] documented in this encounter Progress Notes * Molly Marie, FERNANDO, GIOVANNY - 01/06/2025 9:20 AM CDT CC: CLARA Mcfadden is a 34 y.o. female here for above. 13w2d confirmed by date 09/01-IUI to early, date 11/28, 7w, 5d, RACHEL 07/12/25, MFM today-. L ovarian cysthas decreased in size. Genetics: verified declines today Pap: UTD A negative Denies cx, vb, lof 1st OB labs wnl. Breat fed x3 months w/ each baby. Mood is stable. Involved in therapy. Lives in [place] and works in [place] at [employer]. Planning on PNC in [place], delivery at [facility]. Seeing PCP today for sore in nose she has had detention. Lab Results Component Value Date/Time TSH 1.228 11/20/2015 12:05 PM Had SAB 08/2024. Patient Active Problem List Diagnosis Heart murmur Pain of finger of left hand Blood type, Rh negative Hypothyroidism (acquired) (HRC) History of shoulder dystocia in prior Passive suicidal ideations First degree perineal laceration during delivery (normal spontaneous vaginal delivery) Elevated LFTs Postoperative hemorrhagic shock, initial encounter Mild intermittent asthma without complication (HRC) acetaminophen (TYLENOL) 500 MG tablet, Take 2 Tablets (1,000 mg) by mouth. (Patient not taking: Reported on 11/28/2024), Disp: , Rfl: plus vitamin, Take 1 Tablet by mouth daily., Disp: 90 Tablet, Rfl: 3 sertraline (ZOLOFT) 50 MG tablet, Take one-half tablet by mouth daily for 7 days, then take 1 tablet daily. (Patient not taking: Reported on 09/01/2024), Disp: 90 Tablet, Rfl: 0 No current facility-administered medications on file as of 01/06/2025. O: BP 104/61 (BP Location: Right Arm, BP Cuff Size: Large) Pulse 65 Ht 5' 4.75 (1.645 m) Wt 189 lb 9.6 oz (86 kg) LMP 09/06/2024 (Exact Date) BMI 31.80 kg/m?? See flow sheet. P:See orders. Will hand carry records. Will update as she comes in. Has access to outside records on phone. Has next u/s scheduled with them AVS given with recommendations. Molly Marie RN, BATHROOM TILING PROFESSIONAL documented in this encounter Plan of Treatment Upcoming Encounters Date Type Department Care Team (Late st Contact Info) Description 02/28/2025 7:30 AM CDT Appointment [facility] Maternal Medicine [address] [place] [address] Melany Cobb MD [address] [phone] 02/28/2025 8:45 AM CDT Appointment [facility] Maternal Medicine [address] [place] [address] Sue Grewal MD [address] [place] [address] [phone] 02/28/2025 9:20 AM CDT Appointment [facility] Obstetrics and Gynecology [address] [place] [address] [phone] Willian Fisher MD [address] [place] [address] [phone] documented as of this encounter Visit Diagnoses Diagnosis Multigravida of advanced maternal age in first trimester- Primary documented in this encounter Care Teams Alumina Plant Supervisor Relationship Specialty Start Date End Date Martell Ortega MD [address] [place] [address] PCP - General 06/29/23 documented as of this encounter
--- OUTSIDE RECORDS SUMMARY | 2025-01-06 10:00 | XMS_ITS | Encounter Summary ---
Author Organization [facility] Address [address] [place] [address] Care Team Providers Care Sales And Events Coordinator Name Role Phone Martell Ortega MD Primary Care Provider + [phone] Reason for Referral * Consult/Transfer Care (Routine) - New Request Specialty Diagnoses / Procedures Referred By Juaquin bhandari Referred To Contact Diagnoses Non-ulcerative nasal mucositis Nasal bleeding Vishal Canela MD [address] [place] [address] Phone: tel: fax: Referral ID Status Reason Start Date Expiration Date V isits Requested Visits Authorized [id number] New Request 01/06/2025 04/07/2026 1 1 Scheduling Instructions Your clinician has recommended an appointment with [facility]. You may call [phone] for help scheduling your appointment. We suggest you call your health insurance company about your coverage and benefits for this appointment. Question Answer Appointment Urgency? Non-Urgent Reason for visit? nasal bleeding and mucosa bleeding Reason for Visit * Reason Comments Sore In right nostril Encounter Details Date Type Department Care Team (Late st Contact Info) Description 01/06/2025 10:00 AM CDT Office Visit [facility] [address] [place] [address] Vishal Canela MD [address] [place], [place] [phone] Non-ulcerative nasal mucositis (Primary Dx); Nasal bleeding Social History Tobacco Use Types Packs/Day Years Used Date Smoking Tobacco: Never Smokeless Tobacco: Never Alcohol Use Standard Drinks/Week Comments Not Currently 0 (1 standard drink = 0.6 oz pur e alcohol) [facility] Utilities Answer Date Recorded In the past 12 months has th e [employer], gas, oil, or water [employer] threatened to shut off services in your [...] on file Legal Sex Female 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 Gender Identity Not on file Sexual Orientation Not on file 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 Not on file 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 file Not on file Not on file documented as of this encounter Last Filed Vital Signs Vital Sign Reading Time Taken Comments Blood Pressure 92/62 01/06/2025 10:03 AM CDT Pulse 72 01/06/2025 10:03 AM CDT Temperature 36.3 C (97.3 F) 01/06/2025 10:03 AM CDT Respiratory Rate 16 01/06/2025 10:03 AM CDT Oxygen Saturation - - Inhaled Oxygen Concentration - - Weight 85.7 kg (189 lb) 01/06/2025 10:03 AM CDT Height - - Body Mass Index 31.69 01/06/2025 9:31 AM CDT documented in this encounter Progress Notes * Vishal Canela MD - 01/06/2025 10:00 AM CDT Historical: Chief Complaint Patient presents with Sore In right nostril Jenny Mcfadden is a 34 y.o. female at 13w2d here for nasal lesion SKIN LESION How long have you had the lesion(s)? 1 year(s) Where is your lesion located? Right nostril Has there been a change in lesion since first noticed? No Have you ever had skin cancer? No Has any family members had skin cancer? YES - cousin and aunt Is the lesion/s painful? YES Does the lesion/s easily bleed? YES Sore that keeps developing in her nose Feels that it heals and then it bleeds Possibly has allergies It seems that a scab will come off Has used vaseline and other sam on it Used saline rinse but was worse I have personally reviewed the patient's allergies, medications, and past medical history in detailand updated the patient record as necessary. Observed: BP 92/62 (BP Location: Right Arm, BP Cuff Size: Large) Pulse 72 Temp 97.3 ??F (36.3 ??C) (Tympanic) Resp 16 Wt 189 lb (85.7 kg) LMP 09/06/2024 (Exact Date) BMI 31.69 kg/m?? Physical Exam: General Appearance: alert, well appearing, and in no apparent distress HEENT: oropharynx clear, ear canals clear, TMs normal, nasal mucosa inflammed both sides, R side medially anterior with region of mild bleeding, and no nasal polyps visualized Assessment/Plan: Non-ulcerative nasal mucositis - fluticasone propionate (FLONASE) 50 MCG/ACT nasal solution; Place 2 Sprays into both nostrils daily. - Otolaryngology Consult Adult/Peds Nasal bleeding - Otolaryngology Consult Adult/Peds Inflamed mucosa likely 2/2 to rhinitis Will treat with flonase If not resolving pt to see ENT for likely needing cautery treatment Vishal Canela MD documented in this encounter Plan of Treatment Upcoming Encounters Date Type Department Care Team (Late st Contact Info) Description 02/28/2025 7:30 AM CDT Appointment [facility] Maternal Medicine [address] [place] [address] Melany Cobb MD [address] [place] [phone] 02/28/2025 8:45 AM CDT Appointment [facility] Maternal Medicine [address] [place] [address] [phone] Sue Grewal MD [address] [place] [phone] 02/28/2025 9:20 AM CDT Appointment [facility] Obstetrics and Gynecology [address] [place] [address] Willian Fisher MD [address] [place] [address] [phone] Scheduled Referrals Name Type Priority Associated Diagnoses Orde r Schedule Otolaryngology Consult Adult/Peds Referral Routine Non-ulcerative nasal mucositis Nasal bleeding Ordered: 01/06/2025 documented as of this encounter Visit Diagnoses Diagnosis Non-ulcerative nasal mucositis- Primary Nasal bleeding Epistaxis documented in this encounter Care Teams Sales And Events Coordinator Relationship Specialty Start Date End Date Martell Ortega MD [address] [place] [address] PCP - General 06/29/23 documented as of this encounter
[2025-01-31] VITALS (43 sets, daily range): BP systolic 76–108; BP diastolic 47–75; PULSE 91–115; RESP 16–18; TEMP 36; O2SAT 95–100
--- OUTSIDE RECORDS SUMMARY | 2025-01-31 09:32 | XMS_ITS | Clinical Summary ---
Author Organization [employer] Address [facility] [place] [address] Care Team Providers Care Grain Elevator Clerk Name Role Phone Establish, Need To MD Primary Care Provider [phone] Source Comments If you need additional information that is not available on Care Everywhere, please contact our Medical Records Department during business hours (Thursday - Thursday, 8 am - 5 pm) at . During nonbusiness hours, please contact our Trauma and Emergency Center at .[facility] Allergies No known active allergies Medications [...] Active Problems No known active problems Immunizations Immunization Administration Dates Next Due DTaP 01/26/1995, 2,12/01/1990,03/29/1990, [...] on file Legal Sex Female 1:31 PM MOLD ENGRAVER Gender Identity Not on file Sexual Orientation Not on file Obstetrics History Last Filed Vital Signs Vital Sign Reading Time Taken Comments Blood Pressure 116/58 07/25/2011 1:00 PM MOLD ENGRAVER Pulse 60 07/25/2011 1:00 PM MOLD ENGRAVER Temperature 36.6 C (97.8 F) 07/25/2011 1:00 PM MOLD ENGRAVER Respiratory Rate - - Oxygen Saturation - - Inhaled Oxygen Concentration - - Weight 69.9 kg (154 lb 1.6 oz) 07/25/2011 1:00 P M MOLD ENGRAVER Height - - Body Mass Index - - Plan of Treatment Not on file [facility] Care Teams Grain Elevator Clerk Relationship Specialty Start Date End Date Establish, Need To, [address] [facility] [address] PCP - General Tool Tender 05/07/20
--- OUTSIDE RECORDS SUMMARY | 2025-01-31 09:32 | XMS_ITS | Encounter Summary ---
Author Organization [facility] Address [address] [place] [address] Care Team Providers Care Lens Examiner Name Role Phone Martell Ortega MD Primary Care Provider + [phone] Encounter Details Date Type Department Care Team (Late st Contact Info) Description 11/07/2024 Results Follow-Up [facility] Obstetrics and Gynecology [address] [place] [address] Elisabeth Castro Social History Tobacco Use Types Packs/Day Years Used Date Smoking Tobacco: Never Smokeless Tobacco: Never Alcohol Use Standard Drinks/Week Comments Not Currently 0 (1 standard drink = 0.6 oz pur e alcohol) 1 drink a week [facility] Utilities Answer Date Recorded In the past 12 months has [employer], gas, oil, or water [employer] threatened to shut off services in your [...] in a penitentiary (including now)? 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 [place] [address] Melany Cobb MD [address] [facility] [address] [place] [phone] 02/28/2025 8:45 AM CDT Appointment [facility] Maternal Medicine [address] [place] [address] [phone] Sue Grewal MD [address] [place] [phone] 02/28/2025 9:20 AM CDT Appointment [facility] Obstetrics and Gynecology [address] [place] [address] [phone] Willian Fisher MD [address] [place] [address] [phone] documented as of this encounter Visit Diagnoses Not on filedocumented in this encounter Care Teams Lens Examiner Relationship Specialty Start Date End Date Martell Ortega MD [address] [place], [place] [phone] PCP - General 06/29/23 documented as of this encounter
--- OUTSIDE RECORDS SUMMARY | 2025-01-31 09:32 | XMS_ITS | Encounter Summary ---
Author Organization [facility] Address [address] [place] [address] Care Team Providers Care Radio Performer Name Role Phone Martell Ortega MD Primary Care Provider + [phone] Encounter Details Date Type Department Care Team (Late Contact Info) Description 12/07/2015 Correspondence [place] Obstetrics [facility] Gynecology [address] [facility]. 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 documented as of this encounter Plan of Treatment Upcoming Encounters Date Type Department Care Team (Late Contact Info) Description 02/28/2025 7:30 AM CDT Appointment [facility] Maternal Medicine [address] [place] [phone] Melany Cbob MD [address] [address] 02/28/2025 8:45 AM CDT Appointment [facility] Maternal Medicine [address] [place] [phone] Sue Grewal MD [address] [place] [phone] 02/28/2025 9:20 AM CDT Appointment [facility] Obstetrics and Gynecology [address] [place] [address] [phone] Willian Fisher MD [address] [place] [address] [phone] documented as of this encounter Visit Diagnoses Not on filedocumented in this encounter Care Teams Radio Performer Relationship Specialty Start Date End Date Martell Ortega MD [address] [place] [address] PCP - General 06/29/23 documented as of this encounter
--- OUTSIDE RECORDS SUMMARY | 2025-01-31 09:32 | XMS_ITS | Encounter Summary ---
Author Organization [facility] Address [address] [place] [address] Care Team Providers Care Water Treatment Operator Name Role Phone Martell Ortega MD Primary Care Provider + [phone] Encounter Details Date Type Department Care Team (Late st Contact Info) Description 11/28/2024 Results Follow-Up [facility] Obstetrics and Gynecology [address] [place] [address] Keerthi Sosa RN Social History Tobacco Use Types Packs/Day Years Used Date Smoking Tobacco: Never Smokeless Tobacco: Never Alcohol Use Standard Drinks/Week Comments Not Currently 0 (1 standard drink = 0.6 oz pur e alcohol) 1 drink a week [facility] Utilities Answer Date Recorded In the past 12 months has [employer], gas, oil, or water [employer] threatened to shut off services in your [...] on file Legal Sex Female 7:14 PM MALT LIQUORS SALES SUPERVISOR Gender Identity Not on file Sexual Orientation Not on file 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 file 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 Not on file Not on file documented as of this encounter Plan of Treatment Upcoming Encounters Date Type Department Care Team (Late st Contact Info) Description 02/28/2025 7:30 AM CDT Appointment [facility] Maternal Medicine [address] [facility] [place] [address] Melany Cobb MD [address] [facility] [address] [place] [address] 02/28/2025 8:45 AM CDT Appointment [facility] Maternal Medicine [address] [place] [address] [phone] Sue Grewal MD [address] [place] [phone] 02/28/2025 9:20 AM CDT Appointment [facility] Obstetrics and Gynecology [address] [place] [address] [phone] Willian Fisher MD [address] [place] [address] [phone] documented as of this encounter Visit Diagnoses Not on filedocumented in this encounter Care Teams Water Treatment Operator Relationship Specialty Start Date End Date Martell Ortega MD [address] [place], [place] [phone] PCP - General 06/29/23 documented as of this encounter
--- OUTSIDE RECORDS SUMMARY | 2025-01-31 09:32 | XMS_ITS | Clinical Summary ---
Author Organization Critical access hospital Address [address] [place] [address] Care Team Providers Care Squeegee Tender Name Role Phone Martell Ortega MD Primary Care Provider [phone] Source Comments You are receiving this document as you are listed as the primary care provider,follow-up provider, or the patient has been referred to you for consultation.This is in compliance with the Medicare and[facility] E[facility] Incentive Program,which states Providers who transition their patient to another setting of careor provider of care or refers their patient to another provider of care shouldprovide summary care record for each transition of care or referral. [facility] Allergies Active Allergy Reactions Criticality Noted Date [...] lobster Shellfish-Derived Products Hives High 01/05/2018 Medications * This document contains information received from the source organization and may not represent a complete record from that organization. acetaminophen (TYLENOL) 500 MG tablet Take 2 Tablets (1,000 mg) by mouth. 2 Active sertraline (ZOLOFT) 50 MG tablet Take one-half tablet by mouth daily for 7 days, then take 1 tablet daily. 90 Tablet 10/22/2023 9:16 AM CDT 4 Active Additional Information Patient not taking.Reported on 09/01/2024 plus vitamin Take 1 Tablet by mouth daily. 90 Tablet 3 5 Active fluticasone propionate (FLONASE) 50 MCG/ACT nasal solutionIndicat ions:Non-ulcera tive nasal mucositis Place 2 Sprays into both nostrils daily. 16 g 11 5 Active Active Problems Problem Noted Date Diagnosed [...] (09/01/2024): Added automatically from request for surgery [id number] Hypothyroidism (acquired) 11/21/2015 Blood type, Rh negative 03/29/2015 Overview (03/29/2015): A-negative blood type. Pain of finger of left hand 10/26/2014 Overview (10/26/2014): 4th finger Heart murmur 01/16/2014 Overview (04/28/2014): Saw Dr. Lutz in cardiology on 12/28/13 - ECHO: 01/19/14 normal heart function, no follow-up needed Estimated Date of Delivery Comme nts Yes 07/12/2025 Based on Ultraso und Resolved Problems Problem Noted Date Diagnosed Date [...] 7/6 c/w 11w1d US on 03/16 2. [facility] [place], [place] 3. H/o delivery at 36+ weeks 4. Closely spaced - 06/02/14 Supervision of normal first 12/05/2013 03/26/2015 Overview (04/28/2014): EDC 06/28/14 by US, Care CNM [facility]. HX Asthma. HX of Heart Murmur referred [...] Yumiko Lutz MD 01/26/2014, 10:30 AM Encounters * This document contains information received from the source organization and may not represent a complete record from that organization. Date Type Department Care Team Description 01/31/2025 Nurse Triage Careline [address] [place] [address] Unassigned, Provider Concerns 01/06/2025 10:00 AM CDT Office Visit [address] [address] Vishal Canela MD Non-ulcerative nasal mucositis (Primary Dx); Nasal bleeding 01/06/2025 9:20 AM CDT Routine [facility] Obstetrics and Gynecology [address] [place] [address] Molly Marie APRN, CENTER ADMINISTRATOR SUBSEQUENT VISIT 01/06/2025 9:00 AM CDT Office Visit [facility] Medicine [address] [place] [address] Melany Cobb MD Multigravida of advanced maternal age in first trimester (Primary Dx); Maternal obesity syndrome in first trimester; Ovarian cyst during in first trimester 01/06/2025 8:00 AM CDT Ancillary Procedure [facility] Medicine [address] [place] [address] Suma Raymond APRN, CNM Multigravida of advanced maternal age in first trimester 12/21/2024 E-Visit [facility] Medicine [address] [place] [address] Mychart, Generic Provider 11/29/2024 Results Follow-Up [facility] Obstetrics and Gynecology [address] [place] [address] Patience Ibarra RN 11/28/2024 1:20 PM CDT Lab Visit [facility] [address] [place] [address] Supervision of other normal , antepartum; Routine screening for STI (sexually transmitted infection) 11/28/2024 8:40 AM CDT Initial [facility] Obstetrics and Gynecology [address] [place] [address] Suma Raymond APRN, CNM ,1st Ob 11/28/2024 7:40 AM CDT Ancillary Procedure [facility] destination sign repairer Ultrasound [address] [place] [address] Molly Marie APRN, CNP examination or test, unconfirmed; Establish gestational age, ultrasound 11/28/2024 Results Follow-Up [facility] Obstetrics and Gynecology [address] [place] [address] Keerthi Sosa RN 11/07/2024 11:10 AM CDT Lab Visit [address] [phone] examination or test, unconfirmed 11/07/2024 Results Follow-Up [facility] Obstetrics and Gynecology [address] [place] [address] Elisabeth Castro 11/04/2024 11:30 AM CDT Lab Visit [address] [phone] examination or test, unconfirmed 11/02/2024 Telephone [facility] Obstetrics and Gynecology [address] [place] [address] Suma Raymond APRN, CNM ,1st Ob from Last 3 Months Immunizations Immunization Administration Dates Next Due 9vHPV (Gardasil 9) 11/30/2008,09/20/2008, 009 DTaP 01/26/1995, 2,12/01/1990,1989,1989 HepB Ped/Adol (0-18 yrs) 02/17/2002,08/30/2001,0 08/02/2001 HepB, Unspecified Formulation 02/17/2002, 002,08/02/2001 Hib (ActHIB) 04/20/1991 IPV (Polio) 12/13/1991, 1,03/29/1990,1989 Influenza IIV4 (Quadrivalent ) 0.5mL (72417) 04/11/2019,05/18/2018,08/01/2016,2014,03/30/2014 Influenza LAIV (Nasal, 2-49 yrs) 05/14/2020 MMR 08/18/2002 Rho(D) - IG, IM 10/20/2023(Deferred: - Haines A-),07/13/2015,04/05/2014 Td (7+ yrs) 08/18/2002 Tdap 08/27/2023, [...] drink = 0.6 oz pur e alcohol) [facility] Utilities Answer Date Recorded In [...] on file Legal Sex Female 7:14 PM LICENSED EMBALMER Gender Identity Not on file Sexual Orientation Not on file 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 Not on file 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 Not on file Not on file Last Filed Vital Signs Vital Sign Reading Time Taken Comments Blood Pressure 92/62 01/06/2025 10:03 AM CDT Pulse 72 01/06/2025 10:03 AM CDT Temperature 36.3 C (97.3 F) 01/06/2025 10:03 AM CDT Respiratory Rate 16 01/06/2025 10:03 AM CDT Oxygen Saturation 99% 10/22/2023 7:30 AM CDT Inhaled Oxygen Concentration - - Weight 85.7 kg (189 lb) 01/06/2025 10:03 AM CDT Height 164.5 cm (5' 4.75) 01/06/2025 9:31 AM CD T Body Mass Index 31.69 01/06/2025 9:31 AM CDT Plan of Treatment Upcoming Encounters Date Type Department Care Team (Late st Contact Info) Description 02/28/2025 7:30 AM CDT Appointment [facility] Maternal Medicine [address] [place] [address] Melany Cobb MD [address] [place] [address] 02/28/2025 8:45 AM CDT Appointment [facility] Maternal Medicine [address] [place] [address] Sue Grewal MD [address] [place] [phone] 02/28/2025 9:20 AM CDT Appointment [facility] Obstetrics and Gynecology [address] [place] [address] Willian Fisher MD [address] [place] [address] [phone] Health Maintenance Due Date Last Done Comments Asthma ACT (score of 20 or higher) 1993 Pneumococcal Vaccine (1 of 2 - PCV) 2008 HPV Vaccine (3 - 3-dose series) 02/22/2009 11/30/2008, 09/20/2008, 07/26/2008 COVID-19 Vaccine ( season) 2024 Adult Preventive Visit 09/11/2024 09/11/2022, 2015 Influenza Vaccine (#1) 2025 , 04/11/2019, 05/18/2018, Additional history exists Cervical Cancer Screening 09/12/20272022, 09/11/2022, 12/08/2013 DTaP/Tdap/Td Vaccine (10 - Tdap) 08/26/2033 08/27/2023, 07/13/2015, 03/30/2014, Additional history exists Zoster/Shingles Vaccine (1 of 2) 09/11/2039 Hib Vaccine Completed 04/20/1991 IPV (Polio) Vaccine Completed 12/13/1991, 12/01/1990, 03/29/1990, Additional history exists HepB Vaccine Completed 02/17/2002, 01/28, 08/30/2001, Additional history exists HIV Screening (Preventive Services) Completed 11/28/2024, 09/01/2024, 03/26/2015, Additional history exists Hep C Screening (Preventive Services) Completed 11/28/2024, 09/01/2024 HepA Vaccine Aged Out No longer eligi ble based on patient's age to complete this topic MCV4 Vaccine Aged Out No longer eligi ble based on patient's age to complete this topic Meningococcal B Vaccine Aged Out No l onger eligible based on patient's age to complete this topic Procedures Procedure Name Priority Date/Time Associated Diagnosis Comments [facility] OB FIRST TRIMESTER Routine 01/06/2025 9:07 AM CDT Multigravida of advanced maternal age in first trimester URINE CULTURE Routine 11/28/2024 9:05 AM CDT Supervision of other normal , antepartum RAPID DRUG PANEL, URINE (WITH CONFIRMATION) Routine 11/28/2024 9:05 AM CDT Supervision of other normal , antepartum SYPHILIS PANEL (WITH REFLEX) Routine 11/28/2024 9:04 AM CDT Routine screening for STI (sexually transmitted infection) RUBELLA IMMUNE STATUS, IGG Routine 11/28/2024 9:04 AM CDT Supervision of other normal , antepartum HIV 1/2 AG/AB 4TH GEN Routine 11/28/2024 9:04 AM CDT Supervision of other normal , antepartum HEPATITIS C ANTIBODY, WITH REFLEX (ANTI-HCV) Routine 11/28/2024 9:04 AM CDT Supervision of other normal , antepartum HEPATITIS B SURFACE ANTIGEN (HBSAG) Routine 11/28/2024 9:04 AM CDT Supervision of other normal , antepartum SYPHILIS PANEL (WITH REFLEX) Routine 11/28/2024 9:04 AM CDT Routine screening for STI (sexually transmitted infection) AST Routine 11/28/2024 9:04 AM CDT Supervision of other normal , antepartum ALT (SGPT) Routine 11/28/2024 9:04 AM CDT Supervision of other normal , antepartum HGB A1C Routine 11/28/2024 9:04 AM CDT Supervision of other normal , antepartum COMPLETE BLOOD COUNT-NO DIFF Routine 11/28/2024 9:04 AM CDT Supervision of other normal , antepartum ANTIBODY SCREEN Routine 11/28/2024 9:04 AM CDT Supervision of other normal , antepartum OBGYN FIRST TRIMESTER ULTRASOUND Routine 11/28/2024 8:09 AM CDT Establish gestational age, ultrasound HCG, QUANTITATIVE, SERUM Same Day 11/07/2024 11:07 AM CDT examination or test, unconfirmed HCG, QUANTITATIVE, SERUM Same Day 11/04/2024 11:42 AM CDT examination or test, unconfirmed CYTOLOGY (PAP) Routine 09/11/2022 9:29 AM CDT Screening for malignant neoplasm of cervix from Last 3 Months or Most Recently Relevant to Health Maintenance Results * [facility] US OB First Trimester Ultrasound (01/06/2025 9:07 [...] prior exam OFFICE VISIT: Indications for [facility] ultrasound and office visit are as [...] with primary OB provider -Return to [facility] clinic for detailed anatomic survey at 20 weeks with EV L2 scheduled with [facility] Melany Cobb MD Narrative 01/06/2025 1:24 PM CDT Table formatting from the original result was not included. Images from the original result were not included. [facility] Maternal Medicine [address] [place] [address] Dept Dept Patient Name: Jenny Mcfadden Referred By: Attending: Suma Raymond APRN, SIMONA Cobb MD Patient Steward/Stewardess Bath: Anat HYLTON, Age: 3 1990, 34 y.o. GA Prior to Exam: 13w2d LMP: Patient's last menstrual period was 09/06/2024 (exact date). GA by Today's US: 13w4d Pregnancies: GA RACHEL: 13w2d Ultrasound Pre- BMI: 32.13 RACHEL: 07/12/2025 [...] normal 4 [place] grossly normal Cardiac [place] appears normal 3 Vessel Trachea View inadequately [...] of late , history of shoulder dystocia Suma Raymond APRN, CNM [facility] US Final Result * Urine Culture (11/28/2024 9:05 AM CDT) [facility] Urine Culture No Growth After 1 Day 11/29/2024 7:01 AM [facility] Urine URINE SPECIMEN COLLECTION, CLEAN CATCH / Unknown Non-blood Collection / Unknown 11/28/2024 9:05 AM CDT 11/28/2024 9:05 AM CDT Suma Raymond APRN, CNM LAB_1 [place] [address], [facility] * Rapid Drug Panel, Urine (with Confirmation) without THC (11/28/2024 9:05 AM CDT) [facility] Amphetamines Screen Not Detected Not Detected 11/28/2024 11:54 AM [facility] Barbiturates Screen Not Detected Not Detected 11/28/2024 11:54 AM [facility] Benzodiazepines Screen Not Detected Not Detected 11/28/2024 11:54 AM [facility] Buprenorphine Screen Not Detected Not Detected 11/28/2024 11:54 AM [facility] Cocaine Metabolite Screen Not Detected Not Detected 11/28/2024 11:54 AM [facility] Methadone Screen Not Detected Not Detected 11/28/2024 11:54 AM [facility] Opiates Screen Not Detected Not Detected 11/28/2024 11:54 AM CDT [facility] Oxycodone Screen Not Detected Not Detected 11/28/2024 11:54 AM CDT [facility] Phencyclidine (PCP) Screen Not Detected Not Detected 11/28/2024 11:54 AM CDT [facility] Creatinine, Urine, Random 68 >20 mg/dL 11/28/2024 11:54 AM CDT [facility] Urine Non-blood Collection / Unknown 11/28/2024 9:05 AM CDT 11/28/2024 9:05 AM CDT Narrative [facility] - 11/28/2024 11:54 AM CDT The absence of expected drug(s) and/or drug metabolite(s) may indicate non-compliance, inappropriate timing of specimen collection relative to drug administration, poor drug absorption, diluted/adulterated urine or limitations of testing. The concentration must be greater than or equal to the cutoff concentration to be reported as positive. For medical purposes only: not valid for forensic, legal, or employment use. Suma Raymond APRN, CNM LAB_1 Final Result [address] [address], [facility] * Rubella Immune Status, IgG (11/28/2024 9:04 AM CDT) Rubella Units 9.79 11/29/2024 12:27 PM CDT [facility] Comment:The magnitude of the measured result, above the cutoff, is not indicative of the amount of antibody present. Rubella Intepretation Immune Immune 11/29/2024 12:27 PM CDT [facility] Blood Venipuncture / Unknown 11/28/2024 9:04 AM CDT 11/28/2024 9:04 AM CDT Smua Raymond APRN, CNM LAB_1 Final Result [facility] [address] [place] [address], [facility] * Antibody Screen (11/28/2024 9:04 AM CDT) Antibody Screen Interpretation Negative 11/28/2024 12:31 PM CDT [facility] Blood Venipuncture / Unknown 11/28/2024 9:04 AM CDT 11/28/2024 9:04 AM CDT Suma Raymond APRN, CNM LAB_1 Final Result Performing Organization Address City/[facility]/ZIP Co de Phone Number [facility] [address] * Syphilis Panel, with Reflex (11/28/2024 9:04 AM CDT) Treponema Screen Interpretation Non Reactive Non Reactive 11/28/2024 5:15 PM CDT [facility] Syphilis Panel Comment Negative - No serological evidence of syphilis. 11/28/2024 5:15 PM CDT [facility] Blood Venipuncture / Unknown 11/28/2024 9:04 AM CDT 11/28/2024 9:04 AM CDT Suma Raymond APRN, CNM LAB_1 Final Result Performing Organization Address City/[facility] Co de Phone Number [facility] [address] [place], [place] [address] * HIV 1/2 Ag/Ab 4th Generation (11/28/2024 9:04 AM CDT) Pathologist [facility] HIV 1/2 Antigen/Anti body (4th generation) Negative (Non Reactive) Negative (Non Reactive) 11/28/2024 1:01 PM CDT [facility] Comment:HIV-1 p24 Antigen an d HIV-1/HIV-2 Antibody not detected Blood Venipuncture / Unknown 11/28/2024 9:04 AM CDT 11/28/2024 9:04 AM CDT Suma Raymond APRN, CNM LAB_1 Final Result Performing Organization Address City/[facility]/ZIP Co de Phone Number [facility] [address] [address] * (ABNORMAL) Complete Blood Count-No Diff (11/28/2024 9:04 AM CDT) [facility] WBC 7.6 3.5 - 10.5 x10(9)/L 11/28/2024 9:22 AM CDT [facility] RBC 4.25 3.90 - 5.03 x10(12)/L 11/28/2024 9:22 AM CDT [facility] Hemoglobin 13.9 12.0 - 15.5 g/dL 11/28/2024 9:22 AM CDT [facility] HCT 38.6 34.9 - 44.5 % 11/28/2024 9:22 AM CDT [facility] MCV 90.8 80.0 - 100.0 fL 11/28/2024 9:22 AM CDT [facility] MCH 32.7 27.6 - 33.3 pg 11/28/2024 9:22 AM CDT [facility] MCHC 36.0(H) 31.5 - 35.2 g/dL 11/28/2024 9:22 AM CDT [facility] RDW 12.9 11.9 - 15.5 % 11/28/2024 9:22 AM CDT [facility] Platelets 202 150 - 450 x10(9)/L 11/28/2024 9:22 AM CDT [facility] Blood Venipuncture / Unknown 11/28/2024 9:04 AM CDT 11/28/2024 9:04 AM CDT us Suma Raymond APRN, CNM LAB_1 Final Result [facility] [address] [place] [address], [facility] * Hepatitis C Antibody, with Reflex (11/28/2024 9:04 AM CDT) Pathologist [facility] Hepatitis C Antibody Negative (Non Reactive) Negative (Non Reactive) 11/28/2024 1:02 PM [facility] Comment:Antibodies to HCV no t detected. Does not exclude the possiblity of exposure to HCV. Blood Venipuncture / Unknown 11/28/2024 9:04 AM CDT 11/28/2024 9:04 AM CDT Suma Raymond APRN, CNM LAB_1 Final Result Performing Organization Address [facility] Co de Phone Number [facility] [address] [place] [address] * Hepatitis B Surface Antigen (11/28/2024 9:04 AM CDT) Pathologist [facility] Hepatitis B Surface Antigen Negative (Non Reactive) Negative (Non Reactive) 11/28/2024 1:04 PM [facility] Blood Venipuncture / Unknown 11/28/2024 9:04 AM CDT 11/28/2024 9:04 AM CDT Suma Raymond APRN, CNM LAB_1 Final Result Performing Organization Address [facility] de Phone Number [facility] [address] [place] [address] * Hgb A1C (11/28/2024 9:04 AM CDT) Pathologist [facility] Hemoglobin A1C 5.2 <=5.6 % 11/28/2024 12:50 PM [facility] Estimated Average Glucose (Calc) 103 < 117 mg/dL 11/28/2024 12:50 PM [facility] Comment:Estimated average gl ucose (eAG) converts A1c into glucose units (mg/dL) and estimates average glucose over the past approximately 3 months. The eAG reference interval (<117 mg/dL) corresponds to an A1c of <5.7%. Blood Venipuncture / Unknown 11/28/2024 9:04 AM CDT 11/28/2024 9:04 AM CDT Suma Raymond APRN, CNM LAB_1 Final Result Performing Organization Address [facility] Co de Phone Number [facility] [address] * ALT (SGPT) (11/28/2024 9:04 AM CDT) ALT (SGPT) 19 0 - 55 U/L 11/28/2024 12:41 PM CDT [facility] Blood Venipuncture / Unknown 11/28/2024 9:04 AM CDT 11/28/2024 9:04 AM CDT Suma Raymond APRN, CNM LAB_1 Final Result Performing Organization Address [facility] Co de Phone Number [facility] [address] * AST (11/28/2024 9:04 AM CDT) AST (SGOT) 20 10 - 40 U/L 11/28/2024 12:41 PM CDT [facility] Blood Venipuncture / Unknown 11/28/2024 9:04 AM CDT 11/28/2024 9:04 AM CDT Suma Raymond APRN, CNM LAB_1 Final Result Performing Organization Address [facility] Co de Phone Number [facility] [address] * OBGYN First Trimester Ultrasound (11/28/2024 8:09 AM CDT) Uterus AP Diameter (Height) 6.00 cm EXTERNAL RESULTS Uterus Longitudinal Diameter (Length) 9.60 cm EXTERNAL RESULTS Uterus Transverse Diameter (Width) 7.90 cm EXTERNAL RESULTS Uterus Volume 238.26 ml POWER NUT RUNNER OPERATOR AL RESULTS Left Ovary Perpendicular Diameter (Height) 5.00 cm EXTERNAL RESULTS Left Ovary Longitudinal Diameter (Length) 5.80 cm EXTERNAL RESULTS Left Ovary Hilum-Cortex Diameter (Width) 6.60 cm EXTERNAL RESULTS Left Ovary Volume 100.22 ml EX TERNAL RESULTS Right Ovary Perpendicular Diameter (Height) 2.00 cm EXTERNAL RESULTS Right Ovary Longitudinal Diameter (Length) 3.00 cm EXTERNAL RESULTS Right Ovary Hilum-Cortex Diameter (Width) 1.50 cm EXTERNAL RESULTS Right Ovary Volume 4.71 ml E XTERNAL RESULTS Anatomical Region Laterality Modality Pelvis Ultrasound Study GA Study Date Study RACHEL Working RACHEL (Source) 7w5d 11/28/2024 07/12/2025 07/12/2025 Fetus 1 Measurements Value GA (days) GA by US Calc 54 days 54 FHR 149 bpm Gest Sac Yolk Sac 3.3 mm CRL 1.38 cm 54 NT BPD OFD HC AC FL HL CI FL/BPD FL/AC HC/AC UAR - PSV UAR - S/D Ratio UAR - RI UAR - PI MCA - PSV MCA - S/D Ratio MCA - PI Lateral Ventricle CER Cisterna Magna ARELY Foot Narrative 11/28/2024 10:19 AM CDT Table formatting from the original result was not included. Images from the original result were not included. Jenny Mcfadden Obstetrics Report Date: 11/28/2024 [facility] supervisor [employer] Ultrasound [address] [place] [address] Dept Dept Patient Information Name: Jenny Mcfadden : 1990 (34 y.o.) (F) BMI: 31.07 kg/m Date: 11/28/2024 8:11 AM Performed By Steward/Stewardess Bath(s) initials: [place] Attending: Ivon Ortega MD Referred by: Molly Marie APRN, CENTER ADMINISTRATOR Referring location: SP Procedure OBGYN FIRST TRIMESTER ULTRASOUND Indications Establish gestational age, ultrasound Gestational Age LMP: 09/06/2024 GA by Today's US: 7w5d Working GA: Unknown Working RACHEL: Not found. Maternal Evaluation Cervix Appears Normal Approach Transabdominal, Endovaginal Endovaginal scan done to better assess Early gestation Cul-de-sac No fluid seen Uterus Appears Normal Right Ovary Appears Normal Left Ovary Appears Normal Right Adnexa Appears Normal Left Adnexa Appears Normal Uterus: 1.5 x 0.5 x 0.8 cm anechoic area adjacent to ges sac Left Ovary: 5.5 x 5.0 x 5.0 cm anechoic area with no abnormal flow and corpus luteum Ultrasound Findings Fetus 1 Evaluation Cardiac Activity Present Gestation Type Meade First Trimester Gestational Sac normal Pole present Yolk Sac seen Amnion seen Biometry Heart Rate: 149 bpm Yolk Sac 3.3 mm CRL 1.38 cm 7w5d Estimated FW: No EFW calculated for this study Steward/Stewardess Bath Comments GA by Ultrasound is 7w5d +/- 5 days. (RACHEL by Ultrasound is 07/12/25) Clinical RACHEL Estimated Date of Delivery: None noted. (by LMP) = Unknown Impression Meade live Intrauterine at 7w5d +/- 5 days by today's ultrasound. RACHEL by ultrasound today is 07/12/2025, which is consistent with LMP Estimated Date of Delivery: 07/12/25. Recommend using RACHEL of [id number]. Normal appearing uterus and adnexa. Please refer to updated Dating section. Primary provider to review final RACHEL. Subchorionic fluid collection measuring 1.5 x 0.5 x 0.8cm Simple cyst measuring 5.5 x 5.0 x 5.0cm within the left ovary without increased vascularity Recommendations The patient is informed of the ultrasound findings by the physician and will follow up with her obstetrical provider. Ivon Ortega MD us Molly Marie GATE OPERATOR, CENTER ADMINISTRATOR RAD US Final Resu lt * (ABNORMAL) HCG, Quantitative, Serum (11/07/2024 11:07 AM CDT) Only the most recent of2 resultswithin the time period is included. HCG, Quantitative 1,664(H) <=4 mIU/mL 11/07/2024 6:34 PM CDT [facility] Blood Venipuncture / Unknown 11/07/2024 11:07 AM CDT 11/07/2024 11:07 AM CDT Narrative [facility] - 11/07/2024 6:34 PM CDT Expected ranges Negative: <5 mIU/mL Indeterminate: 5-25 mIU/mL Positive: >25 mIU/mL Suggest repeat testing of indeterminate result in 72 hours. us Suma Ramon Raymond APRN, CNM LAB_1 Final Result [facility] [address] [place] [address], [facility] * PAP Test (09/11/2022 9:29 AM CDT) Case Report Pap Case: [id number] Authorizing Provider: Fidelina Francois MD Collected: 09/11/2022 0929 Ordering Location: [facility] Received: 09/11/2022 1208 Gynecology Physicians First Screen: Daniel Suarez Rescreen: Ange Metcalf SCT (ASCP) Specimen: Pap Test, Routine, Cervix/Endocervix 09/19/2022 6:45 AM [facility] Pap Specimen Adequacy Satisfactory for evaluation, endocervical/lópez sformation zone component present. 09/19/2022 6:45 AM [facility] Pap Interpretation (NILM) Negative for intraepithelial lesion or malignancy. 09/19/2022 6:45 AM [facility] at 0645 CDT Pap Other Findings Fungal organisms morphologically consistent with Saima spp. 09/19/2022 6:45 AM [facility] Pap Disclaimer The Pap test is a screening test designed to aid in the detection of cervical cancer and its precursor lesions. It is not a diagnostic procedure and should not be used as the sole means of detecting cervical cancer. Both false-positive and false-negative results may occur. 09/19/2022 6:45 AM [facility] Gross Description The specimen is received in SurePath fixative and properly labeled. 1 Pap-stained SurePath slide is prepared. 09/19/2022 6:45 AM [facility] Embedded Images 6:45 AM [facility] Other Specimen Type ENTIRE ENDOCERVIX / Unknown 09/11/2022 9:29 AM CDT 09/11/2022 12:08 PM CDT Comment:LMP: Patient's last menstrual period was 09/01/2022 (exact date). us Fidelina Francois MD LAB PATHOLOGY Final Result Performing Organization Address City/State/[facility] [place] [address], [facility] [phone] from Last 3 Months or Most Recently Relevant to Health Maintenance Insurance [employer] Advance Directives Documents on File Type Date Recorded Patient Freezer Assistant Expl anation HEALTHCARE DIRECTIVE 07/17/2023 Cora Beasley [...] Agents on File Name Relationship Healthcare Agent [facility] Cora Beasley [facility] Care Agent Care Teams Squeegee Tender Relationship Specialty Start Date End Date Martell Ortega MD [address] [place] [address] PCP - General 06/29/23
--- OUTSIDE RECORDS SUMMARY | 2025-01-31 09:32 | XMS_ITS | Encounter Summary ---
Author Organization [facility] Address [address], [place] [address] Care Team Providers Care River Boat Captain Name Role Phone Martell Ortega MD Primary Care Provider [phone] Encounter Details Date Type Department Care Team (Late st Contact Info) Description 12/21/2024 E-Visit [facility] Maternal Medicine [address] [place] [address] [place] [address] Social History Tobacco Use Types Packs/Day Years Used Date Smoking Tobacco: Never Smokeless Tobacco: Never Alcohol Use Standard Drinks/Week Comments Not Currently 0 (1 standard drink = 0.6 oz pur e alcohol) 1 drink a week [facility] Utilities Answer Date Recorded In the past 12 months has [employer], gas, oil, or water [employer] threatened to shut off services in your [...] place to sleep or slept in a jail (including now)? 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 file Not on file Not on file documented as of this encounter Plan of Treatment Upcoming Encounters Date Type Department Care Team (Late st Contact Info) Description 02/28/2025 7:30 AM CDT Appointment [facility] Maternal Medicine [address] [facility] [place] [address] Melany Cobb MD 2635 [facility] [address] [place] [address] 02/28/2025 8:45 AM CDT Appointment [facility] Maternal Medicine [address] [place] [address] [phone] Sue Grewal MD [address] [place] [phone] 02/28/2025 9:20 AM CDT Appointment [facility] Obstetrics and Gynecology [address] [place] [address] [phone] Willian Fisher MD [address] [place] [address] [phone] documented as of this encounter Visit Diagnoses Not on filedocumented in this encounter Care Teams River Boat Captain Relationship Specialty Start Date End Date Martell Ortega MD [address] [place], [place] [phone] PCP - General 06/29/23 documented as of this encounter
--- OUTSIDE RECORDS SUMMARY | 2025-01-31 09:32 | XMS_ITS | Encounter Summary ---
Author Organization [facility] Address [address] [place] [address] Care Team Providers Care Training Technician Name Role Phone Martell Ortega MD Primary Care Provider + [phone] Encounter Details Date Type Department Care Team (Late st Contact Info) Description 11/29/2024 Results Follow-Up [facility] Obstetrics and Gynecology [address] [place] [address] Patience Ibarra, RN [address] [place] [address] Social History Tobacco Use Types Packs/Day Years Used Date Smoking Tobacco: Never Smokeless Tobacco: Never Alcohol Use Standard Drinks/Week Comments Not Currently 0 (1 standard drink = 0.6 oz pur e alcohol) 1 drink a week [facility] Utilities Answer Date Recorded In the [...] on file Legal Sex Female 7:14 PM REINSURANCE CLAIM 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 Gender Identity Not on file Sexual Orientation Not on file 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 Not on file Not on file documented as of this encounter Plan of Treatment Upcoming Encounters Date Type Department Care Team (Late st Contact Info) Description 02/28/2025 7:30 AM CDT Appointment [facility] Maternal Medicine [address] [place] [address] Melany Cobb MD 0530 [facility] 160 [place] [address] 02/28/2025 8:45 AM CDT Appointment [facility] Maternal Medicine [address] [place] [address] Sue Grewal MD [address] [place] [address] [phone] 02/28/2025 9:20 AM CDT Appointment [facility] Obstetrics and Gynecology [address] [place] [address] Willian Fisher MD [address] [place] [address] [phone] documented as of this encounter Visit Diagnoses Not on filedocumented in this encounter Care Teams Training Technician Relationship Specialty Start Date End Date Martell Ortega MD [address] [place] [address] PCP - General 06/29/23 documented as of this encounter
--- OUTSIDE RECORDS SUMMARY | 2025-01-31 09:32 | XMS_ITS | Encounter Summary ---
Author Organization [facility] Address [address] [place] [address] Care Team Providers Care Travel Physical Therapist Name Role Phone Martell Ortega MD Primary Care Provider + [phone] Encounter Details Date Type Department Care Team (Late Contact Info) Description 08/16/2015 Correspondence [facility] [address] [facility] 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 documented as of this encounter Plan of Treatment Upcoming Encounters Date Type Department Care Team (Late Contact Info) Description 02/28/2025 7:30 AM CDT Appointment [facility] Maternal Medicine [address] [place] [address] Melany Cobb MD [address] [address] 02/28/2025 8:45 AM CDT Appointment [facility] Maternal Medicine [address] [place] [address] Sue Grewal MD [address] [place] [address] [phone] 02/28/2025 9:20 AM CDT Appointment [facility] Obstetrics and Gynecology [address] [place] [address] Willian Fisher MD [address] [place] [address] [phone] documented as of this encounter Visit Diagnoses Not on filedocumented in this encounter Care Teams Travel Physical Therapist Relationship Specialty Start Date End Date Martell Ortega MD [address] [place] [address] PCP - General 06/29/23 documented as of this encounter
--- OUTSIDE RECORDS SUMMARY | 2025-01-31 09:32 | XMS_ITS | Encounter Summary ---
Author Organization [facility] Address [address] [place] [address] Care Team Providers Care Compressor Service Technician Name Role Phone Martell Ortega MD Primary Care Provider [phone] Encounter Details Date Type Department Care Team (Late st Contact Info) Description 06/04/2014 Correspondence None No Primary/Referring, Phy EQUIPMENT MOTHER BABY RN TICKET Social History Tobacco Use Types Packs/Day Years Used Date Smoking Tobacco: Never Smokeless Tobacco: Never Alcohol Use Standard Drinks/Week Comments No 0 (1 standard drink = 0.6 oz pur e alcohol) 2/beer/not while Comments No Sex and Gender Information Value Date Recorded Sex Assigned at Not on file 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 Gender Identity Not on file Sexual Orientation Not on file 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 documented as of this encounter Plan of Treatment Upcoming Encounters Date Type Department Care Team (Late st Contact Info) Description 02/28/2025 7:30 AM CDT Appointment [facility] Maternal Medicine [address] [place] [address] Melany Cobb MD [address] [address] 02/28/2025 8:45 AM CDT Appointment [facility] Maternal Medicine [address] [place] [address] Sue Grewal MD [facility] [phone] 02/28/2025 9:20 AM CDT Appointment [facility] Obstetrics and Gynecology [address] [place] [address] [phone] Willian Fisher MD [address] [place] [address] [phone] documented as of this encounter Visit Diagnoses Not on filedocumented in this encounter Care Teams Compressor Service Technician Relationship Specialty Start Date End Date Martell Ortega MD [address] [place] [address] PCP - General 06/29/23 documented as of this encounter
--- OUTSIDE RECORDS SUMMARY | 2025-01-31 09:32 | XMS_ITS | Encounter Summary ---
Author Organization [facility] Address [address] [place] [address] Care Team Providers Care Cooker Sulfate Name Role Phone Martell Ortega MD Primary Care Provider + [phone] Encounter Details Date Type Department Care Team (Late Contact Info) Description 12/07/2015 [facility] [address] [facility]. 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 documented as of this encounter Plan of Treatment Upcoming Encounters Date Type Department Care Team (Late Contact Info) Description 02/28/2025 7:30 AM CDT Appointment [facility] Maternal Medicine [address] [place] [address] Melany Cobb MD [address] [address] 02/28/2025 8:45 AM CDT Appointment [facility] Maternal Medicine [address] [place] [address] Sue Grewal MD [address] [place] [phone] 02/28/2025 9:20 AM CDT Appointment [facility] Obstetrics and Gynecology [address] [place] [address] [phone] Willian Fisher MD [address] [place] [address] [phone] documented as of this encounter Visit Diagnoses Not on filedocumented in this encounter Care Teams Cooker Sulfate Relationship Specialty Start Date End Date Martell Ortega MD [address] [place] [address] PCP - General 06/29/23 documented as of this encounter
--- OUTSIDE RECORDS SUMMARY | 2025-01-31 09:32 | XMS_ITS | Clinical Summary ---
Author Organization [facility] Address [address] [place] [address] Care Team Providers Care Procurement Services Manager Name Role Phone Fidelina Bar M.D. Primary Care Provider Source Comments Patient records contain information from all sites at [facility]. For routine questions regarding patient records, call [phone] during business hours, M-F 8:00 AM - 5:00 PM Central Time. Record requests for emergency care only can be directed to [phone] at any time.[facility] Allergies Active Allergy Reactions Criticality Noted Date [...] (05/15/2022): Added automatically from request for surgery [id number] Tonsillolithiasis 02/03/2022 Overview (02/03/2022): Added automatically from request for surgery [id number] Hypertrophy Tonsil 02/03/2022 Overview (02/03/2022): Added automatically from request for surgery [id number] Unspecified Blood Type Rhesus Negative 1 Cancer [...] Encounters Date Type Department Care Team Description 11/01/2024 Orders Only [facility] PCP [facility] Fidelina Montenegro M.D. Screening Lipid from Last 3 Months Immunizations Immunization Administration [...] by your partner or ex-partner? No 02/03/2022 Hunger Vital Sign Answer Date Recorded Within [...] PHQ-9 Total Score (max 27) 7 09/17 Housing Stability Answer Date Recorded What is your living situation today? I have a [facility] place to live 03/10/2023 Education Answer Date Recorded What is the highest level of school you have completed or the highest degree you have received? Bachelor's degree (e.g., BA, AB, BS) 07/05/2020 Comments Unknown Sex and Gender Information Value Date Recorded Sex Assigned at Female 02/16/2018 3:57 PM CDT Legal Sex Female 9:01 AM PRICING/SIGNAGE TEAM MEMBER Gender Identity Female 02/16/2018 3:57 PM CDT Sexual Orientation Straight 02/16/2018 3: 57 PM CDT Last Filed Vital Signs Vital Sign Reading Time Taken Comments Blood Pressure 108/60 08/16/2023 5:25 PM PRICING/SIGNAGE TEAM MEMBER Pulse 94 08/16/2023 5:25 PM PRICING/SIGNAGE TEAM MEMBER Temperature 36.9 C (98.4 F) 08/16/2023 5:25 PM PRICING/SIGNAGE TEAM MEMBER Respiratory Rate 18 08/16/2023 5:25 PM PRICING/SIGNAGE TEAM MEMBER Oxygen Saturation 100% 08/16/2023 5:25 PM PRICING/SIGNAGE TEAM MEMBER Inhaled Oxygen Concentration - - Weight 70.8 kg (156 lb 1.4 oz) 06/08/2023 3:35 P M PRICING/SIGNAGE TEAM MEMBER Height 167.2 cm (5' 5.83) 06/08/2023 3:35 PM CS T Body Mass Index 25.33 06/08/2023 3:35 PM PRICING/SIGNAGE TEAM MEMBER Plan of Treatment Health Maintenance Due Date Last Done Comments HPV Vaccines (3 - 3-dose series) 02/22/2009 11/30/2008, 09/20/2008, 07/26/2008 COVID-19 Vaccine ( season) 2024 Lipid (Cholesterol) Screening 03/22/2024 03/22/2019 Depression Screening (Annual PHQ-2) 06/29/2024 Influenza Vaccine (#1) 2025 , 05/14/2020, 04/11/2019, Additional history exists Cervical/Vaginal Cancer Screening 09/12/2027 09/11/2022, 09/11/2022, 03/21/2019, [...] this topic Medical Devices Implanted Type Area Assistant Director Device Identifier Shelf Expiration Date Model / Serial / Lot Clp Apr Lgm Intnl Endo 5x13 - [id number] Implanted:Qty: 1 on 07/23/2018 by Albino Pathak M.D. at [facility] Hardware e.g. pins/screws/r ods Ethicon [id number] / / Procedures Procedure Name Priority Date/Time Associated Diagnosis Comments EXT THINPREP W/HPV CO-TEST SCREEN Routine 09/11/2022 9:29 AM CDT HCV AB SCRN W/REFLEX TO HCV PCR, S Routine 09/14/2020 9:50 AM CDT Screening Examination For Viral Disease HIV-1/-2 AG AND AB SCREEN, PLASMA Routine 09/14/2020 9:50 AM CDT Screening Examination For Viral Disease LIPID PANEL, S Routine 03/22/2019 9:39 AM CDT Screening Lipid from Last 3 Months or Most Recently [...] - 09/19/2022 6:45 AM CDT Resulting Agency [facility] Specimen Collected: 09/11/22 09:29 Last Resulted: 09/19/22 06:45 Received From: [facility] Result Received: 10/31/22 12:55 us Historical Provider [...] Final Result [facility] [address] [place] [address], [facility] ECLR [facility] [place] [address] * HCV Ab Scrn w/Reflex to HCV PCR, Serum (09/14/2020 9:50 AM CDT) HCV Ab Screen, S Negative Negative 09/15/19 3:52 PM CDT ECLR Comment: Biotin has been identified by the neon sign maker as a potential interfering substance. Higher concentrations [...] 3:52 PM CDT Specimen Information: Specimen ID: [id number] Specimen Type: Blood Specimen Collection Start Date: 09/14/2020 9:50 AM Specimen Received Date: 09/14/2020 3:12 PM Specimen ID: [id number] Specimen Type: Blood Specimen Collection Start Date: 09/14/2020 9:50 AM Specimen Received Date: 09/14/2020 3:13 PM us Fidelina Bar M.D. LAB MICROBIOLOGY - BLOOD OR DERABLES Final Result Performing Organization Address City/[facility]/ZIP Co de Phone Number [facility] [address] [place] [address], [facility] ECLR [facility] [place] [address] [place] [address] * Lipid Panel (03/22/2019 9:39 AM CDT) [facility] Cholesterol, Total 122 mg/dL 2018 1:37 PM CDT Comment: ----REFERENCE VALUE---- Desirable: < 200 Borderline high: 200 - 239 High: > or = 240 Triglycerides 61 mg/dL 03/22/2019 1:37 PM CDT Comment: ----REFERENCE VALUE---- Normal: <150 Borderline high: 150-199 High: 200-499 Very high: > or =500 Cholesterol, HDL, S 50 >=50 mg/dL 03/22/2019 1:37 PM CDT Calculated LDL 60 mg/dL 03/22/2019 1:37 PM CDT Comment: ----REFERENCE VALUE---- Desirable: <100 Above Desirable: 100-129 Borderline high: 130-159 High: 160-189 Very high: > or =190 Cholesterol, Non-HDL, Calculated 72 mg/dL 03/22/2019 1:37 PM CDT Comment: ----REFERENCE VALUE---- Desirable: <130 Above Desirable: 130-159 Borderline high: 160-189 High: 190-219 Very high: > or =220 Blood (Blood, Venous) 03/22/2019 9:39 AM CDT 03/22/2019 12:07 PM CDT us Murphy Rivera M.D. LAB BLOOD ADD-ON Debi l Result Performing Organization Address City/[facility]/ZIP Co de Phone Number [facility] [address] [place] [address], [facility] from Last 3 Months or Most Recently Relevant to Health Maintenance Insurance [facility] [place] [id number] Care Teams Procurement Services Manager Relationship Specialty Start Date End Date Fidelina Bar M.D. [address] [place] [address] [phone] PCP - General Family Medicine 09/07/20
--- OUTSIDE RECORDS SUMMARY | 2025-01-31 09:32 | XMS_ITS | Encounter Summary ---
Author Organization [facility] Address [address] [address] Care Team Providers Care Jive Developer Name Role Phone Martell Ortega MD Primary Care Provider [phone] Encounter Details Date Type Department Care Team (Late Contact Info) Description 09/04/2014 Correspondence [facility] OB-JUTE BAG SEWER [place] [address] 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 documented as of this encounter Plan of Treatment Upcoming Encounters Date Type Department Care Team (Late Contact Info) Description 02/28/2025 7:30 AM CDT Appointment [facility] Maternal Medicine [address] [place] [address] [place] [address] [place] [address] 02/28/2025 8:45 AM CDT Appointment [facility] Maternal Medicine [address] [place] [address] Sue Grewal MD [address] [place] [address] [phone] 02/28/2025 9:20 AM CDT Appointment [facility] Obstetrics and Gynecology [address] [place] [address] Willian Fisher MD [address] [place] [address] [phone] documented as of this encounter Visit Diagnoses Not on filedocumented in this encounter Care Teams Jive Developer Relationship Specialty Start Date End Date Martell Ortega MD [address] [place] [address] PCP - General 06/29/23 documented as of this encounter
--- OUTSIDE RECORDS SUMMARY | 2025-01-31 09:32 | XMS_ITS | Encounter Summary ---
Author Organization [facility] Address [address] [place] [id number] Care Team Providers Care Raimann Machine Operator Name Role Phone Martell Ortega MD Primary Care Provider [phone] Encounter Details Date Type Department Care Team (Late st Contact Info) Description 09/04/2014 Correspondence External to External, [place] [address] PT REQUESTING FORM COMPLETION Social History Tobacco Use Types Packs/Day Years Used Date Smoking Tobacco: Never Smokeless Tobacco: Never Alcohol Use Standard Drinks/Week Comments No 0 (1 standard drink = 0.6 oz pur e alcohol) 2/beer/not while Comments No Sex and Gender Information Value Date Recorded Sex Assigned at Not on file Legal Sex Female 7:14 PM ACCOUNT INSTALLATION SPECIALIST Gender Identity Not on file Sexual Orientation Not on file 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 [place] [facility] Maternal Medicine [address] [place] [address] [place] [address] [place] [phone] 02/28/2025 8:[address] [facility] [place] [facility] Maternal Medicine [address] [place] [address] Sue Grewal MD [address] [place] [phone] 02/28/2025 9:[address] [facility] [place] [facility] Obstetrics and Gynecology [address] [place] [address] [phone] Willian Fisher MD [address] [place] [phone] documented as of this encounter Visit Diagnoses Not on filedocumented in this encounter Care Teams Raimann Machine Operator Relationship Specialty Start Date End Date Martell Ortega MD [address] [place] [address] PCP - General 06/29/23 documented as of this encounter
--- OUTSIDE RECORDS SUMMARY | 2025-01-31 09:33 | XMS_ITS | Encounter Summary ---
Author Organization [facility] Address [address] [place] [address] Care Team Providers Care Core Fitter Name Role Phone Martell Ortega MD Primary Care Provider [phone] Reason for Visit * Reason Comments Concerns Encounter Details Date Type Department Care Team (Late st Contact Info) Description 01/31/2025 Nurse Triage Careline [address] 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 Vomited all night long. Lower bilateral abd pain. 10/06 [place]/Parity: Gestational Age (by RACHEL or LMP): 16w6d Patient blood type: Results in Past 300 Days Result Component Current Result Antibody Screen Interpretation Negative (11/28/2024) Does patient have RH negative blood type? Unknown: consider Rhogam Reviewed with patient pertinent medical history and risk status (as it relates to the call): Yes Reviewed with patient pertinent medications (as they relate to call): yes Reviewed with patient pertinent allergies (as they relate to call): Yes Reason for Disposition [1] SEVERE vomiting (e.g., 6 or more times / day) AND [2] present > 8 hours Answer Assessment - Initial Assessment Questions 1. SEVERITY - NAUSEA: How bad is the nausea? (e.g., none; mild, moderate, severe) - NO NAUSEA (SCALE 0): No nausea. - MILD (SCALE 1-3): Loss of appetite without change in eating habits. - MODERATE (SCALE 4-7): Decreased oral intake without significant weight loss, dehydration, or malnutrition. - SEVERE (SCALE 8-10 OR 'WORST POSSIBLE'): Inadequate caloric or fluid intake, with significant weight loss or symptoms of dehydration; some patients may be receiving tube feeding or total parenteralnutrition (TPN). severe 2. SEVERITY - VOMITING: Are you vomiting? If Yes, ask: How many times have you vomited in the past 24 hours? (e.g., nausea only; mild, moderate or severe vomiting) - MILD: 1 - 2 times / day. - MODERATE: 3 - 5 times / day, decreased oral intake without significant weight loss or symptoms ofdehydration. - SEVERE: 6 or more times / day, vomits everything or nearly everything, with significant weight loss, symptoms of dehydration. severe 3. ONSET: When did the nausea or vomiting begin? 6 pm last night 4. FLUIDS: What fluids or food have you vomited up today? Are you able to keep any liquids down? none 5. TREATMENT: What have you been doing so far to treat this? antiacid 6. DEHYDRATION: When was the last time you urinated? Are you feeling lightheaded? Weight loss? Just urinated on self 7. : How many weeks are you? How has the been going? 16w6d 8. RACHEL: What date are you expecting to deliver? Estimated Date of Delivery: 07/12/25 9. MEDICINES: What medicines are you taking? (e.g., iron, opioid pain medicines, vitamins, vitamin B6) Prenatals 10. OTHER SYMPTOMS: Do you have any other symptoms? (e.g., diarrhea, fever) Abd pain 10/06 Protocols used: - Morning Sickness (Nausea and Vomiting of )-ADULT-AH * Shelby Valverde - 01/31/2025 8:11 AM CDT Verified patient using 3 identifiers: Yes Caller reports the following red flag symptoms: Pt is 16 weeks 6 days and vomiting and hasback pain. Plan: Transferred directly to a CareLine RN. documented in this encounter Plan of Treatment Upcoming Encounters Date Type Department Care Team (Late st Contact Info) Description 02/28/2025 7:30 AM CDT Appointment [facility] Maternal Medicine [address] [place] [id number] Melany Cobb MD [address] [place] [phone] 02/28/2025 8:45 AM CDT Appointment [facility] Maternal Medicine [address] [place] [address] [phone] Sue Grewal MD [address] [place] [address] [phone] 02/28/2025 9:20 AM CDT Appointment [facility] Obstetrics and Gynecology [address] [place] [address] [phone] Willian Fisher MD [address] [place] [address] [phone] documented as of this encounter Visit Diagnoses Not on filedocumented in this encounter Care Teams Core Fitter Relationship Specialty Start Date End Date Martell Ortega MD [address] [place] [address] PCP - General 06/29/23 documented as of this encounter
[2025-01-31] MEDS: METOCLOPRAMIDE HCL 5 MG/ML INJ 10 MG IVP (10:09)
[2025-01-31 10:10] LABS: Hematocrit 41.3 % (33.0-51.0); Hemoglobin* 14.3 gm/dL (12.0-16.0); Immature Granulocytes Abs Auto 0.01 K/uL (0.00-0.30); Immature Granulocytes Pct Auto 0.1 %; Mean Corpuscular HGB Conc 35 gm/dL (32-36); Mean Corpuscular Hemoglobin 31 pg (26-34); Mean Corpuscular Volume 91 fL (80-100); RDW Coefficient of Variation % 12.3 % (11.5-15.5); Red Blood Count 4.56 m/uL (4.00-5.20); White Blood Count* 9.89 K/uL (4.50-11.00)
[2025-01-31] MEDS: LACTATED RINGERS 1000 ML 1,000 ML IV ×2 (10:11→14:24)
[2025-01-31 10:12] LABS: Lymphocytes Absolute Auto 0.50 K/uL (0.90-2.90); Slide Review Reflex No
--- NOTE | 2025-01-31 10:13 | ED.GENADULT ---
HPI - General Adult General Date Seen: 01/31/25 Chief complaint: Nausea/Vomiting Stated complaint: 16weeks , nonstop vomiting Time Seen by Provider: 01/31/25 09:25 Source: patient Mode of arrival: ambulatory Limitations: no limitations History of Present Illness HPI narrative: Patient is a 34-year-old female who is 16 weeks presenting to the emergency department for nausea and vomiting. Symptoms 1st started last night around 18:00 in have been persisting. She last vomited this morning at 07:00 was not been to eat or drink anything since symptoms began. She has never had symptoms like this before. Denies any fevers or chills. Has not had any dysuria, polyuria, diarrhea, constipation, weakness, numbness, headache. She does states she feels very dehydrated. She does states she has some epigastric burning sensation this feels like reflux. Is not taking can home for her nausea. Does states she has some mild left pelvic pain that she rates as a 3/10. She does believe she got sick from her child who has vomited over the weekend. He is in daycare. No other sick contacts that she is aware of. Does states she is having some mild bilateral lower back pain but denies in her incontinence, retention, saddle anesthesia. Related Data Home Medications ?Medication ?Instructions ?Recorded ?Confirmed omeprazole 40 mg capsule,delayed 40 mg PO QAM 03/27/23 09/08/24 release vitamins with calcium 1 tab PO DAILY 03/27/23 09/08/24 no.72-iron 27 mg-folic acid 1 mg tablet ( Vitamins Plus Low Iron) acetaminophen 325 mg capsule 325 mg PO ONCE PRN 06/26/23 09/08/24 acetaminophen-caffeine 500 mg-65 1 tab PO Q12H PRN 06/26/23 09/08/24 mg tablet (Excedrin Tension Headache) sumatriptan succinate 50 mg tablet 50 mg PO Q2H PRN 07/16/23 09/08/24 (Imitrex) Previous Rx's ?Medication ?Instructions ?Recorded metoclopramide HCl 10 mg tablet 10 mg PO Q6-8H PRN headache #14 04/10/23 (Reglan) tabs Allergies Allergy/AdvReac Type Severity Reaction Status Date / Time cat dander Allergy Intermediate Hives Verified 09/08/24 15:52 contact metal agent AdvReac Intermediate Blister Verified 09/08/24 15:52 doxycycline AdvReac Intermediate Gastrointestinal Verified 09/08/24 15:52 Upset nickel AdvReac Intermediate Blister Verified 09/08/24 15:52 Review of Systems Status of ROS: Reports: 10 or more systems reviewed and unremarkable except as noted in History and below [facility] Medical History Health care directive on file ?Z78.9 - Other specified health status (ICD-10) History of cardiac murmur ?Z86.79 - Personal history of other diseases of the circulatory system (ICD-10) History of depression ?Z86.59 - Personal history of other mental and behavioral disorders (ICD-10) Thyroid dysfunction, ?O99.285 - Endocrine, nutritional and metabolic diseases complicating the puerperium (ICD-10) ?E07.9 - Disorder of thyroid, unspecified (ICD-10) Migraine headache without aura ?G43.009 - Migraine without aura, not intractable, without status migrainosus (ICD-10) History of DVT of lower extremity ?Z86.718 - Personal history of other venous thrombosis and embolism (ICD-10) Surgical History History of cholecystectomy ?Z90.49 - Acquired absence of other specified parts of digestive tract (ICD-10) [place] teeth extracted ?K08.409 - Partial loss of teeth, unspecified cause, unspecified class (ICD-10) Hx of tonsillectomy ?Z90.89 - Acquired absence of other organs (ICD-10) Family History Aunt Breast cancer, Onset Age: 50 Aunt Breast cancer, Onset Age: 50 Father Lung cancer Arthritis Smoker Maternal Grandfather Lung cancer Maternal Grandmother Arthritis Dementia Diabetes Sleep apnea Thyroid disease Mother Sleep apnea Thyroid disease Rheumatoid arthritis Aunt Breast cancer, Onset Age: 40 Thyroid disease Diabetes Depression Paternal Grandfather Prostate cancer Paternal Grandmother Dementia Sister Depression Anesthesia complication Uncle Colon cancer Prostate cancer Rectal cancer Social History Narrative: SOCIAL 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 Unable to assess present due to partner presence. Special Diet: Denies Ok with a blood transfusion: yes Culture or confucianist beliefs: confucianist RISK FACTORS Exercise Times/wk: walks occasionally Depression/Anxiety: history but feels stable at this time OLAF: 8 PHQ 9: 10 Seat Belt Use: Routinely Smoking: Denies past/present Alcohol/day: Denies while Caffeine: occasionally tea Drug Use: Denies past/present. THC gummy's before +UPT Chicken Pox: vaccinated as an adult MRSA: Denies What is your current living situation?: I presently have a place to live Problems where you live: pests, such as bugs, ants, or mice In the past 12 months, utilities in danger of being shut off: no In past 12 months, lack of transportation kept you from medical appts, meetings, work, or getting things needed for daily living: no In the past 12 mos, have been you worried that your food would run out before you had money to buy more?: never true In the past 12 mos, the food you bought just didn't last and you didn't have money to buy more?: never true Smoking Status: Never smoker Do you use any of these nicotine containing products: None Second hand tobacco smoke exposure: No How often do you have a drink containing alcohol: monthly or less How many standard drinks containing alcohol do you have on a typical day: 1 or 2 How often do you have six or more drinks on one occasion: Never AUDIT-C Alcohol total score: 1 Non-prescribed substance use: denies use How often does anyone, including family, friends and others, physically hurt you: never How often does anyone, including family, friends and others, insult or talk down to you: rarely How often does anyone, including family, friends and others, threaten you with harm: never How often does anyone, including family, friends and others, scream or curse at you: sometimes service: No Health Related Social Needs: Inadequate housing (Z59.1) and Other personal risk factors, not elsewhere classified (Z91.89) Exam Narrative: Exam Narrative: Const: Well-nourished, Well-developed, in moderate distress Eyes: PERRL, no conjunctival injection, and symmetrical lids HENT: Atraumatic external nose and ears. Moist mucous membranes. Neck: Symmetric, trachea midline, No thyromegaly. CVS: RRR, No murmurs or gallops. Peripheral pulses 2+ and equal in all extremities RESP: Unlabored respiratory effort. Clear to auscultation bilaterally. GI: Mild right lower quadrant abdominal tenderness about 2 cm above McBurney point Nondistended, No rebound or guarding. : Left pelvic tenderness MSK:Extremities w/o deformity, Normal Active ROM Skin: Warm, Dry. No rashes or lesions. Neuro: Normal Muscle tone, No focal neurological deficits. Psych: Awake, Alert, & Oriented x3. Appropriate mood and affect. Const: Vital Signs, click to edit/add: Vital Signs - 24 hr 01/31/25 09:20 01/31/25 09:28 01/31/25 09:50 Temperature 96.8 F L Pulse Rate [Pulse Oximeter] 111 H Respiratory Rate 18 16 Blood Pressure [Ri ght Upper Arm] 76/54 L 101/75 Pulse Oximetry 97 Oxygen Delivery Me thod Room Air 01/31/25 13:39 Temperature Pulse Rate [Pulse Oximeter] 108 H Respiratory Rate 17 Blood Pressure [Ri ght Upper Arm] 84/56 L Pulse Oximetry 95 Oxygen Delivery Me thod Room Air Course Vital Signs Vital signs: Initial Vital Signs Respiratory Rate 18 01/31/25 09:20 Respiratory Effort Normal 01/31/25 09:20 Respiratory Depth Normal 01/31/25 09:20 Respiratory Pattern Normal 01/31/25 09:20 Pulse Oximetry 97 01/31/25 09:20 Oxygen Delivery Method Room Air 01/31/25 09:20 Vital Signs Respiratory Rate 18 01/31/25 09:20 Pulse Oximetry 97 01/31/25 09:20 Oxygen Delivery Method Room Air 01/31/25 09:20 Temperature 96.8 F L 01/31/25 09:28 Pulse Rate 108 H 01/31/25 13:39 Respiratory Rate 17 01/31/25 13:39 Blood Pressure 84/56 L 01/31/25 13:39 Pulse Oximetry 95 01/31/25 13:39 Oxygen Delivery Method Room Air 01/31/25 13:39 Medications Administered Medications: Generic Name Dose Route Start Last Admin Trade Name Freq PRN Reason Stop Dose Admin Lactated Ringer's 1,000 mls @ 1,000 mls/hr 01/31/25 14:16 01/31/25 14:24 Lactated Ringers 1000 Ml IV 01/31/25 15:15 1,000 mls/hr .Q1H ONE Administration Discontinued Medications Generic Name Dose Route Start Last Admin Trade Name Ry GRIJALVAN Reason Stop Dose Admin Lactated Ringer's 1,000 mls @ 1,000 mls/hr 01/31/25 09:58 01/31/25 12:43 Lactated Ringers 1000 Ml IV 01/31/25 10:57 Infused .Q1H ONE Infusion Lidocaine/Aluminum/Magnesium/Simeth 30 ml 01/31/25 10:16 01/31/25 10:25 Gi Cocktail (Visc Lido/Antacid) 30 Ml PO 01/31/25 10:17 30 ml ONCE ONE Administration Metoclopramide HCl 10 mg 01/31/25 09:58 01/31/25 10:09 Metoclopramide Hcl 5 Mg/Ml Inj IVP 01/31/25 09:59 10 mg ONCE ONE Administration Ondansetron HCl 4 mg 01/31/25 12:44 01/31/25 13:44 Ondansetron 2 Mg/Ml Inj IVP 01/31/25 12:45 4 mg ONCE ONE Administration Medical Decision Making MDM Narrative Medical decision making narrative: Patient is a 34-year-old female presenting to the emergency department for nausea and vomiting. This is likely hyperemesis gravidarum concerned she is 16 weeks . Could also be related to a viral infection. She initially is painful left lower quadrant/pelvic pain. She did have some minor tenderness to her right sided mid lower abdomen. I had some concern for appendicitis but do not want to CT scan as she is 16 weeks . Did consider doing an MRI but overall the pain is relatively mild insert do not even notice it until I pushed in the area. Most her pain is located to left lower quadrant which she describes as [id number]. Will hold off any imaging until lab work is done and further medications to see how she is feeling. She did have some epigastric/chest pain burning sensation that she describes as reflux but I will do an EKG and troponin to better evaluate. Will also order urinalysis, magnesium, CBC, CMP, viral swabs. L fluid was given and Reglan was given for nausea. After GI cocktail her epigastric and chest burning have resolved. Lab work returned showing no concerning abnormalities other than very mildly elevated LFTs better probably better than her previous LFTs on file. She also has 4+ ketones in her urine. This is a sign that she is very dehydrated and another L of fluids were given. She was feeling better for low back but they got nauseated again so Zofran was order. To viral swabs were negative. EKG and troponin showed no concerning findings. Patient feels much better and looks much better at this time. Do believe she is safe for discharge. Zofran prescribed the [employer] Lab Data Labs: Lab Results 01/31/25 01/31/25 01/31/25 Range/Units 10:08 10:12 10:16 WBC 9.89 (4.50-11.00) K/uL RBC 4.56 (4.00-5.20) m/uL Hgb 14.3 (12.0-16.0) gm/dL Hct 41.3 (33.0-51.0) % MCV 91 (80-100) fL MCH 31 (26-34) pg MCHC 35 (32-36) gm/dL RDW Coeff of Willi 12.3 (11.5-15.5) % Plt Count 224 (140-440) K/uL Neut % (Auto) 92.8 H (42.0-72.0) % Lymph % (Auto) 5.2 L (20-44) % Cochran % (Auto) 1.9 (0.0-11.0) % Eos % (Auto) 0.0 (0.0-7.0) % Baso % (Auto) 0.0 (0.0-3.0) % Neut # (Auto) 9.20 H (1.7-7.0) K/uL Lymph # (Auto) 0.50 L (0.90-2.90) K/uL Cochran # (Auto) 0.20 (0.00-0.90) K/UL Eos # (Auto) 0.00 (0.00-0.50) K/uL Baso # (Auto) 0.00 (0.00-0.30) K/uL Abs Immat Gran (auto) 0.01 (0.00-0.30) K/uL Imm/Tot Granulo (auto) 0.1 % Sodium 134 L (135-149) mmol/L Potassium 3.5 L (3.6-5.1) mmol/L Chloride 102 (96-114) mmol/L Carbon Dioxide 23 (20-32) mmol/L Anion Gap 9 (7-15) mEq/L BUN 12 (5-24) mg/dL Creatinine 0.6 (0.5-1.5) mg/dL Estimated GFR 120 ml/min Glucose 122 H (60-115) mg/dL Calcium 8.5 (8.4-10.6) mg/dL Magnesium 1.6 (1.5-2.6) mg/dL Total Bilirubin 0.5 (0.1-1.5) mg/dL AST 43 H (12-35) U/L ALT 44 H (4-35) U/L Alkaline Phosphatase 64 (40-150) U/L Troponin I < 0.01 (0.01-0.04) ng/mL Total Protein 7.6 (6.0-8.3) g/dL Albumin 3.8 (3.3-5.0) g/dL Urine Color (Yellow) Urine Appearance (Clear) Urine pH (5.0-8.5) Ur Specific [place] (1.000-1.030) Urine Protein (Negative) Urine Glucose (UA) (Negative) Urine Ketones (Negative) Urine Blood (Negative) Urine Nitrite (Negative) Urine Bilirubin (Negative) Urine Urobilinogen (0.2-1.0) Ur Leukocyte Esterase (Negative) Urine RBC (0-2) Urine WBC (0-5) Ur Squamous Epith Cells (None-Few) Urine Bacteria (None) SARS-CoV-2 (PCR) Negative SARS-CoV-2 (Negative) Influenza Type A (PCR) Negative PCR FLU A (Negative) Influenza Type B (PCR) Negative PCR FLU B (Negative) RSV (PCR) Negative PCR RSV (Negative) Lab Acknowledgement Test Added 01/31/25 Range/Units 12:23 WBC (4.50-11.00) K/uL RBC (4.00-5.20) m/uL Hgb (12.0-16.0) gm/dL Hct (33.0-51.0) % MCV (80-100) fL MCH (26-34) pg MCHC (32-36) gm/dL RDW Coeff of Willi (11.5-15.5) % Plt Count (140-440) K/uL Neut % (Auto) (42.0-72.0) % Lymph % (Auto) (20-44) % [place]chran % (Auto) (0.0-11.0) % Eos % (Auto) (0.0-7.0) % Baso % (Auto) (0.0-3.0) % Neut # (Auto) (1.7-7.0) K/uL Lymph # (Auto) (0.90-2.90) K/uL Cochran # (Auto) (0.00-0.90) K/UL Eos # (Auto) (0.00-0.50) K/uL Baso # (Auto) (0.00-0.30) K/uL Abs Immat Gran (auto) (0.00-0.30) K/uL Imm/Tot Granulo (auto) % Sodium (135-149) mmol/L Potassium (3.6-5.1) mmol/L Chloride (96-114) mmol/L Carbon Dioxide (20-32) mmol/L Anion Gap (7-15) mEq/L BUN (5-24) mg/dL Creatinine (0.5-1.5) mg/dL Estimated GFR ml/min Glucose (60-115) mg/dL Calcium (8.4-10.6) mg/dL Magnesium (1.5-2.6) mg/dL Total Bilirubin (0.1-1.5) mg/dL AST (12-35) U/L ALT (4-35) U/L Alkaline Phosphatase (40-150) U/L Troponin I (0.01-0.04) ng/mL Total Protein (6.0-8.3) g/dL Albumin (3.3-5.0) g/dL Urine Color Yellow (Yellow) Urine Appearance Clear (Clear) Urine pH 6.0 (5.0-8.5) Ur Specific [place] 1.020 (1.000-1.030) Urine Protein 1+ A (Negative) Urine Glucose (UA) Negative (Negative) Urine Ketones 4+ A (Negative) Urine Blood Negative (Negative) Urine Nitrite Negative (Negative) Urine Bilirubin Negative (Negative) Urine Urobilinogen 0.2 (0.2-1.0) Ur Leukocyte Esterase Negative (Negative) Urine RBC 0-2 (0-2) Urine WBC 0-2 (0-5) Ur Squamous Epith Cells None (None-Few) Urine Bacteria None (None) SARS-CoV-2 (PCR) (Negative) Influenza Type A (PCR) (Negative) Influenza Type B (PCR) (Negative) RSV (PCR) (Negative) Lab Acknowledgement ECG Data Attestation: I personally reviewed and interpreted this ECG as follows: Prior ECG tracings: not available for review Interpretation: Normal sinus rhythm with a rate 100 beats per minute, normal NV intervals, left axis, no ST or T-wave abnormalities. 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 Follow-up with your OB provider as soon as possible. Return to emergency department for new or worsening symptoms. Prescriptions: No Action omeprazole 40 mg capsule,delayed release(DR/EC) 40 mg PO QAM Vitamin Plus Low Iron 27 mg iron- 1 mg tablet 1 tab PO DAILY acetaminophen 325 mg capsule 325 mg PO ONCE PRN Excedrin Tension Headache 500-65 mg tablet 1 tab PO Q12H PRN sumatriptan succinate [Imitrex] 50 mg tablet 50 mg PO Q2H PRN metoclopramide HCl [Reglan] 10 mg tablet 10 mg PO Q6-8H PRN (Reason: headache) Qty: 14 0RF Rx Instructions: Take 10mg every 6-8 hours with Tylenol as needed for headaches. Follow Up/Referrals: Fidelina Bar MD [Primary Care Provider, Family Practice] Stand Alone Forms: [employer] Info Instructions
[2025-01-31 10:17] LABS: Albumin* 3.8 g/dL (3.3-5.0); Chloride* 102 mmol/L (96-114); Potassium* 3.5 mmol/L (3.6-5.1); Sodium* 134 mmol/L (135-149)
[2025-01-31 10:20] LABS: Alanine Aminotransferase* 44 U/L (4-35); Alkaline Phosphatase* 64 U/L (40-150); Anion Gap 9 mEq/L (7-15); Aspartate Amino Transferase* 43 U/L (12-35); Bilirubin Total* 0.5 mg/dL (0.1-1.5); Blood Urea Nitrogen* 12 mg/dL (5-24); Calcium* 8.5 mg/dL (8.4-10.6); Carbon Dioxide* 23 mmol/L (20-32); Creatinine* 0.6 mg/dL (0.5-1.5); Estimated Glomerular Filt Rate 120 ml/min; Glucose* 122 mg/dL (60-115); Total Protein* 7.6 g/dL (6.0-8.3)
[2025-01-31] MEDS: GI COCKTAIL (VISC LIDO/ANTACID) 30 ML PO (10:25)
[2025-01-31 10:54] LABS: PCR FLU A Negative PCR FLU A (Negative); PCR FLU B Negative PCR FLU B (Negative); PCR RSV Negative PCR RSV (Negative); SARS PCR* Negative SARS-CoV-2 (Negative)
[2025-01-31 12:26] LABS: Appearance Urine Clear (Clear)
[2025-01-31] MEDS: ONDANSETRON 2 MG/ML inj 4 MG IVP (13:44)
== END 2025-01-31 15:54 | disposition home or self-care (01) ==
PROVIDERS: Emergency Provider Student in an Organized Health Care Education/Training Program; PCP Family Medicine
DX: O21.0 Mild hyperemesis gravidarum (principal); Z3A.16 16 weeks gestation of pregnancy
CPT/HCPCS: 36415; 80053; 81001; 83735; 84484; 85025; 87631; 93005; 96374; 96375; 99284; A9270; J2405; J2765; J7120